=== PATIENT | male | born 1960 | race Caucasian/White ===

== ENCOUNTER 2017-02-16 07:00 | Emergency (ER) | payer MEDICARE, OTHER ==
[~2017-02-16 07:00] MED LIST: ACET-704 PO; ACET325T9 PO; CHOL100013 PO; CLON0.5T3 PO; CYAN10005 PO; DIVA500T17 PO; DIVA500T4 PO; FINA5TAB4 PO; FLUT9.9S NS; FOLI1TAB16 PO; GEMF600T3 PO; LEVE500T56 PO; LEVE500T6 PO; MIDO10TA PO; MOME110A2 IH; OMEP20TA8 PO; PREG225C PO; TAMS0.4C2 PO; [UNRECOGNIZED DRUG - REMARK]
[2017-02-16] MEDS ORDERED: LIDOCAINE 2% VISCOUS 15 ML SOLUTION. SWSW ONE (07:30)
[2017-02-16 07:38] LABS: NEGATIVE OBC STREP NEG; POSITIVE OBC STREP POS
[2017-02-16] MEDS ORDERED: ACET-704 PO (08:12)
[2017-02-16] MEDS ORDERED: CYCL10TA2 PO (08:12)
[2017-02-16] MEDS ORDERED: CETI10TA22 PO (08:12)
--- NOTE | 2017-02-16 08:12 | PHYS DOC ---
Past Medical History Past Medical History: Asthma, GERD, High Cholesterol, Seizure Additional Past Medical Histor: MR,NEUTROPENIA, Past Surgical History: Other Additional Past Surgical Histo: dental Alcohol Use: None Drug Use: None Adult General Chief Complaint Chief Complaint: BACK PAIN - NO INJURY [facility] HPI Patient is a 56 year old male who presents with history of diabetes type II, hypertension, seizures, CAD, who presents today with sore throat for 3 months and low back pain that began this morning. Patient states he has a flat mattress and this causes him a lot of back pain. Patient states he does not have any money to buy a new mattress in bed. Patient denies any trauma. Patient denies pain radiating to bilateral lower extremities. Denies any loss of bowel bladder function. He states his pain is worse when he turns around. Review of Systems Review of Systems Constitutional: Denies fever or chills [] Eyes: Denies change in visual acuity, redness, or eye pain [] HENT: sore throat [] Respiratory: Denies cough or shortness of breath [] Cardiovascular: No additional information not addressed in HPI [] GI: Denies abdominal pain, nausea, vomiting, bloody stools or diarrhea [] : Denies dysuria or hematuria [] Musculoskeletal: back pain Integument: Denies rash or skin lesions [] Neurologic: Denies headache, focal weakness or sensory changes [] Endocrine: Denies polyuria or polydipsia [] Current Medications Current Medications Current Medications Medications (Trade) Dose Ordered Sig/Chepe Start Time Stop Time Status Last Admin Dose Admin Lidocaine HCl (Viscous Lidocaine) 15 ml 1X ONCE 02/16/17 07:30 02/16/17 07:31 DC 02/16/17 07:25 15 ML Allergies Allergies Allergies Coded Allergies Type Severity Reaction Last Updated Verified No Known Drug Allergies 04/19/14 No Physical Exam Physical Exam Constitutional: Well developed, well nourished, no acute distress, non-toxic appearance. [] HENT: Normocephalic, atraumatic, bilateral external ears normal, oropharynx moist, no oral exudates, nose normal. [] Eyes: PERRLA, EOMI, conjunctiva normal, no discharge. [] Neck: Normal range of motion, no tenderness, supple, no stridor. [] Cardiovascular:Heart rate regular rhythm, no murmur [] Lungs & Thorax: Bilateral breath sounds clear to auscultation [] Abdomen: Bowel sounds normal, soft, no tenderness, no masses, no pulsatile masses. [] Skin: Warm, dry, no erythema, no rash. [] Back: Diffuse paraspinal muscle tenderness to the right lower lumbar spine, no midline lumbar spine tenderness, no CVA tenderness. [] Extremities: No tenderness, no cyanosis, no clubbing, ROM intact, no edema. [] Neurologic: Alert and oriented X 3, normal motor function, normal sensory function, no focal deficits noted. [] Psychologic: Affect normal, judgement normal, mood normal. [] Current Patient Data Vital Signs Vital Signs Date Time Temp Pulse Resp B/P (MAP) Pulse Ox O2 Delivery O2 Flow Rate FiO2 02/16/17 07:04 98.0 61 18 115/56 (75) 95 Room Air 98.0 Lab Values Laboratory Tests Test 02/16/17 07:19 Group A Streptococcus Rapid Negative (NEGATIVE) EKG EKG [] Radiology/Procedures Radiology/Procedures [] Course & Med Decision Making Course & Med Decision Making Pertinent Labs and Imaging studies reviewed. (See chart for details) This is a 56-year-old male patient who presents today for low back pain due to his mattress and bed. Recommended getting a new mattress. Patient states he cannot afford one recommended adjusting the bed and mattress including flipping it if possible. Recommended heat for his back. He has also had a sore throat for 3 months. Negative rapid strep. Discharged with Tylenol 3 and cyclobenzaprine. Saltwater gargles recommended. Zyrtec also recommended. Follow- up with PCP in one week. Dragon Disclaimer Dragon Disclaimer This electronic medical record was generated, in whole or in part, using a voice recognition dictation system. Departure Departure Impression: Primary Impression: Viral pharyngitis Additional Impression: Back pain Disposition: HOME, SELF-CARE Condition: STABLE Referrals: EDIE MANUEL (PCP) follow up with your doctor in one week Patient Instructions: Back Pain, Adult, Viral Pharyngitis Additional Instructions: You were seen for low back pain and sore throat. We highly recommend you adjust or get a new mattress or bed. We sent you home with pain medicine and muscle relaxer. Use them as prescribed. Follow-up with your doctor in one week. Use salt water gurgles and take Zyrte it will help with the sore throat if it is due to seasonal allergies. Scripts Cetirizine Hcl (ZYRTEC) 10 Mg Tablet 1 TAB PO DAILY, #14 TAB 0 Refills Prov: AUGUSTO MEJIA APRN 02/16/17 Cyclobenzaprine Hcl (CYCLOBENZAPRINE HCL) 10 Mg Tablet 1 TAB PO TID, #30 TAB Prov: AUGUSTO MEJIA APRN 02/16/17 Acetaminophen With Codeine (TYLENOL WITH CODEINE #3 TABLET) 1 Each Tablet 1 TAB PO PRN Q6HRS Y for PAIN, #20 TAB Prov: AUGUSTO MEJIA APRN 02/16/17 Problem Qualifiers Additional Impression: Back pain Back pain location: low back pain Chronicity: acute Back pain laterality: bilateral Sciatica presence: without sciatica Qualified Codes: M54.5 - Low back pain AUGUSTO MEJIA APRN Feb 16, 2017 08:12
[2017-02-16 08:29] VITALS: BP 99/60
== END 2017-02-16 08:30 | disposition home or self-care (01) ==
LOC: ER 07:00
DX: J02.8 Acute pharyngitis due to other specified organisms (principal); B97.89 Other viral agents as the cause of diseases classified elsewhere; M54.5 Low back pain; J45.909 Unspecified asthma, uncomplicated; K21.9 Gastro-esophageal reflux disease without esophagitis; E78.00 Pure hypercholesterolemia, unspecified; E11.9 Type 2 diabetes mellitus without complications; I10 Essential (primary) hypertension; I25.10 Atherosclerotic heart disease of native coronary artery without angina pectoris
CPT/HCPCS: 87070; 87880; 99284

== ENCOUNTER 2017-03-23 14:23 | Emergency (ER) | payer MEDICARE ==
[~2017-03-23 14:23] MED LIST changes: +CETI10TA22 PO; +CYCL10TA2 PO
[2017-03-23 15:05] LABS: BASO % 0 % (0-3); EOS % 0 % (0-3); HEMATOCRIT 36.6 % (39.0-53.0); HEMOGLOBIN 12.3 g/dL (13.0-17.5); LYMPH # 1.3 x10^3/uL (1.0-4.8); LYMPH % 39 % (24-48); MEAN CORPUSCULAR HEMOGLOBIN 32 pg (25-35); MEAN CORPUSCULAR HGB CONC 34 g/dL (31-37); MEAN CORPUSCULAR VOLUME 96 fL (79-100); MONO % 24 % (0-9); NEUT % 36 % (31-73); PLATELET COUNT 127 x10^3/uL (140-400); RED BLOOD COUNT 3.79 x10^6/uL (4.30-5.70); RED CELL DISTRIBUTION WIDTH 15.9 % (11.5-14.5); WHITE BLOOD COUNT 3.2 x10^3/uL (4.0-11.0)
--- NOTE | 2017-03-23 15:10 | PHYS DOC ---
Past Medical History Past Medical History: Asthma, GERD, High Cholesterol, Seizure Additional Past Medical Histor: MR,NEUTROPENIA, Past Surgical History: Other Additional Past Surgical Histo: dental Alcohol Use: None Drug Use: None Adult General Chief Complaint Chief Complaint: SEIZURE HPI HPI Patient is a 56 year old male with history of seizures, as well as stimulator in place, according to [employer] he had 3 seizures yesterday and 2 today. Seizures described as being typical for the patient. Patient is also on medications for seizure prevention and is compliant with medications. No recent illnesses, no recent change in medication, no sick contacts. No reports of trauma. Prior to arrival to ED pt was discussed with Dr Main who recommended the patient come to the ED Review of Systems Review of Systems Constitutional: Denies fever or chills, no recent illness Eyes: Denies change in visual acuity, redness, or eye pain [] HENT: Denies nasal congestion or sore throat [] Respiratory: Denies cough or shortness of breath [] Cardiovascular: No chest pain, back pain, neck pain GI: Denies abdominal pain, nausea, vomiting, bloody stools or diarrhea [] : Denies dysuria or hematuria [] Musculoskeletal: Denies back pain or joint pain [] Integument: Denies rash or skin lesions [] Neurologic: Denies headache, focal weakness or sensory changes. Multiple seizures in the last 2 days Endocrine: Denies polyuria or polydipsia [] Current Medications Current Medications Current Medications Medications (Trade) Dose Ordered Sig/Chepe Start Time Stop Time Status Last Admin Dose Admin Acetaminophen (Tylenol) 500 mg 1X ONCE 03/23/17 16:15 03/23/17 16:17 DC 03/23/17 16:22 500 MG Levetiracetam 500 mg/Sodium Chloride 100 ml @ 500 mls/hr 1X ONCE 03/23/17 15:00 03/23/17 15:11 DC 03/23/17 15:27 500 MLS/HR Valproic Acid 500 mg/Sodium Chloride 55 ml @ 55 mls/hr 1X ONCE 03/23/17 15:30 03/23/17 16:29 DC 03/23/17 15:47 55 MLS/HR Allergies Allergies Allergies Coded Allergies Type Severity Reaction Last Updated Verified No Known Drug Allergies 03/23/17 No Physical Exam Physical Exam Constitutional: Well developed, well nourished, no acute distress, non-toxic appearance. [] HENT: Normocephalic, atraumatic, bilateral external ears normal, oropharynx moist, no oral exudates, nose normal. [] Eyes: PERRLA, EOMI, conjunctiva normal, no discharge. [] Neck: Normal range of motion, no tenderness, supple, no stridor. No LAD, no meningeal signs Cardiovascular:Heart rate regular rhythm, no murmur, normal perfusion, no signs of vascular insufficiency Lungs & Thorax: Bilateral breath sounds clear to auscultation, no tachypnea Abdomen: Bowel sounds normal, soft, no tenderness, no masses, no pulsatile masses. [] Skin: Warm, dry, no erythema, no rash. [] Back: No tenderness, no CVA tenderness. [] Extremities: No tenderness, no cyanosis, no clubbing, ROM intact, no edema. [] Neurologic: Alert and oriented X 3, normal motor function no focal deficits noted. [] Psychologic: Affect normal, judgement normal, mood normal. Patient cooperated with exam Current Patient Data Vital Signs Vital Signs Date Time Temp Pulse Resp B/P (MAP) Pulse Ox O2 Delivery O2 Flow Rate FiO2 03/23/17 16:00 90 20 128/65 (86) 97 Room Air 03/23/17 14:31 98.5 98.5 Lab Values Laboratory Tests Test 03/23/17 14:55 White Blood Count 3.2 x10^3/uL (4.0-11.0) L Red Blood Count 3.79 x10^6/uL (4.30-5.70) L Hemoglobin 12.3 g/dL (13.0-17.5) L Hematocrit 36.6 % (39.0-53.0) L Mean Corpuscular Volume 96 fL (79-100) Mean Corpuscular Hemoglobin 32 pg (25-35) Mean Corpuscular Hemoglobin Concent 34 g/dL (31-37) Red Cell Distribution Width 15.9 % (11.5-14.5) H Platelet Count 127 x10^3/uL (140-400) L Neutrophils (%) (Auto) 36 % (31-73) Lymphocytes (%) (Auto) 39 % (24-48) Monocytes (%) (Auto) 24 % (0-9) H Eosinophils (%) (Auto) 0 % (0-3) Basophils (%) (Auto) 0 % (0-3) Neutrophils # (Auto) 1.2 x10^3uL (1.8-7.7) L Lymphocytes # (Auto) 1.3 x10^3/uL (1.0-4.8) Monocytes # (Auto) 0.8 x10^3/uL (0.0-1.1) Eosinophils # (Auto) 0.0 x10^3/uL (0.0-0.7) Basophils # (Auto) 0.0 x10^3/uL (0.0-0.2) Segmented Neutrophils % 40 % (35-66) Band Neutrophils % 4 % (0-9) Lymphocytes % 36 % (24-48) Monocytes % 20 % (0-10) H Platelet Estimate Decreased (ADEQUATE) Anisocytosis Slight Urine Collection Type Unknown Urine Color Adia Urine Clarity Clear Urine pH 5.5 Urine Specific [place] >=1.030 Urine Protein 30 mg/dL (NEG-TRACE) Urine Glucose (UA) Negative mg/dL (NEG) Urine Ketones (Stick) Negative mg/dL (NEG) Urine Blood Negative (NEG) Urine Nitrite Negative (NEG) Urine Bilirubin Small (NEG) Urine Urobilinogen Dipstick 1.0 mg/dL (0.2 mg/dL) Urine Leukocyte Esterase Negative (NEG) Urine RBC 0 /HPF (0-2) Urine WBC Occ /HPF (0-4) Urine Squamous Epithelial Cells Few /LPF Urine Bacteria 0 /HPF (0-FEW) Urine Hyaline Casts Few /HPF Urine Mucus Marked /LPF Sodium Level 140 mmol/L (136-145) Potassium Level 3.5 mmol/L (3.5-5.1) Chloride Level 101 mmol/L (98-107) Carbon Dioxide Level 30 mmol/L (21-32) Anion Gap 9 (6-14) Blood Urea Nitrogen 16 mg/dL (8-26) Creatinine 0.7 mg/dL (0.7-1.3) Estimated GFR (Cockcroft-Gault) 117.5 BUN/Creatinine Ratio 23 (6-20) H Glucose Level 136 mg/dL (70-99) H Calcium Level 9.0 mg/dL (8.5-10.1) Total Bilirubin 0.8 mg/dL (0.2-1.0) Aspartate Amino Transferase (AST) 24 U/L (15-37) Alanine Aminotransferase (ALT) 20 U/L (16-63) Alkaline Phosphatase 53 U/L (46-116) Total Protein 7.6 g/dL (6.4-8.2) Albumin 3.7 g/dL (3.4-5.0) Albumin/Globulin Ratio 0.9 (1.0-1.7) L Valproic Acid Level 58 mcg/mL (50-100) Valproic Acid Last Dose Date 03/23/17 Valproic Acid Last Dose Time 0800 Laboratory Tests 03/23/17 14:55 Laboratory Tests 03/23/17 14:55 EKG EKG SR, 95, no stemi, EP interpretation at 1516[] Radiology/Procedures Radiology/Procedures [] Course & Med Decision Making Course & Med Decision Making Pertinent Labs and Imaging studies reviewed. (See chart for details) Pt discussed with Dr Alva (and he discussed with Dr Main) . They' agree to give the patient an extra dose of Keppra and valproic acid Endocet with the patient in the ED, if no more seizure activity is observed the patient can be discharged back to his home. 1803 I reevaluated the patient and the patient is found to be in no distress, vital signs are unremarkable, I explained plan to the patient and the [employer] there are no reservations about being discharged home. [] Dragon Disclaimer Dragon Disclaimer This electronic medical record was generated, in whole or in part, using a voice recognition dictation system. Departure Departure Impression: Primary Impression: Seizure Disposition: 01 HOME, SELF-CARE Condition: STABLE Referrals: EDIE MANUEL (PCP) RAFAEL MAIN MD Patient Instructions: Seizure, Adult Additional Instructions: please follow up with your pcp and neurologist regarding this ED visit in 2-4 days. Please let them know there is a keppra level pending. Beth TURK MD Mar 23, 2017 15:10
[2017-03-23 15:13] LABS: CREATININE 0.7 mg/dL (0.7-1.3); GFR 117.5; POTASSIUM 3.5 mmol/L (3.5-5.1)
[2017-03-23 15:19] LABS: ALBUMIN 3.7 g/dL (3.4-5.0); ALBUMIN/GLOBULIN RATIO 0.9 (1.0-1.7); TOTAL BILIRUBIN 0.8 mg/dL (0.2-1.0); TOTAL PROTEIN 7.6 g/dL (6.4-8.2)
--- NOTE | 2017-03-23 15:21 | EKG ---
[facility] [address] [place] [address] Test Date: 2017-03-23 Test Time: 15:14:57 Pat Name: ISABELA VANCE Department: Room: Gender: M Inspector Mechanical: : [id number] Requested By: Beth TURK Order Number: [id number] Reading MD: Donavan Pan Measurements Intervals [place] Rate: 95 P: 39 AR: 156 QRS: 31 QRSD: 74 T: 46 QT: 340 QTc: 430 Interpretive Statements SINUS RHYTHM Electronically Signed On 03-25-2017 15:04:41 CDT by Donavan Pan
[2017-03-23] MEDS ORDERED: VALPROIC ACID (AS SODIUM SALT) 500 MG in IV NORMAL SALINE 50ML 50 ML IV ONE (15:30)
[2017-03-23 15:45] LABS: ANISOCYTOSIS SLIGHT; PLT ESTIMATE DECREASED (ADEQUATE)
[2017-03-23 16:04] LABS: BILIRUBIN,URINE SMALL (NEG); GLUCOSE,URINE NEGATIVE (NEG); NITRITE,URINE NEGATIVE (NEG); PH,URINE 5.5; PROTEIN,URINE 30 mg/dL (NEG-TRACE)
[2017-03-23 16:12] LABS: BACTERIA,URINE 0 /HPF (0-FEW); RBC,URINE 0 /HPF (0-2); SQUAMOUS EPITHELIAL CELL,UR FEW /LPF; WBC,URINE OCC /HPF (0-4)
[2017-03-23] MEDS ORDERED: ACETAMINOPHEN 500 MG TABLET PO ONE (16:15)
[2017-03-23 18:02] VITALS: BP 120/62
== END 2017-03-23 18:10 | disposition home or self-care (01) ==
LOC: ER 14:23
DX: R56.9 Unspecified convulsions (principal); K21.9 Gastro-esophageal reflux disease without esophagitis; E78.00 Pure hypercholesterolemia, unspecified; J45.909 Unspecified asthma, uncomplicated
CPT/HCPCS: 36415; 80053; 80164; 81001; 85007; 85027; 93005; 96365; 96367; 99285; J1953

== ENCOUNTER 2017-09-19 17:41 | Emergency (ER) | payer MEDICARE ==
[2017-09-19] MEDS: IBUPROFEN 400 MG TABLET. PO (18:31)
== END 2017-09-19 19:25 | disposition home or self-care (01) ==
LOC: ER 17:41
DX: G40.909 Epilepsy, unspecified, not intractable, without status epilepticus (principal); E78.00 Pure hypercholesterolemia, unspecified; K21.9 Gastro-esophageal reflux disease without esophagitis; J44.9 Chronic obstructive pulmonary disease, unspecified
CPT/HCPCS: 99284

== ENCOUNTER → 2017-10-09 | Outpatient (CLI) | payer MEDICARE, OTHER | END | disposition home or self-care (01) | LOC: KCIC CT 11:56 | DX: M54.2 Cervicalgia (principal) | CPT/HCPCS: 70490 ==

== ENCOUNTER 2018-03-12 15:42 | Emergency (ER) | payer MEDICARE, OTHER ==
[2018-03-12] MEDS: HYDROcodone/APAP 7.5/325MG 1 TAB TABLET PO (19:19)
== END 2018-03-12 21:00 | disposition home or self-care (01) ==
LOC: ER 15:42
DX: G40.909 Epilepsy, unspecified, not intractable, without status epilepticus (principal); M25.461 Effusion, right knee; F31.9 Bipolar disorder, unspecified; K21.9 Gastro-esophageal reflux disease without esophagitis; E78.00 Pure hypercholesterolemia, unspecified; J44.9 Chronic obstructive pulmonary disease, unspecified
CPT/HCPCS: 29505; 73564; 73700; 99284-25

== ENCOUNTER 2018-04-07 12:35 | Emergency (ER) | payer MEDICARE, OTHER ==
[~2018-04-07] VITALS: Ht 152.4 cm; Wt 80.7 kg
[~2018-04-07 12:35] MED LIST changes: +CLON0.5T11 PO; -CLON0.5T3 PO; +HYDR-971 PO; +IBUP-1060 PO
--- NOTE | 2018-04-07 13:26 | PHYS DOC ---
Past Medical History Past Medical History: Anemia, Asthma, Bipolar, COPD, GERD, High Cholesterol, Seizure Additional Past Medical Histor: MR,NEUTROPENIA, Past Surgical History: Cholecystectomy, Other Additional Past Surgical Histo: dental Alcohol Use: None Drug Use: None Adult General Chief Complaint Chief Complaint: OTHER COMPLAINTS [facility] HPI Patient is a 57 year old male with a history of MR presents to the ED complaining of neck pain 1 week. Patient lives in a residential with other residents. Patient was brought to the ED because he is complaining of neck pain. Patient states that his bed at home is very hard and it causes him to have neck pain. States he has taken Tylenol at home. Describes the pain as sharp. Rates the pain as 6 out of 10. Staff at the residential states he may have had a seizure. Patient has never had a seizure in the past. Nobody witnessed a seizure. EMS states on arrival patient is alert and oriented and complaining of neck pain. Denied injury. Patient denies seizure, chest pain, shortness of breath, photophobia, fever, headache, vision changes, nausea/ vomiting, abdominal pain, injury, weakness, paresthesias or syncope. Review of Systems Review of Systems Constitutional: Denies fever or chills [] Eyes: Denies change in visual acuity, redness, or eye pain [] HENT: Denies nasal congestion or sore throat [] Respiratory: Denies cough or shortness of breath [] Cardiovascular: No additional information not addressed in HPI [] GI: Denies abdominal pain, nausea, vomiting, bloody stools or diarrhea [] : Denies dysuria or hematuria [] Musculoskeletal: Complains of neck pain. Denies back pain or joint pain [] Integument: Denies rash or skin lesions [] Neurologic: Denies headache, focal weakness or sensory changes [] All other systems were reviewed and found to be within normal limits, except as documented in this note. Current Medications Current Medications Current Medications Medications (Trade) Dose Ordered Sig/Chepe Start Time Stop Time Status Last Admin Dose Admin Acetaminophen/ Hydrocodone Bitart (Lortab 5/325) 1 tab 1X ONCE 04/07/18 13:30 04/07/18 13:31 DC 04/07/18 13:58 1 TAB Allergies Allergies Allergies Coded Allergies Type Severity Reaction Last Updated Verified No Known Drug Allergies 03/23/17 No Physical Exam Physical Exam Constitutional: Well developed, well nourished, no acute distress, non-toxic appearance. [] HENT: Normocephalic, atraumatic, bilateral external ears normal, oropharynx moist, no oral exudates, nose normal. [] Eyes: PERRLA, EOMI, conjunctiva normal, no discharge. [] Neck: Normal range of motion, no tenderness, supple, no stridor. [] no nuchal rigidity. Cardiovascular:Heart rate regular rhythm, no murmur [] Lungs & Thorax: Bilateral breath sounds clear to auscultation [] Abdomen: Bowel sounds normal, soft, no tenderness, no masses, no pulsatile masses. [] Skin: Warm, dry, no erythema, no rash. [] Back: No tenderness, no CVA tenderness. [] Extremities: No tenderness, no cyanosis, no clubbing, ROM intact, no edema. [] Neurologic: Alert and oriented X 3, normal motor function, normal sensory function, no focal deficits noted. [] Psychologic: Affect normal, judgement normal, mood normal. [] Current Patient Data Vital Signs Vital Signs Date Time Temp Pulse Resp B/P (MAP) Pulse Ox O2 Delivery O2 Flow Rate FiO2 04/07/18 13:58 16 99 Room Air 04/07/18 12:35 97.9 74 118/65 (82) 97.9 EKG EKG [] Radiology/Procedures Radiology/Procedures [] Course & Med Decision Making Course & Med Decision Making Pertinent Labs and Imaging studies reviewed. (See chart for details) []Normal exam. No injury. Patient has full range of motion. Patient's pain improved with medicine given in the ED. Patients disease case manager at bedside. States patient has same symptoms of neck pain in the past. Discussed symptomatic treatment at home. States he is feeling much better. Discussed follow-up with orthopedics if pain persists. Provided contact information/education. Patient transferred back to residential. His cussed reasons to return to the ED. Patient verbalizes understanding. Dragon Disclaimer Dragon Disclaimer This electronic medical record was generated, in whole or in part, using a voice recognition dictation system. Departure Departure Impression: Primary Impression: Neck pain Disposition: HOME, SELF-CARE Condition: IMPROVED Referrals: EDIE MANUEL (PCP) AMELIA CAI MD Patient Instructions: Muscle Strain ALEKSANDAR DUARTE Apr 07, 2018 13:26
[2018-04-07] MEDS ORDERED: HYDROcodone/APAP 5/325MG 1 TAB TABLET PO ONE (13:30)
[2018-04-07 13:37] VITALS: BP 119/68
== END 2018-04-07 14:10 | disposition home or self-care (01) ==
LOC: ER 12:35
DX: M54.2 Cervicalgia (principal); F31.9 Bipolar disorder, unspecified; J44.9 Chronic obstructive pulmonary disease, unspecified; K21.9 Gastro-esophageal reflux disease without esophagitis; E78.00 Pure hypercholesterolemia, unspecified; Z86.2 Personal history of diseases of the blood and blood-forming organs and certain disorders involving the immune mechanism
CPT/HCPCS: 99284

== ENCOUNTER 2018-06-11 16:33 | Inpatient (IN) | payer MEDICARE, OTHER ==
[~2018-06-11] VITALS: Ht 172.7 cm; Wt 68.7 kg
[~2018-06-11 16:33] MED LIST changes: +BISA5TAB4 PO; +CITA10TA4 PO; +DEXT15DR5 EACHEYE; +FLUT10.6 IH; -GEMF600T3 PO; +GEMF600T4 PO; +MV-M1TAB8 PO; +SENN-37 PO
[2018-06-11] MEDS ORDERED: IV NORMAL SALINE 500ML BAG 500 ML IV ONE (17:15)
[2018-06-11 17:34] LABS: BASO % 0 % (0-3); EOS % 0 % (0-3); HEMATOCRIT 33.8 % (39.0-53.0); HEMOGLOBIN 11.8 g/dL (13.0-17.5); LYMPH # 0.7 x10^3/uL (1.0-4.8); LYMPH % 23 % (24-48); MEAN CORPUSCULAR HEMOGLOBIN 33 pg (25-35); MEAN CORPUSCULAR HGB CONC 35 g/dL (31-37); MEAN CORPUSCULAR VOLUME 93 fL (79-100); MONO # 0.7 x10^3/uL (0.0-1.1); MONO % 22 % (0-9); NEUT # 1.7 x10^3uL (1.8-7.7); NEUT % 54 % (31-73); PLATELET COUNT 191 x10^3/uL (140-400); RED BLOOD COUNT 3.62 x10^6/uL (4.30-5.70); RED CELL DISTRIBUTION WIDTH 16.7 % (11.5-14.5); WHITE BLOOD COUNT 3.1 x10^3/uL (4.0-11.0)
--- NOTE | 2018-06-11 17:36 | PHYS DOC ---
Past Medical History Past Medical History: Anemia, Asthma, Bipolar, COPD, GERD, High Cholesterol, Seizure Additional Past Medical Histor: MR,NEUTROPENIA, Past Surgical History: Cholecystectomy, Other Additional Past Surgical Histo: dental Alcohol Use: None Drug Use: None Adult General Chief Complaint Chief Complaint: ALTERED MENTAL STATUS HPI HPI Patient is a 58 year old male who presents with change in mental status. Patient is referred to this emergency department from a care facility where he lives. He does have a known history of extensive frequent clonic seizures. He is taking multiple medications to prevent these. Today, [facility] staff reports that the patient was found to be slumped in a chair and with some depressed mental status compared to his baseline. The patient is reportedly new at this particular facility and they are not very familiar with the patient. Patient was referred to the emergency department. On arrival to the ER, the patient is somnolent and difficult to arouse. He does not follow commands but is protecting his airway. His blood glucose is in the 140s. There is no additional history available. There are no signs of trauma on his physical exam. Patient is wearing a protective helmet on arrival to the ER. Review of Systems Review of Systems No ROS is available from this patient as he has depressed mental status on arrival. All other systems were reviewed and found to be within normal limits, except as documented in this note. Current Medications Current Medications Current Medications Medications (Trade) Dose Ordered Sig/Chepe Start Time Stop Time Status Last Admin Dose Admin Ondansetron HCl (Zofran) 4 mg PRN Q8HRS PRN 06/11/18 18:30 06/12/18 18:29 Sodium Chloride 1,000 ml @ 100 mls/hr Q10H 06/11/18 19:00 06/12/18 18:59 Allergies Allergies Allergies Coded Allergies Type Severity Reaction Last Updated Verified No Known Drug Allergies 03/23/17 No Physical Exam Physical Exam Constitutional: Well developed, well nourished HENT: Normocephalic, atraumatic Eyes: PERRLA Neck: supple Cardiovascular:Heart rate regular rhythm, no murmur Lungs & Thorax: Bilateral breath sounds clear to auscultation Abdomen: Bowel sounds normal, soft, no tenderness Skin: Warm, dry, no erythema, no rash Extremities: No trauma. No edema Neurologic: Resting with eyes closed, he localizes pain, he is protecting his airway, no facial asymmetry, non-verbal on arrival Current Patient Data Vital Signs Vital Signs Date Time Temp Pulse Resp B/P (MAP) Pulse Ox O2 Delivery O2 Flow Rate FiO2 06/11/18 18:31 84 26 97 06/11/18 16:33 97.8 152/82 (105) Room Air 97.8 Lab Values Laboratory Tests Test 06/11/18 16:50 06/11/18 18:11 White Blood Count 3.1 x10^3/uL (4.0-11.0) L Red Blood Count 3.62 x10^6/uL (4.30-5.70) L Hemoglobin 11.8 g/dL (13.0-17.5) L Hematocrit 33.8 % (39.0-53.0) L Mean Corpuscular Volume 93 fL (79-100) Mean Corpuscular Hemoglobin 33 pg (25-35) Mean Corpuscular Hemoglobin Concent 35 g/dL (31-37) Red Cell Distribution Width 16.7 % (11.5-14.5) H Platelet Count 191 x10^3/uL (140-400) Neutrophils (%) (Auto) 54 % (31-73) Lymphocytes (%) (Auto) 23 % (24-48) L Monocytes (%) (Auto) 22 % (0-9) H Eosinophils (%) (Auto) 0 % (0-3) Basophils (%) (Auto) 0 % (0-3) Neutrophils # (Auto) 1.7 x10^3uL (1.8-7.7) L Lymphocytes # (Auto) 0.7 x10^3/uL (1.0-4.8) L Monocytes # (Auto) 0.7 x10^3/uL (0.0-1.1) Eosinophils # (Auto) 0.0 x10^3/uL (0.0-0.7) Basophils # (Auto) 0.0 x10^3/uL (0.0-0.2) Segmented Neutrophils % 58 % (35-66) Band Neutrophils % 3 % (0-9) Lymphocytes % 20 % (24-48) L Monocytes % 19 % (0-10) H Toxic Granulation Mod Toxic Vacuolation Slight Platelet Estimate Adequate (ADEQUATE) Polychromasia Slight Anisocytosis Slight Sodium Level 136 mmol/L (136-145) Potassium Level 4.1 mmol/L (3.5-5.1) Chloride Level 100 mmol/L (98-107) Carbon Dioxide Level 23 mmol/L (21-32) Anion Gap 13 (6-14) Blood Urea Nitrogen 9 mg/dL (8-26) Creatinine 0.6 mg/dL (0.7-1.3) L Estimated GFR (Cockcroft-Gault) 139.4 Glucose Level 144 mg/dL (70-99) H Lactic Acid Level 1.5 mmol/L (0.4-2.0) Calcium Level 9.4 mg/dL (8.5-10.1) Total Bilirubin 0.7 mg/dL (0.2-1.0) Direct Bilirubin 0.1 mg/dL (0.0-0.2) Aspartate Amino Transferase (AST) 24 U/L (15-37) Alanine Aminotransferase (ALT) 14 U/L (16-63) L Alkaline Phosphatase 53 U/L (46-116) Total Protein 7.8 g/dL (6.4-8.2) Albumin 3.7 g/dL (3.4-5.0) Valproic Acid Level 103 mcg/mL (50-100) H Valproic Acid Last Dose Date 06/11/18 Valproic Acid Last Dose Time 0700 Urine Collection Type U cath Urine Color Yellow Urine Clarity Clear Urine pH 7.0 Urine Specific [place] 1.010 Urine Protein Negative mg/dL (NEG-TRACE) Urine Glucose (UA) Negative mg/dL (NEG) Urine Ketones (Stick) Negative mg/dL (NEG) Urine Blood Negative (NEG) Urine Nitrite Negative (NEG) Urine Bilirubin Negative (NEG) Urine Urobilinogen Dipstick 1.0 mg/dL (0.2 mg/dL) Urine Leukocyte Esterase Negative (NEG) Urine RBC 0 /HPF (0-2) Urine WBC 0 /HPF (0-4) Urine Squamous Epithelial Cells Occ /LPF Urine Bacteria 0 /HPF (0-FEW) Urine Opiates Screen Neg (NEG) Urine Methadone Screen Neg (NEG) Urine Barbiturates Neg (NEG) Urine Phencyclidine Screen Neg (NEG) Urine Amphetamine/Methamphetamine Neg (NEG) Urine Benzodiazepines Screen Neg (NEG) Urine Cocaine Screen Neg (NEG) Urine Cannabinoids Screen Neg (NEG) Urine Ethyl Alcohol Neg (NEG) Laboratory Tests 06/11/18 16:50 Laboratory Tests 06/11/18 16:50 EKG EKG [] Radiology/Procedures Radiology/Procedures CXR: negative CT head: no acute findings Course & Med Decision Making Course & Med Decision Making Pertinent Labs and Imaging studies reviewed. (See chart for details) Patient is evaluated shortly after arrival to his room. He cannot provide any medical history or review of systems as he is nonverbal. He does have a history of seizures and his blood glucose level is stable. Review of the electronic medical record reveals that the patient was recently admitted and was found to have a fever and some bacteremia. The bacteremia was thought ultimately to be secondary to contamination and the fever thought secondary to seizure activity. The patient was treated with vancomycin for 5 days and discharge home without further antibiotics. Given this history, the patient will receive some repeat blood cultures this evening and chest x-ray. Will repeat scan of the head. 18:30: Some additional history is available early as the patient's primary caregiver is at the bedside. The patient does arouse more easily compared to admission but continues to be somnolent overall. According to his caregiver, the patient normally would not have postictal periods lasting this long. This one has been somewhere between 4 and 5 hours. The patient did not have witnessed seizure activity. He was found to be in this state in the halfway where he normally lives. Labs were completed. The patient does not have leukocytosis. Depakote level is mildly elevated above normal range. I spoke to the patient's primary physician, Dr. Colón. The patient will be admitted to the intensive care for close observation. Neurology consult is requested from Dr. Chacon. Keppra level is added to lab panel. PATIENT'S CARGIVER INFORMATION: LIBIA AGUERO [phone] She does request notification about the patient's dx and disposition. Dragon Disclaimer Dragon Disclaimer This electronic medical record was generated, in whole or in part, using a voice recognition dictation system. Departure Departure Referrals: EDIE MANUEL (PCP) NEDRA KUO DO Jun 11, 2018 17:36
[2018-06-11 17:39] LABS: ANION GAP 13 (6-14); BLOOD UREA NITROGEN 9 mg/dL (8-26); CALCIUM 9.4 mg/dL (8.5-10.1); CARBON DIOXIDE 23 mmol/L (21-32); CHLORIDE 100 mmol/L (98-107); CREATININE 0.6 mg/dL (0.7-1.3); GFR 139.4; GLUCOSE 144 mg/dL (70-99); POTASSIUM 4.1 mmol/L (3.5-5.1); SODIUM 136 mmol/L (136-145)
--- NOTE | 2018-06-11 17:40 | RAD ---
CT head without intravenous contrast History: Altered mental status. Seizures. Comparison: CT head May 20, 2018. Technique: Axial images are obtained of the head from the skull base through the vertex without IV contrast. Exposure: One or more of the following individualized dose reduction techniques were utilized for this examination: 1. Automated exposure control 2. Adjustment of the mA and/or kV according to patient size 3. Use of iterative reconstruction technique Findings: There is motion artifact at many levels which could obscure significant abnormality. The ventricles are appropriate in size, shape, and location for the patient's age. No obvious intracranial mass, mass-effect, midline shift, hemorrhage or obvious acute infarction is identified. Basilar cisterns are patent. Bone windows demonstrate no acute calvarial abnormality. There is subtotal opacification right maxillary sinus. Mild left maxillary sinus disease is seen.. Impression: 1. Limited by motion. 2. No acute intracranial process. Please note that CT can be relatively insensitive to acute ischemic infarction for up to 24 hours after symptom onset. 3. Paranasal sinus disease. Electronically signed by: Noble Reyes MD (06/11/2018 5:37 PM) [facility]
[2018-06-11 17:42] LABS: ALBUMIN 3.7 g/dL (3.4-5.0); ALK PHOS 53 U/L (46-116); ALT (SGPT) 14 U/L (16-63); AST (SGOT) 24 U/L (15-37); DIRECT BILIRUBIN 0.1 mg/dL (0.0-0.2); TOTAL BILIRUBIN 0.7 mg/dL (0.2-1.0); TOTAL PROTEIN 7.8 g/dL (6.4-8.2)
[2018-06-11 17:49] LABS: VAL ACID 103 mcg/mL (50-100)
--- NOTE | 2018-06-11 18:09 | RAD ---
Exam: AP portable chest History: Altered mental status. Recent bacteremia. Comparison: May 20, 2018. Findings: The heart and mediastinal structures are within normal limits for size. Lungs are without infiltrate. No pleural effusion or pneumothorax is identified. Left vagal stimulator hardware can be seen. Impression: 1. No acute cardiopulmonary process. Electronically signed by: Noble Reyes MD (06/11/2018 6:06 PM) [facility]
[2018-06-11 18:24] LABS: BILIRUBIN,URINE NEGATIVE (NEG); CLARITY,URINE CLEAR; COLOR,URINE YELLOW; NITRITE,URINE NEGATIVE (NEG); PROTEIN,URINE NEGATIVE (NEG-TRACE)
[2018-06-11 18:29] LABS: BACTERIA,URINE 0 /HPF (0-FEW); RBC,URINE 0 /HPF (0-2); SQUAMOUS EPITHELIAL CELL,UR OCC /LPF; WBC,URINE 0 /HPF (0-4)
[2018-06-11 18:30] LABS: AMPHETAMINE/METHAMPHETAMINE NEG (NEG); BARBITURATES NEG (NEG); BENZODIAZEPINES NEG (NEG); CANNABINOIDS NEG (NEG); COCAINE NEG (NEG); METHADONE NEG (NEG); OPIATES NEG (NEG); PHENCYCLIDINE NEG (NEG)
[2018-06-11] MEDS ORDERED: ONDANSETRON PF 4 MG/2 ML VIAL. IV PRN (18:30)
[2018-06-11 18:48] LABS: % BANDS 3 % (0-9); % LYMPHS 20 % (24-48); % MONOS 19 % (0-10); % SEGS 58 % (35-66)
[2018-06-11 18:52] LABS: ANISOCYTOSIS SLIGHT; PLT ESTIMATE ADEQUATE (ADEQUATE); POLYCHROMASIA SLIGHT; TOXIC GRANULATION MOD; TOXIC VACUOLATION SLIGHT
[2018-06-11] MEDS: IV NORMAL SALINE 1000ML BAG 1,000 ML IV SCH (20:55)
[2018-06-11] MEDS ORDERED: DEXT1DRO8 OU (21:55)
[2018-06-11] MEDS ORDERED: CHOL10003 PO (21:55)
[2018-06-11 23:00] VITALS: BP 97/47
[2018-06-12 03:00] VITALS: BP 103/59
[2018-06-12 05:28] LABS: BASO % 0 % (0-3); EOS % 0 % (0-3); HEMOGLOBIN 10.6 g/dL (13.0-17.5); LYMPH # 1.1 x10^3/uL (1.0-4.8); LYMPH % 42 % (24-48); MEAN CORPUSCULAR HEMOGLOBIN 32 pg (25-35); MEAN CORPUSCULAR HGB CONC 34 g/dL (31-37); MEAN CORPUSCULAR VOLUME 93 fL (79-100); MONO # 0.5 x10^3/uL (0.0-1.1); MONO % 20 % (0-9); NEUT % 38 % (31-73); PLATELET COUNT 174 x10^3/uL (140-400); RED BLOOD COUNT 3.32 x10^6/uL (4.30-5.70); RED CELL DISTRIBUTION WIDTH 17.1 % (11.5-14.5); WHITE BLOOD COUNT 2.7 x10^3/uL (4.0-11.0)
[2018-06-12 05:42] LABS: CALCIUM 9.1 mg/dL (8.5-10.1); CREATININE 0.6 mg/dL (0.7-1.3); GFR 139.4; POTASSIUM 3.6 mmol/L (3.5-5.1)
[2018-06-12] MEDS: IV NORMAL SALINE 1000ML BAG 1,000 ML IV SCH (06:43)
[2018-06-12 07:00] VITALS: BP 100/61
[2018-06-12] MEDS ORDERED: BISACODYL 5 MG TABLET.DR. PO PRN (09:45)
[2018-06-12] MEDS ORDERED: ACETAMINOPHEN 325 MG TABLET. PO PRN (09:45)
--- NOTE | 2018-06-12 09:50 | PDOC ---
Provider Note Provider Note Pt seen.H&P dictated. #[id number]. TAMERA SNELL MD Jun 12, 2018 09:50
[2018-06-12] MEDS ORDERED: IBUPROFEN 400 MG TABLET. PO PRN (10:00)
[2018-06-12] MEDS: POLYVINYL ALCOHOL 1.4% OPHTH SOLUTION 15ML BOTTLE. OU SCH ×2 (10:00→13:00)
--- NOTE | 2018-06-12 10:54 | HP ---
ADMIT DATE: 06/11/2018 LOCATION: [facility]. REASON FOR ADMISSION TO THE HOSPITAL: Postictal, had a perfect prolonged postictal period after the seizure. The patient has refractory seizures on 3 medications, has seen Urology. HISTORY OF PRESENT ILLNESS: The patient is a 58-year-old male with history of seizures. He is on Depakote, Keppra, Lyrica. The patient also has a vagal nerve stimulator. He has been following with Dr. Roy. He lives in a longterm agency to a different agency and yesterday, he had a seizure. He was postictal for a long time after the seizure, so they were concerned, was brought to the hospital. The patient was still lethargic. In the Emergency Room, he had a CT scan, was negative, was admitted overnight for observation. His valproic acid was high at 103. Normal therapeutic range is 50-125. For seizures, it is 50-100 and other drug screen was negative. This morning, the patient is wide awake, back to his baseline and the patient is hungry. PAST MEDICAL HISTORY: The patient has history of seizures, last admitted less than a month ago for a similar episode. He also had positive blood cultures, but it was thought probably contamination. He has vagal nerve stimulator, COPD, bipolar, asthma, intellectual impairment, BPH, orthostatic hypotension. PAST SURGICAL HISTORY: Vagal nerve stimulator, gallbladder surgery, dental problem with surgeries. ALLERGIES: None. MEDICATIONS: Flovent, Asmanex, Tylenol, Dulcolax, Zyrtec, vitamin D, citalopram 10 mg daily, lorazepam 0.5 at bedtime, B12 1000 mcg daily, cyclobenzaprine 10 mg 3 times daily, Depakote 1000 mg twice a day, finasteride 5 mg daily, Flonase daily, Lopid 600 mg twice a day, hydrocodone q.6h., ibuprofen, Keppra 1500 twice a day, midodrine 10 mg 3 times daily, omeprazole 20 mg daily, Lyrica 225 mg daily, Flomax 1 daily. PERSONAL HISTORY: No history of smoking, alcohol, drug abuse. SOCIAL HISTORY: Lives in a longterm. There is a new agency took over his care recently. REVIEW OF SYMPTOMS: Denies any chest pain, shortness of breath. PHYSICAL EXAMINATION: GENERAL: The patient is comfortable, not in any distress. VITAL SIGNS: At the time of admission shows temperature 97, pulse 92, respirations 24, blood pressure 150/82, 98% on room air. HEENT: Head is atraumatic. Pupils equal. Oral cavity: No congestion. NECK: Supple. CHEST: Symmetrical. LUNGS: Clear. CARDIOVASCULAR: S1, S2. ABDOMEN: Soft, no mass palpable. The patient rest rt arm on the left clavicle most of the time. EXTERNAL GENITALIA: No Tom. RECTAL: Deferred. EXTREMITIES: No calf tenderness, no edema. NEUROLOGIC: Moving all extremities. No focal deficits noted. LABORATORY DATA: Shows a white count of 3, hemoglobin 12, platelets 791. Electrolytes show sodium 136, potassium 4.1, chloride 100, bicarbonate 23, BUN 9, creatinine 0.6. Lactic acid 1.5. LFTs were normal. Urine is negative. Toxicology: Valproic acid is 103, normal range is up to 100. Chest x-ray is negative. CT scan of the head was negative. Urine was negative. FINAL IMPRESSION: 1. Prolonged postictal state. 2. Has refractory seizures. The patient is already on 3 medications for seizures Depakote, Keppra, Lyrica and he also has a vagal nerve stimulator. 3. History of orthostatic hypotension. 4. Intellectual impairment. 5. Lives in a longterm. PLAN: At this time, the patient back to his baseline, waiting for Neurology to see if any adjustments will be made in the medications. Otherwise, he could be discharged home later today. TAMERA SNELL MD DR: RICHI/suha JOB#: [id number] / [id number] EDIE Manrique
[2018-06-12 11:00] VITALS: BP 116/64
[2018-06-12] MEDS ORDERED: PANTOPRAZOLE 40 MG TABLET.DR. PO SCH (11:30)
[2018-06-12] MEDS ORDERED: SENNOSIDES/DOCUSATE 8.6/50MG TABLET. PO SCH (12:00)
[2018-06-12] MEDS ORDERED: PREGABALIN 75 MG CAPSULE PO SCH (12:00)
[2018-06-12] MEDS ORDERED: FOLIC ACID 1 MG TABLET. PO SCH (12:00)
[2018-06-12] MEDS ORDERED: DIVALPROEX EXTENDED RELEASE 500 MG TAB.ER.24H. PO SCH (12:00)
[2018-06-12] MEDS ORDERED: CHOLECALCIFEROL (VITAMIN D3) 1,000 UNIT TABLET PO SCH (12:00)
[2018-06-12] MEDS ORDERED: TAMSULOSIN 0.4 MG CAP.ER.24H. PO SCH (12:00)
[2018-06-12] MEDS ORDERED: GEMFIBROZIL 600 MG TABLET. PO SCH (12:00)
[2018-06-12] MEDS ORDERED: MULTIVITAMIN with MINERAL TABLET. PO SCH (12:00)
[2018-06-12] MEDS ORDERED: FINASTERIDE 5 MG TABLET. PO SCH (12:00)
[2018-06-12] MEDS ORDERED: levETIRAcetam 500 MG TABLET PO SCH (12:00)
[2018-06-12] MEDS ORDERED: CITALOPRAM 10 MG TABLET. PO SCH (12:00)
[2018-06-12] MEDS ORDERED: CYANOCOBALAMIN (VITAMIN B-12) 1,000 MCG TABLET. PO SCH (12:00)
[2018-06-12] MEDS ORDERED: FLUTICASONE 50MCG/NASAL SPRAY 16GM BOTTLE. NS SCH (12:00)
[2018-06-12] MEDS ORDERED: MIDODRINE 5 MG TABLET PO SCH (13:00)
--- NOTE | 2018-06-12 14:58 | PDOC2 ---
NEUROLOGY CONSULT Date of Admission Date of Admission DATE: 06/12/18 TIME: 14:43 Reason for Consult Reason for Consult: IMPRESSION: Seizure. Metabolic encephalopathy. Neck pain. Fall. Mental deficiency. COPD. HLD. Pancytopenia. Anemia. Asthma. RECOMMENDATIONS/PLAN: Continue his home AEDs, Keppra, Depakote and Lyrica. VPA level 103, but no need to decrease dose. EEG. Cervical spine CT w/o contrast. Lab: see orders. FU with PCP. FU with Dr. Roy in Neurology Clinic. HISTORY OF THE PRESENT ILLNESS: 58-y-old male patient with Hx of seizure and has been treated with 3 AEDs including Keppra, Depakote and Lyrica. He was brought to [facility] due to mental status changes, slumped over the chair noted by his facility staff. The patient stated he did not know whether had a seizure there. No seizures since in the hospital. He returned to his baseline mentation. PAST MEDICAL HISTORY: Seizures, last admitted less than a month ago for a similar episode. COPD, bipolar, asthma, intellectual impairment, BPH, orthostatic hypotension. PAST SURGICAL HISTORY: Vagal nerve stimulator, gallbladder surgery, dental surgeries. ALLERGIES: NKDA. MEDICATIONS: Refer to [facility] HISTORY: Non contributory. SOCIAL HISTORY: Lives in a shelter. There is a new agency took over his care recently. Denies smoking, drinking, and illicit drug use. REVIEW OF SYSTEMS: Constitutional: No malnutrition, weight loss, cachexia. Head: No traumatic brain or head injury. Skin: No edema, or rash. Ear: No infection. Eyes: No vision loss or color blindness. Nose: No bleeding or purulent discharges. Hearing: No hearing decrease. Neck: No injury. Cardiac: HLD. Pulmonary: COPD. GI: No GI ulcer, GI bleeding. Urinary/genital: No dysuria, incontinence, urinary retention. Endocrinologic: No cousin face, craniofacial dysmorphism, polydactyly. Skeletomuscular: No muscular atrophy, deformity. Neurological: see HP. Psychiatric: Denies drug use/abuse. Otherwise, not [id number] review of systems. PHYSICAL EXAMINATION: General appearance is in no acute distress. HEENT: Normocephalic and nontraumatic. Eyes, nose, ears, and throat are unremarkable. Neck is supple. No lymphadenopathy. No crepitus. Cardiovascular: S1, S2, regular rate and rhythm. Pulmonary: Clear to auscultation bilaterally. Abdomen: Bowel sounds are positive. Extremities: No rash, lesions, or edema. No restriction of range of motion NEUROLOGICAL EXAMINATION: Awake. Not fully oriented to time, place and person. PERRL. EOMI. CN: no focal findings. Muscle tone: within normal. Muscle strength: 4+ DTR: brisky in UE and LE. Plantar reflex: Neutral response bilaterally Gait: not examined in chair. Sensory exam: no abnormal findings. No cerebellar signs elicited. F-T-N test fine.. Current Medications Current Medications Current Medications Sodium Chloride 500 ml @ 500 mls/hr 1X ONCE IV Last administered on at 18:29; Start 06/11/18 at 17:15; Stop 06/11/18 at 18:14; Status DC Ondansetron HCl (Zofran) 4 mg PRN Q8HRS PRN IV NAUSEA/VOMITING; Start at 18:30; Stop 06/12/18 at 18:29 Sodium Chloride 1,000 ml @ 100 mls/hr Q10H IV Last administered on 06/12/18at 06:43; Start 06/11/18 at 19:00; Stop 06/12/18 at 09:57; Status DC Acetaminophen (Tylenol) 650 mg PRN Q4HRS PRN PO PAIN; Start 06/12/18 at 09:45 Bisacodyl (Dulcolax Tab) 10 mg PRN DAILY PRN PO CONSTIPATION, 1ST CHOICE; Start 06/12/18 at 09:45 Vitamin D (Vitamin D3) 500 unit 3X/WEEK PO Last administered on 06/12/18at 11: 35; Start 06/12/18 at 12:00 Citalopram Hydrobromide (CeleXA) 10 mg DAILY PO Last administered on at 11:35; Start 06/12/18 at 12:00 Clonazepam (KlonoPIN) 0.5 mg HS PO ; Start 06/12/18 at 21:00 Cyanocobalamin (Vitamin B-12) 500 mcg DAILY PO Last administered on 06/12/18at 11:43; Start 06/12/18 at 12:00 Divalproex Sodium (Depakote Er) 1,000 mg BID PO Last administered on at 11:36; Start 06/12/18 at 12:00 Finasteride (Proscar) 5 mg DAILY PO Last administered on 06/12/18at 11:36; Start 06/12/18 at 12:00 Folic Acid (Folic Acid) 1 mg DAILY PO Last administered on 06/12/18at 11:34; Start 06/12/18 at 12:00 Gemfibrozil (Lopid) 600 mg BID PO Last administered on 06/12/18at 11:34; Start 06/12/18 at 12:00 Levetiracetam (Keppra) 1,500 mg BID PO Last administered on 06/12/18at 11:34; Start 06/12/18 at 12:00 Senna/Docusate Sodium (Senna Plus) 1 tab BID PO ; Start 06/12/18 at 12:00 Tamsulosin HCl (Flomax) 0.4 mg DAILY PO Last administered on 06/12/18at 11:38; Start 06/12/18 at 12:00 Artificial Tears (Artificial Tears) 1 drop QID OU ; Start 06/12/18 at 10:00 Fluticasone Propionate (Flonase) 2 spray DAILY NS Last administered on at 11:36; Start 06/12/18 at 12:00 Non-Formulary Medication (Fluticasone Propionate (Flovent 44MCG Hfa)) 1 puff BID IH ; Start 06/12/18 at 21:00; Status UNV Ibuprofen (Motrin) 800 mg PRN TID PRN PO INFLAMMATION; Start 06/12/18 at 10:00 Midodrine (Proamatine) 10 mg [id number] PO ; Start 06/12/18 at 13:00 Multivitamins (Thera M Plus) 1 tab DAILY PO Last administered on 06/12/18at 11: 35; Start 06/12/18 at 12:00 Pantoprazole Sodium (Protonix) 40 mg DAILYAC PO Last administered on at 11:34; Start 06/12/18 at 11:30 Pregabalin (Lyrica) 225 mg BID PO Last administered on 06/12/18at 11:34; Start 06/12/18 at 12:00 Budesonide (Pulmicort) 0.5 mg RTBID NEB ; Start 06/12/18 at 20:00 Active Scripts Active Ibuprofen 800 Mg Tablet 800 Mg PO PRN TID PRN take with food or milk to avoid upsetting stomach Depakote Er (Divalproex Sodium) 500 Mg Tab.er.24h 1,000 Mg PO BID Reported Vitamin D3 (Cholecalciferol (Vitamin D3)) 1,000 Unit Tablet 500 Unit PO 3X/WEEK Artificial Tears Drops (Dextran 70/Hypromellose/Pf) 1 Each Droperette 1 Drop OU QID Flovent 44MCG Hfa (Fluticasone Propionate) 10.6 Gm Aer.w.adap 1 Puff IH BID Citalopram Hbr (Citalopram Hydrobromide) 10 Mg Tablet 1 Tab PO DAILY Bisacodyl 5 Mg Tablet.dr 10 Mg PO DAILY PRN Theragran-M Premier 50+ Caplet (Mv-Mn/Fa/Coq10/Lycopene/Lutein) 1 Each Tablet 1 Each PO DAILY Senokot-S Tablet (Sennosides/Docusate Sodium) 1 Each Tablet 1 Tab PO BID Levetiracetam 500 Mg Tablet 1,500 Mg PO BID Tylenol (Acetaminophen) 325 Mg Tablet 2 Tab PO PRN Q4HRS PRN Clonazepam 0.5 Mg Tablet 0.5 Mg PO HS Midodrine Hcl 10 Mg Tablet 10 Mg PO TID Gemfibrozil 600 Mg Tablet 1 Tab PO BID Vitamin B-12 (Cyanocobalamin (Vitamin B-12)) 1,000 Mcg Tablet 500 Mcg PO DAILY Folic Acid 1 Mg Tablet 1 Tab PO DAILY Flonase Allergy Relief (Fluticasone Propionate) 9.9 Ml Roxana.susp 2 Sprays NS DAILY Tamsulosin Hcl 0.4 Mg Cap.er.24h 1 Cap PO DAILY Finasteride 5 Mg Tablet 1 Tab PO DAILY Lyrica (Pregabalin) 225 Mg Capsule 225 Mg PO BID 30 Days Omeprazole 20 Mg Tablet.dr 1 Tab PO DAILY Allergies Allergies: Allergies Coded Allergies Type Severity Reaction Last Updated Verified No Known Drug Allergies 03/23/17 No ROS Review of System The patient denies any associated fevers, chills, headache, ear pain, rhinorrhea , sore throat, stiff neck, productive cough, chest pain, shortness of breath, back or flank pain, abdominal pain, nausea, vomiting, diarrhea, constipation, dysuria, rash, numbness, weakness, tingling, incontinence, difficulty ambulating, or diaphoresis. Physical Exam Physical Exam General: Well developed, well nourished, no acute distress, well appearing HEENT: Pupils equally round and reactive to light, EOMI, no discharge, normal conjunctiva Neck: Supple, no nuchal rigidity, no JVD, trachea midline, no tenderness Cardiac: RRR, no murmurs, no gallops, no rubs Chest/Lungs: CTAB, no wheeze, no rhonchi, no crackles Abdomen: soft, non-distended, no guarding, no peritoneal signs, non-tender Back: No tenderness Extremities: no edema, pulses intact, non-tender,capillary refill <3 sec bilateral upper and lower extremities, Neuro: Alert and oriented x 4, no focal deficits, normal speech Vitals Vitals: Vital Signs Date Time Temp Pulse Resp B/P (MAP) Pulse Ox O2 Delivery O2 Flow Rate FiO2 06/12/18 11:00 98.9 84 16 116/64 (81) 95 Room Air 98.9 Labs Labs Laboratory Tests Test 06/11/18 16:50 06/11/18 18:11 06/12/18 04:15 White Blood Count 3.1 x10^3/uL (4.0-11.0) 2.7 x10^3/uL (4.0-11.0) Red Blood Count 3.62 x10^6/uL (4.30-5.70) 3.32 x10^6/uL (4.30-5.70) Hemoglobin 11.8 g/dL (13.0-17.5) 10.6 g/dL (13.0-17.5) Hematocrit 33.8 % (39.0-53.0) 31.0 % (39.0-53.0) Mean Corpuscular Volume 93 fL (79-100) 93 fL (79-100) Mean Corpuscular Hemoglobin 33 pg (25-35) 32 pg (25-35) Mean Corpuscular Hemoglobin Concent 35 g/dL (31-37) 34 g/dL (31-37) Red Cell Distribution Width 16.7 % (11.5-14.5) 17.1 % (11.5-14.5) Platelet Count 191 x10^3/uL (140-400) 174 x10^3/uL (140-400) Neutrophils (%) (Auto) 54 % (31-73) 38 % (31-73) Lymphocytes (%) (Auto) 23 % (24-48) 42 % (24-48) Monocytes (%) (Auto) 22 % (0-9) 20 % (0-9) Eosinophils (%) (Auto) 0 % (0-3) 0 % (0-3) Basophils (%) (Auto) 0 % (0-3) 0 % (0-3) Neutrophils # (Auto) 1.7 x10^3uL (1.8-7.7) 1.0 x10^3uL (1.8-7.7) Lymphocytes # (Auto) 0.7 x10^3/uL (1.0-4.8) 1.1 x10^3/uL (1.0-4.8) Monocytes # (Auto) 0.7 x10^3/uL (0.0-1.1) 0.5 x10^3/uL (0.0-1.1) Eosinophils # (Auto) 0.0 x10^3/uL (0.0-0.7) 0.0 x10^3/uL (0.0-0.7) Basophils # (Auto) 0.0 x10^3/uL (0.0-0.2) 0.0 x10^3/uL (0.0-0.2) Segmented Neutrophils % 58 % (35-66) Band Neutrophils % 3 % (0-9) Lymphocytes % 20 % (24-48) Monocytes % 19 % (0-10) Toxic Granulation Mod Toxic Vacuolation Slight Platelet Estimate Adequate (ADEQUATE) Polychromasia Slight Anisocytosis Slight Sodium Level 136 mmol/L (136-145) 141 mmol/L (136-145) Potassium Level 4.1 mmol/L (3.5-5.1) 3.6 mmol/L (3.5-5.1) Chloride Level 100 mmol/L (98-107) 107 mmol/L (98-107) Carbon Dioxide Level 23 mmol/L (21-32) 23 mmol/L (21-32) Anion Gap 13 (6-14) 11 (6-14) Blood Urea Nitrogen 9 mg/dL (8-26) 6 mg/dL (8-26) Creatinine 0.6 mg/dL (0.7-1.3) 0.6 mg/dL (0.7-1.3) Estimated GFR (Cockcroft-Gault) 139.4 139.4 Glucose Level 144 mg/dL (70-99) 80 mg/dL (70-99) Lactic Acid Level 1.5 mmol/L (0.4-2.0) Calcium Level 9.4 mg/dL (8.5-10.1) 9.1 mg/dL (8.5-10.1) Total Bilirubin 0.7 mg/dL (0.2-1.0) Direct Bilirubin 0.1 mg/dL (0.0-0.2) Aspartate Amino Transf (AST/SGOT) 24 U/L (15-37) Alanine Aminotransferase (ALT/SGPT) 14 U/L (16-63) Alkaline Phosphatase 53 U/L (46-116) Total Protein 7.8 g/dL (6.4-8.2) Albumin 3.7 g/dL (3.4-5.0) Valproic Acid (Depakene) Level 103 mcg/mL (50-100) Valproic Acid Last Dose Date 06/11/18 Valproic Acid Last Dose Time 0700 Urine Collection Type U cath Urine Color Yellow Urine Clarity Clear Urine pH 7.0 Urine Specific [place] 1.010 Urine Protein Negative mg/dL (NEG-TRACE) Urine Glucose (UA) Negative mg/dL (NEG) Urine Ketones (Stick) Negative mg/dL (NEG) Urine Blood Negative (NEG) Urine Nitrite Negative (NEG) Urine Bilirubin Negative (NEG) Urine Urobilinogen Dipstick 1.0 mg/dL (0.2 mg/dL) Urine Leukocyte Esterase Negative (NEG) Urine RBC 0 /HPF (0-2) Urine WBC 0 /HPF (0-4) Urine Squamous Epithelial Cells Occ /LPF Urine Bacteria 0 /HPF (0-FEW) Urine Opiates Screen Neg (NEG) Urine Methadone Screen Neg (NEG) Urine Barbiturates Neg (NEG) Urine Phencyclidine Screen Neg (NEG) Urine Amphetamine/Methamphetamine Neg (NEG) Urine Benzodiazepines Screen Neg (NEG) Urine Cocaine Screen Neg (NEG) Urine Cannabinoids Screen Neg (NEG) Urine Ethyl Alcohol Neg (NEG) Vitamin B12 Level 728 pg/mL (247-911) Thyroid Stimulating Hormone (TSH) 2.401 uIU/mL (0.358-3.74) Laboratory Tests Test 06/11/18 16:50 06/11/18 18:11 06/12/18 04:15 White Blood Count 3.1 x10^3/uL (4.0-11.0) 2.7 x10^3/uL (4.0-11.0) Red Blood Count 3.62 x10^6/uL (4.30-5.70) 3.32 x10^6/uL (4.30-5.70) Hemoglobin 11.8 g/dL (13.0-17.5) 10.6 g/dL (13.0-17.5) Hematocrit 33.8 % (39.0-53.0) 31.0 % (39.0-53.0) Mean Corpuscular Volume 93 fL (79-100) 93 fL (79-100) Mean Corpuscular Hemoglobin 33 pg (25-35) 32 pg (25-35) Mean Corpuscular Hemoglobin Concent 35 g/dL (31-37) 34 g/dL (31-37) Red Cell Distribution Width 16.7 % (11.5-14.5) 17.1 % (11.5-14.5) Platelet Count 191 x10^3/uL (140-400) 174 x10^3/uL (140-400) Neutrophils (%) (Auto) 54 % (31-73) 38 % (31-73) Lymphocytes (%) (Auto) 23 % (24-48) 42 % (24-48) Monocytes (%) (Auto) 22 % (0-9) 20 % (0-9) Eosinophils (%) (Auto) 0 % (0-3) 0 % (0-3) Basophils (%) (Auto) 0 % (0-3) 0 % (0-3) Neutrophils # (Auto) 1.7 x10^3uL (1.8-7.7) 1.0 x10^3uL (1.8-7.7) Lymphocytes # (Auto) 0.7 x10^3/uL (1.0-4.8) 1.1 x10^3/uL (1.0-4.8) Monocytes # (Auto) 0.7 x10^3/uL (0.0-1.1) 0.5 x10^3/uL (0.0-1.1) Eosinophils # (Auto) 0.0 x10^3/uL (0.0-0.7) 0.0 x10^3/uL (0.0-0.7) Basophils # (Auto) 0.0 x10^3/uL (0.0-0.2) 0.0 x10^3/uL (0.0-0.2) Segmented Neutrophils % 58 % (35-66) Band Neutrophils % 3 % (0-9) Lymphocytes % 20 % (24-48) Monocytes % 19 % (0-10) Toxic Granulation Mod Toxic Vacuolation Slight Platelet Estimate Adequate (ADEQUATE) Polychromasia Slight Anisocytosis Slight Sodium Level 136 mmol/L (136-145) 141 mmol/L (136-145) Potassium Level 4.1 mmol/L (3.5-5.1) 3.6 mmol/L (3.5-5.1) Chloride Level 100 mmol/L (98-107) 107 mmol/L (98-107) Carbon Dioxide Level 23 mmol/L (21-32) 23 mmol/L (21-32) Anion Gap 13 (6-14) 11 (6-14) Blood Urea Nitrogen 9 mg/dL (8-26) 6 mg/dL (8-26) Creatinine 0.6 mg/dL (0.7-1.3) 0.6 mg/dL (0.7-1.3) Estimated GFR (Cockcroft-Gault) 139.4 139.4 Glucose Level 144 mg/dL (70-99) 80 mg/dL (70-99) Lactic Acid Level 1.5 mmol/L (0.4-2.0) Calcium Level 9.4 mg/dL (8.5-10.1) 9.1 mg/dL (8.5-10.1) Total Bilirubin 0.7 mg/dL (0.2-1.0) Direct Bilirubin 0.1 mg/dL (0.0-0.2) Aspartate Amino Transf (AST/SGOT) 24 U/L (15-37) Alanine Aminotransferase (ALT/SGPT) 14 U/L (16-63) Alkaline Phosphatase 53 U/L (46-116) Total Protein 7.8 g/dL (6.4-8.2) Albumin 3.7 g/dL (3.4-5.0) Valproic Acid (Depakene) Level 103 mcg/mL (50-100) Valproic Acid Last Dose Date 06/11/18 Valproic Acid Last Dose Time 0700 Urine Collection Type U cath Urine Color Yellow Urine Clarity Clear Urine pH 7.0 Urine Specific [place] 1.010 Urine Protein Negative mg/dL (NEG-TRACE) Urine Glucose (UA) Negative mg/dL (NEG) Urine Ketones (Stick) Negative mg/dL (NEG) Urine Blood Negative (NEG) Urine Nitrite Negative (NEG) Urine Bilirubin Negative (NEG) Urine Urobilinogen Dipstick 1.0 mg/dL (0.2 mg/dL) Urine Leukocyte Esterase Negative (NEG) Urine RBC 0 /HPF (0-2) Urine WBC 0 /HPF (0-4) Urine Squamous Epithelial Cells Occ /LPF Urine Bacteria 0 /HPF (0-FEW) Urine Opiates Screen Neg (NEG) Urine Methadone Screen Neg (NEG) Urine Barbiturates Neg (NEG) Urine Phencyclidine Screen Neg (NEG) Urine Amphetamine/Methamphetamine Neg (NEG) Urine Benzodiazepines Screen Neg (NEG) Urine Cocaine Screen Neg (NEG) Urine Cannabinoids Screen Neg (NEG) Urine Ethyl Alcohol Neg (NEG) Vitamin B12 Level 728 pg/mL (247-911) Thyroid Stimulating Hormone (TSH) 2.401 uIU/mL (0.358-3.74) DYLON OLIVA MD Jun 12, 2018 14:58
[2018-06-12 15:00] VITALS: BP 92/42
[2018-06-12] MEDS ORDERED: BUDESONIDE 0.5 MG/2 ML NEBU. NEB SCH (20:00)
[2018-06-12] MEDS ORDERED: FLUTICASONE PROPIONATE IH SCH (21:00)
[2018-06-12] MEDS ORDERED: clonazePAM 0.5 MG TABLET PO SCH (21:00)
== END 2018-06-12 17:57 | disposition home or self-care (01) | DRG 100 ==
LOC: ER 16:33 → 1 WEST ICU 18:30 → 5 SOUTH 21:00
PROVIDERS: ADMIT Internal Medicine; ATTEND Internal Medicine
DX: R56.9 Unspecified convulsions (principal); G93.41 Metabolic encephalopathy; D61.818 Other pancytopenia; E78.00 Pure hypercholesterolemia, unspecified; E78.5 Hyperlipidemia, unspecified; J44.9 Chronic obstructive pulmonary disease, unspecified; K21.9 Gastro-esophageal reflux disease without esophagitis; N40.0 Benign prostatic hyperplasia without lower urinary tract symptoms; F31.9 Bipolar disorder, unspecified; Z79.899 Other long term (current) drug therapy; Z90.49 Acquired absence of other specified parts of digestive tract
CPT/HCPCS: 36415; 51701; 70450; 71045; 80048; 80076; 80164; 80307; 81001; 82607; 83605; 84443; 85007; 85025; 87040; 87324; 96360; J7030; J7040; 99285-25; G0479

== ENCOUNTER 2018-06-26 15:53 | Emergency (ER) | payer MEDICARE, OTHER ==
[~2018-06-26] VITALS: Ht 152.4 cm; Wt 68.5 kg
[~2018-06-26 15:53] MED LIST changes: +CHOL10003 PO; +DEXT1DRO8 OU
--- NOTE | 2018-06-26 16:08 | PHYS DOC ---
Past Medical History Past Medical History: Anemia, Asthma, Bipolar, COPD, GERD, High Cholesterol, Seizure Additional Past Medical Histor: MR,NEUTROPENIA, Past Surgical History: Cholecystectomy, Other Additional Past Surgical Histo: dental Alcohol Use: None Drug Use: None Adult General HPI HPI Patient is a 58 year old male brought in by EMS from an adult day program that the patient attends in part due to his developmental delay, due to reported decreased mental status after a fall earlier today. Uncertain as to whether the patient was wearing his helmet at the time of his fall. Patient has not had any nausea or vomiting. There is been no focal weakness. Patient had normal blood sugar for EMS. Patient moves all 4 extremities per EMS and is awake alert and oriented to person and place. Patient is currently denying any complaints.] Review of Systems Review of Systems Constitutional: Denies fever or chills [] Eyes: Denies change in visual acuity, redness, or eye pain [] HENT: Denies nasal congestion or sore throat [] Respiratory: Denies cough or shortness of breath [] Cardiovascular: No chest pain or palpitations[] GI: Denies abdominal pain, nausea, vomiting, bloody stools or diarrhea [] : Denies dysuria or hematuria [] Musculoskeletal: Denies back pain or joint pain [] Integument: Denies rash or skin lesions [] Neurologic: Denies headache, focal weakness or sensory changes [] Endocrine: Denies polyuria or polydipsia [] All other systems were reviewed and found to be within normal limits, except as documented in this note. Allergies Allergies Allergies Coded Allergies Type Severity Reaction Last Updated Verified No Known Drug Allergies 03/23/17 No Physical Exam Physical Exam Constitutional: Well developed, well nourished, no acute distress, non-toxic appearance. [] HENT: Normocephalic, atraumatic, bilateral external ears normal, oropharynx moist, no oral exudates, nose normal. [] Eyes: PERRLA, EOMI, conjunctiva normal, no discharge. [] Neck: Normal range of motion, no tenderness, supple, no stridor. [] Cardiovascular:Heart rate regular rhythm, no murmur [] Lungs & Thorax: Bilateral breath sounds clear to auscultation [] Abdomen: Bowel sounds normal, soft, no tenderness, no masses, no pulsatile masses. [] Skin: Warm, dry, no erythema, no rash. [] Back: No tenderness, no CVA tenderness. [] Extremities: No tenderness, no cyanosis, no clubbing, ROM intact, no edema. [] Neurologic: Alert and oriented X 2, normal motor function, normal sensory function, no focal deficits noted. [] Psychologic: Affect normal, mood normal. [] Current Patient Data Vital Signs Vital Signs Date Time Temp Pulse Resp B/P (MAP) Pulse Ox O2 Delivery O2 Flow Rate FiO2 06/26/18 15:53 97.9 77 18 130/71 (90) 92 Room Air 97.9 Lab Values Laboratory Tests Test 06/26/18 16:05 06/26/18 17:40 Urine Collection Type Unknown Urine Color Yellow Urine Clarity Clear Urine pH 5.5 Urine Specific [place] 1.020 Urine Protein Negative mg/dL (NEG-TRACE) Urine Glucose (UA) Negative mg/dL (NEG) Urine Ketones (Stick) Trace mg/dL (NEG) Urine Blood Negative (NEG) Urine Nitrite Negative (NEG) Urine Bilirubin Negative (NEG) Urine Urobilinogen Dipstick 0.2 mg/dL (0.2 mg/dL) Urine Leukocyte Esterase Negative (NEG) Urine RBC 0 /HPF (0-2) Urine WBC 0 /HPF (0-4) Urine Squamous Epithelial Cells Few /LPF Urine Bacteria 0 /HPF (0-FEW) Urine Mucus Marked /LPF White Blood Count 3.1 x10^3/uL (4.0-11.0) L Red Blood Count 3.68 x10^6/uL (4.30-5.70) L Hemoglobin 11.8 g/dL (13.0-17.5) L Hematocrit 34.0 % (39.0-53.0) L Mean Corpuscular Volume 92 fL (79-100) Mean Corpuscular Hemoglobin 32 pg (25-35) Mean Corpuscular Hemoglobin Concent 35 g/dL (31-37) Red Cell Distribution Width 17.0 % (11.5-14.5) H Platelet Count 198 x10^3/uL (140-400) Neutrophils (%) (Auto) 60 % (31-73) Lymphocytes (%) (Auto) 27 % (24-48) Monocytes (%) (Auto) 13 % (0-9) H Eosinophils (%) (Auto) 0 % (0-3) Basophils (%) (Auto) 0 % (0-3) Neutrophils # (Auto) 1.9 x10^3uL (1.8-7.7) Lymphocytes # (Auto) 0.8 x10^3/uL (1.0-4.8) L Monocytes # (Auto) 0.4 x10^3/uL (0.0-1.1) Eosinophils # (Auto) 0.0 x10^3/uL (0.0-0.7) Basophils # (Auto) 0.0 x10^3/uL (0.0-0.2) Prothrombin Time 13.5 SEC (11.7-14.0) Prothrombin Time INR 1.1 (0.8-1.1) PTT 32 SEC (24-38) Sodium Level 138 mmol/L (136-145) Potassium Level 3.9 mmol/L (3.5-5.1) Chloride Level 103 mmol/L (98-107) Carbon Dioxide Level 23 mmol/L (21-32) Anion Gap 12 (6-14) Blood Urea Nitrogen 9 mg/dL (8-26) Creatinine 0.7 mg/dL (0.7-1.3) Estimated GFR (Cockcroft-Gault) 116.7 BUN/Creatinine Ratio 13 (6-20) Glucose Level 101 mg/dL (70-99) H Calcium Level 9.5 mg/dL (8.5-10.1) Magnesium Level 2.3 mg/dL (1.8-2.4) Total Bilirubin 0.7 mg/dL (0.2-1.0) Aspartate Amino Transferase (AST) 19 U/L (15-37) Alanine Aminotransferase (ALT) 11 U/L (16-63) L Alkaline Phosphatase 47 U/L (46-116) Total Protein 7.8 g/dL (6.4-8.2) Albumin 3.7 g/dL (3.4-5.0) Albumin/Globulin Ratio 0.9 (1.0-1.7) L Laboratory Tests 06/26/18 17:40 Laboratory Tests 06/26/18 17:40 EKG EKG [] Radiology/Procedures Radiology/Procedures CT scan of the head showed no acute abnormalities Chest x-ray showed no acute abnormalities[] Course & Med Decision Making Course & Med Decision Making Pertinent Labs and Imaging studies reviewed. (See chart for details) Medical decision making: There is no evidence of an acute intracranial abnormality, no evidence of an infectious process, no evidence of a significant electrolyte abnormality. 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 ED course: The patient arrived by EMS, and was transported to the emergency department bed without any complications. Patient was transported to and from [facility] without any issues. Patient tolerated all procedures well and was discharged with his fire apparatus sprinkler inspector in improved condition. All the caretakers questions were answered.] Dragon Disclaimer Dragon Disclaimer This electronic medical record was generated, in whole or in part, using a voice recognition dictation system. Departure Departure Impression: Primary Impression: Minor closed head injury Disposition: 01 HOME, SELF-CARE Condition: GOOD Referrals: EDIE MANUEL (PCP) Follow-up in 2 days Patient Instructions: Head Injury, Adult Additional Instructions: Follow-up with your regular doctor. Return to the ER if you develop a fever, worsening cough, or any other concerns. JANETH SUAREZ DO Jun 26, 2018 16:08
[2018-06-26 16:18] LABS: BILIRUBIN,URINE NEGATIVE (NEG); CLARITY,URINE CLEAR; COLOR,URINE YELLOW; NITRITE,URINE NEGATIVE (NEG); PH,URINE 5.5; PROTEIN,URINE NEGATIVE (NEG-TRACE); UROBILINOGEN,URINE 0.2 mg/dL (0.2 mg/dL)
[2018-06-26 16:25] LABS: BACTERIA,URINE 0 /HPF (0-FEW); RBC,URINE 0 /HPF (0-2); SQUAMOUS EPITHELIAL CELL,UR FEW /LPF; WBC,URINE 0 /HPF (0-4)
--- NOTE | 2018-06-26 16:26 | RAD ---
Single view of the chest. 06/26/2018 4:12 PM Indication: Altered mental status. Comparison: Chest radiograph, June 11, 2018 Findings: There is no focal consolidation. There is no pleural effusion or pneumothorax. Heart size is normal. No acute osseous abnormalities are seen. Left-sided nerve stimulator device noted. Impression: No evidence of acute cardiopulmonary process. Electronically signed by: Silas Johnson MD (06/26/2018 4:23 PM) [id number]
--- NOTE | 2018-06-26 16:46 | RAD ---
CT head without intravenous contrast History: Altered mental status, head injury. Comparison: CT head June 11, 2018. Technique: Axial images are obtained of the head from the skull base through the vertex without IV contrast. Exposure: One or more of the following individualized dose reduction techniques were utilized for this examination: 1. Automated exposure control 2. Adjustment of the mA and/or kV according to patient size 3. Use of iterative reconstruction technique Findings: The ventricles are appropriate in size, shape, and location for the patient's age. No obvious intracranial mass, mass-effect, midline shift, hemorrhage or obvious acute infarction is identified. Basilar cisterns are patent. Bone windows demonstrate no acute calvarial abnormality. Moderate-severe right and mild left maxillary sinus disease is seen. Impression: 1. No acute intracranial process. Please note that CT can be relatively insensitive to acute ischemic infarction for up to 24 hours after symptom onset. 2. Paranasal sinus disease. Electronically signed by: Noble Reyes MD (06/26/2018 4:43 PM) [id number]
[2018-06-26 17:51] LABS: BASO % 0 % (0-3); EOS % 0 % (0-3); HEMOGLOBIN 11.8 g/dL (13.0-17.5); LYMPH # 0.8 x10^3/uL (1.0-4.8); LYMPH % 27 % (24-48); MEAN CORPUSCULAR HEMOGLOBIN 32 pg (25-35); MEAN CORPUSCULAR HGB CONC 35 g/dL (31-37); MEAN CORPUSCULAR VOLUME 92 fL (79-100); MONO # 0.4 x10^3/uL (0.0-1.1); MONO % 13 % (0-9); NEUT # 1.9 x10^3uL (1.8-7.7); NEUT % 60 % (31-73); PLATELET COUNT 198 x10^3/uL (140-400); RED BLOOD COUNT 3.68 x10^6/uL (4.30-5.70); WHITE BLOOD COUNT 3.1 x10^3/uL (4.0-11.0)
[2018-06-26 18:00] VITALS: BP 101/58
[2018-06-26 18:00] LABS: PROTHROMBIN TIME PATIENT 13.5 SEC (11.7-14.0)
[2018-06-26 18:02] LABS: CALCIUM 9.5 mg/dL (8.5-10.1); CREATININE 0.7 mg/dL (0.7-1.3); GFR 116.7; POTASSIUM 3.9 mmol/L (3.5-5.1)
[2018-06-26 18:07] LABS: ALBUMIN 3.7 g/dL (3.4-5.0); ALBUMIN/GLOBULIN RATIO 0.9 (1.0-1.7); MAGNESIUM 2.3 mg/dL (1.8-2.4); TOTAL BILIRUBIN 0.7 mg/dL (0.2-1.0); TOTAL PROTEIN 7.8 g/dL (6.4-8.2)
== END 2018-06-26 19:06 | disposition home or self-care (01) ==
LOC: ER 15:53
DX: S09.8XXA Other specified injuries of head, initial encounter (principal); J44.9 Chronic obstructive pulmonary disease, unspecified; K21.9 Gastro-esophageal reflux disease without esophagitis; E78.00 Pure hypercholesterolemia, unspecified; Z90.49 Acquired absence of other specified parts of digestive tract; F31.9 Bipolar disorder, unspecified; W18.39XA Other fall on same level, initial encounter; Y93.89 Activity, other specified; Y92.89 Other specified places as the place of occurrence of the external cause; Y99.8 Other external cause status
CPT/HCPCS: 36415; 70450; 71045; 80053; 81001; 83735; 85025; 85610; 85730; 87040; 99285-25

== ENCOUNTER 2019-05-21 18:04 | Emergency (ER) | payer OTHER ==
[~2019-05-21] VITALS: Ht 167.6 cm; Wt 72.6 kg
[~2019-05-21 18:04] MED LIST changes: +CLON-77 PO; -CLON0.5T11 PO; +CYAN-25 PO; -CYAN10005 PO; -GEMF600T4 PO; +GEMF600T8 PO; +HYDR-3164 PO; -HYDR-971 PO
[2019-05-21 19:25] VITALS: BP 136/71
[2019-05-21] MEDS ORDERED: IBUPROFEN 400 MG TABLET. PO ONE (20:00)
--- NOTE | 2019-05-21 20:19 | RAD ---
CT ORBITS WO CONTRAST dated 05/21/2019 7:57 PM Indication: Pain after injury. Pain in right eye. Fall. Comparison: No comparison is available. Technique: Contiguous axial imaging of the orbits performed without the administration of intravenous contrast. One or more of the following individualized dose reduction techniques were utilized for this examination: 1. Automated exposure control 2. Adjustment of the mA and/or kV according to patient size 3. Use of iterative reconstruction technique Findings: Mild edema within the infraorbital soft tissues on the right. Orbital allen and maxillary allen are intact. No displaced fracture. The zygomatic arches and visualized portions of the mandible are intact. Mild deformity at the bilateral nasal bones without overlying soft tissue swelling. There is mild nasal septal deviation to the right. Moderate mucosal thickening of the right maxillary sinus with mild mucosal thickening of the bilateral ethmoid air cells. Postsurgical changes of the medial maxillary allen. The left ostiomeatal unit is patent. There is narrowing of the right infundibulum without OMU obstruction. Sphenoid and frontal sinuses are clear. No bony destructive process or periostitis. Visualized soft tissue structures otherwise unremarkable. Imaged portions the brain parenchyma unremarkable. IMPRESSION: 1. No evidence of displaced facial fracture. There is some mild infraorbital soft tissue swelling on the right. 2. Deformity of the nasal bones, likely related to old healed fracture. 3. Mild to moderate sinus disease as described. Electronically signed by: Noble Moreno MD (05/21/2019 8:16 PM) [facility]
--- NOTE | 2019-05-21 20:35 | PHYS DOC ---
Past Medical History Past Medical History: Anemia, Asthma, Bipolar, COPD, GERD, High Cholesterol, Seizure Additional Past Medical Histor: MR,NEUTROPENIA, Past Surgical History: Cholecystectomy, Other Additional Past Surgical Histo: dental Alcohol Use: None Drug Use: None Adult General Chief Complaint Chief Complaint: EYE PROBLEMS HPI HPI Patient is a 59 year old male, accompanied by his caregiver, who presents to the ER with complaints of pain to his R eye after falling in the shower at 1730 this evening and hitting his head on the shower wall. He denies any vision changes, nausea, vomiting, neck pain, back pain, or headache. Pt has a hx of seizures, caregiver denies any seizure with the fall. He currently rates his pain 5/10 on the pain scale. He denies any alleviating or exacerbating factors. Review of Systems Review of Systems Constitutional: Denies fever or chills [] Eyes: Denies change in visual acuity; see HPI HENT: Denies nasal congestion or sore throat [] Respiratory: Denies cough or shortness of breath [] Cardiovascular: No additional information not addressed in HPI [] GI: Denies abdominal pain, nausea, vomiting, or diarrhea [] Musculoskeletal: Denies back pain or joint pain [] Integument: Denies rash or skin lesions [] Neurologic: Denies headache Complete systems were reviewed and found to be within normal limits, except as documented in this note. Current Medications Current Medications Current Medications Medications (Trade) Dose Ordered Sig/Chepe Start Time Stop Time Status Last Admin Dose Admin Acetaminophen/ Hydrocodone Bitart (Lortab 5/325) 1 tab 1X ONCE 05/21/19 21:30 05/21/19 21:28 DC 05/21/19 21:17 1 TAB Erythromycin (Romycin) 0.25 inch 1X ONCE 05/21/19 21:30 05/21/19 21:28 DC 05/21/19 21:16 0.25 INCH Fluorescein Sodium (Ful-Nerissa) 1 strip 1X ONCE 05/21/19 21:00 05/21/19 21:01 DC 05/21/19 20:55 1 STRIP Ibuprofen (Motrin) 800 mg 1X ONCE 05/21/19 20:00 05/21/19 20:01 DC 05/21/19 20:13 800 MG Tetracaine HCl (Tetracaine) 1 drop 1X ONCE 05/21/19 21:00 05/21/19 21:01 DC 05/21/19 20:55 1 DROP Allergies Allergies Allergies Coded Allergies Type Severity Reaction Last Updated Verified No Known Drug Allergies 03/23/17 No Physical Exam Physical Exam Constitutional: Well developed, well nourished, no acute distress, non-toxic appearance. [] HENT: Normocephalic, atraumatic, bilateral external ears normal, oropharynx moist, no oral exudates, nose normal. [] Eyes: PERRLA, EOMI, conjunctiva normal, no discharge; swelling noted to R eye wi th small abrasion noted to lateral aspect see Wood's lamp assessment [] Neck: Normal range of motion, no tenderness, supple, no stridor. [] Cardiovascular:Heart rate regular rhythm, no murmur [] Lungs & Thorax: Bilateral breath sounds clear to auscultation [] Abdomen: soft, no tenderness, no masses, no pulsatile masses. [] Skin: Warm, dry; swelling and bruising noted to R orbit Back: No tenderness Extremities: No tenderness, no cyanosis, no clubbing, ROM intact, no edema. [] Neurologic: Alert and oriented X 3, no focal deficits noted. [] Psychologic: Affect normal, judgement normal, mood normal. [] Current Patient Data Vital Signs Vital Signs Date Time Temp Pulse Resp B/P (MAP) Pulse Ox O2 Delivery O2 Flow Rate FiO2 05/21/19 21:17 16 99 Room Air 05/21/19 19:25 98.0 81 136/71 (92) 98.0 EKG EKG [] Radiology/Procedures Radiology/Procedures Using tetracaine and fluroscein the patient's eye was examined under Wood's lamp and an area of uptake between 7 o'clock and 8 o'clock was noted over the lower conjunctiva, no abrasion noted to cornea. Patient's ocular symptoms have stabilized while they have been evaluated in the department and are appropriate for outpatient work up. No evidence of ruptured globe, retinal detachment, acute angle closure glaucoma, or deep space infection. Plan for 24 hour ophthalmologic follow up.[] PROCEDURE: CT ORBITS WO CONTRAST CT ORBITS WO CONTRAST dated 05/21/2019 7:57 PM Indication: Pain after injury. Pain in right eye. Fall. Comparison: No comparison is available. Technique: Contiguous axial imaging of the orbits performed without the administration of intravenous contrast. One or more of the following individualized dose reduction techniques were utilized for this examination: 1. Automated exposure control 2. Adjustment of the mA and/or kV according to patient size 3. Use of iterative reconstruction technique Findings: Mild edema within the infraorbital soft tissues on the right. Orbital allen and maxillary allen are intact. No displaced fracture. The zygomatic arches and visualized portions of the mandible are intact. Mild deformity at the bilateral nasal bones without overlying soft tissue swelling. There is mild nasal septal deviation to the right. Moderate mucosal thickening of the right maxillary sinus with mild mucosal thickening of the bilateral ethmoid air cells. Postsurgical changes of the medial maxillary allen. The left ostiomeatal unit is patent. There is narrowing of the right infundibulum without OMU obstruction. Sphenoid and frontal sinuses are clear. No bony destructive process or periostitis. Visualized soft tissue structures otherwise unremarkable. Imaged portions the brain parenchyma unremarkable. IMPRESSION: 1. No evidence of displaced facial fracture. There is some mild infraorbital soft tissue swelling on the right. 2. Deformity of the nasal bones, likely related to old healed fracture. 3. Mild to moderate sinus disease as described. Course & Med Decision Making Course & Med Decision Making Pertinent Labs and Imaging studies reviewed. (See chart for details) [] Dragon Disclaimer Dragon Disclaimer This electronic medical record was generated, in whole or in part, using a voice recognition dictation system. Departure Departure Impression: Primary Impression: Contusion of right eyelid and periocular area, sequela Additional Impression: Abrasion of conjunctiva, right Disposition: 01 HOME, SELF-CARE Condition: STABLE Referrals: EDIE MANUEL (PCP) AIDA FRYE MD Patient Instructions: Eye Contusion, [id number] Additional Instructions: Follow up with Dr. Frye tomorrow for repeat eye exam. Fill the prescriptions and take as directed. You may also take 800 mg of Ibuprofen every 6-8 hours as needed for pain. Apply ice to sore areas for 10-15 minutes every hour today and tomorrow while awake, then as needed. Follow-up with your primary care doctor in 1-2 days. Return to the ER if symptoms worsen. Scripts Hydrocodone Bit/Acetaminophen (HYDROCODONE-APAP 5-325 ) 1 Tab Tablet 1 TAB PO PRN Q6HRS PRN for PAIN for 3 Days, #12 TAB 0 Refills Prov: BOGUSLAW,SALOMON D BUDGET EXAMINER 05/21/19 Erythromycin Base (Erythromycin) 1 Gm Oint...g. 0.5 INCH OD QID for 5 Days, #1 TUBE 0 Refills Prov: SALOMON KELLEY BUDGET EXAMINER 05/21/19 Problem Qualifiers Additional Impression: Abrasion of conjunctiva, right Encounter type: initial encounter Qualified Codes: S05.01XA - Injury of conjunctiva and corneal abrasion without foreign body, right eye, initial encounter SALOMON KELLEY BUDGET EXAMINER May 21, 2019 20:35
[2019-05-21] MEDS ORDERED: FLUORESCEIN OPHTH TEST STRIP. OD ONE (21:00)
[2019-05-21] MEDS ORDERED: TETRACAINE 0.5% OPHTH SOLUTION 4ML BOTTLE. OD ONE (21:00)
[2019-05-21] MEDS ORDERED: HYDR-2761 PO (21:10)
[2019-05-21] MEDS ORDERED: ERYT1OIN6 OD (21:10)
[2019-05-21] MEDS ORDERED: ERYTHROMYCIN 0.5% OPHTH OINTMENT 1GM TUBE. OD ONE (21:30)
[2019-05-21] MEDS ORDERED: HYDROcodone/APAP 5/325MG 1 TAB TABLET PO ONE (21:30)
[2019-05-26] MEDS ORDERED: TAMS0.4C97 PO ×2 (09:28→09:32)
== END 2019-05-21 21:28 | disposition home or self-care (01) ==
LOC: ER 18:04
DX: S00.11XS Contusion of right eyelid and periocular area, sequela (principal); J45.909 Unspecified asthma, uncomplicated; F31.9 Bipolar disorder, unspecified; J44.9 Chronic obstructive pulmonary disease, unspecified; K21.9 Gastro-esophageal reflux disease without esophagitis; E78.00 Pure hypercholesterolemia, unspecified; Z90.49 Acquired absence of other specified parts of digestive tract; X58.XXXS Exposure to other specified factors, sequela
CPT/HCPCS: 70480; 99284

== ENCOUNTER 2019-05-23 09:37 | Inpatient (IN) | payer OTHER ==
[~2019-05-23] VITALS: Ht 160 cm; Wt 68.0 kg
[~2019-05-23 09:37] MED LIST changes: +ERYT1OIN6 OD; +HYDR-2761 PO
--- NOTE | 2019-05-23 10:10 | RAD ---
CT HEAD WO CONTRAST Clinical indications: Seizure and then fell with head injury. COMPARISON: June 26, [address] Technique: Noncontrast axial cross sectional scanning of the head was performed. PQRS compliance Statement One or more of the following individualized dose reduction techniques were utilized for this study: 1. Automated exposure control 2. Adjustment of the mA and/or kV according to patient size 3. Use of iterative reconstruction technique Findings: No acute intracranial hemorrhage or midline shift or mass-effect or hydrocephalus or extra-axial fluid collection is seen. No new focal hypodense area or sulci effacement is seen to indicate an acute infarct or edema radiographically. No skull fracture or pneumocephalus is seen. No opacification of the mastoid sinuses or the middle ear cavities is seen. There is moderate mucosal thickening of the right maxillary sinus. This has improved from the prior study. The maxillary sinuses are not completely seen in this study. Impression: No acute intracranial abnormality is seen. Electronically signed by: Jefferson Oropeza MD (05/23/2019 10:07 AM) [id number]
--- NOTE | 2019-05-23 10:31 | PHYS DOC ---
Past Medical History Past Medical History: Anemia, Asthma, Bipolar, COPD, GERD, High Cholesterol, Seizure Additional Past Medical Histor: MR,NEUTROPENIA, Past Surgical History: Cholecystectomy, Other Additional Past Surgical Histo: dental Alcohol Use: None Drug Use: None Adult General Chief Complaint Chief Complaint: SEIZURE [facility] HPI Patient is a 59-year-old male who presents after reportedly having had a seizure episode that lasted approximately 4-1/2 minutes this morning. Patient was seen here at this facility after having had seizure 2 days ago. Patient takes both Keppra and Depakote for his seizures. Patient does admit to a headache and appears to have fallen, striking his head. He denies pain anywhere else. He denies any chest pain or shortness breath. EMS reports that patient was not postictal upon their arrival.[] Review of Systems Review of Systems Constitutional: Denies fever or chills [] Respiratory: Denies cough or shortness of breath [] Cardiovascular: No additional information not addressed in HPI [] GI: Denies abdominal pain, nausea, vomiting or diarrhea [] Musculoskeletal: Denies back pain or joint pain [] Integument: Denies rash or skin lesions [] Neurologic: Complains of headache without focal weakness or sensory changes [] All other systems were reviewed and found to be within normal limits, except as documented in this note. Allergies Allergies Allergies Coded Allergies Type Severity Reaction Last Updated Verified No Known Drug Allergies 03/23/17 No Physical Exam Physical Exam Constitutional: Well developed, well nourished, no acute distress, non-toxic appearance. [] HENT: Normocephalic, with small abrasion noted to the left parietal region of scalp, bilateral external ears normal, oropharynx moist, no oral exudates, nose normal. [] Eyes: PERRLA, EOMI, conjunctiva normal, no discharge. [] Neck: Normal range of motion, no tenderness, supple, no stridor. [] Cardiovascular: Regular rate and rhythm[] Lungs & Thorax: Bilateral breath sounds clear to auscultation [] Abdomen: Bowel sounds normal, soft, no tenderness. [] Skin: Warm, dry, no erythema, no rash. [] Extremities: No tenderness, no cyanosis, no clubbing, ROM intact. [] Neurologic: Alert and oriented X 3, no focal deficits noted. [] Current Patient Data Vital Signs Vital Signs Date Time Temp Pulse Resp B/P (MAP) Pulse Ox O2 Delivery O2 Flow Rate FiO2 05/23/19 09:37 99.0 87 24 116/64 (81) 98 Room Air 99.0 Lab Values Laboratory Tests Test 05/23/19 10:45 05/23/19 11:51 05/23/19 11:53 White Blood Count 2.1 x10^3/uL (4.0-11.0) L Red Blood Count 3.73 x10^6/uL (4.30-5.70) L Hemoglobin 11.7 g/dL (13.0-17.5) L Hematocrit 34.3 % (39.0-53.0) L Mean Corpuscular Volume 92 fL (79-100) Mean Corpuscular Hemoglobin 31 pg (25-35) Mean Corpuscular Hemoglobin Concent 34 g/dL (31-37) Red Cell Distribution Width 16.1 % (11.5-14.5) H Platelet Count 175 x10^3/uL (140-400) Neutrophils (%) (Auto) 34 % (31-73) Lymphocytes (%) (Auto) 43 % (24-48) Monocytes (%) (Auto) 23 % (0-9) H Eosinophils (%) (Auto) 0 % (0-3) Basophils (%) (Auto) 0 % (0-3) Neutrophils # (Auto) 0.7 x10^3/uL (1.8-7.7) L Lymphocytes # (Auto) 0.9 x10^3/uL (1.0-4.8) L Monocytes # (Auto) 0.5 x10^3/uL (0.0-1.1) Eosinophils # (Auto) 0.0 x10^3/uL (0.0-0.7) Basophils # (Auto) 0.0 x10^3/uL (0.0-0.2) Segmented Neutrophils % 26 % (35-66) L Band Neutrophils % 3 % (0-9) Lymphocytes % 50 % (24-48) H Monocytes % 18 % (0-10) H Myelocytes % 3 % (0-0) H Platelet Estimate Adequate (ADEQUATE) Sodium Level 143 mmol/L (136-145) Potassium Level 4.4 mmol/L (3.5-5.1) Chloride Level 108 mmol/L (98-107) H Carbon Dioxide Level 27 mmol/L (21-32) Anion Gap 8 (6-14) Blood Urea Nitrogen 18 mg/dL (8-26) Creatinine 0.8 mg/dL (0.7-1.3) Estimated GFR (Cockcroft-Gault) 99.6 BUN/Creatinine Ratio 23 (6-20) H Glucose Level 113 mg/dL (70-99) H Calcium Level 9.5 mg/dL (8.5-10.1) Total Bilirubin 0.5 mg/dL (0.2-1.0) Aspartate Amino Transferase (AST) 14 U/L (15-37) L Alanine Aminotransferase (ALT) 11 U/L (16-63) L Alkaline Phosphatase 58 U/L (46-116) Total Protein 7.8 g/dL (6.4-8.2) Albumin 3.8 g/dL (3.4-5.0) Albumin/Globulin Ratio 1.0 (1.0-1.7) Valproic Acid Level mcg/mL (50-100) Valproic Acid Last Dose Date Pending Valproic Acid Last Dose Time Pending Group A Streptococcus Rapid Negative (NEGATIVE) Lactic Acid Level 1.7 mmol/L (0.4-2.0) Laboratory Tests 05/23/19 10:45 Laboratory Tests 05/23/19 10:45 EKG EKG [] Radiology/Procedures Radiology/Procedures [] Impressions: PROCEDURE: CT HEAD WO CONTRAST CT HEAD WO CONTRAST Clinical indications: Seizure and then fell with head injury. COMPARISON: June 26, [address] Technique: Noncontrast axial cross sectional scanning of the head was performed. PQRS compliance Statement One or more of the following individualized dose reduction techniques were utilized for this study: 1. Automated exposure control 2. Adjustment of the mA and/or kV according to patient size 3. Use of iterative reconstruction technique Findings: No acute intracranial hemorrhage or midline shift or mass-effect or hydrocephalus or extra-axial fluid collection is seen. No new focal hypodense area or sulci effacement is seen to indicate an acute infarct or edema radiographically. No skull fracture or pneumocephalus is seen. No opacification of the mastoid sinuses or the middle ear cavities is seen. There is moderate mucosal thickening of the right maxillary sinus. This has improved from the prior study. The maxillary sinuses are not completely seen in this study. Impression: No acute intracranial abnormality is seen. Electronically signed by: Jefferson Oropeza MD (05/23/2019 10:07 AM) [id number] Course & Med Decision Making Course & Med Decision Making Pertinent Labs and Imaging studies reviewed. (See chart for details) [] Dragon Disclaimer Dragon Disclaimer This electronic medical record was generated, in whole or in part, using a voice recognition dictation system. Departure Departure Impression: Primary Impression: Breakthrough seizure Disposition: ADMITTED INPATIENT Admitting Physician: Madi. Welsh Condition: IMPROVED Referrals: EDIE MANUEL (PCP) JUSTIN SOUTH Jr. DO May 23, 2019 10:31
[2019-05-23 10:57] LABS: BASO % 0 % (0-3); EOS % 0 % (0-3); HEMATOCRIT 34.3 % (39.0-53.0); HEMOGLOBIN 11.7 g/dL (13.0-17.5); LYMPH # 0.9 x10^3/uL (1.0-4.8); LYMPH % 43 % (24-48); MEAN CORPUSCULAR HEMOGLOBIN 31 pg (25-35); MEAN CORPUSCULAR HGB CONC 34 g/dL (31-37); MEAN CORPUSCULAR VOLUME 92 fL (79-100); MONO # 0.5 x10^3/uL (0.0-1.1); MONO % 23 % (0-9); NEUT # 0.7 x10^3/uL (1.8-7.7); NEUT % 34 % (31-73); PLATELET COUNT 175 x10^3/uL (140-400); RED BLOOD COUNT 3.73 x10^6/uL (4.30-5.70); RED CELL DISTRIBUTION WIDTH 16.1 % (11.5-14.5); WHITE BLOOD COUNT 2.1 x10^3/uL (4.0-11.0)
[2019-05-23 11:12] LABS: ALBUMIN 3.8 g/dL (3.4-5.0); ALK PHOS 58 U/L (46-116); ALT (SGPT) 11 U/L (16-63); ANION GAP 8 (6-14); AST (SGOT) 14 U/L (15-37); BLOOD UREA NITROGEN 18 mg/dL (8-26); BUN/CREATININE RATIO 23 (6-20); CALCIUM 9.5 mg/dL (8.5-10.1); CARBON DIOXIDE 27 mmol/L (21-32); CHLORIDE 108 mmol/L (98-107); CREATININE 0.8 mg/dL (0.7-1.3); GFR 99.6; GLUCOSE 113 mg/dL (70-99); POTASSIUM 4.4 mmol/L (3.5-5.1); SODIUM 143 mmol/L (136-145); TOTAL BILIRUBIN 0.5 mg/dL (0.2-1.0); TOTAL PROTEIN 7.8 g/dL (6.4-8.2)
[2019-05-23 11:56] LABS: % BANDS 3 % (0-9); % LYMPHS 50 % (24-48); % MONOS 18 % (0-10); % MYELOS 3 % (0-0); % SEGS 26 % (35-66); PLT ESTIMATE ADEQUATE (ADEQUATE)
[2019-05-23 12:44] LABS: VAL ACID 68 mcg/mL (50-100)
[2019-05-23] MEDS ORDERED: ONDANSETRON PF 4 MG/2 ML VIAL. IV PRN (12:45)
[2019-05-23 16:12] VITALS: BP 127/67
[2019-05-23 19:05] VITALS: BP 129/63
[2019-05-23] MEDS ORDERED: HYDROcodone/APAP 5/325MG 1 TAB TABLET PO PRN (21:45)
[2019-05-23] MEDS ORDERED: BISACODYL 5 MG TABLET.DR. PO PRN (21:45)
[2019-05-23] MEDS ORDERED: ACETAMINOPHEN 325 MG TABLET. PO PRN (21:45)
[2019-05-23] MEDS ORDERED: IBUPROFEN 400 MG TABLET. PO PRN (22:00)
[2019-05-23] MEDS: DIVALPROEX EXTENDED RELEASE 500 MG TAB.ER.24H. PO SCH (22:07)
[2019-05-23] MEDS: levETIRAcetam 500 MG TABLET PO SCH (22:07)
[2019-05-23] MEDS: clonazePAM 0.5 MG TABLET PO SCH (22:07)
[2019-05-23] MEDS: PREGABALIN 75 MG CAPSULE PO SCH (22:07)
[2019-05-23] MEDS: SENNOSIDES/DOCUSATE 8.6/50MG TABLET. PO SCH (22:08)
[2019-05-23] MEDS: GEMFIBROZIL 600 MG TABLET. PO SCH (22:08)
[2019-05-23 23:00] VITALS: BP 134/71
[2019-05-24 03:44] VITALS: BP 139/81
[2019-05-24 04:34] LABS: BASO % 0 % (0-3); EOS % 0 % (0-3); HEMOGLOBIN 11.3 g/dL (13.0-17.5); LYMPH # 1.7 x10^3/uL (1.0-4.8); LYMPH % 46 % (24-48); MEAN CORPUSCULAR HEMOGLOBIN 31 pg (25-35); MEAN CORPUSCULAR HGB CONC 34 g/dL (31-37); MEAN CORPUSCULAR VOLUME 92 fL (79-100); MONO # 0.7 x10^3/uL (0.0-1.1); MONO % 20 % (0-9); NEUT # 1.3 x10^3/uL (1.8-7.7); NEUT % 35 % (31-73); PLATELET COUNT 172 x10^3/uL (140-400); RED BLOOD COUNT 3.59 x10^6/uL (4.30-5.70); WHITE BLOOD COUNT 3.8 x10^3/uL (4.0-11.0)
[2019-05-24 05:01] LABS: CALCIUM 9.7 mg/dL (8.5-10.1); CREATININE 0.7 mg/dL (0.7-1.3); GFR 116.2; POTASSIUM 3.4 mmol/L (3.5-5.1)
[2019-05-24] MEDS: MIDODRINE 5 MG TABLET PO SCH ×3 (07:00→18:00)
[2019-05-24 07:12] VITALS: BP 120/76
[2019-05-24] MEDS: BUDESONIDE 0.5 MG/2 ML NEBU. NEB SCH ×2 (08:00→20:00)
[2019-05-24] MEDS: GEMFIBROZIL 600 MG TABLET. PO SCH ×2 (08:04→20:33)
[2019-05-24] MEDS: MULTIVITAMIN with MINERAL TABLET. PO SCH (08:04)
[2019-05-24] MEDS: FOLIC ACID 1 MG TABLET. PO SCH (08:04)
[2019-05-24] MEDS: CYANOCOBALAMIN (VITAMIN B-12) 1,000 MCG TABLET. PO SCH (08:04)
[2019-05-24] MEDS: DIVALPROEX EXTENDED RELEASE 500 MG TAB.ER.24H. PO SCH ×2 (08:05→20:33)
[2019-05-24] MEDS: CITALOPRAM 10 MG TABLET. PO SCH (08:05)
[2019-05-24] MEDS: levETIRAcetam 500 MG TABLET PO SCH ×2 (08:05→20:32)
[2019-05-24] MEDS: TAMSULOSIN 0.4 MG CAP.ER.24H. PO SCH (08:05)
[2019-05-24] MEDS: FINASTERIDE 5 MG TABLET. PO SCH (08:05)
[2019-05-24] MEDS: PANTOPRAZOLE 40 MG TABLET.DR. PO SCH (08:05)
[2019-05-24] MEDS: PREGABALIN 75 MG CAPSULE PO SCH ×2 (08:06→20:32)
[2019-05-24] MEDS: FLUTICASONE 50MCG/NASAL SPRAY 16GM BOTTLE. NS SCH (08:15)
[2019-05-24] MEDS: POLYVINYL ALCOHOL 1.4% OPHTH SOLUTION 15ML BOTTLE. OU SCH ×4 (08:16→20:34)
[2019-05-24] MEDS: SENNOSIDES/DOCUSATE 8.6/50MG TABLET. PO SCH ×3 (08:28→20:49)
[2019-05-24] MEDS ORDERED: FLU VAX QS 2019-20 (36MOS+)/PF 0.5 ML SYRINGE. VAX IM ONE (09:00)
[2019-05-24] MEDS: POTASSIUM CHLORIDE 20 MEQ TABLET.ER. PO SCH ×2 (10:33→13:14)
[2019-05-24 11:00] VITALS: BP 114/57
--- NOTE | 2019-05-24 12:15 | SNU/HH DC ---
DISCHARGE ORDERS DISCHARGE INFORMATION: FINAL DIAGNOSIS Problems Medical Problems: (1) Breakthrough seizure Status: Acute CONDITION ON DISCHARGE: Stable POST DISCHARGE ORDERS: ACTIVITY ORDERS: Activity as tolerated WEIGHT BEARING STATUS: As tolerated DIET AFTER DISCHARGE: Regular OTHER ORDERS: seizure precautions FOLLOW-UP: PHYSICIAN FOLLOW-UP: in 5 days TREATMENT/EQUIPMENT ORDERS: ADAPTIVE EQUIPMENT NEEDED: Brace/splint DISCHARGE MEDICATIONS: Home Meds Active Scripts Hydrocodone Bit/Acetaminophen (HYDROCODONE-APAP 5-325 ) 1 Tab Tablet, 1 TAB PO PRN Q6HRS PRN for PAIN for 3 Days, #12 TAB 0 Refills Prov:SALOMON KELLEY CLIENT CUSTOMER MANAGER 05/21/19 Ibuprofen (IBUPROFEN) 800 Mg Tablet, 800 MG PO PRN TID PRN for PAIN, #30 TAB take with food or milk to avoid upsetting stomach Prov:NEDRA KUO DO 03/12/18 Divalproex Sodium (DEPAKOTE ER) 500 Mg Tab.er.24h, 1000 MG PO BID, #60 Prov:TAMERA SNELL MD 04/05/16 Reported Medications Cholecalciferol (Vitamin D3) (VITAMIN D3) 1,000 Unit Tablet, 500 UNIT PO 3X/WEEK, TAB 06/11/18 Dextran 70/Hypromellose/Pf (ARTIFICIAL TEARS DROPS) 1 Each Droperette, 1 DROP OU QID, DROP 06/11/18 Fluticasone Propionate (FLOVENT 44MCG HFA) 10.6 Gm Aer.w.adap, 1 PUFF IH BID, #1 INHALER 2 Refills 05/21/18 Bisacodyl (BISACODYL) 5 Mg Tablet.dr, 10 MG PO DAILY PRN for CONSTIPATION, TAB 0 Refills 05/21/18 Mv-Mn/Fa/Coq10/Lycopene/Lutein (THERAGRAN-M PREMIER 50+ CAPLET) 1 Each Tablet, 1 EACH PO DAILY, TAB 05/21/18 Sennosides/Docusate Sodium (SENOKOT-S TABLET) 1 Each Tablet, 1 TAB PO BID, #30 TAB 05/21/18 Levetiracetam (LEVETIRACETAM) 500 Mg Tablet, 1500 MG PO BID, TAB 10/25/17 Acetaminophen (TYLENOL) 325 Mg Tablet, 2 TAB PO PRN Q4HRS PRN for PAIN, #30 TAB 04/04/16 Clonazepam (CLONAZEPAM ) 0.5 Mg Tablet, 0.5 MG PO HS, TAB 04/04/16 Midodrine Hcl (MIDODRINE HCL) 10 Mg Tablet, 10 MG PO TID 04/04/16 Gemfibrozil (GEMFIBROZIL) 600 Mg Tablet, 1 TAB PO BID, #60 TAB 5 Refills 04/04/16 Cyanocobalamin (Vitamin B-12) (VITAMIN B-12) 1,000 Mcg Tablet, 500 MCG PO DAILY, #30 TAB 2 Refills 04/04/16 Folic Acid (FOLIC ACID) 1 Mg Tablet, 1 TAB PO DAILY, #90 TAB 1 Refill 04/04/16 Fluticasone Propionate (Flonase Allergy Relief) 9.9 Ml [place].susp, 2 SPRAYS NS DAILY, BOTTLE 04/04/16 Tamsulosin Hcl (TAMSULOSIN HCL) 0.4 Mg Cap.er.24h, 1 CAP PO DAILY, #30 CAP 5 Refills 04/04/16 Finasteride (FINASTERIDE) 5 Mg Tablet, 1 TAB PO DAILY, #30 TAB 11 Refills 04/04/16 Pregabalin (LYRICA) 225 Mg Capsule, 225 MG PO BID for 30 Days, CAP 0 Refills 04/04/16 Omeprazole (OMEPRAZOLE) 20 Mg Tablet.dr, 1 TAB PO DAILY, #90 TAB 1 Refill 04/04/16 Discontinued Reported Medications Citalopram Hydrobromide (CITALOPRAM HBR) 10 Mg Tablet, 1 TAB PO DAILY, #30 TAB 3 Refills 05/21/18 Discontinued Scripts Erythromycin Base (Erythromycin) 1 Gm Oint...g., 0.5 INCH OD QID for 5 Days, #1 TUBE 0 Refills Prov:SALOMON KELLEY APRN 05/21/19 BRAYDEN MILLER MD May 24, 2019 12:15
--- NOTE | 2019-05-24 12:25 | PDOC ---
Provider Note Provider Note Patient seen. History and Physical dictated. See dictation#[id number] BRAYDEN MILLER MD May 24, 2019 12:25
--- NOTE | 2019-05-24 13:47 | HP ---
ADMIT DATE: 05/24/2019 COMBINED HISTORY AND PHYSICAL AND DISCHARGE SUMMARY HISTORY OF PRESENT ILLNESS: This is a 59-year-old male who has intellectual impairment and who is a [facility] a [facility] and who has a history of seizure disorder and gets about 2-3 seizures in a year. He is on Depakote, Keppra, and Klonopin. The patient also has a vagal nerve stimulator. He had a seizure and by the time the EMS arrived, he was not postictal. He was seen in the Emergency Room and was admitted for further evaluation and management. His valproic acid level was 68. The patient had a CT scan of head and that was negative for any acute abnormalities. WBC count was 2.1 yesterday and it is 3.8 today, hemoglobin 11.3 today. He has a history of leukopenia. Sodium was 143, potassium 4.4 yesterday and potassium is 3.4 today, glucose 113, calcium 9.5, AST 14, ALT 11, BUN is 18, creatinine 0.8. Because of the seizures, the patient was admitted for further evaluation and management. REVIEW OF SYSTEMS: The patient is a poor historian. He denies any headaches, nausea, vomiting, abdominal pain. Unable to provide much information, unable to do full systems review, but he is stable and appears to be fine. PAST MEDICAL HISTORY: The patient has a history of seizure disorder with a nerve stimulator, COPD, bipolar disorder, asthma, intellectual impairment, BPH, and orthostatic hypotension. PAST SURGICAL HISTORY: Includes vagal nerve stimulator, gallbladder surgery, dental problems with surgeries. ALLERGIES: None known any. MEDICATIONS: Reviewed and reconciled. SOCIAL HISTORY: No history of smoking, alcoholism, or drug abuse. [facility] in a [facility]. PHYSICAL EXAMINATION: VITAL SIGNS: Temperature 97.9, pulse 84 per minute, respirations 18 per minute, blood pressure 127/67 mmHg. GENERAL: The patient is a middle-aged male who is alert and not in any acute distress. He is a poor historian. EYES: Pupils reacting to light. Conjunctivae pale. Sclerae muddy. HENT: Unremarkable. The patient had a small left parietal area abrasion. NECK: Supple. JVP normal. No thyromegaly. Trachea midline. LUNGS: Clear. CARDIOVASCULAR: S1, S2 regular. ABDOMEN: Soft, nontender, no guarding, no rigidity. Bowel sounds present. EXTREMITIES: No edema. CENTRAL NERVOUS SYSTEM: Moves all extremities, alert and appropriate. Has intellectual deficits. No acute changes noted. LABORATORY FINDINGS: As noted earlier. FINAL DIAGNOSES: 1. Seizure disorder. The patient had recurrent seizures. 2. Chronic obstructive pulmonary disease. 3. Bipolar disorder. 4. Asthma. 5. Intellectual impairment. 6. History of vagal nerve stimulator. PLAN: The patient is stable. I have discussed with Dr. Girard. We will [facility] back to the [facility]. I will discontinue his citalopram as it interacts with Keppra and lowers the seizure threshold and reduces the effectiveness of Keppra. However, citalopram interacts with Lyrica and reduces seizure potential, so I will discontinue citalopram and see if this helps him. Continue other treatment. Continue Keppra, Depakote, and Klonopin. For details, please refer to the transfer orders. CONDITION AT THE TIME OF DISCHARGE: Good. BRAYDEN MILLER MD DR: MENDEZ/suha JOB#: [id number] / [id number]
--- NOTE | 2019-05-24 14:22 | PDOC2 ---
NEUROLOGY CONSULT Date of Admission Date of Admission DATE: 05/24/19 TIME: 14:18 Reason for Consult Reason for Consult: Seizure. Metabolic encephalopathy. Fall. Mental deficiency. COPD. HLD. Pancytopenia. Asthma. RECOMMENDATIONS/PLAN: Continue his home AEDs, Keppra, Depakote and Lyrica. Lab: see orders. FU with PCP. FU with Dr. Roy in Neurology Clinic. HISTORY OF THE PRESENT ILLNESS: 59-y-old male patient with history of seizure and has been treated with 3 AEDs including Keppra, Depakote and Lyrica. [facility] was brought from [facility] to the ER of [facility] due to breakthrough seizure with mental status changes. The patient stated he did not know whether had a seizure there. No seizures since in the hospital. He returned to his baseline mentation since here. PAST MEDICAL HISTORY: Seizures, last admitted less than a month ago for a similar episode. COPD, bipolar, asthma, intellectual impairment, BPH, orthostatic hypotension. PAST SURGICAL HISTORY: Vagal nerve stimulator, gallbladder surgery, dental surgeries. ALLERGIES: NKDA. MEDICATIONS: Refer to [facility] HISTORY: Non contributory. SOCIAL HISTORY: Lives in a intermediate. There is a new agency took over his care recently. Denies smoking, drinking, and illicit drug use. REVIEW OF SYSTEMS: Constitutional: No malnutrition, weight loss, cachexia. Head: No traumatic brain or head injury. Skin: No edema, or rash. Ear: No infection. Eyes: No vision loss or color blindness. Nose: No bleeding or purulent discharges. Hearing: No hearing decrease. Neck: No injury. Cardiac: HLD. Pulmonary: COPD. GI: No GI ulcer, GI bleeding. Urinary/genital: No dysuria, incontinence, urinary retention. Endocrinologic: No cousin face, craniofacial dysmorphism, polydactyly. Skeletomuscular: No muscular atrophy, deformity. Neurological: see HP. Psychiatric: Denies drug use/abuse. Otherwise, not [id number] review of systems. PHYSICAL EXAMINATION: General appearance is in no acute distress. HEENT: Normocephalic and nontraumatic. Eyes, nose, ears, and throat are unremarkable. Neck is supple. No lymphadenopathy. No crepitus. Cardiovascular: S1, S2, regular rate and rhythm. Pulmonary: Clear to auscultation bilaterally. Abdomen: Bowel sounds are positive. Extremities: No rash, lesions, or edema. No restriction of range of motion NEUROLOGICAL EXAMINATION: Awake. Not fully oriented to time, place and person. PERRL. EOMI. CN: no focal findings. Muscle tone: within normal. Muscle strength: 4+ DTR: brisky in UE and LE. Plantar reflex: Neutral response bilaterally Gait: not examined in chair. Sensory exam: no abnormal findings. No cerebellar signs elicited. F-T-N test fine.. Current Medications Current Medications Current Medications Ondansetron HCl (Zofran) 4 mg PRN Q8HRS PRN IV NAUSEA/VOMITING; Start 05/23/19 at 12:45; Stop 05/24/19 at 12:44; Status DC Acetaminophen (Tylenol) 650 mg PRN Q4HRS PRN PO MILD PAIN 1-3; Start 05/23/19 at 21:45 Bisacodyl (Dulcolax Tab) 10 mg PRN DAILY PRN PO CONSTIPATION 1ST CHOICE; Start 05/23/19 at 21:45 Vitamin D (Vitamin D3) 500 unit 3X/WEEK PO ; Start 05/26/19 at 09:00 Citalopram Hydrobromide (CeleXA) 10 mg DAILY PO Last administered on 05/24/19 08:05; Start 05/24/19 at 09:00 Clonazepam (KlonoPIN) 0.5 mg HS PO Last administered on 05/23/19at 22:07; Start 05/23/19 at 22:00 Cyanocobalamin (Vitamin B-12) 500 mcg DAILY PO Last administered on 05/24/19 08:04; Start 05/24/19 at 09:00 Divalproex Sodium (Depakote Er) 1,000 mg BID PO Last administered on 05/24/19 08:05; Start 05/23/19 at 22:00 Finasteride (Proscar) 5 mg DAILY PO Last administered on 05/24/19at 08:05; Start 05/24/19 at 09:00 Folic Acid (Folic Acid) 1 mg DAILY PO Last administered on 05/24/19at 08:04; Start 05/24/19 at 09:00 Gemfibrozil (Lopid) 600 mg BID PO Last administered on 05/24/19at 08:04; Start 05/23/19 at 22:00 Acetaminophen/ Hydrocodone Bitart (Lortab 5/325) 1 tab PRN Q6HRS PRN PO MODERATE PAIN 4-6; Start 05/23/19 at 21:45 Levetiracetam (Keppra) 1,500 mg BID PO Last administered on 05/24/19at 08:05; Start 05/23/19 at 22:00 Senna/Docusate Sodium (Senna Plus) 1 tab BID PO Last administered on 05/23/19at 22:08; Start 05/23/19 at 22:00 Tamsulosin HCl (Flomax) 0.4 mg DAILY PO Last administered on 05/24/19at 08:05; Start 05/24/19 at 09:00 Artificial Tears (Artificial Tears) 1 drop QID OU Last administered on 05/24/19 at 13:15; Start 05/24/19 at 09:00 Fluticasone Propionate (Flonase) 2 spray DAILY NS Last administered on 05/24/19at 08:15; Start 05/24/19 at 09:00 Budesonide (Pulmicort) 0.5 mg RTBID NEB ; Start 05/24/19 at 08:00 Ibuprofen (Motrin) 800 mg PRN TID PRN PO INFLAMMATION; Start 05/23/19 at 22:00 Midodrine (Proamatine) 10 mg [id number] PO Last administered on 05/24/19at 13:15; Start 05/24/19 at 07:00 Multivitamins (Thera M Plus) 1 tab DAILY PO Last administered on 05/24/19at 08:04; Start 05/24/19 at 09:00 Pantoprazole Sodium (Protonix) 40 mg DAILYAC PO Last administered on 05/24/19at 08:05; Start 05/24/19 at 07:30 Pregabalin (Lyrica) 225 mg BID PO Last administered on 05/24/19 08:06; Start 05/23/19 at 22:00 Influenza Virus Vaccine Quadrival (Afluria Quad 2019-20 (3yr Up) Syringe) 0.5 ml ONCE ONCE VAX IM Last administered on 05/24/19 08:15; Start 05/24/19 at 09:00; Stop 05/24/19 at 09:01; Status DC Potassium Chloride (Klor-Con) 20 meq [id number] PO Last administered on 05/24/19at 13:14; Start 05/24/19 at 09:30 Active Scripts Active Hydrocodone-Apap 5-325 (Hydrocodone Bit/Acetaminophen) 1 Tab Tablet 1 Tab PO PRN Q6HRS PRN 3 Days Ibuprofen 800 Mg Tablet 800 Mg PO PRN TID PRN take with food or milk to avoid upsetting stomach Depakote Er (Divalproex Sodium) 500 Mg Tab.er.24h 1,000 Mg PO BID Reported Vitamin D3 (Cholecalciferol (Vitamin D3)) 1,000 Unit Tablet 500 Unit PO 3X/WEEK Artificial Tears Drops (Dextran 70/Hypromellose/Pf) 1 Each Droperette 1 Drop OU QID Flovent 44MCG Hfa (Fluticasone Propionate) 10.6 Gm Aer.w.adap 1 Puff IH BID Bisacodyl 5 Mg Tablet.dr 10 Mg PO DAILY PRN Theragran-M Premier 50+ Caplet (Mv-Mn/Fa/Coq10/Lycopene/Lutein) 1 Each Tablet 1 Each PO DAILY Senokot-S Tablet (Sennosides/Docusate Sodium) 1 Each Tablet 1 Tab PO BID Levetiracetam 500 Mg Tablet 1,500 Mg PO BID Tylenol (Acetaminophen) 325 Mg Tablet 2 Tab PO PRN Q4HRS PRN Clonazepam (Clonazepam) 0.5 Mg Tablet 0.5 Mg PO HS Midodrine Hcl 10 Mg Tablet 10 Mg PO TID Gemfibrozil 600 Mg Tablet 1 Tab PO BID Vitamin B-12 (Cyanocobalamin (Vitamin B-12)) 1,000 Mcg Tablet 500 Mcg PO DAILY Folic Acid 1 Mg Tablet 1 Tab PO DAILY Flonase Allergy Relief (Fluticasone Propionate) 9.9 Ml [place].susp 2 Sprays NS DAILY Tamsulosin Hcl 0.4 Mg Cap.er.24h 1 Cap PO DAILY Finasteride 5 Mg Tablet 1 Tab PO DAILY Lyrica (Pregabalin) 225 Mg Capsule 225 Mg PO BID 30 Days Omeprazole 20 Mg Tablet.dr 1 Tab PO DAILY Allergies Allergies: Allergies Coded Allergies Type Severity Reaction Last Updated Verified No Known Drug Allergies 03/23/17 No ROS Review of System The patient denies any associated fevers, chills, headache, ear pain, rhinorrhea, sore throat, stiff neck, productive cough, chest pain, shortness of breath, back or flank pain, abdominal pain, nausea, vomiting, diarrhea, constipation, dysuria, rash, numbness, weakness, tingling, incontinence, difficulty ambulating, or diaphoresis. Physical Exam Physical Exam General: Well developed, well nourished, no acute distress, well appearing HEENT: Pupils equally round and reactive to light, EOMI, no discharge, normal conjunctiva Neck: Supple, no nuchal rigidity, no JVD, trachea midline, no tenderness Cardiac: RRR, no murmurs, no gallops, no rubs Chest/Lungs: CTAB, no wheeze, no rhonchi, no crackles Abdomen: soft, non-distended, no guarding, no peritoneal signs, non-tender Back: No tenderness Extremities: no edema, pulses intact, non-tender,capillary refill <3 sec bilateral upper and lower extremities, Neuro: Alert and oriented x 4, no focal deficits, normal speech Vitals Vitals: Vital Signs Date Time Temp Pulse Resp B/P (MAP) Pulse Ox O2 Delivery O2 Flow Rate FiO2 05/24/19 13:15 76 114/57 05/24/19 11:00 97.7 18 99 Room Air 97.7 Labs Labs Laboratory Tests Test 05/23/19 10:45 05/23/19 11:51 05/23/19 11:53 05/24/19 03:20 White Blood Count 2.1 x10^3/uL (4.0-11.0) 3.8 x10^3/uL (4.0-11.0) Red Blood Count 3.73 x10^6/uL (4.30-5.70) 3.59 x10^6/uL (4.30-5.70) Hemoglobin 11.7 g/dL (13.0-17.5) 11.3 g/dL (13.0-17.5) Hematocrit 34.3 % (39.0-53.0) 33.0 % (39.0-53.0) Mean Corpuscular Volume 92 fL (79-100) 92 fL (79-100) Mean Corpuscular Hemoglobin 31 pg (25-35) 31 pg (25-35) Mean Corpuscular Hemoglobin Concent 34 g/dL (31-37) 34 g/dL (31-37) Red Cell Distribution Width 16.1 % (11.5-14.5) 16.0 % (11.5-14.5) Platelet Count 175 x10^3/uL (140-400) 172 x10^3/uL (140-400) Neutrophils (%) (Auto) 34 % (31-73) 35 % (31-73) Lymphocytes (%) (Auto) 43 % (24-48) 46 % (24-48) Monocytes (%) (Auto) 23 % (0-9) 20 % (0-9) Eosinophils (%) (Auto) 0 % (0-3) 0 % (0-3) Basophils (%) (Auto) 0 % (0-3) 0 % (0-3) Neutrophils # (Auto) 0.7 x10^3/uL (1.8-7.7) 1.3 x10^3/uL (1.8-7.7) Lymphocytes # (Auto) 0.9 x10^3/uL (1.0-4.8) 1.7 x10^3/uL (1.0-4.8) Monocytes # (Auto) 0.5 x10^3/uL (0.0-1.1) 0.7 x10^3/uL (0.0-1.1) Eosinophils # (Auto) 0.0 x10^3/uL (0.0-0.7) 0.0 x10^3/uL (0.0-0.7) Basophils # (Auto) 0.0 x10^3/uL (0.0-0.2) 0.0 x10^3/uL (0.0-0.2) Segmented Neutrophils % 26 % (35-66) Band Neutrophils % 3 % (0-9) Lymphocytes % 50 % (24-48) Monocytes % 18 % (0-10) Myelocytes % 3 % (0-0) Platelet Estimate Adequate (ADEQUATE) Sodium Level 143 mmol/L (136-145) 141 mmol/L (136-145) Potassium Level 4.4 mmol/L (3.5-5.1) 3.4 mmol/L (3.5-5.1) Chloride Level 108 mmol/L (98-107) 108 mmol/L (98-107) Carbon Dioxide Level 27 mmol/L (21-32) 22 mmol/L (21-32) Anion Gap 8 (6-14) 11 (6-14) Blood Urea Nitrogen 18 mg/dL (8-26) 17 mg/dL (8-26) Creatinine 0.8 mg/dL (0.7-1.3) 0.7 mg/dL (0.7-1.3) Estimated GFR (Cockcroft-Gault) 99.6 116.2 BUN/Creatinine Ratio 23 (6-20) Glucose Level 113 mg/dL (70-99) 91 mg/dL (70-99) Calcium Level 9.5 mg/dL (8.5-10.1) 9.7 mg/dL (8.5-10.1) Total Bilirubin 0.5 mg/dL (0.2-1.0) Aspartate Amino Transf (AST/SGOT) 14 U/L (15-37) Alanine Aminotransferase (ALT/SGPT) 11 U/L (16-63) Alkaline Phosphatase 58 U/L (46-116) Total Protein 7.8 g/dL (6.4-8.2) Albumin 3.8 g/dL (3.4-5.0) Albumin/Globulin Ratio 1.0 (1.0-1.7) Valproic Acid (Depakene) Level 68 mcg/mL (50-100) Valproic Acid Last Dose Date 05/23/19 Valproic Acid Last Dose Time 0800 Group A Streptococcus Rapid Negative (NEGATIVE) Lactic Acid Level 1.7 mmol/L (0.4-2.0) Laboratory Tests Test 05/24/19 03:20 White Blood Count 3.8 x10^3/uL (4.0-11.0) Red Blood Count 3.59 x10^6/uL (4.30-5.70) Hemoglobin 11.3 g/dL (13.0-17.5) Hematocrit 33.0 % (39.0-53.0) Mean Corpuscular Volume 92 fL (79-100) Mean Corpuscular Hemoglobin 31 pg (25-35) Mean Corpuscular Hemoglobin Concent 34 g/dL (31-37) Red Cell Distribution Width 16.0 % (11.5-14.5) Platelet Count 172 x10^3/uL (140-400) Neutrophils (%) (Auto) 35 % (31-73) Lymphocytes (%) (Auto) 46 % (24-48) Monocytes (%) (Auto) 20 % (0-9) Eosinophils (%) (Auto) 0 % (0-3) Basophils (%) (Auto) 0 % (0-3) Neutrophils # (Auto) 1.3 x10^3/uL (1.8-7.7) Lymphocytes # (Auto) 1.7 x10^3/uL (1.0-4.8) Monocytes # (Auto) 0.7 x10^3/uL (0.0-1.1) Eosinophils # (Auto) 0.0 x10^3/uL (0.0-0.7) Basophils # (Auto) 0.0 x10^3/uL (0.0-0.2) Sodium Level 141 mmol/L (136-145) Potassium Level 3.4 mmol/L (3.5-5.1) Chloride Level 108 mmol/L (98-107) Carbon Dioxide Level 22 mmol/L (21-32) Anion Gap 11 (6-14) Blood Urea Nitrogen 17 mg/dL (8-26) Creatinine 0.7 mg/dL (0.7-1.3) Estimated GFR (Cockcroft-Gault) 116.2 Glucose Level 91 mg/dL (70-99) Calcium Level 9.7 mg/dL (8.5-10.1) DYLON OLIVA MD May 24, 2019 14:22
[2019-05-24 15:00] VITALS: BP 129/71
--- NOTE | 2019-05-24 17:29 | NUR ---
Discharge order cancelled due to no call back from [facility]. Called [facility] and left a voicemail message. This Rn called multiple times and no response. Called Dr. Garza to let him know of the situation. Will try to discharge patient tomorrow. Will continue to monitor and care for according to poc. Addendum: 05/24/19 at 1733 by SANA MAHER RN phone number for [facility] [phone].
[2019-05-24 19:46] VITALS: BP 97/57
[2019-05-24] MEDS: clonazePAM 0.5 MG TABLET PO SCH (20:31)
[2019-05-24 23:02] VITALS: BP 99/54
[2019-05-25 03:18] VITALS: BP 91/50
[2019-05-25 06:38] LABS: BASO % 0 % (0-3); EOS % 0 % (0-3); HEMOGLOBIN 11.3 g/dL (13.0-17.5); LYMPH # 0.8 x10^3/uL (1.0-4.8); LYMPH % 36 % (24-48); MEAN CORPUSCULAR HEMOGLOBIN 32 pg (25-35); MEAN CORPUSCULAR HGB CONC 34 g/dL (31-37); MEAN CORPUSCULAR VOLUME 92 fL (79-100); MONO # 0.6 x10^3/uL (0.0-1.1); MONO % 26 % (0-9); NEUT # 0.9 x10^3/uL (1.8-7.7); NEUT % 37 % (31-73); PLATELET COUNT 160 x10^3/uL (140-400); RED CELL DISTRIBUTION WIDTH 15.6 % (11.5-14.5); WHITE BLOOD COUNT 2.3 x10^3/uL (4.0-11.0)
[2019-05-25 07:00] VITALS: BP 110/69
[2019-05-25] MEDS: MIDODRINE 5 MG TABLET PO SCH ×3 (07:00→17:29)
[2019-05-25 07:06] LABS: ALBUMIN 3.6 g/dL (3.4-5.0); CALCIUM 9.4 mg/dL (8.5-10.1); CREATININE 0.7 mg/dL (0.7-1.3); GFR 116.2; POTASSIUM 3.9 mmol/L (3.5-5.1); TOTAL BILIRUBIN 0.8 mg/dL (0.2-1.0); TOTAL PROTEIN 7.3 g/dL (6.4-8.2)
[2019-05-25] MEDS: BUDESONIDE 0.5 MG/2 ML NEBU. NEB SCH ×2 (08:11→21:29)
[2019-05-25] MEDS: FLUTICASONE 50MCG/NASAL SPRAY 16GM BOTTLE. NS SCH (08:21)
[2019-05-25] MEDS: POLYVINYL ALCOHOL 1.4% OPHTH SOLUTION 15ML BOTTLE. OU SCH ×4 (08:21→22:08)
[2019-05-25] MEDS: PANTOPRAZOLE 40 MG TABLET.DR. PO SCH (08:22)
[2019-05-25] MEDS: FINASTERIDE 5 MG TABLET. PO SCH (08:22)
[2019-05-25] MEDS: FOLIC ACID 1 MG TABLET. PO SCH (08:22)
[2019-05-25] MEDS: CYANOCOBALAMIN (VITAMIN B-12) 1,000 MCG TABLET. PO SCH (08:22)
[2019-05-25] MEDS: POTASSIUM CHLORIDE 20 MEQ TABLET.ER. PO SCH ×2 (08:23→13:26)
[2019-05-25] MEDS: levETIRAcetam 500 MG TABLET PO SCH ×2 (08:24→22:07)
[2019-05-25] MEDS: PREGABALIN 75 MG CAPSULE PO SCH ×2 (08:24→22:06)
[2019-05-25] MEDS: CITALOPRAM 10 MG TABLET. PO SCH (08:24)
[2019-05-25] MEDS: MULTIVITAMIN with MINERAL TABLET. PO SCH (08:25)
[2019-05-25] MEDS: DIVALPROEX EXTENDED RELEASE 500 MG TAB.ER.24H. PO SCH ×2 (08:26→22:06)
[2019-05-25] MEDS: GEMFIBROZIL 600 MG TABLET. PO SCH ×2 (08:26→22:06)
[2019-05-25] MEDS: TAMSULOSIN 0.4 MG CAP.ER.24H. PO SCH ×2 (08:26→17:28)
[2019-05-25] MEDS: SENNOSIDES/DOCUSATE 8.6/50MG TABLET. PO SCH ×2 (08:27→22:07)
--- NOTE | 2019-05-25 09:12 | PDOC ---
IM PROGRESS NOTES- Subjective Subjective None. Did not have any more seizures. He denies any pain or dyspnea. Objective Vitals/I&O Vital Signs Date Time Temp Pulse Resp B/P (MAP) Pulse Ox O2 Delivery O2 Flow Rate FiO2 05/25/19 08:17 Room Air 05/25/19 07:00 98.0 76 20 110/69 (83) 98 98.0 I & O 05/24/19 05/24/19 05/25/19 15:00 23:00 07:00 Intake Total 800 ml 100 ml Balance 800 ml 100 ml Physical Exam Physical Exam General appearance - alert,well appearing, and in no distress Mental Status - alert, intellectual deficits. Head - normal Chest -decreased breath sounds at bases Heart - S1 and S2 normal Abdomen - soft, nontender,and oriented Musculoskeletal - no muscular tenderness noted Extremities - no pedal edema Skin - warm and dry Labs Laboratory Tests Test 05/25/19 06:18 White Blood Count 2.3 x10^3/uL (4.0-11.0) L Red Blood Count 3.60 x10^6/uL (4.30-5.70) L Hemoglobin 11.3 g/dL (13.0-17.5) L Hematocrit 33.0 % (39.0-53.0) L Mean Corpuscular Volume 92 fL (79-100) Mean Corpuscular Hemoglobin 32 pg (25-35) Mean Corpuscular Hemoglobin Concent 34 g/dL (31-37) Red Cell Distribution Width 15.6 % (11.5-14.5) H Platelet Count 160 x10^3/uL (140-400) Neutrophils (%) (Auto) 37 % (31-73) Lymphocytes (%) (Auto) 36 % (24-48) Monocytes (%) (Auto) 26 % (0-9) H Eosinophils (%) (Auto) 0 % (0-3) Basophils (%) (Auto) 0 % (0-3) Neutrophils # (Auto) 0.9 x10^3/uL (1.8-7.7) L Lymphocytes # (Auto) 0.8 x10^3/uL (1.0-4.8) L Monocytes # (Auto) 0.6 x10^3/uL (0.0-1.1) Eosinophils # (Auto) 0.0 x10^3/uL (0.0-0.7) Basophils # (Auto) 0.0 x10^3/uL (0.0-0.2) Sodium Level 141 mmol/L (136-145) Potassium Level 3.9 mmol/L (3.5-5.1) Chloride Level 106 mmol/L (98-107) Carbon Dioxide Level 23 mmol/L (21-32) Anion Gap 12 (6-14) Blood Urea Nitrogen 15 mg/dL (8-26) Creatinine 0.7 mg/dL (0.7-1.3) Estimated GFR (Cockcroft-Gault) 116.2 BUN/Creatinine Ratio 21 (6-20) H Glucose Level 91 mg/dL (70-99) Calcium Level 9.4 mg/dL (8.5-10.1) Magnesium Level 2.0 mg/dL (1.8-2.4) Total Bilirubin 0.8 mg/dL (0.2-1.0) Aspartate Amino Transferase (AST) 14 U/L (15-37) L Alanine Aminotransferase (ALT) 11 U/L (16-63) L Alkaline Phosphatase 50 U/L (46-116) Total Protein 7.3 g/dL (6.4-8.2) Albumin 3.6 g/dL (3.4-5.0) Albumin/Globulin Ratio 1.0 (1.0-1.7) Laboratory Tests 05/25/19 06:18 Laboratory Tests 05/25/19 06:18 Meds Current Medications Medications (Trade) Dose Ordered Sig/Chepe Route PRN Reason Start Time Stop Time Status Last Admin Dose Admin Potassium Chloride (Klor-Con) 20 meq BID92 PO 05/24/19 09:30 05/25/19 08:23 Assessment Assessment 1. Seizure disorder. The patient had recurrent seizures. 2. Chronic obstructive pulmonary disease. 3. Bipolar disorder. 4. Asthma. 5. Intellectual impairment. 6. History of vagal nerve stimulator. PLAN: The patient is stable. I have discussed with Dr. Girard. [facility] I will discontinue his citalopram as it interacts with Keppra and lowers the seizure threshold and reduces the effectiveness of Keppra. However, citalopram interacts with Lyrica and reduces seizure potential, so I will discontinue citalopram and see if this helps him. Continue other treatment. Continue Keppra, Depakote, and Klonopin. For details, please refer to the transfer orders. Frequent urination- and is already on Flomax. I'll increase it to .4 mg twice daily. Bladder scan yesterday was negative. Patient may have overactive bladder. 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 Try to discharge him today. Discussed with staff. Discharge management 35 minutes. Plan Plan For more details regarding further plans, please refer to the orders. BRAYDEN MILLER MD May 25, 2019 09:12
[2019-05-25 11:00] VITALS: BP 101/64
--- NOTE | 2019-05-25 14:57 | PDOC ---
PROGRESS NOTES Assessment Assessment Seizure. Metabolic encephalopathy. Fall. Mental deficiency. COPD. HLD. Pancytopenia. Asthma. RECOMMENDATIONS/PLAN: Continue his home AEDs, Keppra, Depakote and Lyrica. Lab: see orders. FU with PCP. FU with Dr. Roy in Neurology Clinic. HISTORY OF THE PRESENT ILLNESS: 59-y-old male patient with history of seizure and has been treated with 3 AEDs including Keppra, Depakote and Lyrica. [facility] due to breakthrough seizure with mental status changes. The patient stated he did not know whether had a seizure there. No seizures since in the hospital. He returned to his baseline mentation since here. No seizures over night. PAST MEDICAL HISTORY: Seizures, last admitted less than a month ago for a similar episode. COPD, bipolar, asthma, intellectual impairment, BPH, orthostatic hypotension. PAST SURGICAL HISTORY: Vagal nerve stimulator, gallbladder surgery, dental surgeries. ALLERGIES: NKDA. MEDICATIONS: Refer to [facility] FAMILY HISTORY: Non contributory. SOCIAL HISTORY: [facility]. [facility] is a new agency took over his care recently. Denies smoking, drinking, and illicit drug use. REVIEW OF SYSTEMS: Constitutional: No malnutrition, weight loss, cachexia. Head: No traumatic brain or head injury. Skin: No edema, or rash. Ear: No infection. Eyes: No vision loss or color blindness. Nose: No bleeding or purulent discharges. Hearing: No hearing decrease. Neck: No injury. Cardiac: HLD. Pulmonary: COPD. GI: No GI ulcer, GI bleeding. Urinary/genital: No dysuria, incontinence, urinary retention. Endocrinologic: No cousin face, craniofacial dysmorphism, polydactyly. Skeletomuscular: No muscular atrophy, deformity. Neurological: see HP. Psychiatric: Denies drug use/abuse. Otherwise, not [id number] review of systems. PHYSICAL EXAMINATION: General appearance is in no acute distress. HEENT: Normocephalic and nontraumatic. Eyes, nose, ears, and throat are unremarkable. Neck is supple. No lymphadenopathy. No crepitus. Cardiovascular: S1, S2, regular rate and rhythm. Pulmonary: Clear to auscultation bilaterally. Abdomen: Bowel sounds are positive. Extremities: No rash, lesions, or edema. No restriction of range of motion NEUROLOGICAL EXAMINATION: Awake. Not fully oriented to time, place and person. PERRL. EOMI. CN: no focal findings. Muscle tone: within normal. Muscle strength: 4+ DTR: brisky in UE and LE. Plantar reflex: Neutral response bilaterally Gait: not examined in chair. Sensory exam: no abnormal findings. No cerebellar signs elicited. F-T-N test fine.. Objective Objective Vital Signs Date Time Temp Pulse Resp B/P (MAP) Pulse Ox O2 Delivery O2 Flow Rate FiO2 05/25/19 13:26 66 101/64 05/25/19 11:00 98.7 14 98 Room Air 98.7 Intake and Output 05/25/19 07:00 Intake Total 900 ml Balance 900 ml Intake Oral 900 ml # Voids 4 Vitals Signs Vitals VS - Last 72 Hours, by Label Date Time Temp Pulse Resp B/P (MAP) Pulse Ox O2 Delivery O2 Flow Rate FiO2 05/25/19 13:26 66 101/64 05/25/19 11:00 98.7 66 14 101/64 (76) 98 Room Air 98.7 05/25/19 08:17 Room Air 05/25/19 08:00 Room Air 05/25/19 07:00 98.0 76 20 110/69 (83) 98 Room Air 98.0 05/25/19 07:00 66 101/64 05/25/19 03:18 98.7 62 18 91/50 (64) 96 Room Air 98.7 05/24/19 23:02 98.1 65 20 99/54 (69) 97 Room Air 98.1 05/24/19 20:00 Room Air 05/24/19 19:46 98.8 72 18 97/57 (70) 95 Room Air 98.8 05/24/19 15:00 98.5 81 16 129/71 (90) 97 Room Air 98.5 05/24/19 13:15 76 114/57 05/24/19 11:00 97.7 76 18 114/57 (76) 99 Room Air 97.7 05/24/19 08:00 Room Air 05/24/19 07:12 98.1 82 20 120/76 (91) 99 Room Air 98.1 05/24/19 07:00 82 120/76 Laboratory Laboratory Laboratory Tests Test 05/25/19 06:18 White Blood Count 2.3 x10^3/uL (4.0-11.0) Red Blood Count 3.60 x10^6/uL (4.30-5.70) Hemoglobin 11.3 g/dL (13.0-17.5) Hematocrit 33.0 % (39.0-53.0) Mean Corpuscular Volume 92 fL (79-100) Mean Corpuscular Hemoglobin 32 pg (25-35) Mean Corpuscular Hemoglobin Concent 34 g/dL (31-37) Red Cell Distribution Width 15.6 % (11.5-14.5) Platelet Count 160 x10^3/uL (140-400) Neutrophils (%) (Auto) 37 % (31-73) Lymphocytes (%) (Auto) 36 % (24-48) Monocytes (%) (Auto) 26 % (0-9) Eosinophils (%) (Auto) 0 % (0-3) Basophils (%) (Auto) 0 % (0-3) Neutrophils # (Auto) 0.9 x10^3/uL (1.8-7.7) Lymphocytes # (Auto) 0.8 x10^3/uL (1.0-4.8) Monocytes # (Auto) 0.6 x10^3/uL (0.0-1.1) Eosinophils # (Auto) 0.0 x10^3/uL (0.0-0.7) Basophils # (Auto) 0.0 x10^3/uL (0.0-0.2) Sodium Level 141 mmol/L (136-145) Potassium Level 3.9 mmol/L (3.5-5.1) Chloride Level 106 mmol/L (98-107) Carbon Dioxide Level 23 mmol/L (21-32) Anion Gap 12 (6-14) Blood Urea Nitrogen 15 mg/dL (8-26) Creatinine 0.7 mg/dL (0.7-1.3) Estimated GFR (Cockcroft-Gault) 116.2 BUN/Creatinine Ratio 21 (6-20) Glucose Level 91 mg/dL (70-99) Calcium Level 9.4 mg/dL (8.5-10.1) Magnesium Level 2.0 mg/dL (1.8-2.4) Total Bilirubin 0.8 mg/dL (0.2-1.0) Aspartate Amino Transf (AST/SGOT) 14 U/L (15-37) Alanine Aminotransferase (ALT/SGPT) 11 U/L (16-63) Alkaline Phosphatase 50 U/L (46-116) Total Protein 7.3 g/dL (6.4-8.2) Albumin 3.6 g/dL (3.4-5.0) Albumin/Globulin Ratio 1.0 (1.0-1.7) Microbiology 05/23/19 Throat Culture - Final, Complete 05/23/19 - Final, Complete Medication Medications Current Medications Tamsulosin HCl (Flomax) 0.4 mg BIDWMEALS PO ; Start 05/25/19 at 17:00 Vitamin D (Vitamin D3) 500 unit 3X/WEEK PO ; Start 05/26/19 at 09:00 Comment Review of Relevant I have reviewed the following items niya (where applicable) has been applied. DYLON OLIVA MD May 25, 2019 14:57
[2019-05-25 15:00] VITALS: BP 128/76
--- NOTE | 2019-05-25 18:25 | NUR ---
attempted to call the longterm again today and got no answer. Augustin has been very sleepy and lethargic today, not sure what is causing this he was just fine earlier today. Trever Espino RN
[2019-05-25 19:15] VITALS: BP 119/73
[2019-05-25] MEDS: clonazePAM 0.5 MG TABLET PO SCH (22:06)
[2019-05-25 23:02] VITALS: BP 97/50
[2019-05-26 03:34] VITALS: BP 75/45
[2019-05-26 03:45] VITALS: BP 98/59
[2019-05-26] MEDS: PANTOPRAZOLE 40 MG TABLET.DR. PO SCH (05:21)
[2019-05-26] MEDS: MIDODRINE 5 MG TABLET PO SCH ×2 (05:22→13:29)
[2019-05-26 05:26] VITALS: BP 109/70
[2019-05-26 05:47] LABS: BARBITURATES NEG (NEG); BENZODIAZEPINES NEG (NEG); CANNABINOIDS NEG (NEG); COCAINE NEG (NEG); METHADONE NEG (NEG); OPIATES NEG (NEG); PHENCYCLIDINE NEG (NEG)
[2019-05-26 05:48] LABS: AMPHETAMINE/METHAMPHETAMINE NEG (NEG)
[2019-05-26] MEDS: BUDESONIDE 0.5 MG/2 ML NEBU. NEB SCH (06:54)
[2019-05-26 07:39] VITALS: BP 102/51
[2019-05-26] MEDS: CYANOCOBALAMIN (VITAMIN B-12) 1,000 MCG TABLET. PO SCH (08:28)
[2019-05-26] MEDS: FOLIC ACID 1 MG TABLET. PO SCH (08:28)
[2019-05-26] MEDS: FINASTERIDE 5 MG TABLET. PO SCH (08:29)
[2019-05-26] MEDS: PREGABALIN 75 MG CAPSULE PO SCH (08:29)
[2019-05-26] MEDS: levETIRAcetam 500 MG TABLET PO SCH (08:29)
[2019-05-26] MEDS: SENNOSIDES/DOCUSATE 8.6/50MG TABLET. PO SCH (08:30)
[2019-05-26] MEDS: GEMFIBROZIL 600 MG TABLET. PO SCH (08:30)
[2019-05-26] MEDS: MULTIVITAMIN with MINERAL TABLET. PO SCH (08:30)
[2019-05-26] MEDS: TAMSULOSIN 0.4 MG CAP.ER.24H. PO SCH (08:31)
[2019-05-26] MEDS: POTASSIUM CHLORIDE 20 MEQ TABLET.ER. PO SCH ×2 (08:31→13:30)
[2019-05-26] MEDS: DIVALPROEX EXTENDED RELEASE 500 MG TAB.ER.24H. PO SCH (08:31)
[2019-05-26] MEDS: POLYVINYL ALCOHOL 1.4% OPHTH SOLUTION 15ML BOTTLE. OU SCH ×2 (09:00→13:28)
[2019-05-26] MEDS: FLUTICASONE 50MCG/NASAL SPRAY 16GM BOTTLE. NS SCH (09:00)
[2019-05-26] MEDS ORDERED: CHOLECALCIFEROL (VITAMIN D3) 1,000 UNIT TABLET PO SCH (09:00)
--- NOTE | 2019-05-26 09:24 | PDOC ---
PROGRESS NOTES Subjective Subjective no new complaints Objective Objective Vital Signs Date Time Temp Pulse Resp B/P (MAP) Pulse Ox O2 Delivery O2 Flow Rate FiO2 05/26/19 08:00 Room Air 05/26/19 07:39 98.1 66 18 102/51 (68) 94 98.1 Intake and Output 05/26/19 07:00 Intake Total 760 ml Output Total 500 ml Balance 260 ml Intake Oral 760 ml Output Urine Total 500 ml # Voids 4 # Bowel Movements 1 Physical Exam Abdomen: Normal bowel sounds, Soft Heart: Normal S1 Extremities: No clubbing General: Alert, No acute distress HEENT: PERRLA Lungs: Clear to auscultation MUSCULOSKELETAL: No swelling, Other Neuro: Normal speech Skin: No breakdown Diagnosis Problem List Problems Medical Problems: (1) Breakthrough seizure Status: Acute Assessment Assessment 1. Seizure disorder. no more seizures nored 2. Chronic obstructive pulmonary disease. 3. Bipolar disorder. 4. Asthma. 5. Intellectual impairment. 6. History of vagal nerve stimulator. PLAN: [facility] to [facility] , will discharge today. The patient is stable. I have discussed with Dr. Girard. [facility] the [facility]. I will discontinue his citalopram as it interacts with Keppra and lowers the seizure threshold and reduces the effectiveness of Keppra. However, citalopram interacts with Lyrica and reduces seizure potential, so I will discontinue citalopram and see if this helps him. Continue other treatment. Continue Keppra, Depakote, and Klonopin. For details, please refer to the transfer orders. Frequent urination- and is already on Flomax. I'll increase it to .4 mg twice daily. Bladder scan yesterday was negative. Patient may have overactive bladder. 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 Try to discharge him today. Discussed with staff. Discharge management 35 minutes. Plan Plan of Care Problems Medical Problems: (1) Breakthrough seizure Status: Acute Comment Review of Relevant I have reviewed the following items niya (where applicable) has been applied. Labs Laboratory Tests Test 05/26/19 05:00 Urine Opiates Screen Neg (NEG) Urine Methadone Screen Neg (NEG) Urine Barbiturates Neg (NEG) Urine Phencyclidine Screen Neg (NEG) Urine Amphetamine/Methamphetamine Neg (NEG) Urine Benzodiazepines Screen Neg (NEG) Urine Cocaine Screen Neg (NEG) Urine Cannabinoids Screen Neg (NEG) Urine Ethyl Alcohol Neg (NEG) Microbiology 05/23/19 Throat Culture - Final, Complete 05/23/19 - Final, Complete Medications Current Medications Tamsulosin HCl (Flomax) 0.4 mg BIDWMEALS PO Last administered on 05/26/19at 08:31; Start 05/25/19 at 17:00 Vitamin D (Vitamin D3) 500 unit 3X/WEEK PO Last administered on 05/26/19at 08:30; Start 05/26/19 at 09:00 Vitals/I & O Vital Sign - Last 24 Hours 05/25/19 05/25/19 05/25/19 05/25/19 11:00 13:26 15:00 17:29 Temp 98.7 98.5 98.7 98.5 Pulse 66 66 85 85 Resp 14 18 B/P (MAP) 101/64 (76) 101/64 128/76 (93) 128/76 Pulse Ox 98 99 O2 Delivery Room Air Room Air 05/25/19 05/25/19 05/25/19 05/25/19 19:15 19:58 21:31 22:07 Temp 98.2 98.2 Pulse 74 Resp 20 18 B/P (MAP) 119/73 (88) Pulse Ox 98 98 O2 Delivery Room Air Room Air Room Air Room Air 05/25/19 05/25/19 05/26/19 05/26/19 23:02 23:07 03:34 03:45 Temp 97.7 97.6 97.7 97.6 Pulse 74 66 70 Resp 18 18 18 18 B/P (MAP) 97/50 (66) 75/45 (55) 98/59 (72) Pulse Ox 97 98 95 97 O2 Delivery Room Air Room Air Room Air Room Air 05/26/19 05/26/19 05/26/19 05/26/19 05:22 05:26 06:54 07:39 Temp 98.1 98.1 Pulse 73 70 66 Resp 18 18 B/P (MAP) 109/70 109/70 (83) 102/51 (68) Pulse Ox 97 98 94 O2 Delivery Room Air Room Air Room Air 05/26/19 08:00 O2 Delivery Room Air Intake and Output 05/25/19 05/25/19 05/26/19 15:00 23:00 07:00 Intake Total 360 ml 0 ml 400 ml Output Total 500 ml Balance 360 ml 0 ml -100 ml TAMERA SNELL MD May 26, 2019 09:24
[2019-05-26] MEDS ORDERED: TAMS0.4C97 PO ×2 (09:28→09:32)
[2019-05-26 11:30] VITALS: BP 95/54
[2019-05-26 13:29] VITALS: BP 95/54
--- NOTE | 2019-05-26 15:17 | NUR ---
Discharge teaching provided written and verbal to person from [facility],understanding verbalized. Dismissed to nursing home with all belongings accompanied by personnell from [facility]. Ambulated to exit with SBA with walker at 1455.
--- NOTE | 2019-05-26 15:51 | NUR ---
late note: ISIDORO phoned Abigail on phone number listed on face sheet at [facility]. 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 RN notified.
--- NOTE | 2019-05-26 16:00 | PDOC ---
PROGRESS NOTES Assessment Assessment Seizure. Metabolic encephalopathy. Fall. Mental deficiency. COPD. HLD. Pancytopenia. Asthma. RECOMMENDATIONS/PLAN: Continue his home AEDs, Keppra, Depakote and Lyrica. FU with PCP. MABEL with Dr. Roy in [facility]. HISTORY OF THE PRESENT ILLNESS: 59-y-old male patient with history of seizure and has been treated with 3 AEDs including Keppra, Depakote and Lyrica. He was brought from detention to the ER of [facility] due to breakthrough seizure with mental status changes. The patient stated he did not know whether had a seizure there. No seizures since in the hospital. He returned to his baseline mentation since here. No seizures observed. PAST MEDICAL HISTORY: Seizures, last admitted less than a month ago for a similar episode. COPD, bipolar, asthma, intellectual impairment, BPH, orthostatic hypotension. PAST SURGICAL HISTORY: Vagal nerve stimulator, gallbladder surgery, dental surgeries. ALLERGIES: NKDA. MEDICATIONS: Refer to [facility] HISTORY: Non contributory. SOCIAL HISTORY: Lives in a detention. There is a new agency took over his care recently. Denies smoking, drinking, and illicit drug use. REVIEW OF SYSTEMS: Constitutional: No malnutrition, weight loss, cachexia. Head: No traumatic brain or head injury. Skin: No edema, or rash. Ear: No infection. Eyes: No vision loss or color blindness. Nose: No bleeding or purulent discharges. Hearing: No hearing decrease. Neck: No injury. Cardiac: HLD. Pulmonary: COPD. GI: No GI ulcer, GI bleeding. Urinary/genital: No dysuria, incontinence, urinary retention. Endocrinologic: No cousin face, craniofacial dysmorphism, polydactyly. Skeletomuscular: No muscular atrophy, deformity. Neurological: see HP. Psychiatric: Denies drug use/abuse. Otherwise, not [id number] review of systems. PHYSICAL EXAMINATION: General appearance is in no acute distress. HEENT: Normocephalic and nontraumatic. Eyes, nose, ears, and throat are unremarkable. Neck is supple. No lymphadenopathy. No crepitus. Cardiovascular: S1, S2, regular rate and rhythm. Pulmonary: Clear to auscultation bilaterally. Abdomen: Bowel sounds are positive. Extremities: No rash, lesions, or edema. No restriction of range of motion NEUROLOGICAL EXAMINATION: Awake. Not oriented to time, place and person. PERRL. EOMI. CN: no focal findings. Muscle tone: within normal. Muscle strength: 4+ DTR: brisky in UE and LE. Plantar reflex: Neutral response bilaterally Gait: not examined in chair. Sensory exam: no abnormal findings. No cerebellar signs elicited. F-T-N test fine.. Objective Objective Vital Signs Date Time Temp Pulse Resp B/P (MAP) Pulse Ox O2 Delivery O2 Flow Rate FiO2 05/26/19 13:29 77 95/54 05/26/19 11:30 98.3 18 95 Room Air 98.3 Intake and Output 05/26/19 07:00 Intake Total 760 ml Output Total 500 ml Balance 260 ml Intake Oral 760 ml Output Urine Total 500 ml # Voids 4 # Bowel Movements 1 Vitals Signs Vitals VS - Last 72 Hours, by Label Date Time Temp Pulse Resp B/P (MAP) Pulse Ox O2 Delivery O2 Flow Rate FiO2 05/26/19 13:29 77 95/54 05/26/19 11:30 98.3 77 18 95/54 (68) 95 Room Air 98.3 05/26/19 08:00 Room Air 05/26/19 07:39 98.1 66 18 102/51 (68) 94 Room Air 98.1 05/26/19 06:54 98 Room Air 05/26/19 05:26 70 18 109/70 (83) 97 Room Air 05/26/19 05:22 73 109/70 05/26/19 03:45 70 18 98/59 (72) 97 Room Air 05/26/19 03:34 97.6 66 18 75/45 (55) 95 Room Air 97.6 05/25/19 23:07 18 98 Room Air 05/25/19 23:02 97.7 74 18 97/50 (66) 97 Room Air 97.7 05/25/19 22:07 18 98 Room Air 05/25/19 21:31 Room Air 05/25/19 19:58 Room Air 05/25/19 19:15 98.2 74 20 119/73 (88) 98 Room Air 98.2 05/25/19 17:29 85 128/76 05/25/19 15:00 98.5 85 18 128/76 (93) 99 Room Air 98.5 05/25/19 13:26 66 101/64 05/25/19 11:00 98.7 66 14 101/64 (76) 98 Room Air 98.7 05/25/19 08:17 Room Air 05/25/19 08:00 Room Air 05/25/19 07:00 98.0 76 20 110/69 (83) 98 Room Air 98.0 05/25/19 07:00 66 101/64 Laboratory Laboratory Laboratory Tests Test 05/26/19 05:00 Urine Opiates Screen Neg (NEG) Urine Methadone Screen Neg (NEG) Urine Barbiturates Neg (NEG) Urine Phencyclidine Screen Neg (NEG) Urine Amphetamine/Methamphetamine Neg (NEG) Urine Benzodiazepines Screen Neg (NEG) Urine Cocaine Screen Neg (NEG) Urine Cannabinoids Screen Neg (NEG) Urine Ethyl Alcohol Neg (NEG) Microbiology 05/23/19 Throat Culture - Final, Complete 05/23/19 - Final, Complete Medication Medications Current Medications Tamsulosin HCl (Flomax) 0.4 mg BIDWMEALS PO Last administered on 05/26/19at 08:31; Start 05/25/19 at 17:00; Stop 05/26/19 at 15:27; Status DC Vitamin D (Vitamin D3) 500 unit 3X/WEEK PO Last administered on 05/26/19at 08:30; Start 05/26/19 at 09:00; Stop 05/26/19 at 15:27; Status DC Comment Review of Relevant I have reviewed the following items niya (where applicable) has been applied. DYLON OLIVA MD May 26, 2019 16:00
--- NOTE | 2019-05-28 17:43 | PDOC2 ---
NEUROLOGY CONSULT Date of Admission Date of Admission DATE: 05/28/19 TIME: 17:27 Reason for Consult Reason for Consult: Status epilepticus. Epilepsy, intractable. Metabolic encephalopathy. Mental deficiency. COPD. HLD. Pancytopenia. Asthma. RECOMMENDATIONS/PLAN: Multiple Ativan administrated in the ER. IV Fosphenytoin given in ER. IV Keppra administrated in the ER. Resume his home AEDs via IV this time. EEG on 05/29/19. 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 Seizure protocol. Lab: VPA level 91. HCT: no acute findings. NO SAH or ICH. HISTORY OF THE PRESENT ILLNESS: This is a 59-y-old male patient with history of epilepsy and has been treated with 3 AEDs including Keppra, Depakote and Lyrica. He had seizures and was hospitalized on 05/23/19. He was discharged back to intermediate on 05/26/19. He had seizures today on 05/28/19 and was brought to the ER of [facility] and he had prolonged seizures lasting for about 30 minutes in the ER per nurse. Multiple AEDs were administrated via IV. He remained unresponsiveness since. PAST MEDICAL HISTORY: Seizures, last admitted less than a month ago for a similar episode. COPD, bipolar, asthma, intellectual impairment, BPH, orthostatic hypotension. PAST SURGICAL HISTORY: Vagal nerve stimulator, gallbladder surgery, dental surgeries. ALLERGIES: NKDA. MEDICATIONS: Refer to [facility] FAMILY HISTORY: Non contributory. SOCIAL HISTORY: Lives in a intermediate. There is a new agency took over his care recently. Denies smoking, drinking, and illicit drug use. REVIEW OF SYSTEMS: Constitutional: No malnutrition, weight loss, cachexia. Head: No traumatic brain or head injury. Skin: No edema, or rash. Ear: No infection. Eyes: No vision loss or color blindness. Nose: No bleeding or purulent discharges. Hearing: No hearing decrease. Neck: No injury. Cardiac: HLD. Pulmonary: COPD. GI: No GI ulcer, GI bleeding. Urinary/genital: No dysuria, incontinence, urinary retention. Endocrinologic: No cousin face, craniofacial dysmorphism, polydactyly. Skeletomuscular: No muscular atrophy, deformity. Neurological: see HP. Psychiatric: Denies drug use/abuse. Otherwise, not [id number] review of systems. PHYSICAL EXAMINATION: General appearance is in no acute distress. HEENT: Normocephalic and nontraumatic. Eyes, nose, ears, and throat are unremarkable. Neck is supple. No lymphadenopathy. No crepitus. Cardiovascular: S1, S2, regular rate and rhythm. Pulmonary: Lung sounds coarse to auscultation bilaterally. Abdomen: Bowel sounds are positive. Extremities: No rash, lesions, or edema. No restriction of range of motion NEUROLOGICAL EXAMINATION: Unresponsiveness. Not oriented to time, place and person. PERRL. Gaze to right side. EOMI not elicited. CN: no focal findings. Muscle tone: Increased in left UE and LE. Muscle strength: No movements observed. DTR: brisky in UE and LE. Plantar reflex: No response bilaterally Gait: not able to walk at this time. Sensory exam: no response to pain stimuli. Not able to access cerebellar signs. F-T-N test not performed due to MS changes. Current Medications Current Medications Current Medications Ondansetron HCl (Zofran) 4 mg PRN Q8HRS PRN IV NAUSEA/VOMITING; Start 05/23/19 at 12:45; Stop 05/24/19 at 12:44; Status DC Acetaminophen (Tylenol) 650 mg PRN Q4HRS PRN PO MILD PAIN 1-3; Start 05/23/19 at 21:45; Stop 05/26/19 at 15:27; Status DC Bisacodyl (Dulcolax Tab) 10 mg PRN DAILY PRN PO CONSTIPATION 1ST CHOICE; Start 05/23/19 at 21:45; Stop 05/26/19 at 15:27; Status DC Vitamin D (Vitamin D3) 500 unit 3X/WEEK PO Last administered on 05/26/19at 08:30; Start 05/26/19 at 09:00; Stop 05/26/19 at 15:27; Status DC Citalopram Hydrobromide (CeleXA) 10 mg DAILY PO Last administered on 05/25/19at 08:24; Start 05/24/19 at 09:00; Stop 05/25/19 at 09:11; Status DC Clonazepam (KlonoPIN) 0.5 mg HS PO Last administered on 05/25/19at 22:06; Start 05/23/19 at 22:00; Stop 05/26/19 at 15:27; Status DC Cyanocobalamin (Vitamin B-12) 500 mcg DAILY PO Last administered on 05/26/19 08:28; Start 05/24/19 at 09:00; Stop 05/26/19 at 15:27; Status DC Divalproex Sodium (Depakote Er) 1,000 mg BID PO Last administered on 05/26/19 08:31; Start 05/23/19 at 22:00; Stop 05/26/19 at 15:27; Status DC Finasteride (Proscar) 5 mg DAILY PO Last administered on 05/26/19 08:29; Start 05/24/19 at 09:00; Stop 05/26/19 at 15:27; Status DC Folic Acid (Folic Acid) 1 mg DAILY PO Last administered on 05/26/19 08:28; Start 05/24/19 at 09:00; Stop 05/26/19 at 15:27; Status DC Gemfibrozil (Lopid) 600 mg BID PO Last administered on 05/26/19 08:30; Start 05/23/19 at 22:00; Stop 05/26/19 at 15:27; Status DC Acetaminophen/ Hydrocodone Bitart (Lortab 5/325) 1 tab PRN Q6HRS PRN PO MODERATE PAIN - SEVERE PAIN Last administered on 05/25/19 22:07; Start 05/23/19 at 21:45; Stop 05/26/19 at 15:27; Status DC Levetiracetam (Keppra) 1,500 mg BID PO Last administered on 05/26/19 08:29; Start 05/23/19 at 22:00; Stop 05/26/19 at 15:27; Status DC Senna/Docusate Sodium (Senna Plus) 1 tab BID PO Last administered on 05/26/19 08:30; Start 05/23/19 at 22:00; Stop 05/26/19 at 15:27; Status DC Tamsulosin HCl (Flomax) 0.4 mg DAILY PO Last administered on 05/25/19 08:26; Start 05/24/19 at 09:00; Stop 05/25/19 at 11:04; Status DC Artificial Tears (Artificial Tears) 1 drop QID OU Last administered on 05/26/19at 13:28; Start 05/24/19 at 09:00; Stop 05/26/19 at 15:27; Status DC Fluticasone Propionate (Flonase) 2 spray DAILY NS Last administered on 05/25/19 08:21; Start 05/24/19 at 09:00; Stop 05/26/19 at 15:27; Status DC Budesonide (Pulmicort) 0.5 mg RTBID NEB Last administered on 05/26/19 06:54; Start 05/24/19 at 08:00; Stop 05/26/19 at 15:27; Status DC Ibuprofen (Motrin) 800 mg PRN TID PRN PO INFLAMMATION; Start 05/23/19 at 22:00; Stop 05/26/19 at 15:27; Status DC Midodrine (Proamatine) 10 mg [id number] PO Last administered on 05/26/19 13:29; Start 05/24/19 at 07:00; Stop 05/26/19 at 15:27; Status DC Multivitamins (Thera M Plus) 1 tab DAILY PO Last administered on 05/26/19 08:30; Start 05/24/19 at 09:00; Stop 05/26/19 at 15:27; Status DC Pantoprazole Sodium (Protonix) 40 mg DAILYAC PO Last administered on 05/26/19 05:21; Start 05/24/19 at 07:30; Stop 05/26/19 at 15:27; Status DC Pregabalin (Lyrica) 225 mg BID PO Last administered on 05/26/19 08:29; Start 05/23/19 at 22:00; Stop 05/26/19 at 15:27; Status DC Influenza Virus Vaccine Quadrival (Afluria Quad 2019-20 (3yr Up) Syringe) 0.5 ml ONCE ONCE VAX IM Last administered on 05/24/19 08:15; Start 05/24/19 at 09:00; Stop 05/24/19 at 09:01; Status DC Potassium Chloride (Klor-Con) 20 meq BID92 PO Last administered on 05/26/19 13:30; Start 05/24/19 at 09:30; Stop 05/26/19 at 15:27; Status DC Tamsulosin HCl (Flomax) 0.4 mg BIDWMEALS PO Last administered on 9/30/19at 08:31; Start 05/25/19 at 17:00; Stop 05/26/19 at 15:27; Status DC Active Scripts Active Flomax (Tamsulosin Hcl) 0.4 Mg Cap.er.24h 0.4 Mg PO DAILY PRN 30 Days Flomax (Tamsulosin Hcl) 0.4 Mg Cap.er.24h 0.4 Mg PO BIDWMEALS 30 Days Hydrocodone-Apap 5-325 (Hydrocodone Bit/Acetaminophen) 1 Tab Tablet 1 Tab PO PRN Q6HRS PRN 3 Days Ibuprofen 800 Mg Tablet 800 Mg PO PRN TID PRN take with food or milk to avoid upsetting stomach Depakote Er (Divalproex Sodium) 500 Mg Tab.er.24h 1,000 Mg PO BID Reported Vitamin D3 (Cholecalciferol (Vitamin D3)) 1,000 Unit Tablet 500 Unit PO 3X/WEEK Artificial Tears Drops (Dextran 70/Hypromellose/Pf) 1 Each Droperette 1 Drop OU QID Flovent 44MCG Hfa (Fluticasone Propionate) 10.6 Gm Aer.w.adap 1 Puff IH BID Bisacodyl 5 Mg Tablet.dr 10 Mg PO DAILY PRN Theragran-M Premier 50+ Caplet (Mv-Mn/Fa/Coq10/Lycopene/Lutein) 1 Each Tablet 1 Each PO DAILY Senokot-S Tablet (Sennosides/Docusate Sodium) 1 Each Tablet 1 Tab PO BID Levetiracetam 500 Mg Tablet 1,500 Mg PO BID Tylenol (Acetaminophen) 325 Mg Tablet 2 Tab PO PRN Q4HRS PRN Clonazepam (Clonazepam) 0.5 Mg Tablet 0.5 Mg PO HS Midodrine Hcl 10 Mg Tablet 10 Mg PO TID Gemfibrozil 600 Mg Tablet 1 Tab PO BID Vitamin B-12 (Cyanocobalamin (Vitamin B-12)) 1,000 Mcg Tablet 500 Mcg PO DAILY Folic Acid 1 Mg Tablet 1 Tab PO DAILY Flonase Allergy Relief (Fluticasone Propionate) 9.9 Ml [place].susp 2 Sprays NS DAILY Tamsulosin Hcl 0.4 Mg Cap.er.24h 1 Cap PO DAILY Finasteride 5 Mg Tablet 1 Tab PO DAILY Lyrica (Pregabalin) 225 Mg Capsule 225 Mg PO BID 30 Days Omeprazole 20 Mg Tablet.dr 1 Tab PO DAILY Allergies Allergies: Allergies Coded Allergies Type Severity Reaction Last Updated Verified No Known Drug Allergies 03/23/17 No ROS Review of System The patient denies any associated fevers, chills, headache, ear pain, rhinorrhea, sore throat, stiff neck, productive cough, chest pain, shortness of breath, back or flank pain, abdominal pain, nausea, vomiting, diarrhea, constipation, dysuria, rash, numbness, weakness, tingling, incontinence, diffic ulty ambulating, or diaphoresis. Physical Exam Physical Exam General: Well developed, well nourished, no acute distress, well appearing HEENT: Pupils equally round and reactive to light, EOMI, no discharge, normal conjunctiva Neck: Supple, no nuchal rigidity, no JVD, trachea midline, no tenderness Cardiac: RRR, no murmurs, no gallops, no rubs Chest/Lungs: CTAB, no wheeze, no rhonchi, no crackles Abdomen: soft, non-distended, no guarding, no peritoneal signs, non-tender Back: No tenderness Extremities: no edema, pulses intact, non-tender,capillary refill <3 sec bilateral upper and lower extremities, Neuro: Alert and oriented x 4, no focal deficits, normal speech DYLON OLIVA MD May 28, 2019 17:43
--- NOTE | 2019-06-10 20:11 | PDOC ---
Provider Note Provider Note Discharge summary dictated.#[id number] TAMERA SNELL MD Jun 10, 2019 20:11
--- NOTE | 2019-06-10 20:18 | DS ---
DATE OF DISCHARGE: 05/26/2019 ATTENDING PHYSICIAN: Aide Garza MD PRIMARY PHYSICIAN: Blaise Malone MD REASON FOR ADMISSION TO THE HOSPITAL: Seizures, refractory. CONSULTATIONS: None. PROCEDURES: None. HOSPITAL COURSE: The patient is a 59-year-old male with history of chronic seizures, on 3 or 4 medications and was admitted because of seizures. The patient was monitored in the hospital, seen by Neurology and citalopram was discontinued as it was thought it will lower Keppra levels in the body. The patient did well. No further seizures noted. He was discharged on Keppra, Depakote, Klonopin, and Lyrica. FINAL DIAGNOSES: 1. Refractory seizures, on multiple medications. 2. Bipolar. 3. Benign prostatic hypertrophy. 4. History of vagal nerve stimulator. FOLLOWUP: Follow with PCP, Dr. Malone, in 1 week. TAMERA SNELL MD DR: RICHI/suha JOB#: [id number] / [id number]
== END 2019-05-26 14:55 | disposition home or self-care (01) | DRG 101 ==
LOC: ER 09:37 → ED HOLD 13:39 → 6 SOUTH 15:35
PROVIDERS: ADMIT Internal Medicine; ATTEND Internal Medicine
DX: G40.909 Epilepsy, unspecified, not intractable, without status epilepticus (principal); D61.818 Other pancytopenia; N40.0 Benign prostatic hyperplasia without lower urinary tract symptoms; E78.00 Pure hypercholesterolemia, unspecified; K21.9 Gastro-esophageal reflux disease without esophagitis; F31.9 Bipolar disorder, unspecified; Z90.49 Acquired absence of other specified parts of digestive tract; J44.9 Chronic obstructive pulmonary disease, unspecified; E78.5 Hyperlipidemia, unspecified
CPT/HCPCS: 36415; 70450; 80048; 80053; 80164; 80307; 83605; 83735; 85007; 85025; 87070; 87880; 90471; 90686; 94640; 94760; J7626; 99285-25; G0378

== ENCOUNTER 2019-05-28 14:25 | Inpatient (IN) | payer OTHER ==
[2019-05-28] VITALS (7 sets, daily range): BP systolic 100–139; BP diastolic 52–68
[~2019-05-28] VITALS: Ht 160 cm; Wt 70.1 kg
[~2019-05-28 14:25] MED LIST changes: +TAMS0.4C97 PO
[2019-05-28] MEDS ORDERED: IV NORMAL SALINE 1000ML BAG 1,000 ML IV ONE (14:45)
[2019-05-28] MEDS ORDERED: levETIRAcetam 1,000 MG in IV DEXTROSE 5% 100ML 100 ML IV ONE (14:45)
--- NOTE | 2019-05-28 15:00 | PHYS DOC ---
Past Medical History Past Medical History: Anemia, Asthma, Bipolar, COPD, GERD, High Cholesterol, Seizure Additional Past Medical Histor: MR,NEUTROPENIA, Past Surgical History: Cholecystectomy, Other Additional Past Surgical Histo: dental Alcohol Use: None Drug Use: None Adult General Chief Complaint Chief Complaint: SEIZURE HPI HPI Patient is a 59 year old male with developmental delay coming from adult daycare history of seizures on Keppra Lyrica and Depakote as well as hypertension other medical issues recent admit last week for breakthrough seizures brought in by ambulance with recurrent seizure patient had a period of altered mental status at the adult daycare he walked in there around 11 AM he ate lunch although less than normal according to the staff he then had a witnessed. Altered level of consciousness on diamond die polisher arrival he did have some twitching and shaking of bilateral upper extremities more on the left as well as of the face and he had a right gaze deviation pinpoint pupils they gave a milligram of Narcan with minimal effect they gave a total 5 mg of Versed he did have a period of sort of 2 small respiration almost but on my evaluation the e mergency room the patient is having fairly normal breathing pattern. History is quite limited as patient came from adult daycare the medication as well as not even available for the paramedics and the patient is not able to provide history at this time. Review of Systems Review of Systems Limited by altered mental status Current Medications Current Medications Current Medications Medications (Trade) Dose Ordered Sig/Chepe Start Time Stop Time Status Last Admin Dose Admin Levetiracetam 1000 mg/Dextrose 110 ml @ 440 mls/hr 1X ONCE 05/28/19 14:45 05/28/19 14:59 DC 05/28/19 14:49 440 MLS/HR Lorazepam (Ativan Inj) 1 mg 1X ONCE 05/28/19 15:00 05/28/19 15:01 DC 05/28/19 14:50 1 MG Sodium Chloride 1,000 ml @ 75 mls/hr [id number] 05/28/19 15:40 05/29/19 15:39 Allergies Allergies Allergies Coded Allergies Type Severity Reaction Last Updated Verified No Known Drug Allergies 03/23/17 No Physical Exam Physical Exam Constitutional: Well developed, appears to be developmentally delayed baseline in moderate distress HENT: Normocephalic, atraumatic, bilateral external ears normal, oropharynx moist, no oral exudates, nose normal. []Patient is wearing a helmet on arrival no signs of trauma no trauma reported by paramedics either Eyes: See below Neck: Normal range of motion, no tenderness, supple, no stridor. [] Cardiovascular:Heart rate regular rhythm, difficult exam no definite murmur Lungs & Thorax: Bilateral breath sounds clear to auscultation []coarse breath sounds the left lung base Abdomen: Bowel sounds normal, soft, no tenderness, no masses, no pulsatile masses. [] Skin: Warm, dry, no erythema, no rash. [] Back: No tenderness, no CVA tenderness. [] Extremities: No tenderness, no cyanosis, no clubbing, ROM intact, no edema. [] Neurologic: Patient appears post ictal he has a right gaze deviation pupils are 2 mm and minimally reactive he does have some intermittent shaking of the left upper extremity as well as twitching of the face. His respiratory effort is adequate at this time Current Patient Data Vital Signs Vital Signs Date Time Temp Pulse Resp B/P (MAP) Pulse Ox O2 Delivery O2 Flow Rate FiO2 05/28/19 15:26 74 20 98 05/28/19 14:25 97.8 129/82 (98) NonRebreather Mask 15.0 97.8 Lab Values Laboratory Tests Test 05/28/19 14:51 White Blood Count 2.4 x10^3/uL (4.0-11.0) L Red Blood Count 3.78 x10^6/uL (4.30-5.70) L Hemoglobin 11.8 g/dL (13.0-17.5) L Hematocrit 34.6 % (39.0-53.0) L Mean Corpuscular Volume 92 fL (79-100) Mean Corpuscular Hemoglobin 31 pg (25-35) Mean Corpuscular Hemoglobin Concent 34 g/dL (31-37) Red Cell Distribution Width 16.5 % (11.5-14.5) H Platelet Count 175 x10^3/uL (140-400) Neutrophils (%) (Auto) 51 % (31-73) Lymphocytes (%) (Auto) 27 % (24-48) Monocytes (%) (Auto) 22 % (0-9) H Eosinophils (%) (Auto) 0 % (0-3) Basophils (%) (Auto) 0 % (0-3) Neutrophils # (Auto) 1.2 x10^3/uL (1.8-7.7) L Lymphocytes # (Auto) 0.6 x10^3/uL (1.0-4.8) L Monocytes # (Auto) 0.5 x10^3/uL (0.0-1.1) Eosinophils # (Auto) 0.0 x10^3/uL (0.0-0.7) Basophils # (Auto) 0.0 x10^3/uL (0.0-0.2) Segmented Neutrophils % 58 % (35-66) Band Neutrophils % 2 % (0-9) Lymphocytes % 23 % (24-48) L Monocytes % 15 % (0-10) H Basophils % 2 % (0-3) Toxic Granulation Slight Platelet Estimate Adequate (ADEQUATE) Polychromasia Slight Sodium Level 141 mmol/L (136-145) Potassium Level 5.0 mmol/L (3.5-5.1) Chloride Level 107 mmol/L (98-107) Carbon Dioxide Level 22 mmol/L (21-32) Anion Gap 12 (6-14) Blood Urea Nitrogen 22 mg/dL (8-26) Creatinine 0.9 mg/dL (0.7-1.3) Estimated GFR (Cockcroft-Gault) 87.0 BUN/Creatinine Ratio 24 (6-20) H Glucose Level 116 mg/dL (70-99) H Calcium Level 9.9 mg/dL (8.5-10.1) Total Bilirubin 0.5 mg/dL (0.2-1.0) Aspartate Amino Transferase (AST) 12 U/L (15-37) L Alanine Aminotransferase (ALT) 11 U/L (16-63) L Alkaline Phosphatase 51 U/L (46-116) Total Protein 7.9 g/dL (6.4-8.2) Albumin 3.8 g/dL (3.4-5.0) Albumin/Globulin Ratio 0.9 (1.0-1.7) L Valproic Acid Level 91 mcg/mL (50-100) Valproic Acid Last Dose Date Unk Valproic Acid Last Dose Time Unk Laboratory Tests 05/28/19 14:51 Laboratory Tests 05/28/19 14:51 EKG EKG [] Radiology/Procedures Radiology/Procedures [] Impressions: MPRESSION: 1. No acute intracranial finding. Note is made that MRI is more sensitive for acute infarction. 2. Scattered areas of hypodensity within the cerebral white matter, likely due to chronic small vessel disease. 3. Cerebral and cerebellar volume loss, greater than expected for patient age. Electronically signed by: Steph Curran MD (05/28/2019 4:29 PM) [facility] Course & Med Decision Making Course & Med Decision Making Pertinent Labs and Imaging studies reviewed. (See chart for details) []Recurrent seizure multiple antiepileptics patient is a history of seizure disorder that is known. No trauma was seen at this point time 5 g of her said is given we will give another milligram of Ativan a gram of Keppra check a Depakote level and go from there the patient is maintaining his airway as we speak. Patient had another episode of seizure activity in the emergency room that lasted approximately 25 minutes I checked on him several times and was maint aining his airway throughout the seizure activity appeared mostly focal there was twitching of the face and right gaze deviation he was breathing throughout never desaturated. I repositioned his airway a couple of times and that seemed to help his respiratory effort significantly doctor RIKA I came to see the patient the emergency room as well and I reevaluated the patient at 5:30 PM he was more alert tracking making eye contact and breathing comfortably at that time. I do not think that he needs intubation at this time. I spoke with Dr. MELÉNDEZ I recommended fosphenytoin load and a head CT and a drug screen Critical care time was 45 minutes exclusive of procedures. For management of status epilepticus in the emergency room. I spoke with Dr. SNELL ADMIT TO ICU 540 PM Jared Disclaimer Dragon Disclaimer This electronic medical record was generated, in whole or in part, using a voice recognition dictation system. Departure Departure Impression: Primary Impression: Status epilepticus Disposition: ADMITTED INPATIENT Admitting Physician: Geraldine Snell Condition: GUARDED Referrals: EDIE MANUEL (PCP) ENDER HOLBROOK MD May 28, 2019 15:00
[2019-05-28 15:08] LABS: BASO % 0 % (0-3); EOS % 0 % (0-3); HEMATOCRIT 34.6 % (39.0-53.0); HEMOGLOBIN 11.8 g/dL (13.0-17.5); LYMPH # 0.6 x10^3/uL (1.0-4.8); LYMPH % 27 % (24-48); MEAN CORPUSCULAR HEMOGLOBIN 31 pg (25-35); MEAN CORPUSCULAR HGB CONC 34 g/dL (31-37); MEAN CORPUSCULAR VOLUME 92 fL (79-100); MONO # 0.5 x10^3/uL (0.0-1.1); MONO % 22 % (0-9); NEUT # 1.2 x10^3/uL (1.8-7.7); NEUT % 51 % (31-73); PLATELET COUNT 175 x10^3/uL (140-400); RED BLOOD COUNT 3.78 x10^6/uL (4.30-5.70); RED CELL DISTRIBUTION WIDTH 16.5 % (11.5-14.5); WHITE BLOOD COUNT 2.4 x10^3/uL (4.0-11.0)
[2019-05-28 15:12] LABS: ANION GAP 12 (6-14); BLOOD UREA NITROGEN 22 mg/dL (8-26); BUN/CREATININE RATIO 24 (6-20); CALCIUM 9.9 mg/dL (8.5-10.1); CARBON DIOXIDE 22 mmol/L (21-32); CHLORIDE 107 mmol/L (98-107); CREATININE 0.9 mg/dL (0.7-1.3); GLUCOSE 116 mg/dL (70-99); SODIUM 141 mmol/L (136-145)
[2019-05-28 15:17] LABS: ALBUMIN 3.8 g/dL (3.4-5.0); ALBUMIN/GLOBULIN RATIO 0.9 (1.0-1.7); ALK PHOS 51 U/L (46-116); ALT (SGPT) 11 U/L (16-63); AST (SGOT) 12 U/L (15-37); TOTAL BILIRUBIN 0.5 mg/dL (0.2-1.0); TOTAL PROTEIN 7.9 g/dL (6.4-8.2)
[2019-05-28 15:18] LABS: VAL ACID 91 mcg/mL (50-100)
[2019-05-28 15:32] LABS: % BANDS 2 % (0-9); % BASOS 2 % (0-3); % LYMPHS 23 % (24-48); % MONOS 15 % (0-10); % SEGS 58 % (35-66)
[2019-05-28 15:35] LABS: PLT ESTIMATE ADEQUATE (ADEQUATE)
[2019-05-28 15:36] LABS: POLYCHROMASIA SLIGHT; TOXIC GRANULATION SLIGHT
[2019-05-28] MEDS ORDERED: FOSPHENYTOIN IV ONE (15:45)
[2019-05-28] MEDS ORDERED: NORMAL SALINE IV ONE (15:45)
--- NOTE | 2019-05-28 16:32 | RAD ---
EXAM: Head CT without contrast. HISTORY: Seizure. TECHNIQUE: Computed tomographic images of the head were obtained without contrast. *One or more of the following individualized dose reduction techniques were utilized for this examination: 1. Automated exposure control. 2. Adjustment of the mA and/or kV according to patient size. 3. Use of iterative reconstruction technique. COMPARISON: 05/23/2019. FINDINGS: There is no acute or subacute extra-axial or intraparenchymal hemorrhage. There is no mass effect or midline shift. There is no hydrocephalus. There are areas of decreased attenuation within the cerebral white matter, nonspecific and likely related to chronic small vessel disease. There is cerebral and cerebellar volume loss, greater than expected for patient age. There is moderate right and mild left maxillary and moderate bilateral ethmoid sinus because of thickening. There is right maxillary sinus wall thickening due to chronic sinusitis. No orbital lesion is seen. There is fluid within the mastoid air cells and right middle ear. IMPRESSION: 1. No acute intracranial finding. Note is made that MRI is more sensitive for acute infarction. 2. Scattered areas of hypodensity within the cerebral white matter, likely due to chronic small vessel disease. 3. Cerebral and cerebellar volume loss, greater than expected for patient age. Electronically signed by: Steph Curran MD (05/28/2019 4:29 PM) [id number]
[2019-05-28 16:58] LABS: BARBITURATES NEG (NEG); BENZODIAZEPINES POS (NEG); CANNABINOIDS NEG (NEG); COCAINE NEG (NEG); METHADONE NEG (NEG); OPIATES NEG (NEG); PHENCYCLIDINE NEG (NEG)
[2019-05-28 16:59] LABS: AMPHETAMINE/METHAMPHETAMINE NEG (NEG)
[2019-05-28] MEDS: IV NORMAL SALINE 1000ML BAG 1,000 ML IV SCH (18:39)
--- NOTE | 2019-05-28 19:42 | HP ---
ADMIT DATE: 05/28/2019 CHIEF COMPLAINT: Seizure. HISTORY OF PRESENT ILLNESS: The patient is a pleasant 59-year-old male who is cognitively challenged. I think he has got chronic history of seizures. Once again, he presented with seizures. He is on Depakote and Lyrica, but he has been having breakthrough seizures today. Apparently, he seized several times in the Emergency Room, one of which lasted from 15:28-16:02. In the Emergency Room, they ended up giving him Ativan, IV Keppra, IV fosphenytoin, Versed, and now he is finally under control. I discussed the case with the Emergency Room physician. We are going to admit the patient with Dr. Girard consulted. Dr. Girard has been down here and seeing the patient as well. The patient is currently being examined in room #2 in the Emergency Room. PAST MEDICAL/SURGICAL HISTORY: Cognitively challenged, hypertension, hyperlipidemia, anemia, COPD, bipolar, seizures, neutropenia, cholecystectomy, and dental surgery. ALLERGIES: None. FAMILY HISTORY: Hypertension. SOCIAL HISTORY: Lives at a facility. He does not drink, smoke, or take drugs that I am aware of. MEDICATIONS: Reviewed, please refer to the MRAD. REVIEW OF SYSTEMS: Unable to obtain. The patient is too sedated. PHYSICAL EXAMINATION: VITALS: Within normal limits and are stable. GENERAL: No apparent distress. Alert and oriented. HEENT: Head is normocephalic, atraumatic, pupils were equally round and reactive to light and accommodation. NECK: Supple, no JVD, no thyromegaly was noted. LUNGS: Clear to auscultation in all lung anthony without rhonchi or wheezing. HEART: RRR, S1, S2 present. Peripheral pulses intact, no obvious murmurs were noted. ABDOMEN: Soft, nontender. Positive bowel sounds no organomegaly, normal bowel sounds. EXTREMITIES: Without any cyanosis, clubbing, or edema. Pedal pulses intact, Homans sign is negative. NEUROLOGIC: He is extremely sedated understand. PSYCHIATRIC: Normal affect, normal mood. Stable. SKIN: His skin is very pale. VASCULAR: Good capillary refill, neurovascular bundle appears to be intact. GENITOURINARY: He is not circumcised. There is a Tom in place. LABORATORY DATA: Pending. ASSESSMENT AND PLAN: Persistent breakthrough seizures. The patient has been admitted. We are going to give him IV Keppra and IV fosphenytoin and IV Ativan as necessary. Consult Dr. Girard. Intensive Care Unit monitoring. PROGNOSIS: Guarded. SALLY PANIAGUA DO DR: URIAH/suha JOB#: [id number] / [id number]
[2019-05-28] MEDS ORDERED: BISACODYL 5 MG TABLET.DR. PO PRN (22:15)
[2019-05-28] MEDS ORDERED: ACETAMINOPHEN 325 MG TABLET. PO PRN (22:15)
[2019-05-28] MEDS: clonazePAM 0.5 MG TABLET PO SCH (23:00)
[2019-05-29] VITALS (12 sets, daily range): BP systolic 93–129; BP diastolic 42–86
[2019-05-29 03:20] LABS: BASO % 0 % (0-3); EOS % 0 % (0-3); HEMATOCRIT 31.2 % (39.0-53.0); HEMOGLOBIN 10.7 g/dL (13.0-17.5); LYMPH # 1.1 x10^3/uL (1.0-4.8); LYMPH % 27 % (24-48); MEAN CORPUSCULAR HEMOGLOBIN 32 pg (25-35); MEAN CORPUSCULAR HGB CONC 34 g/dL (31-37); MEAN CORPUSCULAR VOLUME 92 fL (79-100); MONO # 0.6 x10^3/uL (0.0-1.1); MONO % 15 % (0-9); NEUT # 2.4 x10^3/uL (1.8-7.7); NEUT % 58 % (31-73); PLATELET COUNT 154 x10^3/uL (140-400); RED BLOOD COUNT 3.39 x10^6/uL (4.30-5.70); RED CELL DISTRIBUTION WIDTH 15.9 % (11.5-14.5); WHITE BLOOD COUNT 4.2 x10^3/uL (4.0-11.0)
[2019-05-29 03:30] LABS: CALCIUM 9.2 mg/dL (8.5-10.1); CREATININE 0.6 mg/dL (0.7-1.3); GFR 138.9; MAGNESIUM 2.2 mg/dL (1.8-2.4); POTASSIUM 3.8 mmol/L (3.5-5.1)
[2019-05-29] MEDS: IV NORMAL SALINE 1000ML BAG 1,000 ML IV SCH (05:00)
[2019-05-29] MEDS: DIVALPROEX EXTENDED RELEASE 500 MG TAB.ER.24H. PO SCH ×2 (07:52→21:26)
[2019-05-29] MEDS: GEMFIBROZIL 600 MG TABLET. PO SCH ×2 (07:52→21:26)
[2019-05-29] MEDS: levETIRAcetam 500 MG TABLET PO SCH ×2 (07:52→21:29)
[2019-05-29] MEDS: FOLIC ACID 1 MG TABLET. PO SCH (07:52)
[2019-05-29] MEDS: TAMSULOSIN 0.4 MG CAP.ER.24H. PO SCH ×2 (07:53→17:34)
[2019-05-29] MEDS: CYANOCOBALAMIN (VITAMIN B-12) 1,000 MCG TABLET. PO SCH (07:53)
[2019-05-29] MEDS: FINASTERIDE 5 MG TABLET. PO SCH (07:53)
[2019-05-29] MEDS: SENNOSIDES/DOCUSATE 8.6/50MG TABLET. PO SCH ×2 (07:55→21:26)
--- NOTE | 2019-05-29 08:52 | RAD ---
AP portable chest radiograph 05/29/2019 Clinical History: Seizures. History of bacteremia. Hypertension, COPD. An AP supine portable digital radiograph of the chest was obtained. Comparison study is dated 06/26/2018. A vagal nerve stimulator overlies the left chest, unchanged. The cardiac silhouette is borderline enlarged. The thoracic aorta is minimally tortuous. No acute pulmonary infiltrate is seen. No pleural effusion or pneumothorax is noted. Degenerative changes are seen involving the thoracic spine. IMPRESSION: No acute abnormality is seen. Electronically signed by: Juan Pablo Mosquera MD (05/29/2019 8:49 AM) [id number]
--- NOTE | 2019-05-29 09:54 | EKG ---
[facility] [address] [place] [address] Test Date: 2019-05-29 Test Time: 09:26:24 Pat Name: ISABELA VANCE Department: Room: 111 1 Gender: M [place]: : [id number] Requested By: TAMERA SNELL Order Number: [id number] Reading MD: Asher Lopez Measurements Intervals [place] Rate: 77 P: 56 ID: [id number] QRS: 58 QRSD: 72 T: 71 QT: 396 QTc: 450 Interpretive Statements SINUS RHYTHM NONSPECIFIC ST-T WAVE CHANGES. Electronically Signed On 06-06-2019 16:33:57 CDT by Asher Lopez
--- NOTE | 2019-05-29 10:25 | PDOC ---
PROGRESS NOTES Subjective Subjective no more seizures Objective Objective Vital Signs Date Time Temp Pulse Resp B/P (MAP) Pulse Ox O2 Delivery O2 Flow Rate FiO2 05/29/19 09:00 82 34 105/67 (80) 99 Room Air 05/29/19 08:35 2.0 05/29/19 04:00 98.5 98.5 Intake and Output 05/29/19 07:00 Intake Total 2040.4 ml Output Total 825 ml Balance 1215.4 ml Intake Oral 0 ml IV Total 2040.4 ml Output Urine Total 825 ml # Bowel Movements 3 Physical Exam Abdomen: Normal bowel sounds, Soft Heart: Regular rate, Normal S1 Extremities: No clubbing General: Alert HEENT: Atraumatic Lungs: Clear to auscultation MUSCULOSKELETAL: No swelling, Other Neuro: Normal speech Psych/Mental Status: Mood NL Skin: No breakdown Diagnosis Problem List Problems Medical Problems: (1) Status epilepticus Status: Acute Assessment Assessment Problems Medical Problems: (1) Status epilepticus Status: Acute ASSESSMENT AND PLAN: Persistent breakthrough seizures. The patient has been admitted. We are going to give him IV Keppra and IV fosphenytoin and IV Ativan as necessary. Consult Dr. Girard. Intensive Care Unit monitoring. [email or web address] out of icu today added dilantin to seizure regimen Plan Plan of Care Problems Medical Problems: (1) Status epilepticus Status: Acute Comment Review of Relevant I have reviewed the following items niya (where applicable) has been applied. Labs Laboratory Tests Test 05/28/19 14:51 05/28/19 16:44 05/29/19 03:00 White Blood Count 2.4 x10^3/uL (4.0-11.0) 4.2 x10^3/uL (4.0-11.0) Red Blood Count 3.78 x10^6/uL (4.30-5.70) 3.39 x10^6/uL (4.30-5.70) Hemoglobin 11.8 g/dL (13.0-17.5) 10.7 g/dL (13.0-17.5) Hematocrit 34.6 % (39.0-53.0) 31.2 % (39.0-53.0) Mean Corpuscular Volume 92 fL (79-100) 92 fL (79-100) Mean Corpuscular Hemoglobin 31 pg (25-35) 32 pg (25-35) Mean Corpuscular Hemoglobin Concent 34 g/dL (31-37) 34 g/dL (31-37) Red Cell Distribution Width 16.5 % (11.5-14.5) 15.9 % (11.5-14.5) Platelet Count 175 x10^3/uL (140-400) 154 x10^3/uL (140-400) Neutrophils (%) (Auto) 51 % (31-73) 58 % (31-73) Lymphocytes (%) (Auto) 27 % (24-48) 27 % (24-48) Monocytes (%) (Auto) 22 % (0-9) 15 % (0-9) Eosinophils (%) (Auto) 0 % (0-3) 0 % (0-3) Basophils (%) (Auto) 0 % (0-3) 0 % (0-3) Neutrophils # (Auto) 1.2 x10^3/uL (1.8-7.7) 2.4 x10^3/uL (1.8-7.7) Lymphocytes # (Auto) 0.6 x10^3/uL (1.0-4.8) 1.1 x10^3/uL (1.0-4.8) Monocytes # (Auto) 0.5 x10^3/uL (0.0-1.1) 0.6 x10^3/uL (0.0-1.1) Eosinophils # (Auto) 0.0 x10^3/uL (0.0-0.7) 0.0 x10^3/uL (0.0-0.7) Basophils # (Auto) 0.0 x10^3/uL (0.0-0.2) 0.0 x10^3/uL (0.0-0.2) Segmented Neutrophils % 58 % (35-66) Band Neutrophils % 2 % (0-9) Lymphocytes % 23 % (24-48) Monocytes % 15 % (0-10) Basophils % 2 % (0-3) Toxic Granulation Slight Platelet Estimate Adequate (ADEQUATE) Polychromasia Slight Sodium Level 141 mmol/L (136-145) 145 mmol/L (136-145) Potassium Level 5.0 mmol/L (3.5-5.1) 3.8 mmol/L (3.5-5.1) Chloride Level 107 mmol/L (98-107) 112 mmol/L (98-107) Carbon Dioxide Level 22 mmol/L (21-32) 22 mmol/L (21-32) Anion Gap 12 (6-14) 11 (6-14) Blood Urea Nitrogen 22 mg/dL (8-26) 16 mg/dL (8-26) Creatinine 0.9 mg/dL (0.7-1.3) 0.6 mg/dL (0.7-1.3) Estimated GFR (Cockcroft-Gault) 87.0 138.9 BUN/Creatinine Ratio 24 (6-20) Glucose Level 116 mg/dL (70-99) 83 mg/dL (70-99) Calcium Level 9.9 mg/dL (8.5-10.1) 9.2 mg/dL (8.5-10.1) Total Bilirubin 0.5 mg/dL (0.2-1.0) Aspartate Amino Transf (AST/SGOT) 12 U/L (15-37) Alanine Aminotransferase (ALT/SGPT) 11 U/L (16-63) Alkaline Phosphatase 51 U/L (46-116) Total Protein 7.9 g/dL (6.4-8.2) Albumin 3.8 g/dL (3.4-5.0) Albumin/Globulin Ratio 0.9 (1.0-1.7) Valproic Acid (Depakene) Level 91 mcg/mL (50-100) Valproic Acid Last Dose Date Unk Valproic Acid Last Dose Time Unk Urine Opiates Screen Neg (NEG) Urine Methadone Screen Neg (NEG) Urine Barbiturates Neg (NEG) Urine Phencyclidine Screen Neg (NEG) Urine Amphetamine/Methamphetamine Neg (NEG) Urine Benzodiazepines Screen Pos (NEG) Urine Cocaine Screen Neg (NEG) Urine Cannabinoids Screen Neg (NEG) Urine Ethyl Alcohol Neg (NEG) Magnesium Level 2.2 mg/dL (1.8-2.4) Medications Current Medications Acetaminophen (Tylenol) 650 mg PRN Q4HRS PRN PO PAIN; Start 05/28/19 at 22:15 Acetaminophen/ Hydrocodone Bitart (Lortab 5/325) 1 tab PRN Q6HRS PRN PO PAIN; Start 05/28/19 at 22:15 Bisacodyl (Dulcolax Tab) 10 mg PRN DAILY PRN PO CONSTIPATION; Start 05/28/19 at 22:15 Clonazepam (KlonoPIN) 0.5 mg HS PO ; Start 05/28/19 at 23:00 Cyanocobalamin (Vitamin B-12) 500 mcg DAILY PO Last administered on 05/29/19at 07:53; Start 05/29/19 at 09:00 Divalproex Sodium (Depakote Er) 1,000 mg BID PO Last administered on 05/29/19 07:52; Start 05/29/19 at 09:00 Finasteride (Proscar) 5 mg DAILY PO Last administered on 05/29/19 07:53; Start 05/29/19 at 09:00 Folic Acid (Folic Acid) 1 mg DAILY PO Last administered on 05/29/19 07:52; Start 05/29/19 at 09:00 Fosphenytoin Sodium 1020 mg/ Sodium Chloride 70.4 ml @ 281.6 mls/ hr 1X ONCE IV Last administered on 05/28/19at 15:58; Start 05/28/19 at 15:45; Stop 05/28/19 at 15:59; Status DC Gemfibrozil (Lopid) 600 mg BID PO Last administered on 05/29/19 07:52; Start 05/29/19 at 09:00 Levetiracetam (Keppra) 1,500 mg BID PO Last administered on 05/29/19at 07:52; Start 05/29/19 at 09:00 Levetiracetam 1000 mg/Dextrose 110 ml @ 440 mls/hr 1X ONCE IV Last administered on 05/28/19at 14:49; Start 05/28/19 at 14:45; Stop 05/28/19 at 14:59; Status DC Lorazepam (Ativan Inj) 1 mg 1X ONCE IV Last administered on 05/28/19 14:50; Start 05/28/19 at 15:00; Stop 05/28/19 at 15:01; Status DC Lorazepam (Ativan Inj) 1 mg 1X ONCE IV Last administered on 05/28/19at 15:36; Start 05/28/19 at 15:45; Stop 05/28/19 at 15:46; Status DC Lorazepam (Ativan Inj) 1 mg 1X ONCE IV Last administered on 05/28/19at 15:46; Start 05/28/19 at 15:45; Stop 05/28/19 at 15:46; Status DC Senna/Docusate Sodium (Senna Plus) 1 tab BID PO ; Start 05/29/19 at 09:00 Sodium Chloride 1,000 ml @ 75 mls/hr [id number] IV Last administered on 05/28/19at 18:39; Start 05/28/19 at 15:40; Stop 05/29/19 at 15:39 Sodium Chloride 1,000 ml @ 1,000 mls/hr 1X ONCE IV Last administered on 05/28/19at 14:49; Start 05/28/19 at 14:45; Stop 05/28/19 at 15:44; Status DC Tamsulosin HCl (Flomax) 0.4 mg BIDWMEALS PO Last administered on 05/29/19at 07:5 3; Start 05/29/19 at 08:00 Vitamin D (Vitamin D3) 500 unit 3X/WEEK PO ; Start 05/30/19 at 09:00 Vitals/I & O Vital Sign - Last 24 Hours 05/28/19 05/28/19 05/28/19 05/28/19 14:25 14:58 15:26 15:56 Temp 97.8 97.8 Pulse 80 68 74 68 Resp 12 20 20 20 B/P (MAP) 129/82 (98) Pulse Ox 100 100 98 100 O2 Delivery NonRebreather Mask O2 Flow Rate 15.0 05/28/19 05/28/19 05/28/19 05/28/19 16:26 16:56 17:26 17:45 Temp 97.8 98.1 97.8 98.1 Pulse 86 94 70 86 Resp 20 20 16 24 B/P (MAP) 139/67 (91) Pulse Ox 98 100 97 100 O2 Delivery Nasal Cannula O2 Flow Rate 2.0 05/28/19 05/28/19 05/28/19 05/28/19 18:00 19:00 20:00 20:00 Pulse 86 85 Resp 24 18 B/P (MAP) 128/57 (80) 111/63 (79) Pulse Ox 100 100 O2 Delivery Nasal Cannula Nasal Cannula Nasal Cannula Nasal Cannula O2 Flow Rate 2.0 2.0 2.0 2.0 05/28/19 05/28/19 05/28/19 05/28/19 21:04 22:00 23:00 23:59 Temp 98.2 98.2 98.2 98.2 Pulse 66 60 61 66 Resp 20 18 21 18 B/P (MAP) 100/52 (68) 110/63 (79) 104/61 (75) 104/68 (80) Pulse Ox 100 100 98 96 O2 Delivery Nasal Cannula Nasal Cannula Nasal Cannula Nasal Cannula O2 Flow Rate 2.0 2.0 2.0 2.0 05/28/19 05/29/19 05/29/19 05/29/19 23:59 01:00 02:00 03:00 Pulse 64 61 69 Resp 18 18 20 B/P (MAP) 98/62 (74) 106/42 (63) 103/69 (80) Pulse Ox 96 98 98 O2 Delivery Nasal Cannula Nasal Cannula Nasal Cannula Nasal Cannula O2 Flow Rate 2.0 2.0 2.0 2.0 05/29/19 05/29/19 05/29/19 05/29/19 04:00 04:00 05:00 06:05 Temp 98.5 98.5 Pulse 76 77 79 Resp 22 20 18 B/P (MAP) 98/86 (90) 94/56 (69) 93/59 (70) Pulse Ox 100 99 99 O2 Delivery Nasal Cannula Room Air Room Air Room Air O2 Flow Rate 2.0 05/29/19 05/29/19 05/29/19 05/29/19 07:00 08:00 08:35 09:00 Pulse 74 72 82 Resp 20 23 34 B/P (MAP) 104/63 (77) 114/74 (87) 105/67 (80) Pulse Ox 100 100 99 O2 Delivery Room Air Room Air Nasal Cannula Room Air O2 Flow Rate 2.0 Intake and Output 05/28/19 05/28/19 05/29/19 15:00 23:00 07:00 Intake Total 1180.4 ml 860 ml Output Total 350 ml 475 ml Balance 830.4 ml 385 ml TAMERA SNELL MD May 29, 2019 10:25
--- NOTE | 2019-05-29 16:14 | NUR ---
SS following for discharge planning. SS reviewed pt chart. Pt is from [facility], . Pt's care contact is Kelby Mo. SS will continue to follow for discharge planning.
--- NOTE | 2019-05-29 17:13 | PDOC ---
PROGRESS NOTES Assessment Assessment Status epilepticus. Epilepsy, intractable. Metabolic encephalopathy. Mental deficiency. COPD. HLD. Pancytopenia. Asthma. RECOMMENDATIONS/PLAN: Multiple Ativan doses administrated in the ER on 05/28/19. IV Fosphenytoin given in ER on 05/28/19. IV Keppra administrated in the ER on 05/28/19. Resumed his home AEDs via IV on 05/28/19, change to PO on 05/29/19 after taking PO. EEG on 05/29/19. 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 Lab: VPA level 91. HCT: no acute findings. NO SAH or ICH. HISTORY OF THE PRESENT ILLNESS: This is a 59-y-old male patient with history of epilepsy and has been treated with 3 AEDs including Keppra, Depakote and Lyrica. He had seizures and was hospitalized on 05/23/19. He was discharged back to correction on 05/26/19. He had seizures today on 05/28/19 and was brought to the ER of [facility] and he had prolonged seizures lasting for about 30 minutes in the ER per nurse. Multiple AEDs were administrated via IV. He remained unresponsiveness since. His status epilepticus controlled on 05/28/19 after aggressive antiseizure treatment. No seizure since so far. PAST MEDICAL HISTORY: Seizures, last admitted less than a month ago for a similar episode. COPD, bipolar, asthma, intellectual impairment, BPH, orthostatic hypotension. PAST SURGICAL HISTORY: Vagal nerve stimulator, gallbladder surgery, dental surgeries. ALLERGIES: NKDA. MEDICATIONS: Refer to [facility] FAMILY HISTORY: Non contributory. SOCIAL HISTORY: Lives in a correction. There is a new agency took over his care recently. Denies smoking, drinking, and illicit drug use. REVIEW OF SYSTEMS: Constitutional: No malnutrition, weight loss, cachexia. Head: No traumatic brain or head injury. Skin: No edema, or rash. Ear: No infection. Eyes: No vision loss or color blindness. Nose: No bleeding or purulent discharges. Hearing: No hearing decrease. Neck: No injury. Cardiac: HLD. Pulmonary: COPD. GI: No GI ulcer, GI bleeding. Urinary/genital: No dysuria, incontinence, urinary retention. Endocrinologic: No cousin face, craniofacial dysmorphism, polydactyly. Skeletomuscular: No muscular atrophy, deformity. Neurological: see HP. Psychiatric: Denies drug use/abuse. Otherwise, not [id number] review of systems. PHYSICAL EXAMINATION: General appearance is in subacute distress. HEENT: Normocephalic and nontraumatic. Eyes, nose, ears, and throat are unremarkable. Neck is supple. No lymphadenopathy. No crepitus. Cardiovascular: S1, S2, regular rate and rhythm. Pulmonary: Lung sounds coarse to auscultation bilaterally. Abdomen: Bowel sounds are positive. Extremities: No rash, lesions, or edema. No restriction of range of motion NEUROLOGICAL EXAMINATION: Awake. Able to talk. Not fully oriented to time, place but knew person. PERRL. EOMI. CN: no focal findings. Muscle tone: Mildly increased in left UE and LE. Muscle strength: 4+ left side, 5 right side. DTR: brisky in UE and LE. Plantar reflex: neutral response bilaterally Gait: not examined. Sensory exam: no acute abnormal findings. Not cerebellar signs elicited. F-T-N test fine. Objective Objective Vital Signs Date Time Temp Pulse Resp B/P (MAP) Pulse Ox O2 Delivery O2 Flow Rate FiO2 05/29/19 12:30 98.2 76 18 129/72 (91) 100 Room Air 98.2 05/29/19 08:35 2.0 Intake and Output 05/29/19 07:00 Intake Total 2040.4 ml Output Total 825 ml Balance 1215.4 ml Intake Oral 0 ml IV Total 2040.4 ml Output Urine Total 825 ml # Bowel Movements 3 Vitals Signs Vitals VS - Last 72 Hours, by Label Date Time Temp Pulse Resp B/P (MAP) Pulse Ox O2 Delivery O2 Flow Rate FiO2 05/29/19 12:30 98.2 76 18 129/72 (91) 100 Room Air 98.2 05/29/19 12:00 73 27 118/65 (82) 100 Room Air 05/29/19 09:00 82 34 105/67 (80) 99 Room Air 05/29/19 08:35 Nasal Cannula 2.0 05/29/19 08:00 72 23 114/74 (87) 100 Room Air 05/29/19 07:00 74 20 104/63 (77) 100 Room Air 05/29/19 06:05 79 18 93/59 (70) 99 Room Air 05/29/19 05:00 77 20 94/56 (69) 99 Room Air 05/29/19 04:00 98.5 76 22 98/86 (90) 100 Room Air 98.5 05/29/19 04:00 Nasal Cannula 2.0 05/29/19 03:00 69 20 103/69 (80) 98 Nasal Cannula 2.0 05/29/19 02:00 61 18 106/42 (63) 98 Nasal Cannula 2.0 05/29/19 01:00 64 18 98/62 (74) 96 Nasal Cannula 2.0 05/28/19 23:59 Nasal Cannula 2.0 05/28/19 23:59 66 18 104/68 (80) 96 Nasal Cannula 2.0 05/28/19 23:00 61 21 104/61 (75) 98 Nasal Cannula 2.0 05/28/19 22:00 98.2 60 18 110/63 (79) 100 Nasal Cannula 2.0 98.2 05/28/19 21:04 98.2 66 20 100/52 (68) 100 Nasal Cannula 2.0 98.2 05/28/19 20:00 Nasal Cannula 2.0 05/28/19 20:00 85 18 111/63 (79) 100 Nasal Cannula 2.0 05/28/19 19:00 86 24 128/57 (80) 100 Nasal Cannula 2.0 05/28/19 18:00 Nasal Cannula 2.0 05/28/19 17:45 98.1 86 24 139/67 (91) 100 Nasal Cannula 2.0 98.1 05/28/19 17:26 70 16 97 05/28/19 16:56 94 20 100 05/28/19 16:26 97.8 86 20 98 97.8 05/28/19 15:56 68 20 100 05/28/19 15:26 74 20 98 05/28/19 14:58 68 20 100 05/28/19 14:25 97.8 80 12 129/82 (98) 100 NonRebreather Mask 15.0 97.8 Laboratory Laboratory Laboratory Tests Test 05/28/19 18:06 05/29/19 03:00 Nasal Screen MRSA (PCR) Negative (Negative) White Blood Count 4.2 x10^3/uL (4.0-11.0) Red Blood Count 3.39 x10^6/uL (4.30-5.70) Hemoglobin 10.7 g/dL (13.0-17.5) Hematocrit 31.2 % (39.0-53.0) Mean Corpuscular Volume 92 fL (79-100) Mean Corpuscular Hemoglobin 32 pg (25-35) Mean Corpuscular Hemoglobin Concent 34 g/dL (31-37) Red Cell Distribution Width 15.9 % (11.5-14.5) Platelet Count 154 x10^3/uL (140-400) Neutrophils (%) (Auto) 58 % (31-73) Lymphocytes (%) (Auto) 27 % (24-48) Monocytes (%) (Auto) 15 % (0-9) Eosinophils (%) (Auto) 0 % (0-3) Basophils (%) (Auto) 0 % (0-3) Neutrophils # (Auto) 2.4 x10^3/uL (1.8-7.7) Lymphocytes # (Auto) 1.1 x10^3/uL (1.0-4.8) Monocytes # (Auto) 0.6 x10^3/uL (0.0-1.1) Eosinophils # (Auto) 0.0 x10^3/uL (0.0-0.7) Basophils # (Auto) 0.0 x10^3/uL (0.0-0.2) Sodium Level 145 mmol/L (136-145) Potassium Level 3.8 mmol/L (3.5-5.1) Chloride Level 112 mmol/L (98-107) Carbon Dioxide Level 22 mmol/L (21-32) Anion Gap 11 (6-14) Blood Urea Nitrogen 16 mg/dL (8-26) Creatinine 0.6 mg/dL (0.7-1.3) Estimated GFR (Cockcroft-Gault) 138.9 Glucose Level 83 mg/dL (70-99) Calcium Level 9.2 mg/dL (8.5-10.1) Magnesium Level 2.2 mg/dL (1.8-2.4) Medication Medications Current Medications Acetaminophen (Tylenol) 650 mg PRN Q4HRS PRN PO PAIN; Start 05/28/19 at 22:15 Acetaminophen/ Hydrocodone Bitart (Lortab 5/325) 1 tab PRN Q6HRS PRN PO PAIN; Start 05/28/19 at 22:15 Bisacodyl (Dulcolax Tab) 10 mg PRN DAILY PRN PO CONSTIPATION; Start 05/28/19 at 22:15 Clonazepam (KlonoPIN) 0.5 mg HS PO ; Start 05/28/19 at 23:00 Cyanocobalamin (Vitamin B-12) 500 mcg DAILY PO Last administered on 05/29/19at 07:53; Start 05/29/19 at 09:00 Divalproex Sodium (Depakote Er) 1,000 mg BID PO Last administered on 05/29/19at 07:52; Start 05/29/19 at 09:00 Finasteride (Proscar) 5 mg DAILY PO Last administered on 05/29/19 07:53; Start 05/29/19 at 09:00 Folic Acid (Folic Acid) 1 mg DAILY PO Last administered on 05/29/19at 07:52; Start 05/29/19 at 09:00 Gemfibrozil (Lopid) 600 mg BID PO Last administered on 05/29/19at 07:52; Start 05/29/19 at 09:00 Levetiracetam (Keppra) 1,500 mg BID PO Last administered on 05/29/19 07:52; Start 05/29/19 at 09:00 Pregabalin (Lyrica) 225 mg BID PO ; Start 05/29/19 at 13:30 Senna/Docusate Sodium (Senna Plus) 1 tab BID PO ; Start 05/29/19 at 09:00 Tamsulosin HCl (Flomax) 0.4 mg BIDWMEALS PO Last administered on 05/29/19 07:53; Start 05/29/19 at 08:00 Vitamin D (Vitamin D3) 500 unit 3X/WEEK PO ; Start 05/30/19 at 09:00 Comment Review of Relevant I have reviewed the following items niya (where applicable) has been applied. DYLON OLIVA MD May 29, 2019 17:13
[2019-05-29] MEDS: PREGABALIN 75 MG CAPSULE PO SCH ×2 (17:34→21:26)
--- NOTE | 2019-05-29 18:25 | EEG ---
DATE OF SERVICE: 05/29/2019 EEG NUMBER: [id number]. OBJECTIVE: This is a 59-year-old male patient with history of epilepsy went to status epilepticus on 05/28/2019. He received aggressive anti-seizure treatment. EEG was requested to evaluate cerebral activity and seizure activity. METHODS: Twenty electrodes were applied according to the international 10-20 electrode placement system. EKG monitoring, hyperventilation, intermittent photic stimulation, monopolar and bipolar montages are routinely utilized. The record was obtained on a digital system with video monitoring. FINDINGS: 1. Background: The patient was recorded in the awake, drowsy, and sleep states. The overall background amplitude is variable. No well posterior dominant rhythm is observed. The overall background rhythm is with diffuse slowing in the theta and delta frequencies throughout the entire recording. 2. Abnormalities: No specific epileptiform discharge or electrographic seizure is seen. Diffuse slowing in the theta and delta frequencies throughout the entire recording. 3. Activation: Hyperventilation was performed with poor efforts. Intermittent photic stimulation was performed with photic driving. No specific epileptiform discharge or electrographic seizure induced by hyperventilation or intermittent photic stimulation. IMPRESSION: This EEG is an abnormal study for the awake, drowsy, and sleep states. No well-organized posterior dominant rhythm is observed. The overall background rhythm is with diffuse slowing in the theta and delta frequencies throughout the entire recording. No focal, lateralizing, specific epileptiform discharge, or electrographic seizure is seen. This pattern of EEG is suggestive of diffuse encephalopathy. DYLON OLIVA MD DR: GYPSY/suha JOB#: [id number] / [id number] ERROL
[2019-05-29] MEDS: clonazePAM 0.5 MG TABLET PO SCH (21:25)
[2019-05-30 00:30] VITALS: BP 114/55
[2019-05-30 08:27] VITALS: BP 122/71
[2019-05-30] MEDS: SENNOSIDES/DOCUSATE 8.6/50MG TABLET. PO SCH ×2 (08:33→21:13)
[2019-05-30] MEDS: CHOLECALCIFEROL (VITAMIN D3) 1,000 UNIT TABLET PO SCH (08:34)
[2019-05-30] MEDS: PREGABALIN 75 MG CAPSULE PO SCH ×2 (08:34→21:13)
[2019-05-30] MEDS: TAMSULOSIN 0.4 MG CAP.ER.24H. PO SCH ×2 (08:34→17:32)
[2019-05-30] MEDS: DIVALPROEX EXTENDED RELEASE 500 MG TAB.ER.24H. PO SCH ×2 (08:34→21:13)
[2019-05-30] MEDS: GEMFIBROZIL 600 MG TABLET. PO SCH ×2 (08:34→21:13)
[2019-05-30] MEDS: levETIRAcetam 500 MG TABLET PO SCH ×2 (08:34→21:12)
[2019-05-30] MEDS: FOLIC ACID 1 MG TABLET. PO SCH (08:35)
[2019-05-30] MEDS: CYANOCOBALAMIN (VITAMIN B-12) 1,000 MCG TABLET. PO SCH (08:35)
[2019-05-30] MEDS: FINASTERIDE 5 MG TABLET. PO SCH (08:35)
[2019-05-30] MEDS: HYDROcodone/APAP 5/325MG 1 TAB TABLET PO PRN (09:51)
--- NOTE | 2019-05-30 10:22 | PDOC ---
PROGRESS NOTES Subjective Subjective no more seizures noted Objective Objective Vital Signs Date Time Temp Pulse Resp B/P (MAP) Pulse Ox O2 Delivery O2 Flow Rate FiO2 05/30/19 09:51 16 Room Air 05/30/19 08:27 97.9 76 122/71 (88) 97 97.9 05/29/19 20:26 2.0 Intake and Output 05/30/19 07:00 Intake Total 820 ml Output Total 525 ml Balance 295 ml Intake Oral 400 ml IV Total 420 ml Output Urine Total 525 ml # Voids 7 Physical Exam Abdomen: Normal bowel sounds, Soft Heart: Regular rate, Normal S1 Extremities: No clubbing General: Alert HEENT: Atraumatic Lungs: Clear to auscultation MUSCULOSKELETAL: No swelling, Other Neuro: Normal speech Psych/Mental Status: Mood NL Skin: No breakdown Diagnosis Problem List Problems Medical Problems: (1) Status epilepticus Status: Acute Assessment Assessment Problems Medical Problems: (1) Status epilepticus Status: Acute ASSESSMENT AND PLAN: no more seizures. transferred out of icu ? add dilantin to his regimen, will check [facility] neuro. labs ok. cxr -ve , rivers removed. Persistent breakthrough seizures. The patient has been admitted. We are going to give him IV Keppra and IV fosphenytoin and IV Ativan as necessary. Consult Dr. Girard. Intensive Care Unit monitoring. trnasfer out of icu today added dilantin to seizure regimen Plan Plan of Care Problems Medical Problems: (1) Status epilepticus Status: Acute Comment Review of Relevant I have reviewed the following items niya (where applicable) has been applied. Medications Current Medications Pregabalin (Lyrica) 225 mg BID PO Last administered on 05/30/19at 08:34; Start 05/29/19 at 13:30 Vitamin D (Vitamin D3) 500 unit 3X/WEEK PO Last administered on 05/30/19at 08:34; Start 05/30/19 at 09:00 Vitals/I & O Vital Sign - Last 24 Hours 05/29/19 05/29/19 05/29/19 05/29/19 12:00 12:30 19:57 20:26 Temp 98.2 98.0 98.2 98.0 Pulse 73 76 78 Resp 27 18 16 B/P (MAP) 118/65 (82) 129/72 (91) 110/76 (87) Pulse Ox 100 100 98 O2 Delivery Room Air Room Air Room Air Nasal Cannula O2 Flow Rate 2.0 05/30/19 05/30/19 05/30/19 05/30/19 00:30 03:09 08:27 08:30 Temp 98.3 97.9 98.3 97.9 Pulse 74 63 76 Resp 16 16 18 B/P (MAP) 114/55 (74) 122/71 (88) Pulse Ox 97 97 O2 Delivery Room Air Room Air Room Air Room Air 05/30/19 09:51 Resp 16 O2 Delivery Room Air Intake and Output 05/29/19 05/29/19 05/30/19 15:00 23:00 07:00 Intake Total 420 ml 100 ml 300 ml Output Total 400 ml 125 ml Balance 20 ml 100 ml 175 ml TAMERA SNELL MD May 30, 2019 10:22
[2019-05-30 11:18] VITALS: BP 97/57
[2019-05-30] MEDS: PHENYTOIN SODIUM EXTENDED 100 MG CAPSULE PO SCH ×2 (11:51→21:13)
--- NOTE | 2019-05-30 15:11 | NUR ---
SW following pt. Pt is a transfer from ICU. PT/OT recommends SNU- discussed with PT Toy and will await on today's assessment. Addendum: 05/30/19 at 1605 by VIKAS CHAUDHRY Martina residential number: [phone]
[2019-05-30 16:08] VITALS: BP 123/83
[2019-05-30 20:00] VITALS: BP 109/61
[2019-05-30] MEDS: clonazePAM 0.5 MG TABLET PO SCH (21:12)
[2019-05-31 00:22] VITALS: BP 112/53
[2019-05-31 07:59] VITALS: BP 132/83
[2019-05-31] MEDS: PREGABALIN 75 MG CAPSULE PO SCH ×2 (09:29→20:39)
[2019-05-31] MEDS: levETIRAcetam 500 MG TABLET PO SCH ×2 (09:29→20:39)
[2019-05-31] MEDS: CYANOCOBALAMIN (VITAMIN B-12) 1,000 MCG TABLET. PO SCH (09:30)
[2019-05-31] MEDS: PHENYTOIN SODIUM EXTENDED 100 MG CAPSULE PO SCH ×3 (09:30→20:40)
[2019-05-31] MEDS: DIVALPROEX EXTENDED RELEASE 500 MG TAB.ER.24H. PO SCH ×2 (09:30→20:40)
[2019-05-31] MEDS: FOLIC ACID 1 MG TABLET. PO SCH (09:30)
[2019-05-31] MEDS: TAMSULOSIN 0.4 MG CAP.ER.24H. PO SCH ×2 (09:30→18:19)
[2019-05-31] MEDS: GEMFIBROZIL 600 MG TABLET. PO SCH ×2 (09:34→20:40)
[2019-05-31] MEDS: SENNOSIDES/DOCUSATE 8.6/50MG TABLET. PO SCH ×2 (09:34→20:40)
[2019-05-31] MEDS: FINASTERIDE 5 MG TABLET. PO SCH (09:35)
--- NOTE | 2019-05-31 11:03 | PDOC ---
PROGRESS NOTES Subjective Subjective no new problems Objective Objective Vital Signs Date Time Temp Pulse Resp B/P (MAP) Pulse Ox O2 Delivery O2 Flow Rate FiO2 05/31/19 08:00 Room Air 05/31/19 07:59 98.1 87 21 132/83 (99) 96 98.1 05/30/19 20:23 2.0 Intake and Output 05/31/19 07:00 Intake Total 350 ml Output Total 200 ml Balance 150 ml Intake Oral 350 ml Output Urine Total 200 ml # Voids 3 Physical Exam Abdomen: Normal bowel sounds, Soft Heart: Regular rate, Normal S1 Extremities: No clubbing General: Alert HEENT: Atraumatic Lungs: Clear to auscultation MUSCULOSKELETAL: No swelling, Other Neuro: Normal speech Psych/Mental Status: Mood NL Skin: No breakdown Diagnosis Problem List Problems Medical Problems: (1) Status epilepticus Status: Acute Assessment Assessment Problems Medical Problems: (1) Status epilepticus Status: Acute ASSESSMENT AND PLAN: no more seizures. transferred out of icu added dilantin to his regimen,keppera+depokate+lyrica will check with neuro. labs ok. cxr -ve , rivers removed. pt lost vagal nerve stimulator wrist band, will order one Persistent breakthrough seizures. The patient has been admitted. We are going to give him IV Keppra and IV fosphenytoin and IV Ativan as necessary. Consult Dr. Girard. Intensive Care Unit monitoring. trnasfer out of icu today added dilantin to seizure regimen Plan Plan of Care Problems Medical Problems: (1) Status epilepticus Status: Acute Comment Review of Relevant I have reviewed the following items niya (where applicable) has been applied. Vitals/I & O Vital Sign - Last 24 Hours 05/30/19 05/30/19 05/30/19 05/30/19 11:18 16:08 20:00 20:23 Temp 97.6 97.6 97.6 97.6 97.6 97.6 Pulse 70 92 76 Resp 18 18 20 B/P (MAP) 97/57 (70) 123/83 (96) 109/61 (77) Pulse Ox 97 97 100 O2 Delivery Room Air Room Air Room Air Nasal Cannula O2 Flow Rate 2.0 05/31/19 05/31/19 05/31/19 05/31/19 00:22 04:38 07:59 08:00 Temp 97.8 98.1 97.8 98.1 Pulse 69 87 Resp 20 21 B/P (MAP) 112/53 (72) 132/83 (99) Pulse Ox 97 96 O2 Delivery Room Air Room Air Room Air Intake and Output 05/30/19 05/30/19 05/31/19 15:00 23:00 07:00 Intake Total 200 ml 150 ml Output Total 200 ml Balance -200 ml 200 ml 150 ml TAMERA SNELL MD May 31, 2019 11:03
[2019-05-31 11:59] VITALS: BP 122/75
[2019-05-31] MEDS: HYDROcodone/APAP 5/325MG 1 TAB TABLET PO PRN ×2 (13:00→20:43)
[2019-05-31 15:59] VITALS: BP 102/79
[2019-05-31 19:50] VITALS: BP 115/60
[2019-05-31] MEDS: clonazePAM 0.5 MG TABLET PO SCH (20:40)
[2019-06-01 03:35] VITALS: BP 78/36
[2019-06-01 08:00] VITALS: BP 110/75
[2019-06-01] MEDS: PREGABALIN 75 MG CAPSULE PO SCH ×2 (08:58→20:30)
[2019-06-01] MEDS: DIVALPROEX EXTENDED RELEASE 500 MG TAB.ER.24H. PO SCH ×2 (08:58→20:31)
[2019-06-01] MEDS: TAMSULOSIN 0.4 MG CAP.ER.24H. PO SCH ×2 (08:58→17:48)
[2019-06-01] MEDS: SENNOSIDES/DOCUSATE 8.6/50MG TABLET. PO SCH ×2 (08:58→20:31)
[2019-06-01] MEDS: levETIRAcetam 500 MG TABLET PO SCH ×2 (08:58→20:30)
[2019-06-01] MEDS: GEMFIBROZIL 600 MG TABLET. PO SCH ×2 (08:58→20:30)
[2019-06-01] MEDS: PHENYTOIN SODIUM EXTENDED 100 MG CAPSULE PO SCH ×3 (08:59→20:30)
[2019-06-01] MEDS: FINASTERIDE 5 MG TABLET. PO SCH (08:59)
[2019-06-01] MEDS: CYANOCOBALAMIN (VITAMIN B-12) 1,000 MCG TABLET. PO SCH (08:59)
[2019-06-01] MEDS: FOLIC ACID 1 MG TABLET. PO SCH (08:59)
--- NOTE | 2019-06-01 11:09 | PDOC ---
PROGRESS NOTES Subjective Subjective no more seizures Objective Objective Vital Signs Date Time Temp Pulse Resp B/P (MAP) Pulse Ox O2 Delivery O2 Flow Rate FiO2 06/01/19 08:00 Room Air 06/01/19 08:00 97.9 93 20 110/75 (87) 98 97.9 05/31/19 20:00 2.0 Intake and Output 06/01/19 07:00 Intake Total 0 ml Balance 0 ml Intake Oral 0 ml # Voids 4 # Bowel Movements 1 Physical Exam Abdomen: Normal bowel sounds, Soft Heart: Regular rate, Normal S1 Extremities: No clubbing General: Alert HEENT: Atraumatic Lungs: Clear to auscultation MUSCULOSKELETAL: No swelling, Other Neuro: Normal speech Psych/Mental Status: Mood NL Skin: No breakdown Diagnosis Problem List Problems Medical Problems: (1) Status epilepticus Status: Acute Assessment Assessment Problems Medical Problems: (1) Status epilepticus Status: Acute PLAN: d/c to correction tomorrow no more seizures. transferred out of icu added dilantin to his regimen,keppera+depokate+lyrica will check with neuro. labs ok. cxr -ve , rivers removed. pt lost vagal nerve stimulator wrist band, will order one as necessary. Consult Dr. Girard. Intensive Care Unit monitoring. trnasfer out of icu today added dilantin to seizure regimen Plan Plan of Care Problems Medical Problems: (1) Status epilepticus Status: Acute Comment Review of Relevant I have reviewed the following items niya (where applicable) has been applied. Vitals/I & O Vital Sign - Last 24 Hours 05/31/19 05/31/19 05/31/19 05/31/19 11:59 13:00 14:21 15:59 Temp 97.4 98.0 97.4 98.0 Pulse 79 94 Resp 22 20 B/P (MAP) 122/75 (91) 102/79 (87) Pulse Ox 99 99 99 98 O2 Delivery Room Air Room Air Room Air Room Air O2 Flow Rate 2.0 2.0 05/31/19 05/31/19 05/31/19 05/31/19 19:50 20:00 20:43 21:43 Temp 98.1 98.1 Pulse 79 Resp 18 B/P (MAP) 115/60 (78) Pulse Ox 97 O2 Delivery Room Air Room Air Room Air Room Air O2 Flow Rate 2.0 05/31/19 06/01/19 06/01/19 06/01/19 23:36 03:46 08:00 08:00 Temp 97.9 97.9 Pulse 93 Resp 20 24 20 B/P (MAP) 110/75 (87) Pulse Ox 98 O2 Delivery Room Air Room Air Room Air Room Air Intake and Output 05/31/19 05/31/19 06/01/19 15:00 23:00 07:00 Intake Total 0 ml Balance 0 ml TAMERA SNELL MD Jun 01, 2019 11:08
[2019-06-01 11:27] VITALS: BP 101/64
[2019-06-01 15:16] VITALS: BP 104/61
[2019-06-01 19:52] VITALS: BP 101/52
[2019-06-01] MEDS: clonazePAM 0.5 MG TABLET PO SCH (20:30)
[2019-06-01] MEDS: HYDROcodone/APAP 5/325MG 1 TAB TABLET PO PRN (20:31)
[2019-06-01 23:24] VITALS: BP 114/61
[2019-06-02 03:30] VITALS: BP 123/62
[2019-06-02] MEDS: SENNOSIDES/DOCUSATE 8.6/50MG TABLET. PO SCH (07:43)
[2019-06-02] MEDS: GEMFIBROZIL 600 MG TABLET. PO SCH (07:43)
[2019-06-02] MEDS: levETIRAcetam 500 MG TABLET PO SCH (07:43)
[2019-06-02] MEDS: CYANOCOBALAMIN (VITAMIN B-12) 1,000 MCG TABLET. PO SCH (07:43)
[2019-06-02] MEDS: CHOLECALCIFEROL (VITAMIN D3) 1,000 UNIT TABLET PO SCH (07:44)
[2019-06-02] MEDS: FOLIC ACID 1 MG TABLET. PO SCH (07:44)
[2019-06-02] MEDS: PREGABALIN 75 MG CAPSULE PO SCH (07:44)
[2019-06-02] MEDS: HYDROcodone/APAP 5/325MG 1 TAB TABLET PO PRN (07:45)
[2019-06-02] MEDS: TAMSULOSIN 0.4 MG CAP.ER.24H. PO SCH (07:45)
[2019-06-02] MEDS: DIVALPROEX EXTENDED RELEASE 500 MG TAB.ER.24H. PO SCH (07:45)
[2019-06-02] MEDS: PHENYTOIN SODIUM EXTENDED 100 MG CAPSULE PO SCH (07:46)
[2019-06-02] MEDS: FINASTERIDE 5 MG TABLET. PO SCH (07:46)
[2019-06-02 07:48] VITALS: BP 105/63
--- NOTE | 2019-06-02 09:58 | PDOC ---
PROGRESS NOTES Subjective Subjective no new problems Objective Objective Vital Signs Date Time Temp Pulse Resp B/P (MAP) Pulse Ox O2 Delivery O2 Flow Rate FiO2 06/02/19 09:00 Room Air 06/02/19 07:48 98.3 92 20 105/63 (77) 98 98.3 06/01/19 20:00 2.0 Intake and Output 06/02/19 06:59 Intake Total 470 ml Balance 470 ml Intake Oral 470 ml # Voids 2 Physical Exam Abdomen: Normal bowel sounds, Soft Heart: Regular rate, Normal S1 Extremities: No clubbing General: Alert HEENT: Atraumatic Lungs: Clear to auscultation MUSCULOSKELETAL: No swelling, Other Neuro: Normal speech Psych/Mental Status: Mood NL Skin: No breakdown Diagnosis Problem List Problems Medical Problems: (1) Status epilepticus Status: Acute Assessment Assessment Problems Medical Problems: (1) Status epilepticus Status: Acute PLAN: d/c to jail today no more seizures. transferred out of icu added dilantin to his regimen,keppera+depokate+lyrica will check with neuro. labs ok. cxr -ve , rivers removed. pt lost vagal nerve stimulator wrist band, will order one Plan Plan of Care Problems Medical Problems: (1) Status epilepticus Status: Acute Comment Review of Relevant I have reviewed the following items niya (where applicable) has been applied. Vitals/I & O Vital Sign - Last 24 Hours 06/01/19 06/01/19 06/01/19 06/01/19 11:27 15:16 19:52 20:00 Temp 97.8 97.4 98.4 97.8 97.4 98.4 Pulse 88 82 89 Resp 22 22 18 B/P (MAP) 101/64 (76) 104/61 (75) 101/52 (68) Pulse Ox 100 99 97 O2 Delivery Room Air Room Air Room Air Room Air O2 Flow Rate 2.0 06/01/19 06/01/19 06/01/19 06/02/19 20:31 21:31 23:24 03:30 Temp 97.7 98.3 97.7 98.3 Pulse 85 78 Resp 20 20 B/P (MAP) 114/61 (78) 123/62 (82) Pulse Ox 98 99 O2 Delivery Room Air Room Air Room Air Room Air 06/02/19 06/02/19 06/02/1906/02/19 07:45 07:45 07:48 09:00 Temp 98.3 98.3 Pulse 92 Resp 20 B/P (MAP) 105/63 (77) Pulse Ox 98 O2 Delivery Room Air Room Air Room Air Room Air Intake and Output 06/01/19 06/01/19 06/02/19 14:59 22:59 06:59 Intake Total 350 ml 120 ml Balance 350 ml 120 ml TAMERA SNELL MD Jun 02, 2019 09:58
[2019-06-02] MEDS ORDERED: PHEN100C PO (10:02)
[2019-06-02 11:11] VITALS: BP 112/76
--- NOTE | 2019-06-02 11:27 | NUR ---
SW following pt. Spoke with RN and pt is discharging back to [facility]. RN had already contacted snf and they will be able to pick pt today.
--- NOTE | 2019-06-02 11:58 | NUR ---
Discharge Note: Patient was discharged back to his detention. Patient agreeable with discharge plans. Patients IV was discontinued without any complications per [employer]. Patient was given discharge summary/instructions, follow-ups, prescriptions and educational material. This RN gave an update to patients transporter, they did not have any questions. Patient was taken to the main entrance via wheelchair with all personal belongings, accompanied by JOSE ANGEL Shepard, where patients ride was waiting for him to take him home.
--- NOTE | 2019-06-09 09:40 | PDOC ---
Provider Note Provider Note Discharge summary dictated. #[id number] TAMERA SNELL MD Jun 09, 2019 09:40
--- NOTE | 2019-06-09 09:53 | DS ---
DATE OF DISCHARGE: 06/02/2019 REASON FOR ADMISSION TO THE HOSPITAL: Status epilepticus. CONSULTATIONS: Merary Girard MD PROCEDURES DONE: 1. CT head. 2. EEG. COMPLICATIONS NOTED: None. HOSPITAL COURSE: The patient is a 59-year-old male with history of refractory seizures. He is already on Depakote, Keppra, Lyrica and currently history of seizures, was admitted to the ICU, was given IV Dilantin IV Keppra and CT head was negative. EEG was done, no active seizures noted. The patient also has history of vagal nerve stimulator. He lost his wrist band, which was ordered again. The patient was added Dilantin to the regimen because of refractory seizures and he remained stable and the patient was discharged. White count 2.4, went up to 4.2; hemoglobin 12; platelets 175. Electrolytes unremarkable. LFTs normal. Valproic acid level was 91. Drug screen was positive for benzo screen. Chest x-ray negative. CT head negative. FINAL IMPRESSION: 1. Status epilepticus. 2. Refractory seizures. 3. History of vagal nerve stimulator. The patient lost his wrist band. 4. Benign prostatic hypertrophy. 5. Developmental disorder. DISPOSITION: Home. New medication added was Dilantin 100 mg 3 times daily to his seizure medication regimen, which includes Keppra, Depakote, and Lyrica. Check Dilantin levels in 1 week with his PCP, Dr. Malone. TAMERA SNELL MD DR: RICHI/suha JOB#: [id number] / [id number] EDIE Manrique
== END 2019-06-02 12:03 | disposition home or self-care (01) | DRG 101 ==
LOC: ER 14:25 → ED HOLD 15:40 → 1 WEST ICU 19:05 → 6 SOUTH 05-29 12:40
PROVIDERS: ADMIT Internal Medicine; ATTEND Internal Medicine
DX: G40.911 Epilepsy, unspecified, intractable, with status epilepticus (principal); D61.818 Other pancytopenia; R65.10 Systemic inflammatory response syndrome (SIRS) of non-infectious origin without acute organ dysfunction; I10 Essential (primary) hypertension; E78.5 Hyperlipidemia, unspecified; J44.9 Chronic obstructive pulmonary disease, unspecified; F31.9 Bipolar disorder, unspecified; F79 Unspecified intellectual disabilities; N40.0 Benign prostatic hyperplasia without lower urinary tract symptoms; E78.00 Pure hypercholesterolemia, unspecified; K21.9 Gastro-esophageal reflux disease without esophagitis; Z82.49 Family history of ischemic heart disease and other diseases of the circulatory system
CPT/HCPCS: 36415; 70450; 71045; 80048; 80053; 80164; 80307; 83735; 85007; 85025; 87641; 93005; 95816; 96365; 96367; 96375; J1953; J2060; J7030; Q2009; 97110; 97116; 97530; 97535; 99291-25; G0378

== ENCOUNTER 2019-06-17 15:57 | Inpatient (IN) | payer OTHER ==
[~2019-06-17] VITALS: Ht 152.4 cm; Wt 69.9 kg
[~2019-06-17 15:57] MED LIST changes: +PHEN100C PO
--- NOTE | 2019-06-17 16:32 | PHYS DOC ---
Past Medical History Past Medical History: Anemia, Asthma, Bipolar, COPD, GERD, High Cholesterol, Seizure Additional Past Medical Histor: MR,NEUTROPENIA, (SALOMON KELLEY APRN) Past Surgical History: Cholecystectomy, Other Additional Past Surgical Histo: dental (SALOMON KELLEY APRN) Alcohol Use: None Drug Use: None (SALOMON KELLEY APRN) Attending Signature I have participated in the care of this patient and I have reviewed and agree with all pertinent clinical information above including history, exam, and recommendations. (HOLLY BRANDT MD) Adult General Chief Complaint Chief Complaint: ALTERED MENTAL STATUS HPI HPI Patient is a 59 year old male brought to the ER by EMS from a [facility] with reports of decreased LOC. Pt has hx of MR and seizures. NO seizure activity is reported. PT is non-verbal at this time limited HPI due to patient mental status. Per caregiver at the [facility] patient returned from adult day care and he wasn't responding to his name and wouldn't get out of the van. The ambulance had to come get patient out of the van. Caregiver denies any report of fever or a seizure at daycare or by the van loader. (SALOMON KELLEY APRN) Review of Systems Review of Systems Unable to assess due to patient's LOC. (SALOMON KELLEY APRN) Current Medications Current Medications Current Medications Medications (Trade) Dose Ordered Sig/Chepe Start Time Stop Time Status Last Admin Dose Admin Ceftriaxone Sodium (Rocephin) 1 gm 1X ONCE 06/17/19 19:00 06/17/19 19:01 DC 06/17/19 19:00 1 GM (HOLLY BRANDT MD) Allergies Allergies Allergies Coded Allergies Type Severity Reaction Last Updated Verified No Known Drug Allergies 03/23/17 No (HOLLY BRANDT MD) Physical Exam Physical Exam Constitutional: Well developed, well nourished, no acute distress, non-toxic appearance. [] HENT: Normocephalic, atraumatic, bilateral external ears normal, oropharynx moist, no oral exudates, nose normal. [] Eyes: PERRLA, conjunctiva normal, no discharge. [] Neck: no stridor. [] Cardiovascular: Heart rate regular rhythm, no murmur [] Lungs & Thorax: Bilateral breath sounds clear to auscultation [] Abdomen: Bowel sounds normal, soft, no tenderness, no masses, no pulsatile masses. [] Skin: Warm, dry, no erythema, no rash. [] Extremities: No cyanosis, no clubbing, no edema. [] Neurologic: Alert, non-verbal, not following commands [] Psychologic: Affect flat (SALOMON KELLEY APRN) Current Patient Data Vital Signs Vital Signs Date Time Temp Pulse Resp B/P (MAP) Pulse Ox O2 Delivery O2 Flow Rate FiO2 06/17/19 19:38 81 16 98 06/17/19 16:09 98.6 130/68 (88) Room Air 98.6 (HOLLY BRANDT MD) Lab Values Laboratory Tests Test 06/17/19 17:20 06/17/19 18:09 White Blood Count 5.6 x10^3/uL (4.0-11.0) Red Blood Count 3.65 x10^6/uL (4.30-5.70) L Hemoglobin 11.3 g/dL (13.0-17.5) L Hematocrit 33.9 % (39.0-53.0) L Mean Corpuscular Volume 93 fL (79-100) Mean Corpuscular Hemoglobin 31 pg (25-35) Mean Corpuscular Hemoglobin Concent 33 g/dL (31-37) Red Cell Distribution Width 16.6 % (11.5-14.5) H Platelet Count 218 x10^3/uL (140-400) Neutrophils (%) (Auto) 76 % (31-73) H Lymphocytes (%) (Auto) 11 % (24-48) L Monocytes (%) (Auto) 13 % (0-9) H Eosinophils (%) (Auto) 0 % (0-3) Basophils (%) (Auto) 0 % (0-3) Neutrophils # (Auto) 4.2 x10^3/uL (1.8-7.7) Lymphocytes # (Auto) 0.6 x10^3/uL (1.0-4.8) L Monocytes # (Auto) 0.7 x10^3/uL (0.0-1.1) Eosinophils # (Auto) 0.0 x10^3/uL (0.0-0.7) Basophils # (Auto) 0.0 x10^3/uL (0.0-0.2) Sodium Level 140 mmol/L (136-145) Potassium Level 4.4 mmol/L (3.5-5.1) Chloride Level 105 mmol/L (98-107) Carbon Dioxide Level 22 mmol/L (21-32) Anion Gap 13 (6-14) Blood Urea Nitrogen 18 mg/dL (8-26) Creatinine 0.9 mg/dL (0.7-1.3) Estimated GFR (Cockcroft-Gault) 87.0 BUN/Creatinine Ratio 20 (6-20) Glucose Level 110 mg/dL (70-99) H Calcium Level 9.3 mg/dL (8.5-10.1) Total Bilirubin 0.4 mg/dL (0.2-1.0) Aspartate Amino Transferase (AST) 34 U/L (15-37) Alanine Aminotransferase (ALT) 18 U/L (16-63) Alkaline Phosphatase 57 U/L (46-116) Total Protein 8.0 g/dL (6.4-8.2) Albumin 3.6 g/dL (3.4-5.0) Albumin/Globulin Ratio 0.8 (1.0-1.7) L Urine Collection Type Unknown Urine Color Yellow Urine Clarity Clear Urine pH 5.5 Urine Specific [place] 1.015 Urine Protein 30 mg/dL (NEG-TRACE) Urine Glucose (UA) Negative mg/dL (NEG) Urine Ketones (Stick) Trace mg/dL (NEG) Urine Blood Small (NEG) Urine Nitrite Negative (NEG) Urine Bilirubin Negative (NEG) Urine Urobilinogen Dipstick 0.2 mg/dL (0.2 mg/dL) Urine Leukocyte Esterase Large (NEG) Urine RBC 1-2 /HPF (0-2) Urine WBC >40 /HPF (0-4) Urine Squamous Epithelial Cells Occ /LPF Urine Transitional Epithelial Cells Occ /LPF Urine Renal Epithelial Cells Occ /LPF Urine Bacteria Many /HPF (0-FEW) Urine Hyaline Casts Occasional /HPF Urine Mucus Mod /LPF Laboratory Tests 06/17/19 17:20 Laboratory Tests 06/17/19 17:20 Microbiology 06/17/19 Urine Culture - Preliminary, Resulted 06/17/19 Urine Culture Result 1 (JOSEF) - Preliminary, Resulted (HOLLY BRANDT MD) Lab Values Laboratory Tests Test 06/17/19 17:20 06/17/19 18:09 White Blood Count 5.6 x10^3/uL (4.0-11.0) Red Blood Count 3.65 x10^6/uL (4.30-5.70) L Hemoglobin 11.3 g/dL (13.0-17.5) L Hematocrit 33.9 % (39.0-53.0) L Mean Corpuscular Volume 93 fL (79-100) Mean Corpuscular Hemoglobin 31 pg (25-35) Mean Corpuscular Hemoglobin Concent 33 g/dL (31-37) Red Cell Distribution Width 16.6 % (11.5-14.5) H Platelet Count 218 x10^3/uL (140-400) Neutrophils (%) (Auto) 76 % (31-73) H Lymphocytes (%) (Auto) 11 % (24-48) L Monocytes (%) (Auto) 13 % (0-9) H Eosinophils (%) (Auto) 0 % (0-3) Basophils (%) (Auto) 0 % (0-3) Neutrophils # (Auto) 4.2 x10^3/uL (1.8-7.7) Lymphocytes # (Auto) 0.6 x10^3/uL (1.0-4.8) L Monocytes # (Auto) 0.7 x10^3/uL (0.0-1.1) Eosinophils # (Auto) 0.0 x10^3/uL (0.0-0.7) Basophils # (Auto) 0.0 x10^3/uL (0.0-0.2) Sodium Level 140 mmol/L (136-145) Potassium Level 4.4 mmol/L (3.5-5.1) Chloride Level 105 mmol/L (98-107) Carbon Dioxide Level 22 mmol/L (21-32) Anion Gap 13 (6-14) Blood Urea Nitrogen 18 mg/dL (8-26) Creatinine 0.9 mg/dL (0.7-1.3) Estimated GFR (Cockcroft-Gault) 87.0 BUN/Creatinine Ratio 20 (6-20) Glucose Level 110 mg/dL (70-99) H Calcium Level 9.3 mg/dL (8.5-10.1) Total Bilirubin 0.4 mg/dL (0.2-1.0) Aspartate Amino Transferase (AST) 34 U/L (15-37) Alanine Aminotransferase (ALT) 18 U/L (16-63) Alkaline Phosphatase 57 U/L (46-116) Total Protein 8.0 g/dL (6.4-8.2) Albumin 3.6 g/dL (3.4-5.0) Albumin/Globulin Ratio 0.8 (1.0-1.7) L Urine Collection Type Unknown Urine Color Yellow Urine Clarity Clear Urine pH 5.5 Urine Specific [place] 1.015 Urine Protein 30 mg/dL (NEG-TRACE) Urine Glucose (UA) Negative mg/dL (NEG) Urine Ketones (Stick) Trace mg/dL (NEG) Urine Blood Small (NEG) Urine Nitrite Negative (NEG) Urine Bilirubin Negative (NEG) Urine Urobilinogen Dipstick 0.2 mg/dL (0.2 mg/dL) Urine Leukocyte Esterase Large (NEG) Urine RBC 1-2 /HPF (0-2) Urine WBC >40 /HPF (0-4) Urine Squamous Epithelial Cells Occ /LPF Urine Transitional Epithelial Cells Occ /LPF Urine Renal Epithelial Cells Occ /LPF Urine Bacteria Many /HPF (0-FEW) Urine Hyaline Casts Occasional /HPF Urine Mucus Mod /LPF Laboratory Tests 06/17/19 17:20 Laboratory Tests 06/17/19 17:20 (SALOMON KELLEY APRN) EKG EKG [] (SALOMON KELLEY APRN) Radiology/Procedures Radiology/Procedures [] (SALOMON KELLEY APRN) Course & Med Decision Making Course & Med Decision Making Pertinent Labs and Imaging studies reviewed. (See chart for details) DX: UTI, altered level of consciousness Pt refused to speak and would not follow commands on arrival. Ct head negative for any acute findings. CBC mild anemia pt has hx of, CMP: glucose 110 otherwise unremarkable, UA concerning for UTI, 1 gm of IV rocephin ordered PT denies any complaints after being in the department for 2 hours. He states the reason he did not talk to anyone is because he did not want to. Pt states he would not get out of the daycare van because he did not want to. Pt denies any complaints, he refuses to ambulate in the ER because he does not want to. [address] Snell who is the admitting physician, and care was assumed following discussion of patient. Patient's vital signs stable. Patient remains afebrile, appears nontoxic, respirations even and unlabored. Patient will be admitted to the med/surg floor. Patient's case and plan of care also discussed with (SALOMON KELLEY APRN) Dragon Disclaimer Dragon Disclaimer This electronic medical record was generated, in whole or in part, using a voice recognition dictation system. (SALOMON KELLEY APRN) Departure Departure Impression: Primary Impression: UTI (urinary tract infection) Additional Impression: Altered level of consciousness Disposition: ADMITTED INPATIENT Admitting Physician: Geraldine Snell (SALOMON KELLEY APRN) Condition: STABLE Referrals: EDIE MANUEL (PCP) Scripts Ciprofloxacin Hcl (CIPRO) 250 Mg Tablet 500 MG PO BID for uti for 7 Days, #28 TAB Prov: GERALDINE SNELL MD 06/18/19 Problem Qualifiers Primary Impression: UTI (urinary tract infection) Urinary tract infection type: site unspecified Hematuria presence: without hematuria Qualified Codes: N39.0 - Urinary tract infection, site not specified SALOMON KELLEY APRN Jun 17, 2019 16:32 HOLLY BRANDT MD Jun 20, 2019 06:18
[2019-06-17 17:31] LABS: BASO % 0 % (0-3); EOS % 0 % (0-3); HEMATOCRIT 33.9 % (39.0-53.0); HEMOGLOBIN 11.3 g/dL (13.0-17.5); LYMPH # 0.6 x10^3/uL (1.0-4.8); LYMPH % 11 % (24-48); MEAN CORPUSCULAR HEMOGLOBIN 31 pg (25-35); MEAN CORPUSCULAR HGB CONC 33 g/dL (31-37); MEAN CORPUSCULAR VOLUME 93 fL (79-100); MONO # 0.7 x10^3/uL (0.0-1.1); MONO % 13 % (0-9); NEUT # 4.2 x10^3/uL (1.8-7.7); NEUT % 76 % (31-73); PLATELET COUNT 218 x10^3/uL (140-400); RED BLOOD COUNT 3.65 x10^6/uL (4.30-5.70); RED CELL DISTRIBUTION WIDTH 16.6 % (11.5-14.5); WHITE BLOOD COUNT 5.6 x10^3/uL (4.0-11.0)
[2019-06-17 17:35] LABS: CALCIUM 9.3 mg/dL (8.5-10.1); CREATININE 0.9 mg/dL (0.7-1.3); POTASSIUM 4.4 mmol/L (3.5-5.1)
[2019-06-17 17:41] LABS: ALBUMIN 3.6 g/dL (3.4-5.0); ALBUMIN/GLOBULIN RATIO 0.8 (1.0-1.7); TOTAL BILIRUBIN 0.4 mg/dL (0.2-1.0)
--- NOTE | 2019-06-17 17:50 | RAD ---
CT HEAD WO CONTRAST Date: 06/17/2019 4:29 PM Clinical Indication: Decreased level of consciousness Comparison: 05/28/2019. Technique: 5 mm axial tomographic images were obtained of the head without contrast. These were viewed on brain and bone windows. One or more of the following dose reduction techniques were utilized: Automated exposure control (AEC), Adjustment of mA and/or kV according to patient size, Use of iterative reconstruction technique such as ASiR, CT scan done according to ALARA and image gently/image wisely Findings: Mild nonspecific hypoattenuation in the periventricular white matter, commonly seen with chronic small vessel ischemic disease. No intra- or extra-axial mass or fluid collection. No acute hemorrhage. The ventricles are normal in size, shape, and morphology. The singh-white matter junction is normal. The subarachnoid cisterns are patent. Moderate right maxillary sinus mucosal thickening with mucoperiosteal reaction, likely chronic sinusitis. The visualized portions of the orbits and globes are normal. The mastoid air cells are clear. The animal feeder topogram shows no lytic lesion or fracture. Impression: No acute intracranial process. Electronically signed by: Darion Rios MD (06/17/2019 5:47 PM) [id number]
[2019-06-17 18:16] LABS: BILIRUBIN,URINE NEGATIVE (NEG); CLARITY,URINE CLEAR; COLOR,URINE YELLOW; NITRITE,URINE NEGATIVE (NEG); PH,URINE 5.5; PROTEIN,URINE 30 mg/dL (NEG-TRACE); UROBILINOGEN,URINE 0.2 mg/dL (0.2 mg/dL)
[2019-06-17 18:21] LABS: BACTERIA,URINE MANY /HPF (0-FEW); HYALINE CASTS, URINE OCCASIONAL /HPF; SQUAMOUS EPITHELIAL CELL,UR OCC /LPF; WBC,URINE >40 /HPF (0-4)
[2019-06-17] MEDS ORDERED: cefTRIAXone IV Push 1 GM VIAL. IVP ONE (19:00)
[2019-06-17 20:30] VITALS: BP 102/60
--- NOTE | 2019-06-17 20:30 | NUR ---
The patient, ISABELA VANCE, 59 y/o, M admitted by TAMERA SNELL MD, was given written information regarding hospital policies, unit procedures and contact persons. Patient arrived to room at this time via ED bed assisted by ED staff member. Valuables were checked and noted. The patient is currently in bed watching TV. The patient was provided with ice water and a box lunch per request. Patient states no other needs at this time. This RN will continue to monitor the patient at this time. This RN has attempted to reach the patient's rn care transition at the number provided by ED, attempts were not successful. This RN will attempt again in the morning for home medication rec.
[2019-06-17 23:00] VITALS: BP 111/62
[2019-06-18 03:00] VITALS: BP 91/56
--- NOTE | 2019-06-18 06:27 | RAD ---
Indication:UTI TECHNIQUE: Grayscale, color Doppler and spectral waveform is of the abdomen obtained. COMPARISON:None FINDINGS: Right kidney measures 11.5 x 5.0 x 4.0 cm without hydronephrosis. Bladder is not optimally distended. Bladder wall thickening seen measuring 1.1 cm. Left kidney measures 11.5 x 5.5 x 5.0 cm without hydronephrosis. Aorta and IVC not visualized due to bowel gas. IMPRESSION: 1. No hydronephrosis. 2. Bladder wall thickening may be secondary to suboptimal distention or cystitis. Clinically correlate with urinalysis. Electronically signed by: King Garza DO (06/18/2019 6:24 AM) [id number]
--- NOTE | 2019-06-18 06:42 | EKG ---
[facility] [address] [place] [address] Test Date: 2019-06-17 Test Time: 16:37:31 Pat Name: ISBAELA VANCE Department: Room: 552 1 Gender: M Dragger Out: : 1960 Requested By: SALOMON KELLEY Order Number: [id number] Reading MD: Garfield Womack MD Measurements Intervals [place] Rate: 102 P: 143 MD: 150 QRS: 154 QRSD: 72 T: 133 QT: 338 QTc: 445 Interpretive Statements SINUS TACHYCARDIA LIMB LEAD MISPLACEMENT Electronically Signed On 07-02-2019 8:45:26 HEALTH TECHNICIAN HEARING by Garfield Womack MD
[2019-06-18 07:00] VITALS: BP 106/67
[2019-06-18] MEDS ORDERED: BISACODYL 5 MG TABLET.DR. PO PRN (09:30)
[2019-06-18] MEDS ORDERED: PHENYTOIN SODIUM EXTENDED 100 MG CAPSULE PO SCH (09:30)
[2019-06-18] MEDS ORDERED: HYDROcodone/APAP 5/325MG 1 TAB TABLET PO PRN (09:30)
[2019-06-18] MEDS ORDERED: levETIRAcetam 500 MG TABLET PO SCH (09:30)
[2019-06-18] MEDS ORDERED: DIVALPROEX EXTENDED RELEASE 500 MG TAB.ER.24H. PO SCH (09:30)
[2019-06-18] MEDS ORDERED: CIPROFLOXACIN HCL 250 MG TABLET. PO SCH (09:45)
[2019-06-18] MEDS ORDERED: POLYVINYL ALCOHOL 1.4% OPHTH SOLUTION 15ML BOTTLE. OU SCH (09:45)
[2019-06-18] MEDS ORDERED: IBUPROFEN 400 MG TABLET. PO PRN (09:45)
[2019-06-18] MEDS ORDERED: PREGABALIN 75 MG CAPSULE PO SCH (09:45)
[2019-06-18] MEDS ORDERED: FOLIC ACID 1 MG TABLET. PO SCH (10:00)
[2019-06-18] MEDS ORDERED: SENNOSIDES/DOCUSATE 8.6/50MG TABLET. PO SCH (10:00)
[2019-06-18] MEDS ORDERED: CYANOCOBALAMIN (VITAMIN B-12) 1,000 MCG TABLET. PO SCH (10:00)
[2019-06-18] MEDS ORDERED: TAMSULOSIN 0.4 MG CAP.ER.24H. PO SCH (10:00)
[2019-06-18] MEDS ORDERED: MULTIVITAMIN I-VITE TABLET. PO SCH (10:00)
[2019-06-18] MEDS ORDERED: PANTOPRAZOLE 40 MG TABLET.DR. PO SCH (10:00)
[2019-06-18] MEDS ORDERED: MIDODRINE 5 MG TABLET PO SCH (10:00)
[2019-06-18] MEDS ORDERED: FINASTERIDE 5 MG TABLET. PO SCH (10:00)
[2019-06-18] MEDS ORDERED: FLUTICASONE 50MCG/NASAL SPRAY 16GM BOTTLE. NS SCH (10:00)
[2019-06-18] MEDS ORDERED: GEMFIBROZIL 600 MG TABLET. PO SCH (10:00)
--- NOTE | 2019-06-18 10:04 | PDOC ---
Provider Note Provider Note Pt seen.H&P dictated.#[id number]. TAMERA SNELL MD Jun 18, 2019 10:04
[2019-06-18] MEDS ORDERED: CIPR250T30 PO (10:07)
--- NOTE | 2019-06-18 10:51 | HP ---
ADMIT DATE: 06/17/2019 LOCATION: 2. REASON FOR ADMISSION TO THE HOSPITAL: Altered mental status. HISTORY OF PRESENT ILLNESS: The patient is a 59-year-old male who lives in a alf, has history of developmental disorder, history of seizures, on 3 medications. He was brought in by paramedics. The patient was in a alf, was nonverbal, and he did not lose consciousness, and he was not able to get out of the van and does not respond to his name, was brought to the hospital. CT was negative and his condition improved. While he is in the ER, he is able to talk and no further seizures noted. He was found to have a urinary tract infection and he also has history of BPH, he was treated with IV Rocephin. PAST MEDICAL HISTORY: History of developmental disorder and seizures. He has a history of status epilepticus. He also has had his vagal nerve stimulation, BPH, bipolar, and GERD. PAST SURGICAL HISTORY: Gallbladder surgery and vagal nerve stimulator. ALLERGIES: No known drug allergies. MEDICATIONS AT HOME: Dulcolax 10 mg daily, vitamin D 1000 daily, clonazepam 0.5 at bedtime, B12 at 1000 mcg daily, Depakote 1000 mg twice a day, finasteride 5 mg daily, Flonase 1 daily, Flovent twice a day, folic acid 1 mg daily, Lopid 600 mg twice a day, hydrocodone p.r.n. for pain, ibuprofen for pain, Keppra 1500 mg twice a day, midodrine 10 mg 3 times a day for orthostatic hypotension, omeprazole 20 mg daily, Dilantin 100 mg 3 times daily, Lyrica 225 mg twice a day, senna 1 daily, and Flomax 0.4 twice a day. PERSONAL HISTORY: No history of smoking, alcohol, or drug abuse. SOCIAL HISTORY: Lives in a alf and goes to daycare. REVIEW OF SYSTEMS: Denies any chest pain or shortness of breath. The patient is awake. No further seizures noted. PHYSICAL EXAMINATION: GENERAL: The patient is sitting in chair. HEENT: Head is atraumatic. Pupils equal. Oral cavity: No congestion. NECK: Supple. Thyroid not enlarged. JVD not elevated. CHEST: Symmetrical. CARDIOVASCULAR: S1, S2. LUNGS: Clear. ABDOMEN: Soft, bowel sounds present, no mass palpable. EXTERNAL GENITALIA: No Tom. RECTAL: Deferred. EXTREMITIES: No calf tenderness, no edema. NEUROLOGIC: Moving all extremities. No focal deficits noted. LABORATORY DATA: Shows a white count of 5.6, hemoglobin 11.3, platelets 318. Electrolytes show sodium 140, potassium 4.4, chloride 105, bicarbonate 22, anion gap 13, BUN 18, creatinine 0.9, glucose 110. LFTs were normal. Urine shows large leukocyte esterase, more than 40 wbc's. FINAL IMPRESSION: 1. Acute urinary tract infection.Complicated. 2. Benign prostatic hypertrophy.Cystitis. 3. History of seizures, refractory, on 3 medications. 4. History of developmental disorder. Lives in a alf. 5. Hypertension. 6. Hyperlipidemia. 7. Orthostatic hypotension. PLAN: At this time, we will have urine cultures, given IV Rocephin and we will have Urology see the patient, probably may need a cystoscopy down the road. Discontinue on Cipro, wait for the cultures, also patient's PSA levels, and also the patient had ultrasound of the kidney that shows no hydronephrosis, shows bladder wall thickening, and hopefully should be able to go home in a day or two. TAMERA SNELL MD DR: RICHI/suha JOB#: [id number] / [id number] EDIE Manrique MTDKristal
[2019-06-18 11:00] VITALS: BP 111/62
[2019-06-18 11:15] LABS: PHENY < 0.5 mcg/mL (10.0-20.0); VAL ACID 25 mcg/mL (50-100)
--- NOTE | 2019-06-18 12:05 | NUR ---
This RN called pt's spokesperson, Kelby Mo (machine joiner cementer of [facility] pt resides in) in regards to pt's discharge. This RN received Kaylee's phone number (employee from [facility]) [phone], who is to pick the pt up.
--- NOTE | 2019-06-18 12:33 | NUR ---
Pt left unit by wheelchair via private vehicle. Pt left with Kaylee (employee of [facility]). Pt IV removed with no complications and pt is stable. Discharge instructions discussed with pt and Kaylee.
[2019-06-18] MEDS ORDERED: BUDESONIDE 0.5 MG/2 ML NEBU. NEB SCH (20:00)
[2019-06-18] MEDS ORDERED: FLUTICASONE PROPIONATE IH SCH (21:00)
[2019-06-18] MEDS ORDERED: clonazePAM 0.5 MG TABLET PO SCH (21:00)
[2019-06-20] MEDS ORDERED: CHOLECALCIFEROL (VITAMIN D3) 1,000 UNIT TABLET PO SCH (09:00)
== END 2019-06-18 12:38 | disposition home or self-care (01) | DRG 689 ==
LOC: ER 15:57 → 5 SOUTH 19:40
PROVIDERS: ADMIT Internal Medicine; ATTEND Internal Medicine
DX: N39.0 Urinary tract infection, site not specified (principal); G93.41 Metabolic encephalopathy; E78.00 Pure hypercholesterolemia, unspecified; G40.909 Epilepsy, unspecified, not intractable, without status epilepticus; J44.9 Chronic obstructive pulmonary disease, unspecified; K21.9 Gastro-esophageal reflux disease without esophagitis; N40.0 Benign prostatic hyperplasia without lower urinary tract symptoms; Z90.49 Acquired absence of other specified parts of digestive tract; Z79.899 Other long term (current) drug therapy; F89 Unspecified disorder of psychological development; I10 Essential (primary) hypertension; E78.5 Hyperlipidemia, unspecified; I95.1 Orthostatic hypotension
CPT/HCPCS: 36415; 70450; 76770; 80053; 80164; 80185; 81001; 85025; 87086; 87186; 87641; 93005; 96374; G0103; J0696; 99285-25; G0378

== ENCOUNTER 2019-06-20 11:45 | Inpatient (IN) | payer OTHER ==
[2019-06-20] VITALS (11 sets, daily range): BP systolic 83–123; BP diastolic 50–69
[~2019-06-20] VITALS: Ht 172.7 cm; Wt 68.9 kg
[~2019-06-20 11:45] MED LIST changes: +CIPR250T30 PO
--- NOTE | 2019-06-20 12:09 | PHYS DOC ---
Past Medical History Past Medical History: Anemia, Asthma, Bipolar, COPD, GERD, High Cholesterol, Seizure Additional Past Medical Histor: MR,NEUTROPENIA, Past Surgical History: Cholecystectomy, Other Additional Past Surgical Histo: dental Alcohol Use: None Drug Use: None Adult General Chief Complaint Chief Complaint: SEIZURE HPI HPI 59-year-old male presents to the emergency department with complaints of seizure. Patient's underlying history of seizure disorder, is currently on divalproex. This morning he was up to the desk at the place where he lives at baseline and subsequently had seizure type activity Caregivers are at bedside however minimal input with regards to timeline today. Patient is postictal at this time. Review of Systems Review of Systems Patient unable to provide history given post-ictal state Current Medications Current Medications Current Medications Medications (Trade) Dose Ordered Sig/Chepe Start Time Stop Time Status Last Admin Dose Admin Lorazepam (Ativan Inj) 2 mg 1X ONCE 06/20/19 13:15 06/20/19 13:16 DC 06/20/19 12:46 2 MG Allergies Allergies Allergies Coded Allergies Type Severity Reaction Last Updated Verified No Known Drug Allergies 03/23/17 No Physical Exam Physical Exam Constitutional: Well developed, well nourished, no acute distress, non-toxic appearance. [] HENT: Normocephalic, atraumatic, bilateral external ears normal, oropharynx moist, no oral exudates, nose normal. [] Eyes: PERRLA, EOMI, conjunctiva normal, no discharge. No nystagmus appreciated, deviation of eyes to the right however has subsequently resolved[] Cardiovascular:Heart rate regular rhythm, no murmur [] Lungs & Thorax: Bilateral breath sounds clear to auscultation [] Abdomen: Bowel sounds normal, soft, no tenderness, no masses, no pulsatile masses. [] Skin: Warm, dry, no erythema, no rash. [] Extremities: No tenderness, no edema. [] Neurologic: altered mental status, post ictal Psychologic: altered mental status] Current Patient Data Vital Signs Vital Signs Date Time Temp Pulse Resp B/P (MAP) Pulse Ox O2 Delivery O2 Flow Rate FiO2 06/20/19 11:54 97.7 94 17 117/59 (78) 100 Room Air 97.7 Lab Values Laboratory Tests Test 06/20/19 12:15 06/20/19 12:25 Glucose (Fingerstick) 119 mg/dL (70-99) H White Blood Count 4.0 x10^3/uL (4.0-11.0) Red Blood Count 3.83 x10^6/uL (4.30-5.70) L Hemoglobin 12.0 g/dL (13.0-17.5) L Hematocrit 35.4 % (39.0-53.0) L Mean Corpuscular Volume 92 fL (79-100) Mean Corpuscular Hemoglobin 31 pg (25-35) Mean Corpuscular Hemoglobin Concent 34 g/dL (31-37) Red Cell Distribution Width 16.7 % (11.5-14.5) H Platelet Count 271 x10^3/uL (140-400) Neutrophils (%) (Auto) 67 % (31-73) Lymphocytes (%) (Auto) 17 % (24-48) L Monocytes (%) (Auto) 15 % (0-9) H Eosinophils (%) (Auto) 0 % (0-3) Basophils (%) (Auto) 0 % (0-3) Neutrophils # (Auto) 2.7 x10^3/uL (1.8-7.7) Lymphocytes # (Auto) 0.7 x10^3/uL (1.0-4.8) L Monocytes # (Auto) 0.6 x10^3/uL (0.0-1.1) Eosinophils # (Auto) 0.0 x10^3/uL (0.0-0.7) Basophils # (Auto) 0.0 x10^3/uL (0.0-0.2) Sodium Level 140 mmol/L (136-145) Potassium Level 4.5 mmol/L (3.5-5.1) Chloride Level 104 mmol/L (98-107) Carbon Dioxide Level 24 mmol/L (21-32) Anion Gap 12 (6-14) Blood Urea Nitrogen 9 mg/dL (8-26) Creatinine 0.8 mg/dL (0.7-1.3) Estimated GFR (Cockcroft-Gault) 99.6 BUN/Creatinine Ratio 11 (6-20) Glucose Level 123 mg/dL (70-99) H Lactic Acid Level 2.3 mmol/L (0.4-2.0) H Calcium Level 9.4 mg/dL (8.5-10.1) Total Bilirubin 0.5 mg/dL (0.2-1.0) Aspartate Amino Transferase (AST) 25 U/L (15-37) Alanine Aminotransferase (ALT) 14 U/L (16-63) L Alkaline Phosphatase 56 U/L (46-116) Ammonia 318 mcmol/L (11-34) H Total Protein 7.9 g/dL (6.4-8.2) Albumin 3.7 g/dL (3.4-5.0) Albumin/Globulin Ratio 0.9 (1.0-1.7) L Valproic Acid Level mcg/mL (50-100) Valproic Acid Last Dose Date 06/20/19 Valproic Acid Last Dose Time 0800 Laboratory Tests 06/20/19 12:25 Laboratory Tests 06/20/19 12:25 EKG EKG [] Radiology/Procedures Radiology/Procedures [] Course & Med Decision Making Course & Med Decision Making Pertinent Labs and Imaging studies reviewed. (See chart for details) []59-year-old male presents to the emergency department with complaints of seizure. Patient's underlying history of seizure disorder, is currently on d ivalproex. This morning he was up to the desk at the place where he lives at baseline and subsequently had seizure type activity Caregivers are at bedside however minimal input with regards to timeline today. Labs/Imaging reviewed CT head negative for acute process Ammonia level 328 Lactic Acid 2.3 Discussed with Hospitalist for admit Neurology consult placed from the ER, patient has seen Ines in the past Dragon Disclaimer Dragon Disclaimer This electronic medical record was generated, in whole or in part, using a voice recognition dictation system. Departure Departure Impression: Primary Impression: Altered level of consciousness Additional Impressions: Hyperammonemia Seizure Disposition: 09 ADMITTED INPATIENT Admitting Physician: Geraldine Colón Condition: GUARDED Referrals: EDIE MANUEL (PCP) Problem Qualifiers HOLLY BRANDT MD Jun 20, 2019 12:09
[2019-06-20 12:35] LABS: BASO % 0 % (0-3); EOS % 0 % (0-3); HEMATOCRIT 35.4 % (39.0-53.0); LYMPH # 0.7 x10^3/uL (1.0-4.8); LYMPH % 17 % (24-48); MEAN CORPUSCULAR HEMOGLOBIN 31 pg (25-35); MEAN CORPUSCULAR HGB CONC 34 g/dL (31-37); MEAN CORPUSCULAR VOLUME 92 fL (79-100); MONO # 0.6 x10^3/uL (0.0-1.1); MONO % 15 % (0-9); NEUT # 2.7 x10^3/uL (1.8-7.7); NEUT % 67 % (31-73); PLATELET COUNT 271 x10^3/uL (140-400); RED BLOOD COUNT 3.83 x10^6/uL (4.30-5.70); RED CELL DISTRIBUTION WIDTH 16.7 % (11.5-14.5)
[2019-06-20 12:46] LABS: ANION GAP 12 (6-14); BLOOD UREA NITROGEN 9 mg/dL (8-26); BUN/CREATININE RATIO 11 (6-20); CALCIUM 9.4 mg/dL (8.5-10.1); CARBON DIOXIDE 24 mmol/L (21-32); CHLORIDE 104 mmol/L (98-107); CREATININE 0.8 mg/dL (0.7-1.3); GFR 99.6; GLUCOSE 123 mg/dL (70-99); POTASSIUM 4.5 mmol/L (3.5-5.1); SODIUM 140 mmol/L (136-145)
--- NOTE | 2019-06-20 12:47 | RAD ---
CT HEAD WO CONTRAST History: Seizure. Altered mental status. Comparison: June 17, 2019 Technique: Noncontrast CT imaging was performed of the head. Exposure: One or more of the following individualized dose reduction techniques were utilized for this examination: 1. Automated exposure control 2. Adjustment of the mA and/or kV according to patient size 3. Use of iterative reconstruction technique. Findings: No intracranial hemorrhage. No mass effect. No hydrocephalus. Mild brain parenchymal volume loss. Mild foci of decreased attenuation within the hemispheric white matter, most often due to chronic microvascular ischemia. Imaged orbits are unremarkable. Right maxillary sinus mucosal thickening and secretions. Right posterior ethmoid sinus opacification. Bilateral mastoid fluid. No acute calvarial fracture. Impression: 1. No acute intracranial abnormality. 2. Right maxillary sinus disease, unchanged. Electronically signed by: Kody Mercado DO (06/20/2019 12:44 PM) [id number]
[2019-06-20 12:52] LABS: ALBUMIN 3.7 g/dL (3.4-5.0); ALBUMIN/GLOBULIN RATIO 0.9 (1.0-1.7); ALK PHOS 56 U/L (46-116); ALT (SGPT) 14 U/L (16-63); AST (SGOT) 25 U/L (15-37); TOTAL BILIRUBIN 0.5 mg/dL (0.2-1.0); TOTAL PROTEIN 7.9 g/dL (6.4-8.2)
[2019-06-20] MEDS ORDERED: ONDANSETRON PF 4 MG/2 ML VIAL. IV PRN (13:45)
[2019-06-20] MEDS ORDERED: LACTULOSE 20 GM/30 ML SOLUTION. PO ONE (13:45)
[2019-06-20] MEDS ORDERED: IV NORMAL SALINE 1000ML BAG 1,000 ML IV ONE (13:45)
--- NOTE | 2019-06-20 14:52 | RAD ---
KUB History: Verify NG tube placement. Technique: Supine view the abdomen. Comparison: None. Findings: Enteric tube with tip projecting over the distal stomach. Nonobstructive bowel gas pattern. Air and stool scattered throughout the imaged colon. Minimal small bowel gas. Surgical clips right upper quadrant. Imaged lung bases are unremarkable. Impression: 1. Enteric tube with tip projecting over the distal stomach. Electronically signed by: Kody Mercado DO (06/20/2019 2:49 PM) [facility]
[2019-06-20] MEDS ORDERED: BISACODYL 5 MG TABLET.DR. PO PRN (16:15)
--- NOTE | 2019-06-20 16:20 | NUR ---
Dr. Colón notified of pt admission and need for orders.
--- NOTE | 2019-06-20 16:40 | NUR ---
Dr. Agudelo notified of consult and pt condition and current seizure medications. New orders for IV seizure medications received and to call with any changes.
--- NOTE | 2019-06-20 16:45 | NUR ---
Dr. Cadet here to see pt, new orders received.
[2019-06-20 16:53] LABS: VAL ACID 73 mcg/mL (50-100)
--- NOTE | 2019-06-20 16:55 | PDOC2 ---
GI CONSULT Reason For Consult: Reyna ammonia HPI: HPI: 59 y/o male w/ develpmental disability who [place] brought to ER after seizure. Per ICU nursing, unresponsive since. They spoke w/ detention - pt has pica. Noted w/ elevated ammonia and given lactulose x 1 in ER (via NGT). PMH: PMH: per chart - developmental disability, seizures, B12 deficiency, BPH, bipolar, COPD, ?hepatitis, UTI (recent E coli) vagal nerve stimulator, cholecystectomy, pacemaker FH: Family History: No pertinent hx ROS: Unable to obtain. Vitals: Vitals: Vital Signs Date Time Temp Pulse Resp B/P (MAP) Pulse Ox O2 Delivery O2 Flow Rate FiO2 06/20/19 15:06 92 24 100 06/20/19 11:54 97.7 117/59 (78) Room Air 97.7 Labs: Labs: Laboratory Tests Test 06/20/19 12:15 06/20/19 12:25 06/20/19 15:50 Glucose (Fingerstick) 119 mg/dL (70-99) White Blood Count 4.0 x10^3/uL (4.0-11.0) Red Blood Count 3.83 x10^6/uL (4.30-5.70) Hemoglobin 12.0 g/dL (13.0-17.5) Hematocrit 35.4 % (39.0-53.0) Mean Corpuscular Volume 92 fL (79-100) Mean Corpuscular Hemoglobin 31 pg (25-35) Mean Corpuscular Hemoglobin Concent 34 g/dL (31-37) Red Cell Distribution Width 16.7 % (11.5-14.5) Platelet Count 271 x10^3/uL (140-400) Neutrophils (%) (Auto) 67 % (31-73) Lymphocytes (%) (Auto) 17 % (24-48) Monocytes (%) (Auto) 15 % (0-9) Eosinophils (%) (Auto) 0 % (0-3) Basophils (%) (Auto) 0 % (0-3) Neutrophils # (Auto) 2.7 x10^3/uL (1.8-7.7) Lymphocytes # (Auto) 0.7 x10^3/uL (1.0-4.8) Monocytes # (Auto) 0.6 x10^3/uL (0.0-1.1) Eosinophils # (Auto) 0.0 x10^3/uL (0.0-0.7) Basophils # (Auto) 0.0 x10^3/uL (0.0-0.2) Sodium Level 140 mmol/L (136-145) Potassium Level 4.5 mmol/L (3.5-5.1) Chloride Level 104 mmol/L (98-107) Carbon Dioxide Level 24 mmol/L (21-32) Anion Gap 12 (6-14) Blood Urea Nitrogen 9 mg/dL (8-26) Creatinine 0.8 mg/dL (0.7-1.3) Estimated GFR (Cockcroft-Gault) 99.6 BUN/Creatinine Ratio 11 (6-20) Glucose Level 123 mg/dL (70-99) Lactic Acid Level 2.3 mmol/L (0.4-2.0) 2.2 mmol/L (0.4-2.0) Calcium Level 9.4 mg/dL (8.5-10.1) Total Bilirubin 0.5 mg/dL (0.2-1.0) Aspartate Amino Transf (AST/SGOT) 25 U/L (15-37) Alanine Aminotransferase (ALT/SGPT) 14 U/L (16-63) Alkaline Phosphatase 56 U/L (46-116) Ammonia 318 mcmol/L (11-34) Total Protein 7.9 g/dL (6.4-8.2) Albumin 3.7 g/dL (3.4-5.0) Albumin/Globulin Ratio 0.9 (1.0-1.7) Valproic Acid (Depakene) Level mcg/mL (50-100) Valproic Acid Last Dose Date 06/20/19 Valproic Acid Last Dose Time 0800 Allergies: Coded Allergies: No Known Drug Allergies (Unverified , 03/23/17) Medications: Current Medications Medications (Trade) Dose Ordered Sig/Chepe Route PRN Reason Start Time Stop Time Status Last Admin Dose Admin Lorazepam (Ativan Inj) 2 mg 1X ONCE IVP 06/20/19 13:15 06/20/19 13:16 DC 06/20/19 12:46 Sodium Chloride 1,000 ml @ 1,000 mls/hr 1X ONCE IV 06/20/19 13:45 06/20/19 14:44 DC 06/20/19 13:45 Lactulose (Lactulose) 20 gm ONCE ONCE PO 06/20/19 13:45 06/20/19 13:46 DC 06/20/19 14:45 Imaging: Imaging: Head CT Impression: 1. No acute intracranial abnormality. 2. Right maxillary sinus disease, unchanged. KUB Impression: 1. Enteric tube with tip projecting over the distal stomach. PE: GEN: NAD HEENT: Atraumatic, PERRL LUNGS: CTAB anteriorly HEART: RRR ABD: NABS, S/ND/NT EXTREMITY: No edema SKIN: pale - round abrasion lower chest NEURO/PSYCH: unresponsive A/P: A/P: Seizure, pica, hyperammonemia, recent UTI -- Check Depakote level, give lactulose through NGT, check heavy metal screen. ROXANNA FELIX Jun 20, 2019 16:55
[2019-06-20] MEDS: IV DEXTROSE 5% - 0.9 % NACL 1,000 ML IV SCH (17:05)
--- NOTE | 2019-06-20 17:12 | PDOC ---
Provider Note Provider Note Pt seen in ICU.H&P dictated.#[id number].spoke with RN. TAMERA SNELL MD Jun 20, 2019 17:12
[2019-06-20] MEDS ORDERED: INFLUENZA VAX SCREEN BY RX. MC ONE (17:30)
[2019-06-20] MEDS: TAMSULOSIN 0.4 MG CAP.ER.24H. PO SCH (17:36)
[2019-06-20] MEDS: LACTULOSE 20 GM/30 ML SOLUTION. PO SCH (17:36)
[2019-06-20] MEDS: POLYVINYL ALCOHOL 1.4% OPHTH SOLUTION 15ML BOTTLE. OU SCH ×2 (17:37→21:09)
[2019-06-20] MEDS: cefTRIAXone IV Push 1 GM VIAL. IVP SCH (17:38)
[2019-06-20] MEDS: MIDODRINE 5 MG TABLET PO SCH (17:43)
[2019-06-20 18:54] LABS: BILIRUBIN,URINE NEGATIVE (NEG); CLARITY,URINE CLEAR; COLOR,URINE YELLOW; NITRITE,URINE NEGATIVE (NEG); PH,URINE 5.5; PROTEIN,URINE NEGATIVE (NEG-TRACE); UROBILINOGEN,URINE 0.2 mg/dL (0.2 mg/dL)
[2019-06-20 19:01] LABS: BACTERIA,URINE 0 /HPF (0-FEW); RBC,URINE 0 /HPF (0-2); WBC,URINE 0 /HPF (0-4)
--- NOTE | 2019-06-20 20:00 | HP ---
ADMIT DATE: 06/20/2019 LOCATION: ICU 105. REASON FOR ADMISSION TO THE HOSPITAL: Had a seizure and postictal mental status changes. HISTORY OF PRESENT ILLNESS: The patient is a 59-year-old male who has refractory seizures, on 3 medications, Depakote, Keppra, and Lyrica and also couple of weeks ago we started him on Dilantin because he continues to have seizures and he was admitted last week for urinary tract infection and was discharged on p.o. antibiotics for E. coli. The patient falls, found to have today, was brought to the hospital, it was post seizure, postictal and also CT head was negative. Had Ammonia level of 300, was given a dose of lactulose. PAST MEDICAL HISTORY: Has a history of developmental disorder, seizures, BPH, GERD, hypertension, hyperlipidemia. PAST SURGICAL HISTORY: Gallbladder surgery, vagal nerve stimulator. ALLERGIES: No known drug allergies. MEDICATIONS AT HOME: The patient is on Dilantin 100 mg 3 times daily. He is on Lopid 600 b.i.d., hydrocodone 5/325 q.5. He is on Dulcolax 10 mg daily, vitamin D 1000 daily, clonazepam 0.5 at bedtime, vitamin B12 1000 mg daily, takes eyedrops, Depakote 1000 mg twice a day, finasteride 5 mg daily, Flonase 1 squirt daily, Flovent 1 squirt twice a day, folic acid 1 mg daily, ibuprofen 800 mg 3 times daily, Keppra 1500 mg twice a day, midodrine 10 mg 3 times a day, vitamin daily, omeprazole 20 mg daily, Dilantin 100 mg 3 times daily, Lyrica 225 mg twice a day, senna 1 daily, Flomax 0.4 daily. PERSONAL HISTORY: No history of smoking, alcohol, drug abuse. SOCIAL HISTORY: Lives in a fpc. The patient usually ambulates and detox. REVIEW OF SYSTEMS: The patient is postictal, not responsive except for deep stimulus. PHYSICAL EXAMINATION: VITAL SIGNS: Temperature 98, pulse 92, respirations 20, blood pressure 90/60, oxygen 99 on 2 liters. HEENT: Head is atraumatic. Pupils very sluggish. Oral cavity, few teeth present. NECK: Supple. Thyroid not enlarged. JVD not elevated. CHEST: Symmetrical. CARDIOVASCULAR: S1, S2. LUNGS: Clear. ABDOMEN: Soft, no mass palpable. EXTERNAL GENITALIA: Tom placed in the Emergency Room. RECTAL: Deferred. EXTREMITIES: No calf tenderness, no edema. NEUROLOGIC: The patient is not awake, not following commands. He is only responsive to deep painful stimuli with withdrawal, but otherwise no other response. LABORATORY DATA: Shows a white count of 4, hemoglobin 12, platelets 271. Electrolytes show sodium 140, potassium 4.5, chloride 104, bicarbonate 24, anion gap 12, BUN 9, creatinine 0.8, glucose 123, lactic acid 2.3, creatinine 2.2. LFTs were normal. Ammonia level 318. Toxicology shows valproic acid is 73, which is in the normal range and Dilantin on 06/18 was less than 0.5. Keppra level was 20.[address] head was negative. Chest x-ray negative. KUB x-ray was shows ET tube in the distal stomach. CT head, no acute abnormality maxillary sinus. FINAL IMPRESSION: 1. Status epilepticus. 2. Change in mental status. 3. Ammonia increased levels. 4. Refractory seizures. 5. Benign prostatic hypertrophy. 6. Urinary tract infection. 7. Developmental disorder with mental retardation. PLAN: At this time, was admitted to the hospital, hydrate with IV fluids. Neurology is consulted. The patient is given lactulose after NG tube was placed. We will check ammonia levels again in the morning. GI is consulted with ultrasound of the abdomen to monitor liver and monitor liver functions. TAMERA SNELL MD DR: RICHI/suha JOB#: [id number] / [id number] EDIE Manrique
[2019-06-20] MEDS ORDERED: DIVALPROEX EXTENDED RELEASE 500 MG TAB.ER.24H. PO SCH (21:00)
[2019-06-20] MEDS ORDERED: levETIRAcetam 500 MG TABLET PO SCH (21:00)
[2019-06-20] MEDS ORDERED: PHENYTOIN SODIUM EXTENDED 100 MG CAPSULE PO SCH (21:00)
[2019-06-20] MEDS ORDERED: CEPHALEXIN 250 MG CAPSULE. PO SCH (21:00)
[2019-06-20] MEDS: DEXTROSE 5% IV SCH (21:08)
[2019-06-20] MEDS: LACOSAMIDE IV SCH (21:08)
[2019-06-20] MEDS: levETIRAcetam 1,500 MG in IV DEXTROSE 5% 100ML 100 ML IV SCH (21:08)
[2019-06-21] VITALS (15 sets, daily range): BP systolic 87–123; BP diastolic 54–70
--- NOTE | 2019-06-21 00:43 | NUR ---
Pt. removed NGT at ~2030. Tube replaced and KUB obtained. At this time no radiology read available, calls placed to X-Ray tech at ~2200 and 0000. Unable to administer PO medications at this time, will await final read.
--- NOTE | 2019-06-21 00:52 | RAD ---
Indication: NG tube placement TECHNIQUE: Single AP view of the abdomen pelvis COMPARISON: Study from the same day earlier FINDINGS: NG tube is seen with its tip in the distal stomach. Dilated loops of bowel are again seen. Visualized bones are within normal limits. IMPRESSION: As above. Electronically signed by: King Garza DO (06/21/2019 12:49 AM) [id number]
[2019-06-21] MEDS: SENNOSIDES/DOCUSATE 8.6/50MG TABLET. PO SCH ×3 (01:24→20:08)
[2019-06-21] MEDS: PREGABALIN 75 MG CAPSULE PO SCH ×3 (01:24→20:08)
[2019-06-21] MEDS: clonazePAM 0.5 MG TABLET PO SCH ×2 (01:24→20:08)
[2019-06-21] MEDS: FOSPHENYTOIN 100 MG/2 ML VIAL. IV SCH ×4 (01:25→21:56)
[2019-06-21] MEDS: LACTULOSE 20 GM/30 ML SOLUTION. PO SCH ×4 (01:25→22:06)
[2019-06-21] MEDS: IV DEXTROSE 5% - 0.9 % NACL 1,000 ML IV SCH (03:42)
[2019-06-21 07:12] LABS: BASO % 0 % (0-3); EOS % 0 % (0-3); HEMATOCRIT 30.8 % (39.0-53.0); HEMOGLOBIN 10.3 g/dL (13.0-17.5); LYMPH # 0.8 x10^3/uL (1.0-4.8); LYMPH % 26 % (24-48); MEAN CORPUSCULAR HEMOGLOBIN 31 pg (25-35); MEAN CORPUSCULAR HGB CONC 33 g/dL (31-37); MEAN CORPUSCULAR VOLUME 93 fL (79-100); MONO # 0.5 x10^3/uL (0.0-1.1); MONO % 17 % (0-9); NEUT # 1.7 x10^3/uL (1.8-7.7); NEUT % 57 % (31-73); PLATELET COUNT 247 x10^3/uL (140-400); RED CELL DISTRIBUTION WIDTH 17.1 % (11.5-14.5)
[2019-06-21 07:19] LABS: ALBUMIN/GLOBULIN RATIO 0.8 (1.0-1.7); ALK PHOS 47 U/L (46-116); ALT (SGPT) 13 U/L (16-63); ANION GAP 15 (6-14); AST (SGOT) 16 U/L (15-37); BLOOD UREA NITROGEN 5 mg/dL (8-26); BUN/CREATININE RATIO 8 (6-20); CALCIUM 8.6 mg/dL (8.5-10.1); CARBON DIOXIDE 21 mmol/L (21-32); CHLORIDE 110 mmol/L (98-107); CREATININE 0.6 mg/dL (0.7-1.3); GFR 138.9; GLUCOSE 107 mg/dL (70-99); PHENY 1.5 mcg/mL (10.0-20.0); SODIUM 146 mmol/L (136-145); TOTAL BILIRUBIN 0.2 mg/dL (0.2-1.0); TOTAL PROTEIN 6.6 g/dL (6.4-8.2)
--- NOTE | 2019-06-21 07:30 | RAD ---
ABDOMEN COMPLETE History: Elevated ammonia level. Signs of portal hypertension. Comparison: None. Technique: Sonographic examination of the abdomen was performed and multiple grayscale and color Doppler static images were obtained. Findings: Liver is visualized and is homogeneous. Portal flow is patent Common bile duct is normal in caliber, measuring 5 mm in diameter. Prior cholecystectomy. Visualized pancreas is not well seen due to overlying bowel gas. The right kidney is normal in echotexture and measures 11.7 x 6.1 x 4.0 cm. The left kidney is normal in echotexture and measures 10.6 x 5.8 x 4.2 cm. No hydronephrosis. No solid renal mass or cyst. No calculus. The spleen measures 9.5 cm. Atheromatous calcification throughout the nonaneurysmal abdominal aorta. IMPRESSION: 1. Unremarkable abdominal ultrasound. Electronically signed by: Kody Mercado DO (06/21/2019 7:27 AM) [facility]
[2019-06-21 07:36] LABS: PROTHROMBIN TIME PATIENT 13.5 SEC (11.7-14.0)
[2019-06-21] MEDS: TAMSULOSIN 0.4 MG CAP.ER.24H. PO SCH ×2 (08:16→17:01)
[2019-06-21] MEDS: MIDODRINE 5 MG TABLET PO SCH ×4 (08:17→17:02)
[2019-06-21] MEDS: MULTIVITAMIN with MINERAL TABLET. PO SCH (08:18)
[2019-06-21] MEDS: CYANOCOBALAMIN (VITAMIN B-12) 1,000 MCG TABLET. PO SCH (08:19)
[2019-06-21] MEDS: PANTOPRAZOLE 40 MG TABLET.DR. PO SCH (08:19)
[2019-06-21] MEDS: levETIRAcetam 1,500 MG in IV DEXTROSE 5% 100ML 100 ML IV SCH ×2 (08:26→21:16)
[2019-06-21] MEDS: FOLIC ACID 1 MG TABLET. PO SCH (09:00)
[2019-06-21] MEDS: FLUTICASONE 50MCG/NASAL SPRAY 16GM BOTTLE. NS SCH (09:05)
[2019-06-21] MEDS: POLYVINYL ALCOHOL 1.4% OPHTH SOLUTION 15ML BOTTLE. OU SCH ×4 (09:05→20:07)
[2019-06-21] MEDS: FINASTERIDE 5 MG TABLET. PO SCH (09:05)
[2019-06-21 09:33] LABS: % BANDS 4 % (0-9); % LYMPHS 31 % (24-48); % MONOS 7 % (0-10); % SEGS 58 % (35-66); ANISOCYTOSIS PRESENT; PLT ESTIMATE ADEQUATE (ADEQUATE)
--- NOTE | 2019-06-21 09:54 | PDOC ---
IM PROGRESS NOTES- Subjective Subjective Has some pain in the throat. Wants to eat. No compressive dyspnea or dizziness or headaches. He is not a good historian. Unable to do full systems review. Objective Vitals/I&O Vital Signs Date Time Temp Pulse Resp B/P (MAP) Pulse Ox O2 Delivery O2 Flow Rate FiO2 06/21/19 08:17 70 104/60 06/21/19 06:00 21 100 Room Air 06/21/19 04:00 98.2 98.2 I & O 06/20/19 06/20/19 06/21/19 15:00 23:00 07:00 Intake Total 1000 ml Output Total 725 ml 340 ml Balance 275 ml -340 ml Physical Exam Physical Exam General appearance - alert,ill appearing, and in no distress and oriented Mental Status - alert, oriented Head - normal Chest -decreased breath sounds at bases Heart - S1 and S2 normal Abdomen - soft, non tender Neurological - alert and oriented, moves all extremities. Musculoskeletal - no muscular tenderness noted Extremities - no pedal edema Skin - warm and dry As an NG tube in nose. Throat is clear Labs Laboratory Tests Test 06/20/19 12:15 06/20/19 12:25 06/20/19 15:50 06/20/19 18:35 Glucose (Fingerstick) 119 mg/dL (70-99) H White Blood Count 4.0 x10^3/uL (4.0-11.0) Red Blood Count 3.83 x10^6/uL (4.30-5.70) L Hemoglobin 12.0 g/dL (13.0-17.5) L Hematocrit 35.4 % (39.0-53.0) L Mean Corpuscular Volume 92 fL (79-100) Mean Corpuscular Hemoglobin 31 pg (25-35) Mean Corpuscular Hemoglobin Concent 34 g/dL (31-37) Red Cell Distribution Width 16.7 % (11.5-14.5) H Platelet Count 271 x10^3/uL (140-400) Neutrophils (%) (Auto) 67 % (31-73) Lymphocytes (%) (Auto) 17 % (24-48) L Monocytes (%) (Auto) 15 % (0-9) H Eosinophils (%) (Auto) 0 % (0-3) Basophils (%) (Auto) 0 % (0-3) Neutrophils # (Auto) 2.7 x10^3/uL (1.8-7.7) Lymphocytes # (Auto) 0.7 x10^3/uL (1.0-4.8) L Monocytes # (Auto) 0.6 x10^3/uL (0.0-1.1) Eosinophils # (Auto) 0.0 x10^3/uL (0.0-0.7) Basophils # (Auto) 0.0 x10^3/uL (0.0-0.2) Sodium Level 140 mmol/L (136-145) Potassium Level 4.5 mmol/L (3.5-5.1) Chloride Level 104 mmol/L (98-107) Carbon Dioxide Level 24 mmol/L (21-32) Anion Gap 12 (6-14) Blood Urea Nitrogen 9 mg/dL (8-26) Creatinine 0.8 mg/dL (0.7-1.3) Estimated GFR (Cockcroft-Gault) 99.6 BUN/Creatinine Ratio 11 (6-20) Glucose Level 123 mg/dL (70-99) H Lactic Acid Level 2.3 mmol/L (0.4-2.0) H 2.2 mmol/L (0.4-2.0) H Calcium Level 9.4 mg/dL (8.5-10.1) Total Bilirubin 0.5 mg/dL (0.2-1.0) Aspartate Amino Transferase (AST) 25 U/L (15-37) Alanine Aminotransferase (ALT) 14 U/L (16-63) L Alkaline Phosphatase 56 U/L (46-116) Ammonia 318 mcmol/L (11-34) H Total Protein 7.9 g/dL (6.4-8.2) Albumin 3.7 g/dL (3.4-5.0) Albumin/Globulin Ratio 0.9 (1.0-1.7) L Valproic Acid Level 73 mcg/mL (50-100) Valproic Acid Last Dose Date Unknown Valproic Acid Last Dose Time Unknown Urine Collection Type Unknown Urine Color Yellow Urine Clarity Clear Urine pH 5.5 Urine Specific [place] 1.010 Urine Protein Negative mg/dL (NEG-TRACE) Urine Glucose (UA) Negative mg/dL (NEG) Urine Ketones (Stick) Negative mg/dL (NEG) Urine Blood Negative (NEG) Urine Nitrite Negative (NEG) Urine Bilirubin Negative (NEG) Urine Urobilinogen Dipstick 0.2 mg/dL (0.2 mg/dL) Urine Leukocyte Esterase Negative (NEG) Urine RBC 0 /HPF (0-2) Urine WBC 0 /HPF (0-4) Urine Bacteria 0 /HPF (0-FEW) Urine Mucus Slight /LPF Test 06/21/19 05:35 White Blood Count 3.0 x10^3/uL (4.0-11.0) L Red Blood Count 3.30 x10^6/uL (4.30-5.70) L Hemoglobin 10.3 g/dL (13.0-17.5) L Hematocrit 30.8 % (39.0-53.0) L Mean Corpuscular Volume 93 fL (79-100) Mean Corpuscular Hemoglobin 31 pg (25-35) Mean Corpuscular Hemoglobin Concent 33 g/dL (31-37) Red Cell Distribution Width 17.1 % (11.5-14.5) H Platelet Count 247 x10^3/uL (140-400) Neutrophils (%) (Auto) 57 % (31-73) Lymphocytes (%) (Auto) 26 % (24-48) Monocytes (%) (Auto) 17 % (0-9) H Eosinophils (%) (Auto) 0 % (0-3) Basophils (%) (Auto) 0 % (0-3) Neutrophils # (Auto) 1.7 x10^3/uL (1.8-7.7) L Lymphocytes # (Auto) 0.8 x10^3/uL (1.0-4.8) L Monocytes # (Auto) 0.5 x10^3/uL (0.0-1.1) Eosinophils # (Auto) 0.0 x10^3/uL (0.0-0.7) Basophils # (Auto) 0.0 x10^3/uL (0.0-0.2) Segmented Neutrophils % 58 % (35-66) Band Neutrophils % 4 % (0-9) Lymphocytes % 31 % (24-48) Monocytes % 7 % (0-10) Platelet Estimate Adequate (ADEQUATE) Anisocytosis Present Prothrombin Time 13.5 SEC (11.7-14.0) Prothrombin Time INR 1.1 (0.8-1.1) Sodium Level 146 mmol/L (136-145) H Potassium Level 3.0 mmol/L (3.5-5.1) #L Chloride Level 110 mmol/L (98-107) H Carbon Dioxide Level 21 mmol/L (21-32) Anion Gap 15 (6-14) H Blood Urea Nitrogen 5 mg/dL (8-26) L Creatinine 0.6 mg/dL (0.7-1.3) L Estimated GFR (Cockcroft-Gault) 138.9 BUN/Creatinine Ratio 8 (6-20) Glucose Level 107 mg/dL (70-99) H Calcium Level 8.6 mg/dL (8.5-10.1) Total Bilirubin 0.2 mg/dL (0.2-1.0) Aspartate Amino Transferase (AST) 16 U/L (15-37) Alanine Aminotransferase (ALT) 13 U/L (16-63) L Alkaline Phosphatase 47 U/L (46-116) Ammonia 51 mcmol/L (11-34) H Total Protein 6.6 g/dL (6.4-8.2) Albumin 3.0 g/dL (3.4-5.0) L Albumin/Globulin Ratio 0.8 (1.0-1.7) L Phenytoin (Dilantin) Level 1.5 mcg/mL (10.0-20.0) L Phenytoin Last Dose Date Unknown Phenytoin Last Dose Time Unknown Laboratory Tests 06/20/19 12:25 06/21/19 05:35 Laboratory Tests 06/20/19 12:25 06/21/19 05:35 Meds Current Medications Medications (Trade) Dose Ordered Sig/Chepe Route PRN Reason Start Time Stop Time Status Last Admin Dose Admin Lorazepam (Ativan Inj) 2 mg 1X ONCE IVP 06/20/19 13:15 06/20/19 13:16 DC 06/20/19 12:46 Sodium Chloride 1,000 ml @ 1,000 mls/hr 1X ONCE IV 06/20/19 13:45 06/20/19 14:44 DC 06/20/19 13:45 Lactulose (Lactulose) 20 gm ONCE ONCE PO 06/20/19 13:45 06/20/19 13:46 DC 06/20/19 14:45 Clonazepam (KlonoPIN) 0.5 mg HS PO 06/20/19 21:00 06/21/19 01:24 Cyanocobalamin (Vitamin B-12) 500 mcg DAILY PO 06/21/19 09:00 06/21/19 08:19 Finasteride (Proscar) 5 mg DAILY PO 06/21/19 09:00 06/21/19 09:05 Folic Acid (Folic Acid) 1 mg DAILY PO 06/21/19 09:00 06/21/19 09:00 Senna/Docusate Sodium (Senna Plus) 1 tab BID PO 06/20/19 21:00 06/21/19 08:19 Tamsulosin HCl (Flomax) 0.4 mg BIDWMEALS PO 06/20/19 17:00 06/21/19 08:16 Artificial Tears (Artificial Tears) 1 drop QID OU 06/20/19 17:00 06/21/19 09:05 Fluticasone Propionate (Flonase) 2 spray DAILY NS 06/21/19 09:00 06/21/19 09:05 Midodrine (Proamatine) 10 mg [id number] PO 06/20/19 18:00 06/21/19 08:17 Multivitamins (Thera M Plus) 1 tab DAILY PO 06/21/19 09:00 06/21/19 08:18 Pantoprazole Sodium (Protonix) 40 mg DAILYAC PO 06/21/19 07:30 06/21/19 08:19 Pregabalin (Lyrica) 225 mg BID PO 06/20/19 21:00 06/21/19 09:05 Dextrose/Sodium Chloride 1,000 ml @ 100 mls/hr Q10H IV 06/20/19 16:15 06/21/19 03:42 Levetiracetam 1500 mg/Dextrose 115 ml @ 440 mls/hr Q12HR IV 06/20/19 21:00 06/21/19 08:26 Fosphenytoin Sodium (Cerebyx) 100 mg Q8HRS IV 06/20/19 22:00 06/21/19 08:19 Lacosamide 50 mg/ Dextrose 55 ml @ 120 mls/hr BID IV 06/20/19 21:00 06/20/19 21:08 Lactulose (Lactulose) 20 gm Q8HRS PO 06/20/19 17:00 06/21/19 08:36 Ceftriaxone Sodium (Rocephin) 1 gm Q24H IVP 06/20/19 17:30 06/20/19 17:38 Assessment Assessment FINAL IMPRESSION: 1. Status epilepticus. 2. Change in mental status. 3. Ammonia increased levels. 4. Refractory seizures. 5. Benign prostatic hypertrophy. 6. Urinary tract infection. 7. Developmental disorder with mental retardation. PLAN: At this time, was admitted to the hospital, hydrate with IV fluids. Neurology is consulted. The patient is given lactulose after NG tube was placed. We will check ammonia levels again in the morning. GI is consulted with ultrasound of the abdomen to monitor liver and monitor liver functions. Hypernatremia- continue IV D5W but add potassium chloride to it because of hypokalemia. Hypokalemia- replace potassium. Postictal encephalopathy- better. We'll discontinue the NG tube and advance diet as tolerated. As the patient is improving transfer out of the ICU to a med monitor unit. Plan Plan For more details regarding further plans, please refer to the orders. BRAYDEN MILLER MD Jun 21, 2019 09:54
[2019-06-21] MEDS: LACOSAMIDE IV SCH (11:16)
[2019-06-21] MEDS: DEXTROSE 5% IV SCH (11:16)
[2019-06-21] MEDS: BUDESONIDE 0.5 MG/2 ML NEBU. NEB SCH ×2 (12:42→20:37)
[2019-06-21] MEDS: POTASSIUM CHLORIDE 20 MEQ TABLET.ER. PO SCH ×2 (13:21→17:01)
--- NOTE | 2019-06-21 13:34 | CONS ---
DATE OF CONSULTATION: 06/21/2019 REFERRING PHYSICIAN: Geraldine Colón MD REASON FOR CONSULTATION: Intractable epilepsy with status epilepticus. HISTORY OF PRESENT ILLNESS: The patient is a 59-year-old man well known to [facility] for frequent admissions for recurrent epilepsy. He is followed by Dr. Roy in the clinic. He is on polypharmacy as well as having a vagal nerve stimulator. Despite this, he still episodically has seizures. He has generalized intellectual disability, orthostatic hypotension and gait disorder. On this occasion, he had multiple seizures and came into the Emergency Room unresponsive. He was found to have a markedly elevated ammonia level. GI has been evaluating him and he is currently on lactulose with the level dramatically improved at 51. He is now conscious and interactive and back to his baseline. PAST MEDICAL HISTORY: 1. Hyperlipidemia. 2. Orthostatic hypotension. 3. Chronic obstructive pulmonary disease. 4. Dementia and intellectual disability. 5. Intractable seizure disorder. 6. Gastroesophageal reflux disease. 7. B12 deficiency. 8. Vitamin D deficiency. 9. Pancytopenia. 10. History of hepatitis A, B, C. 11. Bipolar disorder. 12. History of sinusitis. 13. Benign prostatic hypertrophy with urinary retention. 14. Cholecystectomy. 15. Vagal nerve stimulator placement. ALLERGIES: No known allergies to drugs. MEDICATIONS PRIOR TO ADMISSION: Vitamin D3, ciprofloxacin 500 mg twice per day, clonazepam 0.5 mg at night, vitamin B12 500 mcg orally, Depakote ER 1000 mg twice per day, finasteride 5 mg, Flonase nasal spray inhaled twice per day, folic acid 1 mg, gemfibrozil 600 mg twice per day, hydrocodone/acetaminophen every 6 hours as needed, levetiracetam 1500 mg twice per day, midodrine 10 mg 3 times per day, multivitamin, omeprazole 20 mg, phenytoin 100 mg 3 times per day, Lyrica 225 mg twice per day, Senokot S and tamsulosin. FAMILY HISTORY: Noncontributory. SOCIAL HISTORY: He lives in a [place] [facility] [place]. He usually gets around with a walker. REVIEW OF SYSTEMS: Review of systems was strongly positive. He did not complain of headache. He feels his vision and hearing is not as good as usual. He feels his cognition is back to normal. He has been able to chew and swallow. He has not had any food since admission. He does not have cough or cold. He does have abdominal pain and bloating. He is currently on lactulose. He is having diarrhea from the lactulose. He does not have genitourinary complaint. Does not complain of numbness. Complains of generalized weakness. Complains of generalized pain. He does not complain of bruising, bleeding or swelling. PHYSICAL EXAMINATION: VITAL SIGNS: The blood pressure was 101/63, pulse 71, respirations 19, temperature 97.6 degrees Celsius. Oximetry is 100% on room air. His weight was 68.9 kilograms, height 68 inches with a calculated body mass index of 23.1. GENERAL: He was alert, awake and cooperative. Speech was fluent and clear. He was alert, awake and cooperative. Speech was fluent and fairly clear. His fund of recent and remote knowledge was limited. Attention and concentration was intact. He appeared well groomed. NEUROLOGIC: Examination of the cranial nerves revealed visual anthony were difficult to assess. He appeared to have good upper quadrants, but he seemed to not have lower quadrants as well. He responded to visual threat bilaterally. Extraocular movements were intact with lateral movement and downward gaze, but he had a difficult time looking up. Facial sensation was intact. The muscles of mastication and facial expression were powerful symmetrically. Hearing was intact to finger rub. The palate arched symmetrically and the tongue was midline with full range of motion. Sternocleidomastoid and trapezius were symmetric. Muscle bulk and tone was normal. There was no spasticity. Power was full in the upper extremities. He was generally weak in the legs and put a little effort because of bothered his stomach. Reflexes 2/4 and symmetric in upper and lower extremities. Toes are not upgoing. Coordination testing with [id number], fine motor and rapid movements were fair. He would not do [id number]. Sensory exam was intact to pain, light touch, proprioception, graphesthesia, cold thermal and vibration. There was no extinction to double simultaneous stimulation. Gait was not testable. Auscultation of the carotid arteries did not reveal a bruit. HEART: Rhythm was regular without a murmur. EXTREMITIES: Peripheral pulses were symmetric. There was no edema or cyanosis in the upper extremities. There was mild edema in the feet. REVIEW OF LABORATORY DATA: CBC revealed a normal white blood cell count and platelet count. Hemoglobin was low at 12 and hematocrit at 35.4. Chemistries revealed elevated sodium at 146, potassium was low at 3, chloride elevated at 110 and CO2 normal. BUN was 5 and creatinine 0.6 with a GFR that calculated at 138.9. Glucose was elevated at 107. Calcium was normal. Liver enzymes were not elevated. Albumin was low at 3. Lactic acid was elevated to 2.3 and followed up at 2.2. Ammonia on 06/20/2019 was elevated to 318, but has come down on 06/21/2019 to 51. Depakote level was 73. Phenytoin level was down to 1.5. Urinalysis was negative. PT/INR was 1.1. CT scan of the brain was performed on 06/20/2019 without contrast. There was no acute intracranial process. There was unchanged right maxillary sinus disease. This study was compared to 06/17/2019. KUB was performed on 06/21/2019. This revealed a nasogastric tube in the tip in the distal stomach. There were dilated loops of bowel. Ultrasound of the abdomen was performed on 06/20/2019. This revealed an unremarkable abdominal ultrasound. IMPRESSION AND PLAN: The patient is a 59-year-old man who presented with status epilepticus. He has intractable epilepsy and has had multiple admissions for this diagnosis. He did have a severely elevated ammonia level, which has come down with treatment of 51. It is possible Depakote is contributing to this. He has been on Depakote for quite some time and tolerated it well. GI has evaluated and did not see any stigmata of chronic liver disease. His protime was not elevated. I have held the Depakote and I am initiating Vimpat initially 50 mg twice a day, which he has tolerated and I will increase to 100 mg twice a day. I will continue to keep his medications intravenous until the oral route is available. He is having abdominal distention and diarrhea, which may be related to the lactulose. We will transfer out of the Intensive Care Unit to the regular floor with close monitoring. I appreciate being involved in his care. PAULINO DOUGLAS MD DR: FRANCISCO/suha JOB#: [id number] / [id number]
--- NOTE | 2019-06-21 13:45 | NUR ---
Pt transferred from ICU to room 674. Received report from SHERRY [place]. Pt transported via wheelchair. All belongings left in patient room at time of transfer.
--- NOTE | 2019-06-21 13:49 | NUR ---
PATIENT TRANSFERRED TO ROOM 674 PER THIS FOSTER CARE CASE MANAGER AT THIS TIME.
[2019-06-21] MEDS: POTASSIUM CL 20MEQ D5-0.9%NACL 1,000 ML IV SCH ×2 (14:27→20:30)
--- NOTE | 2019-06-21 15:23 | PDOC ---
GI PROGRESS NOTES Date Date/Time DATE: 06/21/19 TIME: 15:18 Subjective Subjective Still confused post ictal Ammonia level down from 300-51 with lactulose. However no evidence from blood work, ultrasound or prior records to suggest significant liver disease is a major contributor. As previously discussed, likely related to valproic acid Objective Vitals Vital Signs Date Time Temp Pulse Resp B/P (MAP) Pulse Ox O2 Delivery O2 Flow Rate FiO2 06/21/19 14:51 98.3 82 16 116/70 (85) 100 Room Air 98.3 06/21/19 13:00 82 116/70 06/21/19 12:43 100 Room Air 06/21/19 12:05 Room Air 06/21/19 12:01 97.6 71 19 101/63 (76) 100 Room Air 97.6 06/21/19 11:00 98.0 69 101/62 (75) 98 Room Air 98.0 06/21/19 08:17 70 104/60 06/21/19 08:00 Room Air 06/21/19 08:00 97.7 69 21 104/60 (75) Room Air 97.7 06/21/19 07:00 97.7 76 22 114/66 (82) 100 Room Air 97.7 06/21/19 06:00 67 21 97/54 (68) 100 Room Air 06/21/19 05:00 66 21 98/63 (75) 100 Room Air 06/21/19 04:00 98.2 79 19 87/54 (65) 100 Room Air 98.2 06/21/19 04:00 Room Air 06/21/19 03:00 70 22 107/63 (78) 99 Room Air 06/21/19 02:00 74 23 109/59 (76) 99 Room Air 06/21/19 01:00 68 23 104/59 (74) 99 Room Air 06/21/19 00:00 98.2 72 22 104/65 (78) 99 Room Air 98.2 06/21/19 00:00 Room Air 06/20/19 23:00 73 17 111/66 (81) 99 Room Air 06/20/19 22:00 77 20 107/61 (76) 99 Room Air 06/20/19 21:00 71 20 104/60 (75) 99 Room Air 06/20/19 20:00 Room Air 06/20/19 20:00 98.1 72 25 112/61 (78) 99 Room Air 98.1 06/20/19 19:00 62 25 89/51 (64) 93 Room Air 06/20/19 18:00 79 21 96/61 (73) 99 Room Air 06/20/19 17:43 72 96/61 06/20/19 17:00 79 27 90/57 (68) 99 Room Air 06/20/19 16:30 69 23 83/50 (61) 95 Room Air 06/20/19 16:15 76 23 95/58 (70) 98 Room Air 06/20/19 16:00 86 20 109/63 (78) 99 Room Air 06/20/19 16:00 Room Air 06/20/19 15:45 97.8 90 24 123/69 (87) 100 Room Air 97.8 Labs Labs Laboratory Tests Test 06/20/19 15:50 06/20/19 18:35 06/21/19 05:35 Lactic Acid Level 2.2 mmol/L (0.4-2.0) Urine Collection Type Unknown Urine Color Yellow Urine Clarity Clear Urine pH 5.5 Urine Specific [place] 1.010 Urine Protein Negative mg/dL (NEG-TRACE) Urine Glucose (UA) Negative mg/dL (NEG) Urine Ketones (Stick) Negative mg/dL (NEG) Urine Blood Negative (NEG) Urine Nitrite Negative (NEG) Urine Bilirubin Negative (NEG) Urine Urobilinogen Dipstick 0.2 mg/dL (0.2 mg/dL) Urine Leukocyte Esterase Negative (NEG) Urine RBC 0 /HPF (0-2) Urine WBC 0 /HPF (0-4) Urine Bacteria 0 /HPF (0-FEW) Urine Mucus Slight /LPF White Blood Count 3.0 x10^3/uL (4.0-11.0) Red Blood Count 3.30 x10^6/uL (4.30-5.70) Hemoglobin 10.3 g/dL (13.0-17.5) Hematocrit 30.8 % (39.0-53.0) Mean Corpuscular Volume 93 fL (79-100) Mean Corpuscular Hemoglobin 31 pg (25-35) Mean Corpuscular Hemoglobin Concent 33 g/dL (31-37) Red Cell Distribution Width 17.1 % (11.5-14.5) Platelet Count 247 x10^3/uL (140-400) Neutrophils (%) (Auto) 57 % (31-73) Lymphocytes (%) (Auto) 26 % (24-48) Monocytes (%) (Auto) 17 % (0-9) Eosinophils (%) (Auto) 0 % (0-3) Basophils (%) (Auto) 0 % (0-3) Neutrophils # (Auto) 1.7 x10^3/uL (1.8-7.7) Lymphocytes # (Auto) 0.8 x10^3/uL (1.0-4.8) Monocytes # (Auto) 0.5 x10^3/uL (0.0-1.1) Eosinophils # (Auto) 0.0 x10^3/uL (0.0-0.7) Basophils # (Auto) 0.0 x10^3/uL (0.0-0.2) Segmented Neutrophils % 58 % (35-66) Band Neutrophils % 4 % (0-9) Lymphocytes % 31 % (24-48) Monocytes % 7 % (0-10) Platelet Estimate Adequate (ADEQUATE) Anisocytosis Present Prothrombin Time 13.5 SEC (11.7-14.0) Prothromb Time International Ratio 1.1 (0.8-1.1) Sodium Level 146 mmol/L (136-145) Potassium Level 3.0 mmol/L (3.5-5.1) Chloride Level 110 mmol/L (98-107) Carbon Dioxide Level 21 mmol/L (21-32) Anion Gap 15 (6-14) Blood Urea Nitrogen 5 mg/dL (8-26) Creatinine 0.6 mg/dL (0.7-1.3) Estimated GFR (Cockcroft-Gault) 138.9 BUN/Creatinine Ratio 8 (6-20) Glucose Level 107 mg/dL (70-99) Calcium Level 8.6 mg/dL (8.5-10.1) Total Bilirubin 0.2 mg/dL (0.2-1.0) Aspartate Amino Transf (AST/SGOT) 16 U/L (15-37) Alanine Aminotransferase (ALT/SGPT) 13 U/L (16-63) Alkaline Phosphatase 47 U/L (46-116) Ammonia 51 mcmol/L (11-34) Total Protein 6.6 g/dL (6.4-8.2) Albumin 3.0 g/dL (3.4-5.0) Albumin/Globulin Ratio 0.8 (1.0-1.7) Phenytoin (Dilantin) Level 1.5 mcg/mL (10.0-20.0) Phenytoin Last Dose Date Unknown Phenytoin Last Dose Time Unknown Physical Exam Physical Exam Confused but arousable Chest clear Abdomen : soft, nontender, no masses or organomegaly Assessment Assessment Hyperammonemia- most likely related to valproic acid since no overt liver disease can be confirmed. Level has dropped with use of lactulose apparently. Still somewhat confused after his seizure. History of refractory seizures will make the decision about continuing and monitoring his valproic acid difficult. Will defer to neurology on that issue I don't however see prior concerns with elevated ammonia in this patient. Continue to monitor HARMONY MEEKS MD Jun 21, 2019 15:23
[2019-06-21] MEDS: cefTRIAXone IV Push 1 GM VIAL. IVP SCH (17:01)
[2019-06-21] MEDS: IBUPROFEN 400 MG TABLET. PO PRN (20:07)
[2019-06-21] MEDS: LACTOBACILLUS RHAMNOSUS GG 1 CAPSULE. PO SCH (20:07)
[2019-06-21] MEDS: LACOSAMIDE 100 MG in IV DEXTROSE 5% 50 ML IV SCH (21:55)
--- NOTE | 2019-06-21 23:16 | NUR ---
discontinued rivers cath per protocol, pt does not need it anymore. will monitor pt urine out and will initiate pre and post bladder scanning.
[2019-06-22] MEDS: POTASSIUM CL 20MEQ D5-0.9%NACL 1,000 ML IV SCH ×2 (01:23→20:52)
[2019-06-22 03:24] VITALS: BP 101/51
[2019-06-22 03:42] LABS: BASO % 0 % (0-3); EOS % 0 % (0-3); HEMATOCRIT 30.1 % (39.0-53.0); HEMOGLOBIN 10.1 g/dL (13.0-17.5); LYMPH % 29 % (24-48); MEAN CORPUSCULAR HEMOGLOBIN 31 pg (25-35); MEAN CORPUSCULAR HGB CONC 34 g/dL (31-37); MEAN CORPUSCULAR VOLUME 93 fL (79-100); MONO # 0.6 x10^3/uL (0.0-1.1); MONO % 18 % (0-9); NEUT # 1.8 x10^3/uL (1.8-7.7); NEUT % 53 % (31-73); PLATELET COUNT 230 x10^3/uL (140-400); RED BLOOD COUNT 3.25 x10^6/uL (4.30-5.70); RED CELL DISTRIBUTION WIDTH 17.3 % (11.5-14.5); WHITE BLOOD COUNT 3.5 x10^3/uL (4.0-11.0)
[2019-06-22 03:57] LABS: ALBUMIN 2.9 g/dL (3.4-5.0); ALBUMIN/GLOBULIN RATIO 0.9 (1.0-1.7); CALCIUM 8.3 mg/dL (8.5-10.1); CREATININE 0.7 mg/dL (0.7-1.3); GFR 116.2; MAGNESIUM 1.9 mg/dL (1.8-2.4); POTASSIUM 3.6 mmol/L (3.5-5.1); TOTAL BILIRUBIN 0.3 mg/dL (0.2-1.0); TOTAL PROTEIN 6.3 g/dL (6.4-8.2)
[2019-06-22] MEDS: LACTULOSE 20 GM/30 ML SOLUTION. PO SCH ×2 (06:59→17:05)
[2019-06-22 07:00] VITALS: BP 117/61
[2019-06-22] MEDS: FOSPHENYTOIN 100 MG/2 ML VIAL. IV SCH ×2 (07:01→17:08)
[2019-06-22] MEDS: BUDESONIDE 0.5 MG/2 ML NEBU. NEB SCH ×2 (07:45→19:52)
[2019-06-22] MEDS: SENNOSIDES/DOCUSATE 8.6/50MG TABLET. PO SCH ×2 (09:00→21:00)
--- NOTE | 2019-06-22 09:53 | PDOC ---
IM PROGRESS NOTES- Subjective Subjective No c/odyspnea or dizziness. has occasional headaches. He is not a good historian. Unable to do full systems review. Objective Vitals/I&O Vital Signs Date Time Temp Pulse Resp B/P (MAP) Pulse Ox O2 Delivery O2 Flow Rate FiO2 06/22/19 07:47 99 Room Air 06/22/19 07:00 97.8 82 18 117/61 (79) 97.8 I & O 06/21/19 06/21/19 06/22/19 15:00 23:00 07:00 Intake Total 0 ml 250 ml 100 ml Output Total 500 ml 400 ml Balance -500 ml -150 ml 100 ml Physical Exam Physical Exam General appearance - alert,ill appearing, and in no distress and oriented Mental Status - alert, oriented Head - normal Chest -decreased breath sounds at bases Heart - S1 and S2 normal Abdomen - soft, non tender Neurological - alert and oriented, moves all extremities. Musculoskeletal - no muscular tenderness noted Extremities - no pedal edema Skin - warm and dry As an NG tube in nose. Throat is clear Labs Laboratory Tests Test 06/22/19 03:25 White Blood Count 3.5 x10^3/uL (4.0-11.0) L Red Blood Count 3.25 x10^6/uL (4.30-5.70) L Hemoglobin 10.1 g/dL (13.0-17.5) L Hematocrit 30.1 % (39.0-53.0) L Mean Corpuscular Volume 93 fL (79-100) Mean Corpuscular Hemoglobin 31 pg (25-35) Mean Corpuscular Hemoglobin Concent 34 g/dL (31-37) Red Cell Distribution Width 17.3 % (11.5-14.5) H Platelet Count 230 x10^3/uL (140-400) Neutrophils (%) (Auto) 53 % (31-73) Lymphocytes (%) (Auto) 29 % (24-48) Monocytes (%) (Auto) 18 % (0-9) H Eosinophils (%) (Auto) 0 % (0-3) Basophils (%) (Auto) 0 % (0-3) Neutrophils # (Auto) 1.8 x10^3/uL (1.8-7.7) Lymphocytes # (Auto) 1.0 x10^3/uL (1.0-4.8) Monocytes # (Auto) 0.6 x10^3/uL (0.0-1.1) Eosinophils # (Auto) 0.0 x10^3/uL (0.0-0.7) Basophils # (Auto) 0.0 x10^3/uL (0.0-0.2) Sodium Level 143 mmol/L (136-145) Potassium Level 3.6 mmol/L (3.5-5.1) Chloride Level 110 mmol/L (98-107) H Carbon Dioxide Level 20 mmol/L (21-32) L Anion Gap 13 (6-14) Blood Urea Nitrogen 7 mg/dL (8-26) L Creatinine 0.7 mg/dL (0.7-1.3) Estimated GFR (Cockcroft-Gault) 116.2 BUN/Creatinine Ratio 10 (6-20) Glucose Level 120 mg/dL (70-99) H Calcium Level 8.3 mg/dL (8.5-10.1) L Magnesium Level 1.9 mg/dL (1.8-2.4) Total Bilirubin 0.3 mg/dL (0.2-1.0) Aspartate Amino Transferase (AST) 15 U/L (15-37) Alanine Aminotransferase (ALT) 9 U/L (16-63) L Alkaline Phosphatase 51 U/L (46-116) Ammonia 29 mcmol/L (11-34) Total Protein 6.3 g/dL (6.4-8.2) L Albumin 2.9 g/dL (3.4-5.0) L Albumin/Globulin Ratio 0.9 (1.0-1.7) L Laboratory Tests 06/22/19 03:25 Laboratory Tests 06/22/19 03:25 Meds Current Medications Medications (Trade) Dose Ordered Sig/Chepe Route PRN Reason Start Time Stop Time Status Last Admin Dose Admin Lactobacillus Rhamnosus (Culturelle) 1 cap BID PO 06/21/19 21:00 06/21/19 20:07 Potassium Chloride/Dextrose/ Sod Cl 1,000 ml @ 100 mls/hr Q10H IV 06/21/19 10:30 06/22/19 01:23 Potassium Chloride (Klor-Con) 40 meq BIDAFTMEAL PO 06/21/19 10:30 06/21/19 17:01 Lacosamide 100 mg/ Dextrose 60 ml @ 120 mls/hr BID IV 06/21/19 21:00 06/21/19 21:55 Assessment Assessment FINAL IMPRESSION: 1. Status epilepticus. 2. Change in mental status. 3. Ammonia increased levels. 4. Refractory seizures. 5. Benign prostatic hypertrophy. 6. Urinary tract infection. 7. Developmental disorder with mental retardation. PLAN: At this time, was admitted to the hospital, hydrate with IV fluids. Neurology is consulted. The patient is given lactulose after NG tube was placed. We will check ammonia levels again in the morning. GI is consulted with ultrasound of the abdomen to monitor liver and monitor liver functions. Hypernatremia- continue IV D5W but add potassium chloride to it because of hypokalemia. Hypokalemia- replace potassium.K 3.6 today.Adjust KCL. Postictal encephalopathy- better. We'll discontinue the NG tube and advance diet as tolerated. As the patient is improving transfer out of the ICU to a med monitor unit.Poor historian. Elevated ammonia level- 300 to 51.Likely due to Valproic acid. Plan Plan For more details regarding further plans, please refer to the orders. BRAYDEN MILLER MD Jun 22, 2019 09:53
[2019-06-22] MEDS: IBUPROFEN 400 MG TABLET. PO PRN ×2 (10:40→19:54)
[2019-06-22] MEDS: LACTOBACILLUS RHAMNOSUS GG 1 CAPSULE. PO SCH ×2 (10:40→21:51)
[2019-06-22] MEDS: PANTOPRAZOLE 40 MG TABLET.DR. PO SCH (10:40)
[2019-06-22] MEDS: POTASSIUM CHLORIDE 20 MEQ TABLET.ER. PO SCH ×2 (10:41→17:07)
[2019-06-22] MEDS: FINASTERIDE 5 MG TABLET. PO SCH (10:42)
[2019-06-22] MEDS: TAMSULOSIN 0.4 MG CAP.ER.24H. PO SCH ×2 (10:42→17:06)
[2019-06-22] MEDS: MULTIVITAMIN with MINERAL TABLET. PO SCH (10:42)
[2019-06-22] MEDS: CYANOCOBALAMIN (VITAMIN B-12) 1,000 MCG TABLET. PO SCH (10:42)
[2019-06-22] MEDS: FOLIC ACID 1 MG TABLET. PO SCH (10:43)
[2019-06-22] MEDS: MIDODRINE 5 MG TABLET PO SCH ×3 (10:43→17:06)
[2019-06-22] MEDS: POLYVINYL ALCOHOL 1.4% OPHTH SOLUTION 15ML BOTTLE. OU SCH ×4 (10:44→21:52)
[2019-06-22] MEDS: levETIRAcetam 1,500 MG in IV DEXTROSE 5% 100ML 100 ML IV SCH (10:45)
[2019-06-22] MEDS: LACOSAMIDE 100 MG in IV DEXTROSE 5% 50 ML IV SCH (10:46)
[2019-06-22] MEDS: FLUTICASONE 50MCG/NASAL SPRAY 16GM BOTTLE. NS SCH (10:49)
[2019-06-22] MEDS: PREGABALIN 75 MG CAPSULE PO SCH ×2 (10:53→21:53)
[2019-06-22 11:00] VITALS: BP 100/68
--- NOTE | 2019-06-22 12:43 | PDOC ---
GI PROGRESS NOTES Date Date/Time DATE: 06/22/19 TIME: 12:42 Subjective Subjective Much more awake today. Eating his diet and tolerating well. Objective Vitals Vital Signs Date Time Temp Pulse Resp B/P (MAP) Pulse Ox O2 Delivery O2 Flow Rate FiO2 06/22/19 10:43 82 117/61 06/22/19 07:47 99 Room Air 06/22/19 07:00 97.8 82 18 117/61 (79) 100 Room Air 97.8 06/22/19 03:24 98.3 80 20 101/51 (68) 94 Room Air 98.3 06/21/19 23:45 98.3 74 20 123/65 (84) 96 Room Air 98.3 06/21/19 20:36 99 Room Air 06/21/19 20:00 Room Air 06/21/19 19:45 98.0 88 20 95/56 (69) 97 Room Air 98.0 06/21/19 17:02 75 110/62 06/21/19 16:33 98.2 82 20 117/70 (86) 99 Room Air 98.2 06/21/19 14:51 98.3 82 16 116/70 (85) 100 Room Air 98.3 06/21/19 13:00 82 116/70 06/21/19 12:43 100 Room Air Labs Labs Laboratory Tests Test 06/22/19 03:25 White Blood Count 3.5 x10^3/uL (4.0-11.0) Red Blood Count 3.25 x10^6/uL (4.30-5.70) Hemoglobin 10.1 g/dL (13.0-17.5) Hematocrit 30.1 % (39.0-53.0) Mean Corpuscular Volume 93 fL (79-100) Mean Corpuscular Hemoglobin 31 pg (25-35) Mean Corpuscular Hemoglobin Concent 34 g/dL (31-37) Red Cell Distribution Width 17.3 % (11.5-14.5) Platelet Count 230 x10^3/uL (140-400) Neutrophils (%) (Auto) 53 % (31-73) Lymphocytes (%) (Auto) 29 % (24-48) Monocytes (%) (Auto) 18 % (0-9) Eosinophils (%) (Auto) 0 % (0-3) Basophils (%) (Auto) 0 % (0-3) Neutrophils # (Auto) 1.8 x10^3/uL (1.8-7.7) Lymphocytes # (Auto) 1.0 x10^3/uL (1.0-4.8) Monocytes # (Auto) 0.6 x10^3/uL (0.0-1.1) Eosinophils # (Auto) 0.0 x10^3/uL (0.0-0.7) Basophils # (Auto) 0.0 x10^3/uL (0.0-0.2) Sodium Level 143 mmol/L (136-145) Potassium Level 3.6 mmol/L (3.5-5.1) Chloride Level 110 mmol/L (98-107) Carbon Dioxide Level 20 mmol/L (21-32) Anion Gap 13 (6-14) Blood Urea Nitrogen 7 mg/dL (8-26) Creatinine 0.7 mg/dL (0.7-1.3) Estimated GFR (Cockcroft-Gault) 116.2 BUN/Creatinine Ratio 10 (6-20) Glucose Level 120 mg/dL (70-99) Calcium Level 8.3 mg/dL (8.5-10.1) Magnesium Level 1.9 mg/dL (1.8-2.4) Total Bilirubin 0.3 mg/dL (0.2-1.0) Aspartate Amino Transf (AST/SGOT) 15 U/L (15-37) Alanine Aminotransferase (ALT/SGPT) 9 U/L (16-63) Alkaline Phosphatase 51 U/L (46-116) Ammonia 29 mcmol/L (11-34) Total Protein 6.3 g/dL (6.4-8.2) Albumin 2.9 g/dL (3.4-5.0) Albumin/Globulin Ratio 0.9 (1.0-1.7) Physical Exam Physical Exam Much more alert today. Chest clear Abdomen : soft, nontender, no masses or organomegaly Assessment Assessment Hyperammonemia- most likely related to valproic acid since no overt liver disease can be confirmed. Level has dropped with use of lactulose apparently. Still somewhat confused after his seizure. History of refractory seizures will make the decision about continuing and monitoring his valproic acid difficult. Will defer to neurology on that issue I don't however see prior concerns with elevated ammonia in this patient. Now that he is more awake I discussed whether he has any knowledge of prior liver disease or cirrhosis. He denies any of those issues Continue to monitor HARMONY MEEKS MD Jun 22, 2019 12:43
[2019-06-22 16:29] VITALS: BP 102/43
[2019-06-22] MEDS: cefTRIAXone IV Push 1 GM VIAL. IVP SCH (17:07)
--- NOTE | 2019-06-22 18:38 | PDOC ---
PROGRESS NOTES Assessment Problems Medical Problems: (1) Altered level of consciousness-he appears to be back to his usual baseline which is developmental delay. Status: Acute (2) Hyperammonemia-the cause of the elevated ammonia is not clear but could potentially be related Depakote. He's been on Depakote for some time without difficulty. I have discontinued Depakote in favor of Vimpat. Status: Acute (3) Seizure -he has not had any further seizure. I will switch his anticonvulsants from IV back to oral as he is now eating food. I have discontinued Depakote and replace this with Vimpat 100 mg twice per day. The Dil antin level was low. I will increase Dilantin from 300 mg daily to 200 mg twice per day. I will continue Keppra 1500 mg twice per day and Lyrica 225 mg twice per day. 4. Diarrhea-this is a consequence of lactulose. The ammonia level has returned to normal. The nurse estimates he said 30-40 bowel movements today. I've asked him to call the auto radiator mechanic to see if they would like to reduce the dosage of lactulose. Status: Acute Subjective I pooped on myself. Objective Vital Signs Date Time Temp Pulse Resp B/P (MAP) Pulse Ox O2 Delivery O2 Flow Rate FiO2 06/22/19 17:06 80 102/43 06/22/19 16:29 97.6 24 93 Room Air 97.6 Intake and Output 06/22/19 07:00 Intake Total 350 ml Output Total 900 ml Balance -550 ml Intake Oral 350 ml Output Urine Total 900 ml # Bowel Movements 9 PHYSICAL EXAM He was lying in bed watching television. He was quite focused that he had soiled himself. He could not focus on me or the neurologic exam. His speech was at baseline. His movements were symmetric. Review of Relevant I have reviewed the following items niya (where applicable) has been applied. Labs Laboratory Tests Test 06/21/19 05:35 06/22/19 03:25 White Blood Count 3.0 x10^3/uL (4.0-11.0) 3.5 x10^3/uL (4.0-11.0) Red Blood Count 3.30 x10^6/uL (4.30-5.70) 3.25 x10^6/uL (4.30-5.70) Hemoglobin 10.3 g/dL (13.0-17.5) 10.1 g/dL (13.0-17.5) Hematocrit 30.8 % (39.0-53.0) 30.1 % (39.0-53.0) Mean Corpuscular Volume 93 fL (79-100) 93 fL (79-100) Mean Corpuscular Hemoglobin 31 pg (25-35) 31 pg (25-35) Mean Corpuscular Hemoglobin Concent 33 g/dL (31-37) 34 g/dL (31-37) Red Cell Distribution Width 17.1 % (11.5-14.5) 17.3 % (11.5-14.5) Platelet Count 247 x10^3/uL (140-400) 230 x10^3/uL (140-400) Neutrophils (%) (Auto) 57 % (31-73) 53 % (31-73) Lymphocytes (%) (Auto) 26 % (24-48) 29 % (24-48) Monocytes (%) (Auto) 17 % (0-9) 18 % (0-9) Eosinophils (%) (Auto) 0 % (0-3) 0 % (0-3) Basophils (%) (Auto) 0 % (0-3) 0 % (0-3) Neutrophils # (Auto) 1.7 x10^3/uL (1.8-7.7) 1.8 x10^3/uL (1.8-7.7) Lymphocytes # (Auto) 0.8 x10^3/uL (1.0-4.8) 1.0 x10^3/uL (1.0-4.8) Monocytes # (Auto) 0.5 x10^3/uL (0.0-1.1) 0.6 x10^3/uL (0.0-1.1) Eosinophils # (Auto) 0.0 x10^3/uL (0.0-0.7) 0.0 x10^3/uL (0.0-0.7) Basophils # (Auto) 0.0 x10^3/uL (0.0-0.2) 0.0 x10^3/uL (0.0-0.2) Segmented Neutrophils % 58 % (35-66) Band Neutrophils % 4 % (0-9) Lymphocytes % 31 % (24-48) Monocytes % 7 % (0-10) Platelet Estimate Adequate (ADEQUATE) Anisocytosis Present Prothrombin Time 13.5 SEC (11.7-14.0) Prothromb Time International Ratio 1.1 (0.8-1.1) Sodium Level 146 mmol/L (136-145) 143 mmol/L (136-145) Potassium Level 3.0 mmol/L (3.5-5.1) 3.6 mmol/L (3.5-5.1) Chloride Level 110 mmol/L (98-107) 110 mmol/L (98-107) Carbon Dioxide Level 21 mmol/L (21-32) 20 mmol/L (21-32) Anion Gap 15 (6-14) 13 (6-14) Blood Urea Nitrogen 5 mg/dL (8-26) 7 mg/dL (8-26) Creatinine 0.6 mg/dL (0.7-1.3) 0.7 mg/dL (0.7-1.3) Estimated GFR (Cockcroft-Gault) 138.9 116.2 BUN/Creatinine Ratio 8 (6-20) 10 (6-20) Glucose Level 107 mg/dL (70-99) 120 mg/dL (70-99) Calcium Level 8.6 mg/dL (8.5-10.1) 8.3 mg/dL (8.5-10.1) Total Bilirubin 0.2 mg/dL (0.2-1.0) 0.3 mg/dL (0.2-1.0) Aspartate Amino Transf (AST/SGOT) 16 U/L (15-37) 15 U/L (15-37) Alanine Aminotransferase (ALT/SGPT) 13 U/L (16-63) 9 U/L (16-63) Alkaline Phosphatase 47 U/L (46-116) 51 U/L (46-116) Ammonia 51 mcmol/L (11-34) 29 mcmol/L (11-34) Total Protein 6.6 g/dL (6.4-8.2) 6.3 g/dL (6.4-8.2) Albumin 3.0 g/dL (3.4-5.0) 2.9 g/dL (3.4-5.0) Albumin/Globulin Ratio 0.8 (1.0-1.7) 0.9 (1.0-1.7) Phenytoin (Dilantin) Level 1.5 mcg/mL (10.0-20.0) Phenytoin Last Dose Date Unknown Phenytoin Last Dose Time Unknown Magnesium Level 1.9 mg/dL (1.8-2.4) Laboratory Tests Test 06/22/19 03:25 White Blood Count 3.5 x10^3/uL (4.0-11.0) Red Blood Count 3.25 x10^6/uL (4.30-5.70) Hemoglobin 10.1 g/dL (13.0-17.5) Hematocrit 30.1 % (39.0-53.0) Mean Corpuscular Volume 93 fL (79-100) Mean Corpuscular Hemoglobin 31 pg (25-35) Mean Corpuscular Hemoglobin Concent 34 g/dL (31-37) Red Cell Distribution Width 17.3 % (11.5-14.5) Platelet Count 230 x10^3/uL (140-400) Neutrophils (%) (Auto) 53 % (31-73) Lymphocytes (%) (Auto) 29 % (24-48) Monocytes (%) (Auto) 18 % (0-9) Eosinophils (%) (Auto) 0 % (0-3) Basophils (%) (Auto) 0 % (0-3) Neutrophils # (Auto) 1.8 x10^3/uL (1.8-7.7) Lymphocytes # (Auto) 1.0 x10^3/uL (1.0-4.8) Monocytes # (Auto) 0.6 x10^3/uL (0.0-1.1) Eosinophils # (Auto) 0.0 x10^3/uL (0.0-0.7) Basophils # (Auto) 0.0 x10^3/uL (0.0-0.2) Sodium Level 143 mmol/L (136-145) Potassium Level 3.6 mmol/L (3.5-5.1) Chloride Level 110 mmol/L (98-107) Carbon Dioxide Level 20 mmol/L (21-32) Anion Gap 13 (6-14) Blood Urea Nitrogen 7 mg/dL (8-26) Creatinine 0.7 mg/dL (0.7-1.3) Estimated GFR (Cockcroft-Gault) 116.2 BUN/Creatinine Ratio 10 (6-20) Glucose Level 120 mg/dL (70-99) Calcium Level 8.3 mg/dL (8.5-10.1) Magnesium Level 1.9 mg/dL (1.8-2.4) Total Bilirubin 0.3 mg/dL (0.2-1.0) Aspartate Amino Transf (AST/SGOT) 15 U/L (15-37) Alanine Aminotransferase (ALT/SGPT) 9 U/L (16-63) Alkaline Phosphatase 51 U/L (46-116) Ammonia 29 mcmol/L (11-34) Total Protein 6.3 g/dL (6.4-8.2) Albumin 2.9 g/dL (3.4-5.0) Albumin/Globulin Ratio 0.9 (1.0-1.7) Medications Current Medications Lorazepam (Ativan Inj) 2 mg 1X ONCE IVP Last administered on 06/20/19at 12:46; Start 06/20/19 at 13:15; Stop 06/20/19 at 13:16; Status DC Sodium Chloride 1,000 ml @ 1,000 mls/hr 1X ONCE IV Last administered on 06/20/19at 13:45; Start 06/20/19 at 13:45; Stop 06/20/19 at 14:44; Status DC Ondansetron HCl (Zofran) 4 mg PRN Q8HRS PRN IV NAUSEA/VOMITING; Start 06/20/19 at 13:45; Stop 06/21/19 at 13:44; Status DC Lactulose (Lactulose) 20 gm ONCE ONCE PO Last administered on 06/20/19at 14:45; Start 06/20/19 at 13:45; Stop 06/20/19 at 13:46; Status DC Bisacodyl (Dulcolax Tab) 10 mg PRN DAILY PRN PO CONSTIPATION; Start 06/20/19 at 16:15 Vitamin D (Vitamin D3) 500 unit 3X/WEEK PO ; Start 06/23/19 at 09:00 Clonazepam (KlonoPIN) 0.5 mg HS PO Last administered on 06/21/19at 20:08; Start 06/20/19 at 21:00 Cyanocobalamin (Vitamin B-12) 500 mcg DAILY PO Last administered on 06/22/19 10:42; Start 06/21/19 at 09:00 Divalproex Sodium (Depakote Er) 1,000 mg BID PO ; Start 06/20/19 at 21:00; Stop 06/20/19 at 16:48; Status DC Finasteride (Proscar) 5 mg DAILY PO Last administered on 06/22/19 10:42; Start 06/21/19 at 09:00 Folic Acid (Folic Acid) 1 mg DAILY PO Last administered on 06/22/19at 10:43; Start 06/21/19 at 09:00 Levetiracetam (Keppra) 1,500 mg BID PO ; Start 06/20/19 at 21:00; Stop 06/20/19 at 16:48; Status DC Phenytoin Sodium (Dilantin) 100 mg TID PO ; Start 06/20/19 at 21:00; Stop 06/20/19 at 16:48; Status DC Senna/Docusate Sodium (Senna Plus) 1 tab BID PO Last administered on 06/21/19at 20:08; Start 06/20/19 at 21:00 Tamsulosin HCl (Flomax) 0.4 mg BIDWMEALS PO Last administered on 06/22/19 17:06; Start 06/20/19 at 17:00 Artificial Tears (Artificial Tears) 1 drop QID OU Last administered on 06/22/19 17:05; Start 06/20/19 at 17:00 Fluticasone Propionate (Flonase) 2 spray DAILY NS Last administered on 06/22/19at 10:49; Start 06/21/19 at 09:00 Budesonide (Pulmicort) 0.5 mg RTBID NEB Last administered on 06/22/19 07:45; Start 06/20/19 at 20:00 Ibuprofen (Motrin) 800 mg PRN TID PRN PO INFLAMMATION Last administered on 06/22/19 10:40; Start 06/20/19 at 16:45 Midodrine (Proamatine) 10 mg [id number] PO Last administered on 06/22/19 10:43; Start 06/20/19 at 18:00 Multivitamins (Thera M Plus) 1 tab DAILY PO Last administered on 06/22/19at 10:42; Start 06/21/19 at 09:00 Pantoprazole Sodium (Protonix) 40 mg DAILYAC PO Last administered on 06/22/19at 10:40; Start 06/21/19 at 07:30 Pregabalin (Lyrica) 225 mg BID PO Last administered on 06/22/19at 10:53; Start 06/20/19 at 21:00 Cephalexin HCl (Keflex) 500 mg TID PO ; Start 06/20/19 at 21:00; Stop 06/20/19 at 17:11; Status DC Dextrose/Sodium Chloride 1,000 ml @ 100 mls/hr Q10H IV Last administered on 06/21/19at 03:42; Start 06/20/19 at 16:15; Stop 06/21/19 at 09:48; Status DC Levetiracetam 1500 mg/Dextrose 115 ml @ 440 mls/hr Q12HR IV Last administered on 06/22/19at 10:45; Start 06/20/19 at 21:00; Stop 06/22/19 at 18:25; Status DC Fosphenytoin Sodium (Cerebyx) 100 mg Q8HRS IV Last administered on 06/22/19at 17:08; Start 06/20/19 at 22:00; Stop 06/22/19 at 18:25; Status DC Lacosamide 50 mg/ Dextrose 55 ml @ 120 mls/hr BID IV Last administered on 06/21/19at 11:16; Start 06/20/19 at 21:00; Stop 06/21/19 at 12:59; Status DC Lactulose (Lactulose) 20 gm Q8HRS PO Last administered on 06/22/19at 17:05; Start 06/20/19 at 17:00 Ceftriaxone Sodium (Rocephin) 1 gm Q24H IVP Last administered on 06/22/19at 17:07; Start 06/20/19 at 17:30 Info (FLU VACCINE SCREEN per RX) 1 each 1X ONCE MC ; Start 06/20/19 at 17:30; Stop 06/20/19 at 17:31; Status UNV Lactobacillus Rhamnosus (Culturelle) 1 cap BID PO Last administered on 06/22/19at 10:40; Start 06/21/19 at 21:00 Potassium Chloride/Dextrose/ Sod Cl 1,000 ml @ 60 mls/hr [id number] IV Last administered on 06/22/19at 01:23; Start 06/21/19 at 10:30 Potassium Chloride (Klor-Con) 40 meq BIDAFTMEAL PO Last administered on 06/21/19at 17:01; Start 06/21/19 at 10:30; Stop 06/22/19 at 09:56; Status DC Lacosamide 100 mg/ Dextrose 60 ml @ 120 mls/hr BID IV Last administered on 06/22/19at 10:46; Start 06/21/19 at 21:00; Stop 06/22/19 at 18:25; Status DC Potassium Chloride (Klor-Con) 20 meq BIDAFTMEAL PO Last administered on 06/22/19at 17:07; Start 06/22/19 at 10:30 Levetiracetam (Keppra) 1,500 mg BID PO ; Start 06/22/19 at 21:00 Lacosamide (Vimpat) 100 mg BID PO ; Start 06/22/19 at 21:00 Phenytoin Sodium (Dilantin) 200 mg BID PO ; Start 06/22/19 at 21:00 Active Scripts Active Cipro (Ciprofloxacin Hcl) 250 Mg Tablet 500 Mg PO BID 7 Days Dilantin (Phenytoin Sodium Extended) 100 Mg Capsule 100 Mg PO TID 30 Days Flomax (Tamsulosin Hcl) 0.4 Mg Cap.er.24h 0.4 Mg PO BIDWMEALS 30 Days Hydrocodone-Apap 5-325 (Hydrocodone Bit/Acetaminophen) 1 Tab Tablet 1 Tab PO PRN Q6HRS PRN 3 Days Ibuprofen 800 Mg Tablet 800 Mg PO PRN TID PRN take with food or milk to avoid upsetting stomach Depakote Er (Divalproex Sodium) 500 Mg Tab.er.24h 1,000 Mg PO BID Reported Vitamin D3 (Cholecalciferol (Vitamin D3)) 1,000 Unit Tablet 500 Unit PO 3X/WEEK Artificial Tears Drops (Dextran 70/Hypromellose/Pf) 1 Each Droperette 1 Drop OU QID Flovent 44MCG Hfa (Fluticasone Propionate) 10.6 Gm Aer.w.adap 1 Puff IH BID Bisacodyl 5 Mg Tablet.dr 10 Mg PO DAILY PRN Theragran-M Premier 50+ Caplet (Mv-Mn/Fa/Coq10/Lycopene/Lutein) 1 Each Tablet 1 Each PO DAILY Senokot-S Tablet (Sennosides/Docusate Sodium) 1 Each Tablet 1 Tab PO BID Levetiracetam 500 Mg Tablet 1,500 Mg PO BID Clonazepam (Clonazepam) 0.5 Mg Tablet 0.5 Mg PO HS Midodrine Hcl 10 Mg Tablet 10 Mg PO TID Gemfibrozil 600 Mg Tablet 1 Tab PO BID Vitamin B-12 (Cyanocobalamin (Vitamin B-12)) 1,000 Mcg Tablet 500 Mcg PO DAILY Folic Acid 1 Mg Tablet 1 Tab PO DAILY Flonase Allergy Relief (Fluticasone Propionate) 9.9 Ml [place].susp 2 Sprays NS DAILY Finasteride 5 Mg Tablet 1 Tab PO DAILY Lyrica (Pregabalin) 225 Mg Capsule 225 Mg PO BID 30 Days Omeprazole 20 Mg Tablet.dr 1 Tab PO DAILY Vitals/I & O Vital Sign - Last 24 Hours 06/21/19 06/21/19 06/21/19 06/21/19 19:45 20:00 20:36 23:45 Temp 98.0 98.3 98.0 98.3 Pulse 88 74 Resp 20 20 B/P (MAP) 95/56 (69) 123/65 (84) Pulse Ox 97 99 96 O2 Delivery Room Air Room Air Room Air Room Air 06/22/19 06/22/19 06/22/19 06/22/19 03:24 07:00 07:47 08:00 Temp 98.3 97.8 98.3 97.8 Pulse 80 82 Resp 20 18 B/P (MAP) 101/51 (68) 117/61 (79) Pulse Ox 94 100 99 O2 Delivery Room Air Room Air Room Air Room Air 06/22/19 06/22/19 06/22/19 06/22/19 10:43 11:00 13:00 16:29 Temp 98.2 97.6 98.2 97.6 Pulse 82 75 75 80 Resp 24 24 B/P (MAP) 117/61 100/68 (79) 100/68 102/43 (62) Pulse Ox 100 93 O2 Delivery Room Air Room Air 06/22/19 17:06 Pulse 80 B/P (MAP) 102/43 Intake and Output 06/21/19 06/21/19 06/22/19 15:00 23:00 07:00 Intake Total 0 ml 250 ml 100 ml Output Total 500 ml 400 ml Balance -500 ml -150 ml 100 ml PAULINO DOUGLAS MD Jun 22, 2019 18:38
[2019-06-22 19:51] VITALS: BP 96/64
[2019-06-22] MEDS: clonazePAM 0.5 MG TABLET PO SCH (21:51)
[2019-06-22] MEDS: levETIRAcetam 500 MG TABLET PO SCH (21:52)
[2019-06-22] MEDS: PHENYTOIN SODIUM EXTENDED 100 MG CAPSULE PO SCH (21:53)
[2019-06-22] MEDS: LACOSAMIDE 50 MG TABLET PO SCH (21:53)
[2019-06-22 23:40] VITALS: BP 93/55
[2019-06-23 04:30] VITALS: BP 86/42
[2019-06-23] MEDS: IBUPROFEN 400 MG TABLET. PO PRN ×2 (05:52→14:55)
[2019-06-23 06:54] LABS: BASO % 0 % (0-3); EOS % 0 % (0-3); HEMATOCRIT 30.9 % (39.0-53.0); HEMOGLOBIN 10.4 g/dL (13.0-17.5); LYMPH % 13 % (24-48); MEAN CORPUSCULAR HEMOGLOBIN 32 pg (25-35); MEAN CORPUSCULAR HGB CONC 34 g/dL (31-37); MEAN CORPUSCULAR VOLUME 94 fL (79-100); MONO # 0.9 x10^3/uL (0.0-1.1); MONO % 13 % (0-9); NEUT # 5.3 x10^3/uL (1.8-7.7); NEUT % 74 % (31-73); PLATELET COUNT 193 x10^3/uL (140-400); WHITE BLOOD COUNT 7.2 x10^3/uL (4.0-11.0)
[2019-06-23 06:56] LABS: CALCIUM 8.5 mg/dL (8.5-10.1); CREATININE 0.7 mg/dL (0.7-1.3); GFR 116.2; POTASSIUM 3.9 mmol/L (3.5-5.1)
[2019-06-23 07:00] VITALS: BP 96/54
[2019-06-23] MEDS: BUDESONIDE 0.5 MG/2 ML NEBU. NEB SCH (07:11)
--- NOTE | 2019-06-23 08:20 | EKG ---
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
[2019-06-23] MEDS ORDERED: CHOLECALCIFEROL (VITAMIN D3) 1,000 UNIT TABLET PO SCH (09:00)
[2019-06-23] MEDS: SENNOSIDES/DOCUSATE 8.6/50MG TABLET. PO SCH (09:00)
[2019-06-23] MEDS ORDERED: LACTULOSE 20 GM/30 ML SOLUTION. PO SCH (09:00)
[2019-06-23 09:47] VITALS: BP 97/54
[2019-06-23] MEDS: POLYVINYL ALCOHOL 1.4% OPHTH SOLUTION 15ML BOTTLE. OU SCH ×2 (09:49→14:55)
[2019-06-23] MEDS: PHENYTOIN SODIUM EXTENDED 100 MG CAPSULE PO SCH (09:49)
[2019-06-23] MEDS: TAMSULOSIN 0.4 MG CAP.ER.24H. PO SCH (09:49)
[2019-06-23] MEDS: LACOSAMIDE 50 MG TABLET PO SCH (09:49)
[2019-06-23] MEDS: FLUTICASONE 50MCG/NASAL SPRAY 16GM BOTTLE. NS SCH (09:50)
[2019-06-23] MEDS: MIDODRINE 5 MG TABLET PO SCH ×2 (09:51→14:54)
[2019-06-23] MEDS: PREGABALIN 75 MG CAPSULE PO SCH (09:51)
[2019-06-23] MEDS: MULTIVITAMIN with MINERAL TABLET. PO SCH (09:51)
[2019-06-23] MEDS: CYANOCOBALAMIN (VITAMIN B-12) 1,000 MCG TABLET. PO SCH (09:52)
[2019-06-23] MEDS: FOLIC ACID 1 MG TABLET. PO SCH (09:52)
[2019-06-23] MEDS: LACTOBACILLUS RHAMNOSUS GG 1 CAPSULE. PO SCH (09:52)
[2019-06-23] MEDS: POTASSIUM CHLORIDE 20 MEQ TABLET.ER. PO SCH (09:52)
[2019-06-23] MEDS: PANTOPRAZOLE 40 MG TABLET.DR. PO SCH (09:52)
[2019-06-23] MEDS: levETIRAcetam 500 MG TABLET PO SCH (09:52)
[2019-06-23] MEDS: FINASTERIDE 5 MG TABLET. PO SCH (09:53)
--- NOTE | 2019-06-23 09:55 | PDOC ---
PROGRESS NOTES Subjective Subjective feels ok ,no more seizures Objective Objective Vital Signs Date Time Temp Pulse Resp B/P (MAP) Pulse Ox O2 Delivery O2 Flow Rate FiO2 06/23/19 09:47 98.2 80 20 97/54 (68) 100 Room Air 98.2 Intake and Output 06/23/19 07:00 Intake Total 800 ml Balance 800 ml Intake Oral 800 ml # Voids 1 # Bowel Movements 8 Physical Exam Abdomen: Soft Heart: Normal S1 Extremities: No clubbing General: Alert HEENT: Atraumatic Lungs: Clear to auscultation MUSCULOSKELETAL: No swelling, Other Neuro: Normal gait Psych/Mental Status: Mental status NL Skin: No breakdown Diagnosis Problem List Problems Medical Problems: (1) Altered level of consciousness Status: Acute (2) Hyperammonemia Status: Acute (3) Seizure Status: Acute Assessment Assessment FINAL IMPRESSION: 1. Status epilepticus. 2. Change in mental status. 3. Ammonia increased levels. 4. Refractory seizures. 5. Benign prostatic hypertrophy. 6. Urinary tract infection. 7. Developmental disorder with mental retardation. PLAN: d/c to [facility] . d/ramy depokate stated on vimpat. inc dilantin dose. ammonia levels ok sono liver ok. f/u office in 1 week. At this time, was admitted to the hospital, hydrate with IV fluids. Neurology is consulted. The patient is given lactulose after NG tube was placed. We will check ammonia levels again in the morning. GI is consulted with ultrasound of the abdomen to monitor liver and monitor liver functions. Hypernatremia- continue IV D5W but add potassium chloride to it because of hypokalemia. Hypokalemia- replace potassium.K 3.6 today.Adjust KCL. Postictal encephalopathy- better. We'll discontinue the NG tube and advance diet as tolerated. As the patient is improving transfer out of the ICU to a med monitor unit.Poor historian. Elevated ammonia level- 300 to 51.Likely due to Valproic acid. Plan Plan of Care Problems Medical Problems: (1) Altered level of consciousness Status: Acute (2) Hyperammonemia Status: Acute (3) Seizure Status: Acute Comment Review of Relevant I have reviewed the following items niya (where applicable) has been applied. Labs Laboratory Tests Test 06/23/19 06:25 White Blood Count 7.2 x10^3/uL (4.0-11.0) Red Blood Count 3.30 x10^6/uL (4.30-5.70) Hemoglobin 10.4 g/dL (13.0-17.5) Hematocrit 30.9 % (39.0-53.0) Mean Corpuscular Volume 94 fL (79-100) Mean Corpuscular Hemoglobin 32 pg (25-35) Mean Corpuscular Hemoglobin Concent 34 g/dL (31-37) Red Cell Distribution Width 17.0 % (11.5-14.5) Platelet Count 193 x10^3/uL (140-400) Neutrophils (%) (Auto) 74 % (31-73) Lymphocytes (%) (Auto) 13 % (24-48) Monocytes (%) (Auto) 13 % (0-9) Eosinophils (%) (Auto) 0 % (0-3) Basophils (%) (Auto) 0 % (0-3) Neutrophils # (Auto) 5.3 x10^3/uL (1.8-7.7) Lymphocytes # (Auto) 1.0 x10^3/uL (1.0-4.8) Monocytes # (Auto) 0.9 x10^3/uL (0.0-1.1) Eosinophils # (Auto) 0.0 x10^3/uL (0.0-0.7) Basophils # (Auto) 0.0 x10^3/uL (0.0-0.2) Sodium Level 139 mmol/L (136-145) Potassium Level 3.9 mmol/L (3.5-5.1) Chloride Level 107 mmol/L (98-107) Carbon Dioxide Level 22 mmol/L (21-32) Anion Gap 10 (6-14) Blood Urea Nitrogen 9 mg/dL (8-26) Creatinine 0.7 mg/dL (0.7-1.3) Estimated GFR (Cockcroft-Gault) 116.2 Glucose Level 97 mg/dL (70-99) Calcium Level 8.5 mg/dL (8.5-10.1) Ammonia < 10 mcmol/L (11-34) Medications Current Medications Lacosamide (Vimpat) 100 mg BID PO Last administered on 06/22/19at 21:53; Start 06/22/19 at 21:00 Lactulose (Lactulose) 20 gm DAILY PO ; Start 06/23/19 at 09:00 Levetiracetam (Keppra) 1,500 mg BID PO Last administered on 06/22/19at 21:52; Start 06/22/19 at 21:00 Phenytoin Sodium (Dilantin) 200 mg BID PO Last administered on 06/22/19at 21:53; Start 06/22/19 at 21:00 Potassium Chloride (Klor-Con) 20 meq BIDAFTMEAL PO Last administered on 06/22/19at 17:07; Start 06/22/19 at 10:30 Vitamin D (Vitamin D3) 500 unit 3X/WEEK PO ; Start 06/23/19 at 09:00 Vitals/I & O Vital Sign - Last 24 Hours 06/22/19 06/22/19 06/22/19 06/22/19 10:43 11:00 13:00 16:29 Temp 98.2 97.6 98.2 97.6 Pulse 82 75 75 80 Resp 24 24 B/P (MAP) 117/61 100/68 (79) 100/68 102/43 (62) Pulse Ox 100 93 O2 Delivery Room Air Room Air 06/22/19 06/22/19 06/22/19 06/22/19 17:06 19:51 19:52 23:40 Temp 98.0 98.2 98.0 98.2 Pulse 80 82 80 Resp 20 20 B/P (MAP) 102/43 96/64 (75) 93/55 (68) Pulse Ox 100 99 96 O2 Delivery Room Air Room Air Room Air 06/23/19 06/23/19 06/23/19 06/23/19 04:30 07:00 07:11 09:47 Temp 98.6 98.2 98.2 98.6 98.2 98.2 Pulse 78 80 80 Resp 20 20 20 B/P (MAP) 86/42 (57) 96/54 (68) 97/54 (68) Pulse Ox 100 98 100 O2 Delivery Room Air Room Air Room Air Room Air Intake and Output 06/22/19 06/22/19 06/23/19 15:00 23:00 07:00 Intake Total 380 ml 360 ml 60 ml Balance 380 ml 360 ml 60 ml TAMERA SNELL MD Jun 23, 2019 09:55
[2019-06-23] MEDS ORDERED: PHEN100C PO (09:59)
[2019-06-23] MEDS ORDERED: LACO50TA PO (09:59)
--- NOTE | 2019-06-23 10:11 | PDOC ---
Subjective: Subjective: Feels fine, wants back in bed. Objective: Vital Signs: Vital Signs Date Time Temp Pulse Resp B/P (MAP) Pulse Ox O2 Delivery O2 Flow Rate FiO2 06/23/19 09:51 80 97/54 06/23/19 09:47 98.2 20 100 Room Air 98.2 Labs: Laboratory Tests Test 06/23/19 06:25 White Blood Count 7.2 x10^3/uL Red Blood Count 3.30 x10^6/uL Hemoglobin 10.4 g/dL Hematocrit 30.9 % Mean Corpuscular Volume 94 fL Mean Corpuscular Hemoglobin 32 pg Mean Corpuscular Hemoglobin Concent 34 g/dL Red Cell Distribution Width 17.0 % Platelet Count 193 x10^3/uL Neutrophils (%) (Auto) 74 % Lymphocytes (%) (Auto) 13 % Monocytes (%) (Auto) 13 % Eosinophils (%) (Auto) 0 % Basophils (%) (Auto) 0 % Neutrophils # (Auto) 5.3 x10^3/uL Lymphocytes # (Auto) 1.0 x10^3/uL Monocytes # (Auto) 0.9 x10^3/uL Eosinophils # (Auto) 0.0 x10^3/uL Basophils # (Auto) 0.0 x10^3/uL Sodium Level 139 mmol/L Potassium Level 3.9 mmol/L Chloride Level 107 mmol/L Carbon Dioxide Level 22 mmol/L Anion Gap 10 Blood Urea Nitrogen 9 mg/dL Creatinine 0.7 mg/dL Estimated GFR (Cockcroft-Gault) 116.2 Glucose Level 97 mg/dL Calcium Level 8.5 mg/dL Ammonia < 10 mcmol/L Imaging: Abd US 06/21 IMPRESSION: 1. Unremarkable abdominal ultrasound. PE: GEN: NAD - up in chair holding remote next to ear LUNGS: room air HEART: RRR ABD: soft, non-tender NEURO/PSYCH: appropriate A/P: Seizure Hyperammonemia - resolved -- DC per primary - note plans to DC Depakote. ROXANNA FELIX Jun 23, 2019 10:11
[2019-06-23 11:15] VITALS: BP 102/60
--- NOTE | 2019-06-23 13:19 | PDOC ---
PROGRESS NOTES Assessment Problems Medical Problems: (1) Altered level of consciousness Status: Acute (2) Hyperammonemia Status: Acute (3) Seizure Status: Acute Intractable generalized epilepsy, status post vagus nerve stimulator Intellectual disability Orthostatic hypotension Gait disorder Hyperammonemia due to valproic acid. I last saw him in the clinic 4 months ago Plan He has been switched off of the valproic acid and started on lacosamide Continue levetiracetam and pregabalin He was started on phenytoin on a prior admission since I last saw him on office. Discontinue lactulose Okay for discharge any time Follow-up with me in 4-6 weeks, he was scheduled to see me on 06/26 Subjective No complaints, wants to go home Objective Vital Signs Date Time Temp Pulse Resp B/P (MAP) Pulse Ox O2 Delivery O2 Flow Rate FiO2 06/23/19 11:15 98.6 88 20 102/60 (74) 98 Room Air 98.6 Intake and Output 06/23/19 07:00 Intake Total 800 ml Balance 800 ml Intake Oral 800 ml # Voids 1 # Bowel Movements 8 PHYSICAL EXAM Alert. Oriented to place and person, consistent with intellectual disability. PERRL. EOMI. CN: no focal findings. Muscle tone: normal. Muscle strength: 4/5 DTR: 1+ Plantar reflex: flexor Gait: not examined in bed. Sensory exam: no abnormal findings. No cerebellar signs elicited. Review of Relevant I have reviewed the following items niya (where applicable) has been applied. Labs Laboratory Tests Test 06/22/19 03:25 06/23/19 06:25 White Blood Count 3.5 x10^3/uL (4.0-11.0) 7.2 x10^3/uL (4.0-11.0) Red Blood Count 3.25 x10^6/uL (4.30-5.70) 3.30 x10^6/uL (4.30-5.70) Hemoglobin 10.1 g/dL (13.0-17.5) 10.4 g/dL (13.0-17.5) Hematocrit 30.1 % (39.0-53.0) 30.9 % (39.0-53.0) Mean Corpuscular Volume 93 fL (79-100) 94 fL (79-100) Mean Corpuscular Hemoglobin 31 pg (25-35) 32 pg (25-35) Mean Corpuscular Hemoglobin Concent 34 g/dL (31-37) 34 g/dL (31-37) Red Cell Distribution Width 17.3 % (11.5-14.5) 17.0 % (11.5-14.5) Platelet Count 230 x10^3/uL (140-400) 193 x10^3/uL (140-400) Neutrophils (%) (Auto) 53 % (31-73) 74 % (31-73) Lymphocytes (%) (Auto) 29 % (24-48) 13 % (24-48) Monocytes (%) (Auto) 18 % (0-9) 13 % (0-9) Eosinophils (%) (Auto) 0 % (0-3) 0 % (0-3) Basophils (%) (Auto) 0 % (0-3) 0 % (0-3) Neutrophils # (Auto) 1.8 x10^3/uL (1.8-7.7) 5.3 x10^3/uL (1.8-7.7) Lymphocytes # (Auto) 1.0 x10^3/uL (1.0-4.8) 1.0 x10^3/uL (1.0-4.8) Monocytes # (Auto) 0.6 x10^3/uL (0.0-1.1) 0.9 x10^3/uL (0.0-1.1) Eosinophils # (Auto) 0.0 x10^3/uL (0.0-0.7) 0.0 x10^3/uL (0.0-0.7) Basophils # (Auto) 0.0 x10^3/uL (0.0-0.2) 0.0 x10^3/uL (0.0-0.2) Sodium Level 143 mmol/L (136-145) 139 mmol/L (136-145) Potassium Level 3.6 mmol/L (3.5-5.1) 3.9 mmol/L (3.5-5.1) Chloride Level 110 mmol/L (98-107) 107 mmol/L (98-107) Carbon Dioxide Level 20 mmol/L (21-32) 22 mmol/L (21-32) Anion Gap 13 (6-14) 10 (6-14) Blood Urea Nitrogen 7 mg/dL (8-26) 9 mg/dL (8-26) Creatinine 0.7 mg/dL (0.7-1.3) 0.7 mg/dL (0.7-1.3) Estimated GFR (Cockcroft-Gault) 116.2 116.2 BUN/Creatinine Ratio 10 (6-20) Glucose Level 120 mg/dL (70-99) 97 mg/dL (70-99) Calcium Level 8.3 mg/dL (8.5-10.1) 8.5 mg/dL (8.5-10.1) Magnesium Level 1.9 mg/dL (1.8-2.4) Total Bilirubin 0.3 mg/dL (0.2-1.0) Aspartate Amino Transf (AST/SGOT) 15 U/L (15-37) Alanine Aminotransferase (ALT/SGPT) 9 U/L (16-63) Alkaline Phosphatase 51 U/L (46-116) Ammonia 29 mcmol/L (11-34) < 10 mcmol/L (11-34) Total Protein 6.3 g/dL (6.4-8.2) Albumin 2.9 g/dL (3.4-5.0) Albumin/Globulin Ratio 0.9 (1.0-1.7) Laboratory Tests Test 06/23/19 06:25 White Blood Count 7.2 x10^3/uL (4.0-11.0) Red Blood Count 3.30 x10^6/uL (4.30-5.70) Hemoglobin 10.4 g/dL (13.0-17.5) Hematocrit 30.9 % (39.0-53.0) Mean Corpuscular Volume 94 fL (79-100) Mean Corpuscular Hemoglobin 32 pg (25-35) Mean Corpuscular Hemoglobin Concent 34 g/dL (31-37) Red Cell Distribution Width 17.0 % (11.5-14.5) Platelet Count 193 x10^3/uL (140-400) Neutrophils (%) (Auto) 74 % (31-73) Lymphocytes (%) (Auto) 13 % (24-48) Monocytes (%) (Auto) 13 % (0-9) Eosinophils (%) (Auto) 0 % (0-3) Basophils (%) (Auto) 0 % (0-3) Neutrophils # (Auto) 5.3 x10^3/uL (1.8-7.7) Lymphocytes # (Auto) 1.0 x10^3/uL (1.0-4.8) Monocytes # (Auto) 0.9 x10^3/uL (0.0-1.1) Eosinophils # (Auto) 0.0 x10^3/uL (0.0-0.7) Basophils # (Auto) 0.0 x10^3/uL (0.0-0.2) Sodium Level 139 mmol/L (136-145) Potassium Level 3.9 mmol/L (3.5-5.1) Chloride Level 107 mmol/L (98-107) Carbon Dioxide Level 22 mmol/L (21-32) Anion Gap 10 (6-14) Blood Urea Nitrogen 9 mg/dL (8-26) Creatinine 0.7 mg/dL (0.7-1.3) Estimated GFR (Cockcroft-Gault) 116.2 Glucose Level 97 mg/dL (70-99) Calcium Level 8.5 mg/dL (8.5-10.1) Ammonia < 10 mcmol/L (11-34) Medications Current Medications Lorazepam (Ativan Inj) 2 mg 1X ONCE IVP Last administered on 06/20/19at 12:46; Start 06/20/19 at 13:15; Stop 06/20/19 at 13:16; Status DC Sodium Chloride 1,000 ml @ 1,000 mls/hr 1X ONCE IV Last administered on 06/20/19at 13:45; Start 06/20/19 at 13:45; Stop 06/20/19 at 14:44; Status DC Ondansetron HCl (Zofran) 4 mg PRN Q8HRS PRN IV NAUSEA/VOMITING; Start 06/20/19 at 13:45; Stop 06/21/19 at 13:44; Status DC Lactulose (Lactulose) 20 gm ONCE ONCE PO Last administered on 06/20/19at 14:45; Start 06/20/19 at 13:45; Stop 06/20/19 at 13:46; Status DC Bisacodyl (Dulcolax Tab) 10 mg PRN DAILY PRN PO CONSTIPATION; Start 06/20/19 at 16:15 Vitamin D (Vitamin D3) 500 unit 3X/WEEK PO Last administered on 06/23/19 09:49; Start 06/23/19 at 09:00 Clonazepam (KlonoPIN) 0.5 mg HS PO Last administered on 06/22/19 21:51; Start 06/20/19 at 21:00 Cyanocobalamin (Vitamin B-12) 500 mcg DAILY PO Last administered on 06/23/19 09:52; Start 06/21/19 at 09:00 Divalproex Sodium (Depakote Er) 1,000 mg BID PO ; Start 06/20/19 at 21:00; Stop 06/20/19 at 16:48; Status DC Finasteride (Proscar) 5 mg DAILY PO Last administered on 06/23/19 09:53; Start 06/21/19 at 09:00 Folic Acid (Folic Acid) 1 mg DAILY PO Last administered on 06/23/19 09:52; Start 06/21/19 at 09:00 Levetiracetam (Keppra) 1,500 mg BID PO ; Start 06/20/19 at 21:00; Stop 06/20/19 at 16:48; Status DC Phenytoin Sodium (Dilantin) 100 mg TID PO ; Start 06/20/19 at 21:00; Stop 06/20/19 at 16:48; Status DC Senna/Docusate Sodium (Senna Plus) 1 tab BID PO Last administered on 06/21/19at 20:08; Start 06/20/19 at 21:00 Tamsulosin HCl (Flomax) 0.4 mg BIDWMEALS PO Last administered on 06/23/19 09:49; Start 06/20/19 at 17:00 Artificial Tears (Artificial Tears) 1 drop QID OU Last administered on 06/23/19 09:49; Start 06/20/19 at 17:00 Fluticasone Propionate (Flonase) 2 spray DAILY NS Last administered on 06/23/19 09:50; Start 06/21/19 at 09:00 Budesonide (Pulmicort) 0.5 mg RTBID NEB Last administered on 06/23/19 07:11; Start 06/20/19 at 20:00 Ibuprofen (Motrin) 800 mg PRN TID PRN PO INFLAMMATION Last administered on 06/23/19 05:52; Start 06/20/19 at 16:45 Midodrine (Proamatine) 10 mg [id number] PO Last administered on 06/23/19at 09:51; Start 06/20/19 at 18:00 Multivitamins (Thera M Plus) 1 tab DAILY PO Last administered on 06/23/19 09:51; Start 06/21/19 at 09:00 Pantoprazole Sodium (Protonix) 40 mg DAILYAC PO Last administered on 06/23/19 09:52; Start 06/21/19 at 07:30 Pregabalin (Lyrica) 225 mg BID PO Last administered on 06/23/19 09:51; Start 06/20/19 at 21:00 Cephalexin HCl (Keflex) 500 mg TID PO ; Start 06/20/19 at 21:00; Stop 06/20/19 at 17:11; Status DC Dextrose/Sodium Chloride 1,000 ml @ 100 mls/hr Q10H IV Last administered on 06/21/19at 03:42; Start 06/20/19 at 16:15; Stop 06/21/19 at 09:48; Status DC Levetiracetam 1500 mg/Dextrose 115 ml @ 440 mls/hr Q12HR IV Last administered on 06/22/19at 10:45; Start 06/20/19 at 21:00; Stop 06/22/19 at 18:25; Status DC Fosphenytoin Sodium (Cerebyx) 100 mg Q8HRS IV Last administered on 06/22/19at 17:08; Start 06/20/19 at 22:00; Stop 06/22/19 at 18:25; Status DC Lacosamide 50 mg/ Dextrose 55 ml @ 120 mls/hr BID IV Last administered on 06/21/19at 11:16; Start 06/20/19 at 21:00; Stop 06/21/19 at 12:59; Status DC Lactulose (Lactulose) 20 gm Q8HRS PO Last administered on 06/22/19at 17:05; Start 06/20/19 at 17:00; Stop 06/22/19 at 19:04; Status DC Ceftriaxone Sodium (Rocephin) 1 gm Q24H IVP Last administered on 06/22/19 17:07; Start 06/20/19 at 17:30 Info (FLU VACCINE SCREEN per RX) 1 each 1X ONCE MC ; Start 06/20/19 at 17:30; Stop 06/20/19 at 17:31; Status UNV Lactobacillus Rhamnosus (Culturelle) 1 cap BID PO Last administered on 05/28 09:52; Start 06/21/19 at 21:00 Potassium Chloride/Dextrose/ Sod Cl 1,000 ml @ 60 mls/hr [id number] IV Last administered on 06/22/19 01:23; Start 06/21/19 at 10:30 Potassium Chloride (Klor-Con) 40 meq BIDAFTMEAL PO Last administered on 06/21/19 17:01; Start 06/21/19 at 10:30; Stop 06/22/19 at 09:56; Status DC Lacosamide 100 mg/ Dextrose 60 ml @ 120 mls/hr BID IV Last administered on 06/22/19at 10:46; Start 06/21/19 at 21:00; Stop 06/22/19 at 18:25; Status DC Potassium Chloride (Klor-Con) 20 meq BIDAFTMEAL PO Last administered on 06/23/19 09:52; Start 06/22/19 at 10:30 Levetiracetam (Keppra) 1,500 mg BID PO Last administered on 06/23/19 09:52; Start 06/22/19 at 21:00 Lacosamide (Vimpat) 100 mg BID PO Last administered on 06/23/19 09:49; Start 06/22/19 at 21:00 Phenytoin Sodium (Dilantin) 200 mg BID PO Last administered on 06/23/19 09:49; Start 06/22/19 at 21:00 Lactulose (Lactulose) 20 gm DAILY PO ; Start 06/23/19 at 09:00 Active Scripts Active Vimpat (Lacosamide) 50 Mg Tablet 100 Mg PO BID 30 Days Dilantin (Phenytoin Sodium Extended) 100 Mg Capsule 200 Mg PO BID 30 Days Flomax (Tamsulosin Hcl) 0.4 Mg Cap.er.24h 0.4 Mg PO BIDWMEALS 30 Days Hydrocodone-Apap 5-325 (Hydrocodone Bit/Acetaminophen) 1 Tab Tablet 1 Tab PO PRN Q6HRS PRN 3 Days Ibuprofen 800 Mg Tablet 800 Mg PO PRN TID PRN take with food or milk to avoid upsetting stomach Reported Vitamin D3 (Cholecalciferol (Vitamin D3)) 1,000 Unit Tablet 500 Unit PO 3X/WEEK Artificial Tears Drops (Dextran 70/Hypromellose/Pf) 1 Each Droperette 1 Drop OU QID Flovent 44MCG Hfa (Fluticasone Propionate) 10.6 Gm Aer.w.adap 1 Puff IH BID Bisacodyl 5 Mg Tablet.dr 10 Mg PO DAILY PRN Theragran-M Premier 50+ Caplet (Mv-Mn/Fa/Coq10/Lycopene/Lutein) 1 Each Tablet 1 Each PO DAILY Senokot-S Tablet (Sennosides/Docusate Sodium) 1 Each Tablet 1 Tab PO BID Levetiracetam 500 Mg Tablet 1,500 Mg PO BID Clonazepam (Clonazepam) 0.5 Mg Tablet 0.5 Mg PO HS Midodrine Hcl 10 Mg Tablet 10 Mg PO TID Gemfibrozil 600 Mg Tablet 1 Tab PO BID Vitamin B-12 (Cyanocobalamin (Vitamin B-12)) 1,000 Mcg Tablet 500 Mcg PO DAILY Folic Acid 1 Mg Tablet 1 Tab PO DAILY Flonase Allergy Relief (Fluticasone Propionate) 9.9 Ml [place].susp 2 Sprays NS DAILY Finasteride 5 Mg Tablet 1 Tab PO DAILY Lyrica (Pregabalin) 225 Mg Capsule 225 Mg PO BID 30 Days Omeprazole 20 Mg Tablet. 1 Tab PO DAILY Vitals/I & O Vital Sign - Last 24 Hours 06/22/19 06/22/19 06/22/19 06/22/19 16:29 17:06 19:51 19:52 Temp 97.6 98.0 97.6 98.0 Pulse 80 80 82 Resp 24 20 B/P (MAP) 102/43 (62) 102/43 96/64 (75) Pulse Ox 93 100 99 O2 Delivery Room Air Room Air Room Air 06/22/19 06/23/19 06/23/19 06/23/19 23:40 04:30 07:00 07:11 Temp 98.2 98.6 98.2 98.2 98.6 98.2 Pulse 80 78 80 Resp 20 20 20 B/P (MAP) 93/55 (68) 86/42 (57) 96/54 (68) Pulse Ox 96 100 98 O2 Delivery Room Air Room Air Room Air Room Air 06/23/19 06/23/19 06/23/19 06/23/19 08:00 09:47 09:51 11:15 Temp 98.2 98.6 98.2 98.6 Pulse 80 80 88 Resp 20 20 B/P (MAP) 97/54 (68) 97/54 102/60 (74) Pulse Ox 100 98 O2 Delivery Room Air Room Air Room Air Intake and Output 06/22/19 06/22/19 06/23/19 15:00 23:00 07:00 Intake Total 380 ml 360 ml 60 ml Balance 380 ml 360 ml 60 ml RAFAEL MAIN MD Jun 23, 2019 13:19
--- NOTE | 2019-06-23 13:27 | NUR ---
SS following for discharge planning. SS reviewed pt chart. Pt is from [facility]. Discharge order on the chart for return to [facility]. SS spoke with Kelby Mo, , at [facility] and notified. Kelby spoke with pt's RN for report. Kelby reported that he would come to transport pt back to [facility] at 1600. Pt's RN notified. Packet and scripts placed on chart.
[2019-06-23] MEDS: POTASSIUM CL 20MEQ D5-0.9%NACL 1,000 ML IV SCH (13:32)
[2019-06-23 14:54] VITALS: BP 102/60
[2019-06-23] MEDS ORDERED: FLU VAX QS 2019-20 (36MOS+)/PF 0.5 ML SYRINGE. VAX IM ONE (15:30)
--- NOTE | 2019-06-23 18:08 | NUR ---
Discharge Note: ISABELA VANCE [address] Discharge instructions and discharge home medications reviewed with Gabby of [facility] and a copy given. All questions have been answered and understanding verbalized. The following instructions and handouts were given: Increase phenytoin to 200mg BID and new med started lacosamide. Follow up with PCP in a week. Follow up with neurologist in 4 to 6 weeks. Stop Depakote. Watch out for alteration of sensorium. Discontinued lines and drains: peripheral IV intact, patient tolerated removal, no complications noted. Patient discharged to [facility] via wheelchair at 1700 accompanied by [facility] staff.
--- NOTE | 2019-06-30 21:25 | PDOC ---
Provider Note Provider Note Discharge summary dictated.#[id number] TAMERA SNELL MD Jun 30, 2019 21:25
--- NOTE | 2019-07-01 00:25 | DS ---
DATE OF DISCHARGE: 06/23/2019 REASON FOR ADMISSION TO THE HOSPITAL: 1. Metabolic encephalopathy. 2. Elevated ammonia level. 3. History of refractory seizures. CONSULTATIONS: 1. Dr. Agudelo and Dr. Chacon, Neurology. 2. Dr. Cadet, Gastroenterology. PROCEDURES DONE: 1. CT head. 2. Ultrasound of the abdomen. COMPLICATIONS NOTED: None. HOSPITAL COURSE: The patient is a 59-year-old male patient who has a history of refractory seizures, on 3 medications. The patient had change in mental status and was hard to arouse. It was thought he may have a seizure, could be postictal. The patient had a CT of the head, did not show any new stroke. The patient's ammonia level was elevated to 300. The patient was given lactulose. He had no previous liver problems to suggest for elevated ammonia; seen by Gastroenterology and it was felt that valproic acid can cause elevated ammonia level and the patient was given lactulose and his ammonia level came down nicely from 318 to less than 10. Liver function tests were normal. The patient had a hepatitis B and C was negative. An IgM is equivocal and the patient did well and it was on medication. The patient was started on new seizure medication Vimpat 100 mg twice a day and he is recently started on Dilantin 200 mg twice a day and stopped Depakote because of elevated ammonia and is also getting Keppra 1500 mg twice a day for seizures and Lyrica 225 mg twice a day. Plan is to check Dilantin levels and ammonia levels 1 week after discharge and see how he does. FINAL DIAGNOSES: 1. Metabolic encephalopathy secondary to elevated ammonia more than 300; ammonia thought to be secondary to taking his seizure medication Depakote which was stopped in its place was Vimpat was started for seizure control. 2. Refractory seizures; on total of 4 medications; Vimpat, Dilantin, Keppra, and Lyrica. 3. Developmental disorder. 4. History of cerebral developmental disorder. 5. Orthostatic hypotension. 6. Benign prostatic hypertrophy. 7. Recent urinary tract infection, was treated. TAMERA SNELL MD DR: RICHI/suha JOB#: [id number] / [id number] EDIE Manrique
== END 2019-06-23 18:30 | disposition home or self-care (01) | DRG 101 ==
LOC: ER 11:45 → 1 WEST ICU 13:23 → 6 SOUTH 06-21 14:14
PROVIDERS: ADMIT Internal Medicine; ATTEND Internal Medicine
DX: G40.411 Other generalized epilepsy and epileptic syndromes, intractable, with status epilepticus (principal); R65.10 Systemic inflammatory response syndrome (SIRS) of non-infectious origin without acute organ dysfunction; I95.1 Orthostatic hypotension; E53.8 Deficiency of other specified B group vitamins; E78.00 Pure hypercholesterolemia, unspecified; E78.5 Hyperlipidemia, unspecified; F03.90 Unspecified dementia, unspecified severity, without behavioral disturbance, psychotic disturbance, mood disturbance, and anxiety; F31.9 Bipolar disorder, unspecified; F79 Unspecified intellectual disabilities; T42.6X5A Adverse effect of other antiepileptic and sedative-hypnotic drugs, initial encounter; I10 Essential (primary) hypertension; J32.0 Chronic maxillary sinusitis; J44.9 Chronic obstructive pulmonary disease, unspecified; K21.9 Gastro-esophageal reflux disease without esophagitis; K74.60 Unspecified cirrhosis of liver; K75.9 Inflammatory liver disease, unspecified; N40.1 Benign prostatic hyperplasia with lower urinary tract symptoms
CPT/HCPCS: 36415; 70450; 74018; 76700; 80048; 80053; 80164; 80177; 80185; 81001; 82140; 82962; 83605; 83735; 85007; 85025; 85610; 86705; 86709; 86803; 87340; 90471; 90686; 93005; 94640; 94760; 96361; 96374; C9254; J0696; J1953; J2060; J7030; J7042; J7626; Q2009; 99285-25; G0378

== ENCOUNTER 2020-01-12 09:40 | Emergency (ER) | payer MEDICARE, OTHER ==
[~2020-01-12] VITALS: Ht 170.2 cm; Wt 68.1 kg
[~2020-01-12 09:40] MED LIST changes: -CETI10TA22 PO; +CETI10TA24 PO; +LACO50TA PO
[2020-01-12 10:29] LABS: BASO % 0 % (0-3); EOS % 0 % (0-3); HEMATOCRIT 37.2 % (39.0-53.0); HEMOGLOBIN 12.7 g/dL (13.0-17.5); LYMPH # 1.7 x10^3/uL (1.0-4.8); LYMPH % 41 % (24-48); MEAN CORPUSCULAR HEMOGLOBIN 32 pg (25-35); MEAN CORPUSCULAR HGB CONC 34 g/dL (31-37); MEAN CORPUSCULAR VOLUME 93 fL (79-100); MONO # 0.7 x10^3/uL (0.0-1.1); MONO % 17 % (0-9); NEUT # 1.8 x10^3/uL (1.8-7.7); NEUT % 42 % (31-73); PLATELET COUNT 272 x10^3/uL (140-400); RED BLOOD COUNT 4.01 x10^6/uL (4.30-5.70); RED CELL DISTRIBUTION WIDTH 17.3 % (11.5-14.5); WHITE BLOOD COUNT 4.2 x10^3/uL (4.0-11.0)
[2020-01-12 10:30] LABS: CALCIUM 8.8 mg/dL (8.5-10.1); CREATININE 0.8 mg/dL (0.7-1.3); GFR 99.6; POTASSIUM 3.8 mmol/L (3.5-5.1)
[2020-01-12 10:36] LABS: ALBUMIN 3.6 g/dL (3.4-5.0); TOTAL BILIRUBIN 0.3 mg/dL (0.2-1.0); TOTAL PROTEIN 7.2 g/dL (6.4-8.2)
--- NOTE | 2020-01-12 10:38 | RAD ---
CHEST AP ONLY 01/12/2020 9:44 AM INDICATION: Chest pain COMPARISON: 05/29/2019 TECHNIQUE: Portable frontal view of the chest is provided. FINDINGS: The cardiomediastinal silhouette is within normal limits. Lungs are clear. Left chest wall battery pack and leads extending into the left neck obscured evaluation of left chest. There are no significant pleural effusions. There is no pulmonary vascular congestion. No pneumothorax. No suspicious osseous abnormality. IMPRESSION: There is no acute cardiopulmonary process. Electronically signed by: Denise Bains MD (01/12/2020 10:35 AM) VIVIAN
[2020-01-12 10:49] VITALS: BP 136/79
--- NOTE | 2020-01-12 12:26 | RAD ---
CT SOFT TISSUE NECK WO CONTRST, CT CERVICAL SPINE WO CONTRAST Indication: Neck pain Technique: Noncontrast CT imaging was performed of the neck and cervical spine, multiplanar reconstruction images submitted. One or more of the following individualized dose reduction techniques were utilized for this examination: 1. Automated exposure control 2. Adjustment of the mA and/or kV according to patient size 3. Use of iterative reconstruction technique. Comparison: Neck CT 10/09/2017 NECK: Findings: There is some gas distention of the visualized esophagus. There is asymmetric contour with convexity along the left true and false cords although stable in appearance, discrete mass not obviously identified on this noncontrast exam. There is no significant lymphadenopathy. There is some calcified plaque of the carotid arteries in the neck greater on the left. There is again left vagal stimulator. There is preservation of the parapharyngeal fat planes. There is at least mild right maxillary sinus mucosal thickening, not fully included. There is limited pneumatization of mastoid air cells especially on the right as seen previously. IMPRESSION: 1. There is no new lymphadenopathy or fluid collection. There is again vagal stimulator of the left neck there is nonspecific convexity of the medial left ventral cord margin although discrete mass not confidently identified by this noncontrast exam. 2. There is some gas distention of visualized proximal esophagus. Cervical spine FINDINGS: Cervical vertebral body stature is overall maintained. AP alignment is similar, negligible posterior subluxation C3 relative to C4 and C4 relative to C5. There is again [id number] degenerative disc disease C3-3 and C3-4 and to a somewhat lesser degree at C4-5. There is vacuum disc disease at C3-4, C4-5, C5-6, and C7-T1. There is also narrowing of the C6-7 intervertebral disc space likely on a developmental basis. There are again multilevel flowing enthesophytes of the visualized anterior thoracic spine and also large anterior osteophytes of the cervical spine greatest C4-5 and C5-6. No acute cervical spine fracture is identified. There is multilevel cervical facet degenerative change. There is likely central canal stenosis C3-4 about 8 to 9 mm, likely also mild spinal stenosis about 9 mm at C4-5. There is moderate to severe neural foramina compromise bilaterally at C5-6 in part from facet degenerative change, [id number] narrowing the right at C4-5, other minimal narrowing present. IMPRESSION: 1.Findings are similar compared with the previous exam, suspected mild spinal stenosis C3-4 and C4-5. There is some variable multilevel cervical degenerative disc disease. Facet degenerative change contributes to neural foramina compromise which is greatest bilaterally at C5-6. Electronically signed by: Darion Chacko MD (01/12/2020 12:23 PM) [id number]
--- NOTE | 2020-01-12 12:45 | EKG ---
[facility] [address] [place] [address] Test Date: 2020-01-12 Test Time: 12:25:13 Pat Name: ISABELA VANCE Department: Room: Gender: M [employer]er: : 1960 Requested By: ANDI CUEVAS Order Number: [id number] Reading MD: Donavan Pan Measurements Intervals Amorita Rate: 61 P: 38 KS: 158 QRS: 45 QRSD: 76 T: 54 QT: 422 QTc: 426 Interpretive Statements SINUS RHYTHM Electronically Signed On 01-13-2020 8:41:42 CDT by Donavan Pan
[2020-01-12] MEDS ORDERED: HYDR-2759 PO (12:56)
[2020-01-12] MEDS ORDERED: CYCL10TA2 PO (12:57)
[2020-01-12] MEDS ORDERED: DOXY100C14 PO (12:58)
[2020-01-12] MEDS ORDERED: CYCLOBENZAPRINE 10 MG TABLET. PO ONE (13:00)
[2020-01-12] MEDS ORDERED: HYDROcodone/APAP 5/325MG 1 TAB TABLET PO ONE (13:00)
--- NOTE | 2020-01-12 17:15 | PHYS DOC ---
Past Medical History Past Medical History: Anemia, Asthma, Bipolar, COPD, GERD, High Cholesterol, Seizure Additional Past Medical Histor: MR,NEUTROPENIA, Past Surgical History: Cholecystectomy, Other Additional Past Surgical Histo: dental Smoking Status: Never Smoker Alcohol Use: None Drug Use: None Adult General Chief Complaint Chief Complaint: Neck Pain HPI HPI Patient is a 59 year old mental retardation, seizure disorder with vagal nerve stimulator presents with poorly controlled left lateral trapezius neck pain intermittent x1 week. Patient denies knowledge of injury. Pain is reproducible with palpation and shoulder movement. Patient also reports cough with productive sputum. No fever chills or sweats. Patient was evaluated by his roderick rologist for vagal nerve stimulator adjustment which was interrogated and determined to be functioning correctly. Patient was referred to the ED for further evaluation of lateral neck pain and cough. [] Review of Systems Review of Systems Review of systems as per HPI. All other review of symptoms are negative.] All other systems were reviewed and found to be within normal limits, except as documented in this note. Current Medications Current Medications Current Medications Medications (Trade) Dose Ordered Sig/Chepe Start Time Stop Time Status Last Admin Dose Admin Acetaminophen/ Hydrocodone Bitart (Lortab 5/325) 1 tab 1X ONCE 01/12/20 13:00 01/12/20 13:01 DC 01/12/20 13:00 1 TAB Cyclobenzaprine HCl (Flexeril) 10 mg 1X ONCE 01/12/20 13:00 01/12/20 13:01 DC 01/12/20 13:00 10 MG Allergies Allergies Allergies Coded Allergies Type Severity Reaction Last Updated Verified No Known Drug Allergies 03/23/17 No Physical Exam Physical Exam Constitutional: Well developed, well nourished, no acute distress, non-toxic appearance. [] HENT: Normocephalic, atraumatic, bilateral external ears normal, oropharynx moist, no oral exudates, nose normal. [] Eyes: PERRLA, EOMI, conjunctiva normal, no discharge. [] Neck: Normal range of motion, mid left lateral neck pain, tenderness. No lymphadenopathy.. [] Cardiovascular:Heart rate regular rhythm, no murmur [] Lungs & Thorax: Bilateral breath sounds clear to auscultation [] Abdomen: Bowel sounds normal, soft, no tenderness. Extremities: Left shoulder, dorsal to pain, tenderness reproduces with range of motion. No deformity bruising swelling or erythema.. [] Neurologic: Alert and oriented, left upper extremity, normal motor function, normal sensory function, no focal deficits noted. [] Psychologic: Affect normal, judgement normal, mood normal. [] Current Patient Data Vital Signs Vital Signs Date Time Temp Pulse Resp B/P (MAP) Pulse Ox O2 Delivery O2 Flow Rate FiO2 01/12/20 13:00 18 96 Room Air 01/12/20 10:49 69 136/79 (98) 01/12/20 09:50 98.5 98.5 Lab Values Laboratory Tests Test 01/12/20 10:04 01/12/20 11:38 White Blood Count 4.2 x10^3/uL (4.0-11.0) Red Blood Count 4.01 x10^6/uL (4.30-5.70) L Hemoglobin 12.7 g/dL (13.0-17.5) L Hematocrit 37.2 % (39.0-53.0) L Mean Corpuscular Volume 93 fL (79-100) Mean Corpuscular Hemoglobin 32 pg (25-35) Mean Corpuscular Hemoglobin Concent 34 g/dL (31-37) Red Cell Distribution Width 17.3 % (11.5-14.5) H Platelet Count 272 x10^3/uL (140-400) Neutrophils (%) (Auto) 42 % (31-73) Lymphocytes (%) (Auto) 41 % (24-48) Monocytes (%) (Auto) 17 % (0-9) H Eosinophils (%) (Auto) 0 % (0-3) Basophils (%) (Auto) 0 % (0-3) Neutrophils # (Auto) 1.8 x10^3/uL (1.8-7.7) Lymphocytes # (Auto) 1.7 x10^3/uL (1.0-4.8) Monocytes # (Auto) 0.7 x10^3/uL (0.0-1.1) Eosinophils # (Auto) 0.0 x10^3/uL (0.0-0.7) Basophils # (Auto) 0.0 x10^3/uL (0.0-0.2) Sodium Level 137 mmol/L (136-145) Potassium Level 3.8 mmol/L (3.5-5.1) Chloride Level 102 mmol/L (98-107) Carbon Dioxide Level 24 mmol/L (21-32) Anion Gap 11 (6-14) Blood Urea Nitrogen 14 mg/dL (8-26) Creatinine 0.8 mg/dL (0.7-1.3) Estimated GFR (Cockcroft-Gault) 99.6 BUN/Creatinine Ratio 18 (6-20) Glucose Level 113 mg/dL (70-99) H Calcium Level 8.8 mg/dL (8.5-10.1) Total Bilirubin 0.3 mg/dL (0.2-1.0) Aspartate Amino Transferase (AST) 24 U/L (15-37) Alanine Aminotransferase (ALT) 16 U/L (16-63) Alkaline Phosphatase 113 U/L (46-116) Troponin I Quantitative < 0.017 ng/mL (0.000-0.055) Total Protein 7.2 g/dL (6.4-8.2) Albumin 3.6 g/dL (3.4-5.0) Albumin/Globulin Ratio 1.0 (1.0-1.7) Lipase 292 U/L (73-393) Group A Streptococcus Rapid Negative (NEGATIVE) Laboratory Tests 01/12/20 10:04 Laboratory Tests 01/12/20 10:04 EKG EKG [EKG: Reviewed] Radiology/Procedures Radiology/Procedures [CXR: CT neck soft tissue, CT cervical spine: Possible vocal cord mass.] Course & Med Decision Making Course & Med Decision Making Pertinent Labs and Imaging studies reviewed. (See chart for details) [Pain address improved with treatment. Symptoms do not coincide with CT findings of possible vocal cord mass. Will treat supportively and placed on antibiotics with PCP follow-up for review of ED tests and imaging and further management.] Dragon Disclaimer Dragon Disclaimer This electronic medical record was generated, in whole or in part, using a voice recognition dictation system. Departure Departure Impression: Primary Impression: Bronchitis Additional Impression: Neck pain on left side Disposition: ADMITTED INPATIENT Condition: GOOD Patient Instructions: Cervical Sprain, [id number], Bronchitis Additional Instructions: Please take newly prescribed medications as directed. Follow up wiht your PCP in 4 days and to review abnormal CT results. Scripts Doxycycline Monohydrate (DOXYCYCLINE MONOHYDRATE) 100 Mg Capsule 1 CAP PO BID, #20 CAP Prov: ANDI CUEVAS DO 01/12/20 Cyclobenzaprine Hcl (CYCLOBENZAPRINE HCL) 10 Mg Tablet 1 TAB PO TID, #30 TAB Prov: ANDI CUEVAS DO 01/12/20 Hydrocodone/Acetaminophen (Hydrocodone-Acetamin 5-325 mg) 1 Each Tablet 1 EACH PO Q6-8HRS PRN for PAIN MDD 3, #12 TAB Prov: ANDI CUEVAS DO 01/12/20 Problem Qualifiers ANDI CUEVAS DO January 12, 2020 17:15
== END 2020-01-12 13:15 | disposition home or self-care (01) ==
LOC: ER 09:40
DX: J40 Bronchitis, not specified as acute or chronic (principal); M54.2 Cervicalgia; G40.909 Epilepsy, unspecified, not intractable, without status epilepticus; F31.9 Bipolar disorder, unspecified; J44.9 Chronic obstructive pulmonary disease, unspecified; K21.9 Gastro-esophageal reflux disease without esophagitis; E78.00 Pure hypercholesterolemia, unspecified; Z90.49 Acquired absence of other specified parts of digestive tract
CPT/HCPCS: 36415; 70490; 71045; 72125; 80053; 83690; 84484; 85025; 87070; 87880; 93005; 99285-25

== ENCOUNTER 2020-12-31 11:27 | Emergency (ER) | payer MEDICARE, OTHER ==
[~2020-12-31] VITALS: Ht 165.1 cm; Wt 65.0 kg
[~2020-12-31 11:27] MED LIST changes: -CETI10TA24 PO; +CETI10TA74 PO; +DOXY100C14 PO; +GEMF600T20 PO; -GEMF600T8 PO; +HYDR-2759 PO
[2020-12-31 12:02] VITALS: BP 106/64
--- NOTE | 2020-12-31 12:57 | RAD ---
Single AP view of the pelvis with AP and frog-leg lateral views of the right hip were obtained. History: Reason: r HIP BRUISE AFTER FALL 12/28. Instructions: / History: Comparison: none. No fracture is seen about the right proximal femur acetabulum. The femoral head is located in the ac etabulum. No significant degenerative changes are seen. Impression: 1. Negative exam of the right hip. Electronically signed by: Cosmo Calabrese MD (12/31/2020 12:54 PM) [id number]
--- NOTE | 2020-12-31 13:08 | RAD ---
EXAM: CT head and cervical spine without contrast INDICATION: Fall, bruising to posterior occipital scalp and neck COMPARISON: CT head 06/20/[address] C-spine 01/12/2020 TECHNIQUE: Axial CT imaging through the head and cervical spine without intravenous contrast. Sagitta l and coronal reformats were obtained. One or more of the following individualized dose reduction techniques were utilized for this examinat ion: 1. Automated exposure control 2. Adjustment of the mA and/or kV according to patient size 3. Use of iterative reconstruction technique. FINDINGS: CT head: The ventricles and sulci are mildly enlarged, reflecting age-related volume loss. There is mild periv entricular and deep white matter hypoattenuation. Lane-white matter differentiation is maintained. T here is no intracranial hemorrhage, acute infarct, or mass lesion. Basal cisterns are clear. The skull is intact. There is a small occipital scalp contusion on the right. Minimal mucosal thicken ing in the paranasal sinuses, decreased from prior exam. Mastoid air cells are clear. Globes and orbi ts are intact. CT cervical spine: No acute fracture. Alignment is normal. Mild disc space narrowing. There are bridging anterior osteop hytes at multiple levels, the largest at C4-C5 and C5-C6. Distal unchanged in appearance. No disc spa ce or facet joint widening. Mild left foraminal narrowing at C5-C6. Small disc bulges at several leve ls. Prevertebral soft tissues normal. There are calcifications in the carotid bifurcation. IMPRESSION: 1. No acute intracranial abnormality. Small occipital scalp contusion. 2. No acute osseous abnormality of the cervical spine. Electronically signed by: Chelsey Pacheco MD (12/31/2020 1:06 PM) [id number]
--- NOTE | 2020-12-31 13:22 | ED.ADGEN ---
Past Medical History Past Medical History: Anemia, Asthma, Bipolar, COPD, GERD, High Cholesterol, Seizure Additional Past Medical Histor: MR,NEUTROPENIA, AUTISM Past Surgical History: Cholecystectomy, Other Additional Past Surgical Histo: dental, VNS STIMULATOR PLACED Smoking Status: Never Smoker Alcohol Use: None Drug Use: None General Adult EDM: Chief Complaint: MECHANICAL FALL HPI: HPI: Patient is a 60 year old male, brought in by his caregiver, who presents emergency department with bruising and pain to his posterior scalp, neck, and right hip after a fall that happened on December 28. Patient's caregiver reports that the patient was never taken anywhere to be evaluated after the fall. She states that this is the first time that she is seen the patient since the fall and reports concern because he was never taken anywhere to be evaluated. Patient has a history of MR therefore HPI is limited. Review of Systems: Review of Systems: Complete ROS is negative unless otherwise noted in HPI. Allergies: Allergies: Allergies Coded Allergies Type Severity Reaction Last Updated Verified No Known Drug Allergies 03/23/17 No Physical Exam: PE: See Above Constitutional: Well developed, well nourished, no acute distress, non-toxic appearance, wearing a helmet. [] HENT: Normocephalic, atraumatic, bilateral external ears normal, nose normal. [] Eyes: PERRLA, EOMI, conjunctiva normal, no discharge. [] Neck: Normal range of motion,, no bony tenderness, no crepitus, no obvious deformity or/step-off, no stridor; dark purple bruising to posterior neck with tenderness to palpation of the bruise [] Cardiovascular:Heart rate regular rhythm Lungs & Thorax: Respirations even and unlabored, no retractions, no respiratory distress Abdomen: soft, no tenderness Back: No bony tenderness or deformity, no bruising, no crepitus Skin: Warm, dry, no erythema, no rash; dark purple bruise to posterior occipital region and to right lateral hip. [] Extremities: Right hip: No obvious shortening or rotation, lateral tenderness to palpation, no cyanosis, ROM intact, no edema. [] Neurologic: Alert and oriented normal for patient, no focal deficits noted. [] Psychologic: Affect normal, judgement normal, mood normal. [] Current Patient Data: Vital Signs: Vital Signs Date Time Temp Pulse Resp B/P (MAP) Pulse Ox O2 Delivery O2 Flow Rate FiO2 12/31/20 12:02 98.1 72 12 106/64 (78) 98 Room Air 98.1 EKG: EKG: [] Heart Score: C/O Chest Pain: No Risk Scores: Score 0 - 3: 2.5% MACE over next 6 weeks - Discharge Home Score 4 - 6: 20.3% MACE over next 6 weeks - Admit for Clinical Observation Score 7 - 10: 72.7% MACE over next 6 weeks - Early Invasive Strategies Radiology/Procedures: Radiology/Procedures: PROCEDURE: CT HEAD AND CERVICAL SPINE WO EXAM: CT head and cervical spine without contrast INDICATION: Fall, bruising to posterior occipital scalp and neck COMPARISON: CT head 06/20/[address] C-spine 01/12/2020 TECHNIQUE: Axial CT imaging through the head and cervical spine without intravenous contrast. Sagittal and coronal reformats were obtained. One or more of the following individualized dose reduction techniques were utilized for this examination: 1. Automated exposure control 2. Adjustment of the mA and/or kV according to patient size 3. Use of iterative reconstruction technique. FINDINGS: CT head: The ventricles and sulci are mildly enlarged, reflecting age-related volume loss. There is mild periventricular and deep white matter hypoattenuation. Lane-white matter differentiation is maintained. There is no intracranial hemorrhage, acute infarct, or mass lesion. Basal cisterns are clear. The skull is intact. There is a small occipital scalp contusion on the right. Minimal mucosal thickening in the paranasal sinuses, decreased from prior exam. Mastoid air cells are clear. Globes and orbits are intact. CT cervical spine: No acute fracture. Alignment is normal. Mild disc space narrowing. There are bridging anterior osteophytes at multiple levels, the largest at C4-C5 and C5- C6. Distal unchanged in appearance. No disc space or facet joint widening. Mild left foraminal narrowing at C5-C6. Small disc bulges at several levels. Prev ertebral soft tissues normal. There are calcifications in the carotid bifurcation. IMPRESSION: 1. No acute intracranial abnormality. Small occipital scalp contusion. 2. No acute osseous abnormality of the cervical spine. Electronically signed by: Chelsey Pacheco MD (12/31/2020 1:06 PM) [id number] [] Course & Med Decision Making: Course & Med Decision Making Pertinent Labs and Imaging studies reviewed. (See chart for details) [] Dragon Disclaimer: Dragon Disclaimer: This electronic medical record was generated, in whole or in part, using a voice recognition dictation system. Departure Departure Impression: Primary Impression: Contusion of occipital region of scalp Additional Impressions: Contusion of neck Contusion of right hip, initial encounter Disposition: HOME / SELF CARE / HOMELESS Condition: STABLE Referrals: TAMERA SNELL MD (PCP) Patient Instructions: Facial or Scalp Contusion, [id number], Hip Injury Additional Instructions: Recommend application of ice or heat as needed for comfort. Tylenol or ibuprofen as needed for pain. Follow-up with primary care doctor next week for reevaluation, return to the ER if symptoms worsen or fever develops. Problem Qualifiers Primary Impression: Contusion of occipital region of scalp Encounter type: initial encounter Qualified Codes: S00.03XA - Contusion of scalp, initial encounter Additional Impressions: Contusion of neck Encounter type: initial encounter Qualified Codes: S10.93XA - Contusion of unspecified part of neck, initial encounter SALOMON KELLEY HAND BUFFER December 31, 2020 13:22
[2020-12-31] MEDS ORDERED: ACETAMINOPHEN 325 MG TABLET. PO ONE (13:30)
== END 2020-12-31 13:32 | disposition home or self-care (01) ==
LOC: ER 11:27
DX: S00.03XA Contusion of scalp, initial encounter (principal); S10.93XA Contusion of unspecified part of neck, initial encounter; S70.01XA Contusion of right hip, initial encounter; J44.9 Chronic obstructive pulmonary disease, unspecified; K21.9 Gastro-esophageal reflux disease without esophagitis; E78.00 Pure hypercholesterolemia, unspecified; F31.9 Bipolar disorder, unspecified; Z86.2 Personal history of diseases of the blood and blood-forming organs and certain disorders involving the immune mechanism; W18.39XA Other fall on same level, initial encounter; Y93.89 Activity, other specified; Y92.89 Other specified places as the place of occurrence of the external cause; Y99.8 Other external cause status
CPT/HCPCS: 70450; 72125; 73502; 99285

== ENCOUNTER 2021-09-04 13:27 | Observation (INO) | payer MEDICARE, OTHER ==
[~2021-09-04] VITALS: Ht 152.4 cm; Wt 71.5 kg
[~2021-09-04 13:27] MED LIST changes: -CITA10TA4 PO; +CITA10TA5 PO; +CYCL10TA19 PO; -CYCL10TA2 PO; +DOXY-181 PO; -DOXY100C14 PO
--- NOTE | 2021-09-04 13:34 | PHYS DOC ---
Past Medical History Past Medical History: Anemia, Asthma, Bipolar, COPD, GERD, High Cholesterol, Seizure Additional Past Medical Histor: MR,NEUTROPENIA, AUTISM Past Surgical History: Cholecystectomy, Other Additional Past Surgical Histo: dental, VNS STIMULATOR PLACED Smoking Status: Never Smoker Alcohol Use: None Drug Use: None General Adult EDM: Chief Complaint: SEIZURE HPI: HPI: Patient is a 61 year old male who presents from his care facility for evaluation of seizure activity. He reportedly had multiple witnessed seizures with brief postictal periods. Patient has a history of frequent seizures. When he was last admitted here, he saw neurology, he was taken off Depakote, placed on Dilantin, Keppra and Vimpat. No reported issues of noncompliance. No reported fall or head injury. No reported fevers, vomiting. No report of cough, chest pain, dyspnea. The patient is overall relatively poor historian, secondary to chronic health issues. He is behaving at his baseline mental status. I spoke with one of his caregivers, who reports no change in behavior at this time. She did not actually witness the seizure herself. Review of Systems: Review of Systems: Review of systems is somewhat limited secondary to chronic health issues and chronic functioning issues. Constitutional: Denies fever Respiratory: Denies cough or shortness of breath. [] Cardiovascular: Denies chest pain GI: Denies abdominal pain, nausea, vomiting Musculoskeletal: Denies back pain Neurologic: Generalized seizure activity. No reported focal weakness. The patient denies dizziness. No acute alteration in mental status from baseline reported. Heart Score: C/O Chest Pain: No Risk Factors: Risk Factors: DM, Current or recent (<one month) smoker, HTN, HLP, family history of CAD, obesity. Risk Scores: Score 0 - 3: 2.5% MACE over next 6 weeks - Discharge Home Score 4 - 6: 20.3% MACE over next 6 weeks - Admit for Clinical Observation Score 7 - 10: 72.7% MACE over next 6 weeks - Early Invasive Strategies Allergies: Allergies: Allergies Coded Allergies Type Severity Reaction Last Updated Verified No Known Drug Allergies 03/23/17 No Physical Exam: PE: Constitutional: Well developed, well nourished, no acute distress, non-toxic appearance. [] HENT: Normocephalic, atraumatic, oropharynx is patent and clear, no trauma, no bleeding, mucous membranes are moist. TMs are clear bilaterally. Nares are patent, no epistaxis, no rhinorrhea, no otorrhea. Eyes: PERRL, EOMI, conjunctiva normal, no discharge. No scleral icterus. Neck: Normal range of motion, no tenderness, supple, no stridor. No meningismus Cardiovascular:Heart rate regular rhythm, +2 radial pulses bilaterally. Lungs & Thorax: Bilateral breath sounds clear to auscultation [] Abdomen: Abdomen is soft, nondistended, nontender to palpation. Skin: Warm, dry, no erythema, no jaundice. Back: No tenderness Extremities: No tenderness, no cyanosis, no clubbing, ROM intact, no edema. No limb deformities. Neurologic: He is awake, alert, ambulatory with a steady gait, normal motor strength, sensation grossly intact, no facial asymmetry, he follows commands. No ataxia. Speech is fluent and at his baseline. Psychologic: Affect normal, judgement normal, mood normal. He is pleasant. EKG: EKG: [] Radiology/Procedures: Radiology/Procedures: IMAGING REPORT Signed PATIENT: ISABELA VANCE ACCOUNT: [id number] : 1960 LOCATION: ER AGE: 61 SEX: M EXAM STATUS: PRE ER ORD. PHYSICIAN: RAMBO SARMIENTO DO REASON: breatkthrough seizures PROCEDURE: CT HEAD WO CONTRAST CT scan of the head without contrast 09/04/2021 Clinical History: Seizures Technique: Unenhanced, contiguous, 5 mm axial sections were obtained through the head. One or more of the following individualized dose reduction techniques were utilized for this study: 1. Automated exposure control. 2. Adjustment of the mA and/or kV according to patient size. 3. Use of iterative reconstruction technique. Findings: Comparison study is dated 12/31/2020. There is generalized parenchymal atrophy. Areas of decreased attenuation are seen within the periventricular and subcortical white matter of both cerebral hemispheres consistent with areas of small vessel ischemic disease. No acute parenchymal abnormality is seen. No extra-axial fluid collection is noted. No skull fracture is seen. Moderate mucosal thickening is seen involving the visualized maxillary sinuses. Impression: No acute intracranial abnormality is seen. Electronically signed by: Juan Pablo Mosquera MD (09/04/2021 2:48 PM) [id number] DICTATED and SIGNED BY: JUAN PABLO MOSQUERA MD DATE: 09/04/21 [id number] Course & Med Decision Making: Course & Med Decision Making Pertinent Labs and Imaging studies reviewed. (See chart for details) I did personally witnessed the end of 1 of tonic-clonic, generalized seizure. He had a brief postictal period, which lasted less than 1 minute approximately. Seizure precautions initiated. The patient was somewhat agitated, though easily redirectable after the seizure. He is given a dose of IV Ativan here. No further seizure activity was demonstrated in the emergency department. CT imaging is unremarkable. Metabolic/laboratory work-up is unremarkable for any acute life-threatening process. I contacted his primary care doctor, Dr. Snell, who agrees with the plan for admission. Neurology is consulted, he saw the patient at the bedside. He will reviewed the patient's medications, and he reports that he will recommend increasing his Vimpat dosing. I explained the recommendation for admission to the patient and his caregiver, they are comfortable with this plan. Dragon Disclaimer: Dragon Disclaimer: This electronic medical record was generated, in whole or in part, using a voice recognition dictation system. Departure Departure Impression: Primary Impression: Breakthrough seizure Disposition: ADMITTED INPATIENT Admitting Physician: Geraldine Snell Referrals: GERALDINE SNELL MD (PCP) RAMBO SARMIENTO DO Sep 04, 2021 13:34
[2021-09-04] MEDS ORDERED: IV NORMAL SALINE 1000ML BAG 1,000 ML IV ONE ×2 (13:45→16:00)
[2021-09-04 14:19] LABS: BASO % 0 % (0-3); EOS % 0 % (0-3); HEMATOCRIT 34.9 % (39.0-53.0); HEMOGLOBIN 11.9 g/dL (13.0-17.5); LYMPH # 0.8 x10^3/uL (1.0-4.8); LYMPH % 21 % (24-48); MEAN CORPUSCULAR HEMOGLOBIN 30 pg (25-35); MEAN CORPUSCULAR HGB CONC 34 g/dL (31-37); MEAN CORPUSCULAR VOLUME 89 fL (79-100); MONO # 0.4 x10^3/uL (0.0-1.1); MONO % 12 % (0-9); NEUT # 2.4 x10^3/uL (1.8-7.7); NEUT % 66 % (31-73); PLATELET COUNT 182 x10^3/uL (140-400); RED BLOOD COUNT 3.92 x10^6/uL (4.30-5.70); RED CELL DISTRIBUTION WIDTH 17.9 % (11.5-14.5); WHITE BLOOD COUNT 3.6 x10^3/uL (4.0-11.0)
--- NOTE | 2021-09-04 14:50 | RAD ---
CT scan of the head without contrast 09/04/2021 Clinical History: Seizures Technique: Unenhanced, contiguous, 5 mm axial sections were obtained through the head. One or more of the following individualized dose reduction techniques were utilized for this study: 1. Automated exposure control. 2. Adjustment of the mA and/or kV according to patient size. 3. Use of iterative reconstruction technique. Findings: Comparison study is dated 12/31/2020. There is generalized parenchymal atrophy. Areas of decreased attenuation are seen within the perivent ricular and subcortical white matter of both cerebral hemispheres consistent with areas of small vess el ischemic disease. No acute parenchymal abnormality is seen. No extra-axial fluid collection is not ed. No skull fracture is seen. Moderate mucosal thickening is seen involving the visualized maxillary sinuses. Impression: No acute intracranial abnormality is seen. Electronically signed by: Juan Pablo Mosquera MD (09/04/2021 2:48 PM) [id number]
[2021-09-04 14:54] LABS: ANION GAP 8 (6-14); BLOOD UREA NITROGEN 14 mg/dL (8-26); BUN/CREATININE RATIO 23 (6-20); CALCIUM 8.4 mg/dL (8.5-10.1); CARBON DIOXIDE 26 mmol/L (21-32); CHLORIDE 101 mmol/L (98-107); CREATININE 0.6 mg/dL (0.7-1.3); GFR 137.9; GLUCOSE 123 mg/dL (70-99); POTASSIUM 4.4 mmol/L (3.5-5.1); SODIUM 135 mmol/L (136-145)
[2021-09-04 14:58] LABS: ALBUMIN 3.8 g/dL (3.4-5.0); ALK PHOS 139 U/L (46-116); ALT (SGPT) 21 U/L (16-63); AST (SGOT) 26 U/L (15-37); CREATINE KINASE 55 U/L (39-308); MAGNESIUM 1.9 mg/dL (1.8-2.4); TOTAL BILIRUBIN 0.4 mg/dL (0.2-1.0); TOTAL PROTEIN 7.7 g/dL (6.4-8.2)
[2021-09-04 15:12] LABS: PHENY 8.8 mcg/mL (10.0-20.0)
[2021-09-04 15:26] LABS: BILIRUBIN,URINE NEGATIVE (NEG); CLARITY,URINE CLEAR; COLOR,URINE YELLOW; NITRITE,URINE NEGATIVE (NEG); PROTEIN,URINE NEGATIVE (NEG-TRACE)
[2021-09-04 15:37] LABS: BACTERIA,URINE 0 /HPF (0-FEW); RBC,URINE 0 /HPF (0-2); WBC,URINE 0 /HPF (0-4)
[2021-09-04] MEDS ORDERED: LACTULOSE 20 GM/30 ML SOLUTION. PO ONE (16:00)
[2021-09-04 16:27] LABS: % BANDS 3 % (0-9); % LYMPHS 21 % (24-48); % MONOS 8 % (0-10); % MYELOS 1 % (0-0); % SEGS 67 % (35-66); ANISOCYTOSIS SLIGHT; PLT ESTIMATE ADEQUATE (ADEQUATE); POIKILOCYTOSIS SLIGHT
[2021-09-04 16:28] LABS: OVALOCYTES FEW
--- NOTE | 2021-09-04 19:00 | PDOC2 ---
NEUROLOGY CONSULT Date of Service DOS: DATE: 09/04/21 TIME: 18:49 Referring Physician Referring Physician: Dr. Geraldine Colón Identification/Chief Complaint Chief Complaint Augustin Smith is a 61-year-old man who presented to the emergency room at [facility] on September 04, 2021. He has a known intractable seizure disorder and had several seizures at his facility. He was transported a nd had a seizure witnessed in the emergency room as well. I previously evaluated him June 21, 2019. At that time he also presented with seizures. He follows with Dr. Roy in his outpatient clinic. The patient himself has generalized intellectual disability and is unable to provide any history. He seems back to his usual self which is awake and alert and pleasant. In 2018 his Depakote was switched to Vimpat because of elevated ammonia levels. He continues to have mildly elevated ammonia levels. I did review the medical administration record sent by his facility. It does reveal that he is on Vimpat, Keppra, Lyrica, phenytoin and clonazepam for seizure prevention. He also has a vagal nerve stimulator. He is being admitted for observation to make sure the seizures have subsided. Current Medications Current Medications Current Medications Lorazepam (Ativan Inj) 1 mg 1X ONCE IVP ; Start 09/04/21 at 13:45; Stop 09/04/21 at 13:50; Status DC Sodium Chloride 1,000 ml @ 1,000 mls/hr 1X ONCE IV Last administered on 09/04/21at 14:14; Start 09/04/21 at 13:45; Stop 09/04/21 at 14:44; Status DC Lactulose (Lactulose) 20 gm 1X ONCE PO ; Start 09/04/21 at 16:00; Stop 09/04/21 at 16:01; Status DC Sodium Chloride 1,000 ml @ 75 mls/hr 1X ONCE IV ; Start 09/04/21 at 16:00; Stop 09/05/21 at 05:19 Active Scripts Active Doxycycline Monohydrate 100 Mg Capsule 1 Cap PO BID Cyclobenzaprine Hcl 10 Mg Tablet 1 Tab PO TID Hydrocodone-Acetamin 5-325 mg (Hydrocodone/Acetaminophen) 1 Each Tablet 1 Each PO Q6-8HRS PRN MDD 3 Vimpat (Lacosamide) 50 Mg Tablet 100 Mg PO BID 30 Days Dilantin (Phenytoin Sodium Extended) 100 Mg Capsule 200 Mg PO BID 30 Days Flomax (Tamsulosin Hcl) 0.4 Mg Cap.er.24h 0.4 Mg PO BIDWMEALS 30 Days Hydrocodone-Apap 5-325 (Hydrocodone Bit/Acetaminophen) 1 Tab Tablet 1 Tab PO PRN Q6HRS PRN 3 Days Ibuprofen 800 Mg Tablet 800 Mg PO PRN TID PRN take with food or milk to avoid upsetting stomach Reported Vitamin D3 (Cholecalciferol (Vitamin D3)) 1,000 Unit Tablet 500 Unit PO 3X/WEEK Artificial Tears Drops (Dextran 70/Hypromellose/Pf) 1 Each Droperette 1 Drop OU QID Flovent 44MCG Hfa (Fluticasone Propionate) 10.6 Gm Aer.w.adap 1 Puff IH BID Bisacodyl 5 Mg Tablet.dr 10 Mg PO DAILY PRN Theragran-M Premier 50+ Caplet (Mv-Mn/Fa/Coq10/Lycopene/Lutein) 1 Each Tablet 1 Each PO DAILY Senokot-S Tablet (Sennosides/Docusate Sodium) 1 Each Tablet 1 Tab PO BID Levetiracetam 500 Mg Tablet 1,500 Mg PO BID Clonazepam (Clonazepam) 0.5 Mg Tablet 0.5 Mg PO HS Midodrine Hcl 10 Mg Tablet 10 Mg PO TID Gemfibrozil 600 Mg Tablet 1 Tab PO BID Vitamin B-12 (Cyanocobalamin (Vitamin B-12)) 1,000 Mcg Tablet 500 Mcg PO DAILY Folic Acid 1 Mg Tablet 1 Tab PO DAILY Flonase Allergy Relief (Fluticasone Propionate) 9.9 Ml [place].susp 2 Sprays NS DAILY Finasteride 5 Mg Tablet 1 Tab PO DAILY Lyrica (Pregabalin) 225 Mg Capsule 225 Mg PO BID 30 Days Omeprazole 20 Mg Tablet.dr 1 Tab PO DAILY Allergies Allergies: Coded Allergies: No Known Drug Allergies (Unverified , 03/23/17) ROS Review of System PAST MEDICAL HISTORY: 1. Hyperlipidemia. 2. Orthostatic hypotension. 3. Chronic obstructive pulmonary disease. 4. Dementia and intellectual disability. 5. Intractable seizure disorder. 6. Gastroesophageal reflux disease. 7. B12 deficiency. 8. Vitamin D deficiency. 9. Pancytopenia. 10. History of hepatitis A, B, C. 11. Bipolar disorder. 12. History of sinusitis. 13. Benign prostatic hypertrophy with urinary retention. 14. Cholecystectomy. 15. Vagal nerve stimulator placement. Constitutional: Negative Eyes: Negative HENT: Negative Respiratory: Negative Cardiovascular: He has orthostasis. GI: Negative : Negative Musculoskeletal: Negative Neurologic: He has a seizure disorder. Hematologic: Negative Lymphatic: Negative Psychiatric: He has a history of psychiatric symptoms. Physical Exam Physical Examination He was alert, awake and cooperative. Speech was fluent and clear. He had a very limited fund of recent and remote knowledge. He was developmentally inte llectually challenged. He was not oriented. He knew he lived in a facility but does not recall the name. They usually give him his medicines at the facility. He was very pleasant. Examination of the cranial nerves revealed visual anthony were full to confrontation. Extraocular movements were intact. The eyes were conjugate. Pupils were 4 mm and reacted. Facial sensation was intact bilaterally. The muscles of mastication and facial expression were powerful symmetrically. Hearing was intact to finger rub. The palate arched symmetrically and the tongue was midline with full motion. Sternocleidomastoid and trapezius were powerful. Muscle bulk and tone was normal. There was no arm drift or abnormal movement. There was no leg drift. Power was full and symmetric. Reflexes were 2/4 to 2+/4 and symmetric. He had some crossed abduction. The toes were not upgoing. Coordination testing with quimfe-kk-ccps and qdgs-zc-vmmw was well performed. Sensory exam was intact to pain, light touch, cold thermal and vibration. Gait was not testable. Auscultation of the carotid arteries did not reveal a bruit. Heart rhythm was regular without a murmur. Peripheral pulses were symmetric. There was no edema or cyanosis. Vitals VITALS Vital Signs Date Time Temp Pulse Resp B/P (MAP) Pulse Ox O2 Delivery O2 Flow Rate FiO2 09/04/21 15:36 86 98 09/04/21 13:27 98.6 18 149/81 (103) Room Air 98.6 Labs Labs Laboratory Tests Test 09/04/21 14:00 09/04/21 15:15 White Blood Count 3.6 x10^3/uL (4.0-11.0) Red Blood Count 3.92 x10^6/uL (4.30-5.70) Hemoglobin 11.9 g/dL (13.0-17.5) Hematocrit 34.9 % (39.0-53.0) Mean Corpuscular Volume 89 fL (79-100) Mean Corpuscular Hemoglobin 30 pg (25-35) Mean Corpuscular Hemoglobin Concent 34 g/dL (31-37) Red Cell Distribution Width 17.9 % (11.5-14.5) Platelet Count 182 x10^3/uL (140-400) Neutrophils (%) (Auto) 66 % (31-73) Lymphocytes (%) (Auto) 21 % (24-48) Monocytes (%) (Auto) 12 % (0-9) Eosinophils (%) (Auto) 0 % (0-3) Basophils (%) (Auto) 0 % (0-3) Neutrophils # (Auto) 2.4 x10^3/uL (1.8-7.7) Lymphocytes # (Auto) 0.8 x10^3/uL (1.0-4.8) Monocytes # (Auto) 0.4 x10^3/uL (0.0-1.1) Eosinophils # (Auto) 0.0 x10^3/uL (0.0-0.7) Basophils # (Auto) 0.0 x10^3/uL (0.0-0.2) Segmented Neutrophils % 67 % (35-66) Band Neutrophils % 3 % (0-9) Lymphocytes % 21 % (24-48) Monocytes % 8 % (0-10) Myelocytes % 1 % (0-0) Platelet Estimate Adequate (ADEQUATE) Poikilocytosis Slight Anisocytosis Slight Ovalocytes Few Sodium Level 135 mmol/L (136-145) Potassium Level 4.4 mmol/L (3.5-5.1) Chloride Level 101 mmol/L (98-107) Carbon Dioxide Level 26 mmol/L (21-32) Anion Gap 8 (6-14) Blood Urea Nitrogen 14 mg/dL (8-26) Creatinine 0.6 mg/dL (0.7-1.3) Estimated GFR (Cockcroft-Gault) 137.9 BUN/Creatinine Ratio 23 (6-20) Glucose Level 123 mg/dL (70-99) Lactic Acid Level 1.1 mmol/L (0.4-2.0) Calcium Level 8.4 mg/dL (8.5-10.1) Magnesium Level 1.9 mg/dL (1.8-2.4) Total Bilirubin 0.4 mg/dL (0.2-1.0) Aspartate Amino Transf (AST/SGOT) 26 U/L (15-37) Alanine Aminotransferase (ALT/SGPT) 21 U/L (16-63) Alkaline Phosphatase 139 U/L (46-116) Ammonia 61 mcmol/L (11-34) Creatine Kinase 55 U/L (39-308) Total Protein 7.7 g/dL (6.4-8.2) Albumin 3.8 g/dL (3.4-5.0) Albumin/Globulin Ratio 1.0 (1.0-1.7) Phenytoin (Dilantin) Level 8.8 mcg/mL (10.0-20.0) Phenytoin Last Dose Date 08/27/2021 Phenytoin Last Dose Time 1111 Urine Collection Type Unknown Urine Color Yellow Urine Clarity Clear Urine pH 7.0 (<5.0-8.0) Urine Specific [place] 1.015 (1.000-1.030) Urine Protein Negative mg/dL (NEG-TRACE) Urine Glucose (UA) Negative mg/dL (NEG) Urine Ketones (Stick) Negative mg/dL (NEG) Urine Blood Negative (NEG) Urine Nitrite Negative (NEG) Urine Bilirubin Negative (NEG) Urine Urobilinogen Dipstick 1.0 mg/dL (0.2 mg/dL) Urine Leukocyte Esterase Negative (NEG) Urine RBC 0 /HPF (0-2) Urine WBC 0 /HPF (0-4) Urine Bacteria 0 /HPF (0-FEW) Laboratory Tests Test 09/04/21 14:00 09/04/21 15:15 White Blood Count 3.6 x10^3/uL (4.0-11.0) Red Blood Count 3.92 x10^6/uL (4.30-5.70) Hemoglobin 11.9 g/dL (13.0-17.5) Hematocrit 34.9 % (39.0-53.0) Mean Corpuscular Volume 89 fL (79-100) Mean Corpuscular Hemoglobin 30 pg (25-35) Mean Corpuscular Hemoglobin Concent 34 g/dL (31-37) Red Cell Distribution Width 17.9 % (11.5-14.5) Platelet Count 182 x10^3/uL (140-400) Neutrophils (%) (Auto) 66 % (31-73) Lymphocytes (%) (Auto) 21 % (24-48) Monocytes (%) (Auto) 12 % (0-9) Eosinophils (%) (Auto) 0 % (0-3) Basophils (%) (Auto) 0 % (0-3) Neutrophils # (Auto) 2.4 x10^3/uL (1.8-7.7) Lymphocytes # (Auto) 0.8 x10^3/uL (1.0-4.8) Monocytes # (Auto) 0.4 x10^3/uL (0.0-1.1) Eosinophils # (Auto) 0.0 x10^3/uL (0.0-0.7) Basophils # (Auto) 0.0 x10^3/uL (0.0-0.2) Segmented Neutrophils % 67 % (35-66) Band Neutrophils % 3 % (0-9) Lymphocytes % 21 % (24-48) Monocytes % 8 % (0-10) Myelocytes % 1 % (0-0) Platelet Estimate Adequate (ADEQUATE) Poikilocytosis Slight Anisocytosis Slight Ovalocytes Few Sodium Level 135 mmol/L (136-145) Potassium Level 4.4 mmol/L (3.5-5.1) Chloride Level 101 mmol/L (98-107) Carbon Dioxide Level 26 mmol/L (21-32) Anion Gap 8 (6-14) Blood Urea Nitrogen 14 mg/dL (8-26) Creatinine 0.6 mg/dL (0.7-1.3) Estimated GFR (Cockcroft-Gault) 137.9 BUN/Creatinine Ratio 23 (6-20) Glucose Level 123 mg/dL (70-99) Lactic Acid Level 1.1 mmol/L (0.4-2.0) Calcium Level 8.4 mg/dL (8.5-10.1) Magnesium Level 1.9 mg/dL (1.8-2.4) Total Bilirubin 0.4 mg/dL (0.2-1.0) Aspartate Amino Transf (AST/SGOT) 26 U/L (15-37) Alanine Aminotransferase (ALT/SGPT) 21 U/L (16-63) Alkaline Phosphatase 139 U/L (46-116) Ammonia 61 mcmol/L (11-34) Creatine Kinase 55 U/L (39-308) Total Protein 7.7 g/dL (6.4-8.2) Albumin 3.8 g/dL (3.4-5.0) Albumin/Globulin Ratio 1.0 (1.0-1.7) Phenytoin (Dilantin) Level 8.8 mcg/mL (10.0-20.0) Phenytoin Last Dose Date 08/27/2021 Phenytoin Last Dose Time 1111 Urine Collection Type Unknown Urine Color Yellow Urine Clarity Clear Urine pH 7.0 (<5.0-8.0) Urine Specific [place] 1.015 (1.000-1.030) Urine Protein Negative mg/dL (NEG-TRACE) Urine Glucose (UA) Negative mg/dL (NEG) Urine Ketones (Stick) Negative mg/dL (NEG) Urine Blood Negative (NEG) Urine Nitrite Negative (NEG) Urine Bilirubin Negative (NEG) Urine Urobilinogen Dipstick 1.0 mg/dL (0.2 mg/dL) Urine Leukocyte Esterase Negative (NEG) Urine RBC 0 /HPF (0-2) Urine WBC 0 /HPF (0-4) Urine Bacteria 0 /HPF (0-FEW) Images Images CT scan of the head without contrast 09/04/2021 Clinical History: Seizures Technique: Unenhanced, contiguous, 5 mm axial sections were obtained through the head. One or more of the following individualized dose reduction techniques were utilized for this study: 1. Automated exposure control. 2. Adjustment of the mA and/or kV according to patient size. 3. Use of iterative reconstruction technique. Findings: Comparison study is dated 12/31/2020. There is generalized parenchymal atrophy. Areas of decreased attenuation are seen within the periventricular and subcortical white matter of both cerebral hemispheres consistent with areas of small vessel ischemic disease. No acute parenchymal abnormality is seen. No extra-axial fluid collection is noted. No skull fracture is seen. Moderate mucosal thickening is seen involving the vi sualized maxillary sinuses. Impression: No acute intracranial abnormality is seen. Assessment/Plan Assessment/Plan Augustin Smith is a pleasant 61-year-old man with an intractable seizure disorder. He is on polypharmacy with multiple anticonvulsants and has a vagal nerve stimulator. Despite this he still has breakthrough seizure. I have reviewed his medication administration record. The Vimpat is currently 100 mg twice per day. I will increase this to 200 mg twice per day. We will leave all the other anticonvulsants at the present dosage. He has not had any further seizure in the emergency room since he was given a dose of lorazepam. The neurologic examination was nonfocal. He has intellectual disability which is u nchanged. Imaging of his head was unchanged. He may be transferred back to his facility tomorrow if medically stable and no further seizures. PAULINO DOUGLAS MD Sep 04, 2021 19:00
[2021-09-04] MEDS ORDERED: clonazePAM 0.5 MG TABLET PO SCH (21:00)
[2021-09-04] MEDS ORDERED: PHENYTOIN SODIUM EXTENDED 100 MG CAPSULE PO SCH (21:00)
[2021-09-04] MEDS: LACOSAMIDE 200 MG TABLET PO SCH (21:31)
[2021-09-04] MEDS: PREGABALIN 75 MG CAPSULE PO SCH (21:31)
[2021-09-04] MEDS: levETIRAcetam 500 MG TABLET PO SCH (21:32)
[2021-09-04] MEDS ORDERED: BISACODYL 5 MG TABLET.DR. PO PRN (22:30)
--- NOTE | 2021-09-04 23:39 | NUR ---
Pt.just arrived from ED via bed w/ seizures and elevated ammonia level. Has Autism and can make some needs known.
[2021-09-05 03:00] VITALS: BP 121/58
[2021-09-05 07:00] VITALS: BP 128/79
[2021-09-05] MEDS ORDERED: PANTOPRAZOLE 40 MG TABLET.DR. PO SCH (07:30)
[2021-09-05] MEDS ORDERED: BUDESONIDE 0.5 MG/2 ML NEBU. NEB SCH (08:00)
[2021-09-05] MEDS ORDERED: TAMSULOSIN 0.4 MG CAP.ER.24H. PO SCH (08:00)
[2021-09-05] MEDS: LACOSAMIDE 200 MG TABLET PO SCH (08:54)
[2021-09-05] MEDS: PREGABALIN 75 MG CAPSULE PO SCH (08:55)
[2021-09-05] MEDS: levETIRAcetam 500 MG TABLET PO SCH (08:55)
[2021-09-05] MEDS ORDERED: FLUTICASONE 50MCG/NASAL SPRAY 16GM BOTTLE. NS SCH (09:00)
[2021-09-05] MEDS ORDERED: SENNOSIDES/DOCUSATE 8.6/50MG TABLET. PO SCH (09:00)
[2021-09-05] MEDS ORDERED: POLYVINYL ALCOHOL 1.4% OPHTH SOLUTION 15ML BOTTLE. OU SCH (09:00)
[2021-09-05] MEDS ORDERED: PREGABALIN 225 MG PO SCH (09:00)
[2021-09-05] MEDS ORDERED: FINASTERIDE 5 MG TABLET. PO SCH (09:00)
[2021-09-05] MEDS ORDERED: CYANOCOBALAMIN (VITAMIN B-12) 1,000 MCG TABLET. PO SCH (09:00)
[2021-09-05] MEDS ORDERED: PHENYTOIN SODIUM EXTENDED 100 MG CAPSULE PO SCH (09:00)
[2021-09-05] MEDS ORDERED: MULTIVITAMIN with MINERAL TABLET. PO SCH (09:00)
[2021-09-05] MEDS ORDERED: FOLIC ACID 1 MG TABLET. PO SCH (09:00)
[2021-09-05] MEDS ORDERED: CHOLECALCIFEROL (VITAMIN D3) 1,000 UNIT TABLET PO SCH (09:00)
[2021-09-05] MEDS ORDERED: GEMFIBROZIL 600 MG TABLET. PO SCH (09:00)
[2021-09-05] MEDS ORDERED: LACO200T PO (09:36)
[2021-09-05] MEDS ORDERED: PHEN100C PO ×2 (09:36)
--- NOTE | 2021-09-05 09:43 | PDOC ---
Provider Note Date of Service: DATE: 09/05/21 TIME: 09:42 Provider Note Pt seen H&P and Discharge done.#[id number] Justifications for Admission Other Justification TAMERA SNELL MD Sep 05, 2021 09:43
--- NOTE | 2021-09-05 10:25 | PDOC ---
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 He is status-post vagus nerve stimulator. EEG studies showed multifocal spike and waves, he has had negative MRI studies in the past. Dr. Agudelo has increased the lacosamide dose. Patient is also on levetiracetam, Lyrica, and Dilantin. Dilantin level is 8.8. He has a vagus-nerve stimulator and the patient missed his 08/23/2021 follow-up appointment to check on it. Plan Okay for discharge on the higher dose of lacosamide Follow-up with me in 2 to 3 weeks and I will check the vagus nerve stimulator. Subjective No complaints, wants to go home Objective Vital Signs Date Time Temp Pulse Resp B/P (MAP) Pulse Ox O2 Delivery O2 Flow Rate FiO2 09/05/21 07:00 99.0 89 18 128/79 (95) Room Air 99.0 09/05/21 06:23 96 PHYSICAL EXAM Mental status exam consistent with intellectual disability, is very pleasant as always PERRL. EOMI. CN: no focal findings. Muscle tone: A little spastic. Muscle strength: 5/5 DTR: 2+ Plantar reflex: Flexor Gait: not examined in bed. Sensory exam: no abnormal findings. No cerebellar signs elicited. Review of Relevant I have reviewed the following items niya (where applicable) has been applied. Labs Laboratory Tests Test 09/04/21 14:00 09/04/21 15:15 White Blood Count 3.6 x10^3/uL (4.0-11.0) Red Blood Count 3.92 x10^6/uL (4.30-5.70) Hemoglobin 11.9 g/dL (13.0-17.5) Hematocrit 34.9 % (39.0-53.0) Mean Corpuscular Volume 89 fL (79-100) Mean Corpuscular Hemoglobin 30 pg (25-35) Mean Corpuscular Hemoglobin Concent 34 g/dL (31-37) Red Cell Distribution Width 17.9 % (11.5-14.5) Platelet Count 182 x10^3/uL (140-400) Neutrophils (%) (Auto) 66 % (31-73) Lymphocytes (%) (Auto) 21 % (24-48) Monocytes (%) (Auto) 12 % (0-9) Eosinophils (%) (Auto) 0 % (0-3) Basophils (%) (Auto) 0 % (0-3) Neutrophils # (Auto) 2.4 x10^3/uL (1.8-7.7) Lymphocytes # (Auto) 0.8 x10^3/uL (1.0-4.8) Monocytes # (Auto) 0.4 x10^3/uL (0.0-1.1) Eosinophils # (Auto) 0.0 x10^3/uL (0.0-0.7) Basophils # (Auto) 0.0 x10^3/uL (0.0-0.2) Segmented Neutrophils % 67 % (35-66) Band Neutrophils % 3 % (0-9) Lymphocytes % 21 % (24-48) Monocytes % 8 % (0-10) Myelocytes % 1 % (0-0) Platelet Estimate Adequate (ADEQUATE) Poikilocytosis Slight Anisocytosis Slight Ovalocytes Few Sodium Level 135 mmol/L (136-145) Potassium Level 4.4 mmol/L (3.5-5.1) Chloride Level 101 mmol/L (98-107) Carbon Dioxide Level 26 mmol/L (21-32) Anion Gap 8 (6-14) Blood Urea Nitrogen 14 mg/dL (8-26) Creatinine 0.6 mg/dL (0.7-1.3) Estimated GFR (Cockcroft-Gault) 137.9 BUN/Creatinine Ratio 23 (6-20) Glucose Level 123 mg/dL (70-99) Lactic Acid Level 1.1 mmol/L (0.4-2.0) Calcium Level 8.4 mg/dL (8.5-10.1) Magnesium Level 1.9 mg/dL (1.8-2.4) Total Bilirubin 0.4 mg/dL (0.2-1.0) Aspartate Amino Transf (AST/SGOT) 26 U/L (15-37) Alanine Aminotransferase (ALT/SGPT) 21 U/L (16-63) Alkaline Phosphatase 139 U/L (46-116) Ammonia 61 mcmol/L (11-34) Creatine Kinase 55 U/L (39-308) Total Protein 7.7 g/dL (6.4-8.2) Albumin 3.8 g/dL (3.4-5.0) Albumin/Globulin Ratio 1.0 (1.0-1.7) Phenytoin (Dilantin) Level 8.8 mcg/mL (10.0-20.0) Phenytoin Last Dose Date 08/27/2021 Phenytoin Last Dose Time 1111 Urine Collection Type Unknown Urine Color Yellow Urine Clarity Clear Urine pH 7.0 (<5.0-8.0) Urine Specific [place] 1.015 (1.000-1.030) Urine Protein Negative mg/dL (NEG-TRACE) Urine Glucose (UA) Negative mg/dL (NEG) Urine Ketones (Stick) Negative mg/dL (NEG) Urine Blood Negative (NEG) Urine Nitrite Negative (NEG) Urine Bilirubin Negative (NEG) Urine Urobilinogen Dipstick 1.0 mg/dL (0.2 mg/dL) Urine Leukocyte Esterase Negative (NEG) Urine RBC 0 /HPF (0-2) Urine WBC 0 /HPF (0-4) Urine Bacteria 0 /HPF (0-FEW) Laboratory Tests Test 09/04/21 14:00 09/04/21 15:15 White Blood Count 3.6 x10^3/uL (4.0-11.0) Red Blood Count 3.92 x10^6/uL (4.30-5.70) Hemoglobin 11.9 g/dL (13.0-17.5) Hematocrit 34.9 % (39.0-53.0) Mean Corpuscular Volume 89 fL (79-100) Mean Corpuscular Hemoglobin 30 pg (25-35) Mean Corpuscular Hemoglobin Concent 34 g/dL (31-37) Red Cell Distribution Width 17.9 % (11.5-14.5) Platelet Count 182 x10^3/uL (140-400) Neutrophils (%) (Auto) 66 % (31-73) Lymphocytes (%) (Auto) 21 % (24-48) Monocytes (%) (Auto) 12 % (0-9) Eosinophils (%) (Auto) 0 % (0-3) Basophils (%) (Auto) 0 % (0-3) Neutrophils # (Auto) 2.4 x10^3/uL (1.8-7.7) Lymphocytes # (Auto) 0.8 x10^3/uL (1.0-4.8) Monocytes # (Auto) 0.4 x10^3/uL (0.0-1.1) Eosinophils # (Auto) 0.0 x10^3/uL (0.0-0.7) Basophils # (Auto) 0.0 x10^3/uL (0.0-0.2) Segmented Neutrophils % 67 % (35-66) Band Neutrophils % 3 % (0-9) Lymphocytes % 21 % (24-48) Monocytes % 8 % (0-10) Myelocytes % 1 % (0-0) Platelet Estimate Adequate (ADEQUATE) Poikilocytosis Slight Anisocytosis Slight Ovalocytes Few Sodium Level 135 mmol/L (136-145) Potassium Level 4.4 mmol/L (3.5-5.1) Chloride Level 101 mmol/L (98-107) Carbon Dioxide Level 26 mmol/L (21-32) Anion Gap 8 (6-14) Blood Urea Nitrogen 14 mg/dL (8-26) Creatinine 0.6 mg/dL (0.7-1.3) Estimated GFR (Cockcroft-Gault) 137.9 BUN/Creatinine Ratio 23 (6-20) Glucose Level 123 mg/dL (70-99) Lactic Acid Level 1.1 mmol/L (0.4-2.0) Calcium Level 8.4 mg/dL (8.5-10.1) Magnesium Level 1.9 mg/dL (1.8-2.4) Total Bilirubin 0.4 mg/dL (0.2-1.0) Aspartate Amino Transf (AST/SGOT) 26 U/L (15-37) Alanine Aminotransferase (ALT/SGPT) 21 U/L (16-63) Alkaline Phosphatase 139 U/L (46-116) Ammonia 61 mcmol/L (11-34) Creatine Kinase 55 U/L (39-308) Total Protein 7.7 g/dL (6.4-8.2) Albumin 3.8 g/dL (3.4-5.0) Albumin/Globulin Ratio 1.0 (1.0-1.7) Phenytoin (Dilantin) Level 8.8 mcg/mL (10.0-20.0) Phenytoin Last Dose Date 08/27/2021 Phenytoin Last Dose Time 1111 Urine Collection Type Unknown Urine Color Yellow Urine Clarity Clear Urine pH 7.0 (<5.0-8.0) Urine Specific [place] 1.015 (1.000-1.030) Urine Protein Negative mg/dL (NEG-TRACE) Urine Glucose (UA) Negative mg/dL (NEG) Urine Ketones (Stick) Negative mg/dL (NEG) Urine Blood Negative (NEG) Urine Nitrite Negative (NEG) Urine Bilirubin Negative (NEG) Urine Urobilinogen Dipstick 1.0 mg/dL (0.2 mg/dL) Urine Leukocyte Esterase Negative (NEG) Urine RBC 0 /HPF (0-2) Urine WBC 0 /HPF (0-4) Urine Bacteria 0 /HPF (0-FEW) Medications Current Medications Lorazepam (Ativan Inj) 1 mg 1X ONCE IVP ; Start 09/04/21 at 13:45; Stop 09/04/21 at 13:50; Status DC Sodium Chloride 1,000 ml @ 1,000 mls/hr 1X ONCE IV Last administered on 09/04/21at 14:14; Start 09/04/21 at 13:45; Stop 09/04/21 at 14:44; Status DC Lactulose (Lactulose) 20 gm 1X ONCE PO ; Start 09/04/21 at 16:00; Stop 09/04/21 at 16:01; Status DC Sodium Chloride 1,000 ml @ 75 mls/hr 1X ONCE IV Last administered on 09/05/21at 00:12; Start 09/04/21 at 16:00; Stop 09/05/21 at 05:19; Status DC Phenytoin Sodium (Dilantin) 200 mg QAM PO Last administered on 09/05/21at 08:55; Start 09/05/21 at 09:00 Phenytoin Sodium (Dilantin) 300 mg HS PO Last administered on 09/05/21at 00:13; Start 09/04/21 at 21:00 Lacosamide (Vimpat) 200 mg BID PO Last administered on 09/05/21at 08:54; Start 09/04/21 at 21:00 Pregabalin (Lyrica) 225 mg BID PO Last administered on 09/05/21at 08:55; Start 09/04/21 at 21:00 Levetiracetam (Keppra) 1,500 mg BID PO Last administered on 09/05/21 08:55; Start 09/04/21 at 21:00 Clonazepam (KlonoPIN) 0.5 mg HS PO Last administered on 09/04/21at 21:31; Start 09/04/21 at 21:00 Bisacodyl (Dulcolax Tab) 10 mg PRN DAILY PRN PO CONSTIPATION; Start 09/04/21 at 22:30 Vitamin D (Vitamin D3) 500 unit 3X/WEEK PO Last administered on 09/05/21at 08:55; Start 09/05/21 at 09:00 Clonazepam (KlonoPIN) 0.5 mg HS PO ; Start 09/05/21 at 21:00; Status UNV Cyanocobalamin (Vitamin B-12) 500 mcg DAILY PO Last administered on 09/05/21 08:54; Start 09/05/21 at 09:00 Finasteride (Proscar) 5 mg DAILY PO Last administered on 09/05/21at 08:54; Start 09/05/21 at 09:00 Folic Acid (Folic Acid) 1 mg DAILY PO Last administered on 09/05/21 08:56; Start 09/05/21 at 09:00 Gemfibrozil (Lopid) 600 mg BID PO Last administered on 09/05/21 08:55; Start 09/05/21 at 09:00 Senna/Docusate Sodium (Senna Plus) 1 tab BID PO Last administered on 09/05/21 08:54; Start 09/05/21 at 09:00 Tamsulosin HCl (Flomax) 0.4 mg BIDWMEALS PO Last administered on 09/05/21 08:54; Start 09/05/21 at 08:00 Glycerin/ Hypromellose/ Polyethylene (Artificial Tears) 1 drop QID OU Last administered on 09/05/21 08:56; Start 09/05/21 at 09:00 Fluticasone Propionate (Flonase) 2 spray DAILY NS Last administered on 09/05/21 08:56; Start 09/05/21 at 09:00 Budesonide (Pulmicort) 0.5 mg RTBID NEB Last administered on 09/05/21at 06:23; Start 09/05/21 at 08:00 Multivitamins (Thera M Plus) 1 tab DAILY PO Last administered on 09/05/21at 08:54; Start 09/05/21 at 09:00 Pantoprazole Sodium (Protonix) 40 mg DAILYAC PO Last administered on 09/05/21at 08:54; Start 09/05/21 at 07:30 Non-Formulary Medication (Pregabalin (Lyrica)) 225 mg BID PO ; Start 09/05/21 at 09:00; Status UNV Active Scripts Active Vimpat (Lacosamide) 200 Mg Tablet 200 Mg PO BID 30 Days Dilantin (Phenytoin Sodium Extended) 100 Mg Capsule 300 Mg PO HS 30 Days Dilantin (Phenytoin Sodium Extended) 100 Mg Capsule 200 Mg PO QAM 30 Days Flomax (Tamsulosin Hcl) 0.4 Mg Cap.er.24h 0.4 Mg PO BIDWMEALS 30 Days Ibuprofen 800 Mg Tablet 800 Mg PO PRN TID PRN take with food or milk to avoid upsetting stomach Reported Vitamin D3 (Cholecalciferol (Vitamin D3)) 1,000 Unit Tablet 500 Unit PO 3X/WEEK Artificial Tears Drops (Dextran 70/Hypromellose/Pf) 1 Each Droperette 1 Drop OU QID Flovent 44MCG Hfa (Fluticasone Propionate) 10.6 Gm Aer.w.adap 1 Puff IH BID Bisacodyl 5 Mg Tablet.dr 10 Mg PO DAILY PRN Theragran-M Premier 50+ Caplet (Mv-Mn/Fa/Coq10/Lycopene/Lutein) 1 Each Tablet 1 Each PO DAILY Senokot-S Tablet (Sennosides/Docusate Sodium) 1 Each Tablet 1 Tab PO BID Levetiracetam 500 Mg Tablet 1,500 Mg PO BID Clonazepam (Clonazepam) 0.5 Mg Tablet 0.5 Mg PO HS Midodrine Hcl 10 Mg Tablet 10 Mg PO TID Gemfibrozil 600 Mg Tablet 1 Tab PO BID Vitamin B-12 (Cyanocobalamin (Vitamin B-12)) 1,000 Mcg Tablet 500 Mcg PO DAILY Folic Acid 1 Mg Tablet 1 Tab PO DAILY Flonase Allergy Relief (Fluticasone Propionate) 9.9 Ml Irene.susp 2 Sprays NS DAILY Finasteride 5 Mg Tablet 1 Tab PO DAILY Lyrica (Pregabalin) 225 Mg Capsule 225 Mg PO BID 30 Days Omeprazole 20 Mg Tablet.dr 1 Tab PO DAILY Vitals/I & O Vital Sign - Last 24 Hours 09/04/21 09/04/21 09/04/21 09/04/21 13:27 13:50 14:20 14:36 Temp 98.6 98.6 Pulse 77 80 77 78 Resp 18 B/P (MAP) 149/81 (103) Pulse Ox 98 96 95 99 O2 Delivery Room Air 09/04/21 09/04/21 09/04/21 09/04/21 15:06 15:36 19:30 20:30 Pulse 78 86 82 78 Pulse Ox 97 98 98 97 09/04/21 09/04/21 09/05/21 09/05/21 21:30 22:30 00:05 03:00 Temp 98.5 98.5 Pulse 78 75 78 Resp 18 B/P (MAP) 121/58 (79) Pulse Ox 98 98 O2 Delivery Room Air Room Air 09/05/21 09/05/21 06:23 07:00 Temp 99.0 99.0 Pulse 89 Resp 18 B/P (MAP) 128/79 (95) Pulse Ox 96 O2 Delivery Room Air Room Air Images CT scan of the head without contrast 09/04/2021 Clinical History: Seizures Technique: Unenhanced, contiguous, 5 mm axial sections were obtained through the head. One or more of the following individualized dose reduction techniques were utilized for this study: 1. Automated exposure control. 2. Adjustment of the mA and/or kV according to patient size. 3. Use of iterative reconstruction technique. Findings: Comparison study is dated 12/31/2020. There is generalized parenchymal atrophy. Areas of decreased attenuation are seen within the periventricular and subcortical white matter of both cerebral hemispheres consistent with areas of small vessel ischemic disease. No acute parenchymal abnormality is seen. No extra-axial fluid collection is noted. No skull fracture is seen. Moderate mucosal thickening is seen involving the visualized maxillary sinuses. Impression: No acute intracranial abnormality is seen. Justicifation of Admission Dx: Justifications for Admission: Justification of Admission Dx: Yes Comments: several breakthrough seizures RAFAEL MAIN MD Sep 05, 2021 10:25
[2021-09-05 11:00] VITALS: BP 115/62
--- NOTE | 2021-09-05 11:48 | NUR ---
SW following. Discussed with RN, pt from [facility], room air, cardiac diet. Discharge order for home with self care. RN trying to reach facility to have patient collected. SW will continue to follow.
--- NOTE | 2021-09-05 18:32 | HP ---
DATE OF SERVICE: 09/05/2021 ADMIT DATE: 09/04/2021 COMBINED HISTORY AND PHYSICAL AND DISCHARGE SUMMARY REASON FOR ADMISSION TO THE HOSPITAL: Seizures. CONSULTATION: Dr. Roy, Dr. Agudelo. PROCEDURE DONE: CT head. HISTORY OF PRESENT ILLNESS: The patient is a 61-year-old male with history of refractory seizures, is on 4 medications. He also has a vagal nerve stimulator and he had seizures at the care home and was brought to the hospital. Dilantin was low at 8 and the patient is taking Dilantin 400 mg, it was increased to 500 mg. The patient was seen by Neurology. The patient is on Vimpat 100 mg twice a day, it was increased to 200 b.i.d. He is also on Keppra 1500 twice a day, dosage not changed. The patient is also on Lyrica and clonazepam. The patient did well. No other procedures noted and the patient was discharged. OTHER PAST MEDICAL HISTORY: History of seizures, vagal nerve stimulator, BPH, anxiety, depression and orthostatic hypotension. PAST SURGICAL HISTORY: Vagal nerve stimulator. ALLERGIES: No known allergies. REVIEW OF SYMPTOMS: Denies any chest pain, shortness of breath. Rest of the 14 systems reviewed and negative. MEDICATIONS: At the care home as mentioned, the patient is on Dilantin 200 b.i.d., he is on Keppra 1500 twice a day and Lyrica 225 twice a day, Dulcolax 10 mg daily, vitamin D 1000 daily, clonazepam 0.5 at bedtime, B12 at 1000 mcg daily, finasteride 5 mg daily, Flonase daily, folic acid 1 mg daily, Lopid 600 mg twice a day, omeprazole 20 mg daily, senna 1 daily, Flomax 0.4 daily. PHYSICAL EXAMINATION: VITAL SIGNS: At the time of admission shows a temperature 98, pulse 78, respirations 18, blood pressure 121/58, O2 sat 96% on room air. HEENT: Head is atraumatic. Pupils equal. Oral cavity, no congestion. NECK: Supple. Thyroid not enlarged. JVD not elevated. CHEST: Symmetrical. CARDIOVASCULAR: S1, S2. LUNGS: Clear. ABDOMEN: Soft. No mass palpable. EXTERNAL GENITALIA: No Tom. RECTUM: Deferred. EXTREMITIES: No calf tenderness, no edema. NEUROLOGIC: Moving all extremities. No focal deficits are noted. LABORATORY DATA: Shows a white count of 3, hemoglobin 12, platelets 182. Electrolytes: Sodium 135, potassium 4.4, chloride 101, bicarbonate 26, BUN 14, creatinine 0.6, glucose 123. Lactic acid 1.1. LFTs normal. Ammonia 61. Urine negative. Dilantin 8. CT head negative for abnormality. FINAL IMPRESSION: 1. Refractory seizures. 2. The patient is on 4 medications already for seizures, also vagal nerve stimulator. 3. History of intellectual disability and lives in a care home. 4. Benign prostatic hyperplasia. 5. Anxiety. DISPOSITION: The patient is admitted overnight observation. Neurology was consulted. CT negative. Medication changed to Vimpat from 100 mg b.i.d. to 200 b.i.d., Dilantin from 400 mg to 500 mg daily. We will check the levels. RICHI/JENNIFER/LUZ MARIA DR: RICHI/suha TID: [id number]
[2021-09-05] MEDS ORDERED: clonazePAM 0.5 MG TABLET PO SCH (21:00)
== END 2021-09-05 12:50 | disposition home or self-care (01) ==
LOC: ER 13:27 → ED HOLD 16:46 → 5 NORTH 23:11
PROVIDERS: ADMIT Internal Medicine; ATTEND Internal Medicine
DX: R56.9 Unspecified convulsions (principal); F79 Unspecified intellectual disabilities; N40.1 Benign prostatic hyperplasia with lower urinary tract symptoms; I95.1 Orthostatic hypotension; J44.9 Chronic obstructive pulmonary disease, unspecified; F41.9 Anxiety disorder, unspecified; F31.9 Bipolar disorder, unspecified; F84.0 Autistic disorder; J32.9 Chronic sinusitis, unspecified; E78.00 Pure hypercholesterolemia, unspecified; E78.5 Hyperlipidemia, unspecified; D61.818 Other pancytopenia; E55.9 Vitamin D deficiency, unspecified; K21.9 Gastro-esophageal reflux disease without esophagitis; F03.90 Unspecified dementia, unspecified severity, without behavioral disturbance, psychotic disturbance, mood disturbance, and anxiety; Z90.49 Acquired absence of other specified parts of digestive tract; Z79.899 Other long term (current) drug therapy; Z98.890 Other specified postprocedural states; Z86.19 Personal history of other infectious and parasitic diseases
CPT/HCPCS: 36415; 70450; 80053; 80185; 81001; 82140; 82550; 83605; 83735; 85007; 85025; 87040; 94640; 96360; 96361; 99284; G0378; J7030; J7626; G0379